=== PATIENT | male | born 1950 | race Caucasian/White ===

== ENCOUNTER 2021-12-08 13:49 | Emergency (ER) | payer MEDICARE, SELFPAY ==
--- NOTE | ~2021-12-08 | CT_ITS ---
EXAMINATION: CT HEAD WITHOUT CONTRAST CLINICAL INFORMATION: Fall and hit head and patellofemoral through the wall COMPARISON: None TECHNIQUE: Contiguous axial imaging was performed from the skull base to vertex without intravenous administration of contrast. This CT examination was performed using dose optimization techniques as appropriate, variously including the following: *Automated exposure control *Adjustment of mA and/or kV according to patient size (this includes techniques or standardized protocols for targeted exams where dose is matched to indication/reason for exam; i.e. extremities or head) *Use of iterative reconstruction technique DLP: 822 mGy-cm FINDINGS: There is no acute intra-axial, extra-axial bleed, masses or midline shift. There is hypodensity in left posterior parietal lobe suggestive of old infarct. There is no acute infarct in evolution. There is no edema. The lateral ventricles are moderately enlarged and symmetrical. The right basal ganglia lacunar infarct. There is diffuse periventricular hypodensity suggestive chronic small vessel ischemic changes. 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 Bone windows reveal no calvarial abnormality except for 2 left-sided frontal and parietal will holes. No scalp abnormality seen either. There is small polyp or retention cyst left maxillary sinus. CT/CT head/brain wo con IMPRESSION: No acute intracranial process seen. Old left parietal lobe infarct. No acute infarct. Moderate cerebral volume loss with chronic small vessel ischemic changes. Small lacunar infarct right basal ganglia.
--- NOTE | 2021-12-08 13:54 | ED.FALL ---
HPI - Fall General Chief Complaint: Fall Stated Complaint: FALL NO COMPLAINTS FROM PT PER EMS Time Seen by Provider: 12/08/21 13:54 Source: EMS Mode of arrival: EMS Limitations: other (dementia) History of Present Illness HPI Narrative: Patient is in a dementia unit states he tripped over his shoes and can not get back up. senior care states now that he put a hole in the wall with his head. According to the staff his legs are chronically red. complaint: fall Onset (ago): minute(s) Fall from: standing Fall witnessed: no Place fall occurred: [facility] Loss of consciousness: none Prolonged down time: no Symptoms prior to fall: none Context: tripped/slipped Related Data Allergies Allergy/AdvReac Type Severity Reaction Status Date / Time No Known Allergies Allergy Verified 12/08/21 14:14 Review of Systems Review of Systems: Yes Unobtainable due to mental status Neurologic: Denies Sensory deficit (Neuro) [facility] Social History Social History Patient Tobacco Use Status: Never used Tobacco Use of substances other than those prescribed or required for medical reasons: No Advance Directives: No Advance Directives Information Provided: No Physical Exam Vital Signs: Vital Signs: Last Vital Signs Temp 97.6 F 12/08/21 14:14 Pulse 64 12/08/21 14:14 Resp 18 12/08/21 14:14 BP 111/57 L 12/08/21 14:14 Pulse Ox 97 12/08/21 14:14 BMI result Body Mass Index 33.2 Const: Other: Male looking older than stated age Nutritional Appearance: average body habitus Orientation/consciousness: oriented to person Limitations: other limitations (dementia) HENMT: Head: Yes normal to inspection Ears: external ears normal General nose exam: Normal external nose present Mouth: Normal oral and palatal mucosa present and oropharynx normal Throat: Yes posterior oropharynx normal Eyes: General: appearance normal, both eyes and all related structures Neck: Other: supple Neck: Yes normal visual inspection Chest: Chest palpation & inspection: normal inspection of the chest Resp: Auscultation: clear to auscultation bilaterally Cardio: Jugular venous distension: no JVD Rate: regular rate Rhythm: regular rhythm Heart sounds: S1 normal heart sound present and S2 normal heart sound present GI: Inspection: Yes normal to inspection Palpation (GI): Soft to palpation, nontender and No hepatosplenomegaly present Auscultation: normal bowel sounds : General: Yes no CVA tenderness Back/Spine/Pelvis: Back: no CVA tenderness Skin: General skin exam: no rashes or lesions noted Neuro: General: oriented to person Cranial nerves: Yes CN's II-XII intact bilaterally Motor exam (neuro): 5/5 motor strength present throughout Sensory Exam: No Sensory deficit (Neuro) Extrem: Other: bilateral lower extremity 3+ edema with chronic erythema according to report from [facility] Psych: Other: unkept, agitated at times Course Reevaluation(s) Reevaluation #1: no evidence of intracranial injury or other injuries from fall will dc Time: 16:29 MDM - Fall Imaging Data CT scan - head: Radiologist's impression: FINDINGS: There is no acute intra-axial, extra-axial bleed, masses or midline shift.? There is hypodensity in left posterior parietal lobe suggestive of old infarct. There is no acute infarct in evolution. There is no edema. The lateral ventricles are moderately enlarged and symmetrical. The right basal ganglia lacunar infarct. There is diffuse periventricular hypodensity suggestive chronic small vessel ischemic changes. 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 Bone windows reveal no calvarial abnormality except for 2 left-sided frontal and parietal will holes. No scalp abnormality seen either. There is small polyp or retention cyst left maxillary sinus. CT/CT head/brain wo con IMPRESSION: No acute intracranial process seen. ? Old left parietal lobe infarct. No acute infarct. ? Moderate cerebral volume loss with chronic small vessel ischemic changes. ? Small lacunar infarct right basal ganglia. Discharge Plan Discharge Clinical Impression: Blunt head trauma Patient Disposition: Home, Self-Care Instructions: Head Injury (ED) Referrals: Arturo Mcgee MD [Primary Care Provider] - 1 week
[2021-12-08 14:14] VITALS: BP 111/57; PULSE 64; RESP 18; TEMP 36.4; O2SAT 97; BMI 33.2
--- NOTE | 2021-12-08 17:25 | PC.NURSE ---
Spoke with Andressa from [facility] about pt return and negative CT
[2021-12-08 18:48] VITALS: BP 143/78; PULSE 64; RESP 16; O2SAT 100
[2021-12-08 19:58] VITALS: BP 146/86; PULSE 67; RESP 16; O2SAT 97
== END 2021-12-08 20:19 | disposition home or self-care (01) ==
PROVIDERS: Emergency Provider Emergency Medicine; PCP Family Medicine
DX: S09.90XA Unspecified injury of head, initial encounter (principal); W01.198A Fall on same level from slipping, tripping and stumbling with subsequent striking against other object, initial encounter; F03.90 Unspecified dementia, unspecified severity, without behavioral disturbance, psychotic disturbance, mood disturbance, and anxiety; R60.0 Localized edema; Y93.89 Activity, other specified; Y92.129 Unspecified place in nursing home as the place of occurrence of the external cause; Y99.9 Unspecified external cause status
CPT/HCPCS: 70450; 99284

== ENCOUNTER 2022-02-26 12:06 | Emergency (ER) | payer MEDICARE, SELFPAY ==
--- NOTE | ~2022-02-26 | CT_ITS ---
CT HEAD WITHOUT IV CONTRAST CT CERVICAL SPINE WITHOUT IV CONTRAST INDICATION: Fall. COMPARISON: None available. TECHNIQUE: Multidetector CT acquisitions of the head and cervical spine were obtained without IV contrast. Multiplanar reformats were acquired and utilized for image interpretation. This CT examination was performed using dose optimization techniques as appropriate, variously including the following: *Automated exposure control *Adjustment of mA and/or kV according to patient size (this includes techniques or standardized protocols for targeted exams where dose is matched to indication/reason for exam; i.e. extremities or head) *Use of iterative reconstruction technique FINDINGS: HEAD: Artifact from embolization coil material and a stent associated with the intracranial left internal carotid artery. Chronic ischemic changes within the left greater the right cerebral hemisphere again noted. Atherosclerotic calcification throughout the intracranial arterial vasculature. There is global cerebral volume loss. There is no intracranial hemorrhage, hydrocephalus, extra-axial surface collection, midline shift, or other herniation pattern. Mora to white matter differentiation is diffusely maintained without evidence of an evolved acute territorial infarct. The basilar cisterns are preserved. Left occipital scalp lipoma partially imaged. CERVICAL SPINE: Multilevel cervical spondylosis. Straightening the cervical lordosis. No acute fractures and no acute subluxations. 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 Multinodular thyroid gland including a dominant calcified 1.8 cm left thyroid lobe nodule that can be further assessed with ultrasound. CT/CT cervical spine wo con IMPRESSION: - No acute intracranial findings. Chronic postoperative changes and chronic ischemic changes as discussed above. - No acute osseous findings within the cervical spine. - Multinodular thyroid gland including a dominant calcified 1.8 cm left thyroid lobe nodule that can be further assessed with ultrasound.
--- NOTE | ~2022-02-26 | US_ITS ---
EXAMINATION: US VENOUS ULTRASOUND WITH DOPPLER LOWER EXTREMITY, RIGHT CLINICAL INFORMATION: Warm, hot calf. COMPARISON: None TECHNIQUE: Ultrasound of the deep veins is performed from the hip to the calf with compression sonography and color and pulse Doppler assessment. Spectral analysis with color-flow imaging is performed. FINDINGS: There is normal venous compression and respiratory variation and augmented flow. The visualized common femoral vein, superficial femoral vein, profunda femoral vein, popliteal vein, and the trifurcation region shows no evidence of deep venous thrombosis. No right popliteal cyst. Moderate right calf subcutaneous edema. No focal fluid collection. If the patient's symptoms persist, followup ultrasound in 5 days 7 days might be of value to exclude proximal propagation from a non-visualized calf vein. US/US venous duplex LE RT IMPRESSION: 1. No DVT demonstrated in the right lower extremity. 2. Moderate right calf subcutaneous edema.
[2022-02-26 12:30] VITALS: BP 109/57; BP 110/70; PULSE 62; PULSE 72; RESP 16; TEMP 36.9; O2SAT 96; BMI 32.7
--- NOTE | 2022-02-26 12:35 | ED.GENADULT ---
HPI - General Adult General Chief complaint: Fall <CATHRYN Siddiqui Last Filed: 02/26/22 18:02> Stated complaint: fall <CATHRYN Siddiqui Last Filed: 02/26/22 18:02> Time Seen by Provider: 02/26/22 12:34 <CATHRYN Siddiqui Last Filed: 02/26/22 18:02> Source: patient <CATHRYN Siddiqui Last Filed: 02/26/22 18:02> Mode of arrival: ambulatory <CATHRYN Siddiqui Last Filed: 02/26/22 18:02> Limitations: no limitations <CATHRYN Siddiqui Last Filed: 02/26/22 18:02> History of Present Illness HPI narrative: 71-year-old male presents from his senior living for fall. Patient lives at [facility]. Staff there say he fell in the living room, did not strike his head, did not lose consciousness. Patient is not endorsing any pain, he is not on blood thinners. Patient's past medical history of dementia, hypertension, hyperlipidemia, diabetes, venous stasis, anxiety, depression, obstructive sleep apnea. He has a MOLST, and is DNR DNI <CATHRYN Siddiqui Last Filed: 02/26/22 18:02> Related Data Home medications: Previous Rx's Medication Instructions Recorded cephalexin 500 mg capsule 500 mg PO QID 10 Days #40 cap 02/26/22 <CATHRYN Siddiqui Last Filed: 02/26/22 18:02> Allergies/adverse reactions: Allergies Allergy/AdvReac Type Severity Reaction Status Date / Time No Known Allergies Allergy Verified 12/08/21 14:14 <CATHRYN Siddiqui Last Filed: 02/26/22 18:02> Review of Systems Review of Systems: Patient does give me a review of systems, however he has a history of dementia, unclear the accuracy of this review of systems <CATHRYN Siddiqui Last Filed: 02/26/22 18:02> Constitutional: Constitutional: Denies chills, Denies fatigue, Denies fever(s) and Denies headache(s) <CATHRYN Siddiqui Last Filed: 02/26/22 18:02> Eyes: Eyes: Denies blurry vision <CATHRYN Siddiqui - Last Filed: 02/26/22 18:02> ENT: Denies dental pain, Denies facial pain, Denies headache(s), Denies mouth pain and Denies neck pain <Cari Toure CO - Last Filed: 02/26/22 18:02> Cardiovascular: Cardiovascular: Denies chest pain, Denies syncope and Denies lightheadedness <Cari Toure CO - Last Filed: 02/26/22 18:02> Respiratory: Respiratory: Denies chest congestion, Denies cough and Denies wheezing <Cari Toure CO - Last Filed: 02/26/22 18:02> Gastrointestinal: Gastrointestinal: Denies abdominal pain, Denies diarrhea and Denies vomiting <CATHRYN Siddiqui - Last Filed: 02/26/22 18:02> Genitourinary: Genitourinary: Reports no additional male genitourinary complaints <CATHRYN Siddiqui - Last Filed: 02/26/22 18:02> Musculoskeletal: Musculoskeletal: Denies back pain, Denies neck pain, Denies numbness and Denies tingling <Cari Toure CO - Last Filed: 02/26/22 18:02> Integumentary/Breasts: Skin/Breast: Denies skin pain <CATHRYN Siddiqui - Last Filed: 02/26/22 18:02> Neurologic: Reports confusion, Denies syncope, Denies headache(s), Denies numbness and Denies tingling <CATHRYN Siddiqui - Last Filed: 02/26/22 18:02> Psychiatric: Psychiatric: Reports confusion <Cari Toure CO - Last Filed: 02/26/22 18:02> Endocrine: Endocrine: Denies fatigue <Cari Toure CO - Last Filed: 02/26/22 18:02> Allergic/Immunologic: Allergic/Immunologic: Denies wheezing <CATHRYN Siddiqui - Last Filed: 02/26/22 18:02> [facility] Past Medical History [facility] Narrative: Dementia, hypertension, hyperlipidemia, diabetes, venous stasis, obstructive sleep apnea, anxiety, depression <CATHRYN Siddiqui - Last Filed: 02/26/22 18:02> Social History Social History: Social History Alcohol intake: unknown Patient Tobacco Use Status: Never used Tobacco Use of substances other than those prescribed or required for medical reasons: Unknown Advance Directives: Yes Advance Directives Information Provided: Yes Advance Directives on File: No <CATHRYN Siddiqui Last Filed: 02/26/22 18:02> Physical Exam ED Vital Signs: Vital Signs - 24 hr 02/26/22 12:30 02/26/22 16:20 02/26/22 17:12 Temperature 98.5 F 98.1 F Pulse Rate 62 63 63 Respiratory Rate 16 17 20 Blood Pressure 109/57 L 130/71 Pulse Oximetry 96 96 BMI result Body Mass Index 32.7 <CATHRYN Siddiqui Last Filed: 02/26/22 18:02> Vital Signs - 24 hr 02/26/22 12:30 02/26/22 16:20 02/26/22 17:12 Temperature 98.5 F 98.1 F Pulse Rate 62 63 63 Respiratory Rate 16 17 20 Blood Pressure 109/57 L 130/71 Pulse Oximetry 96 96 BMI result Body Mass Index 32.7 <CATHRYN Blank - Last Filed: 02/26/22 18:49> Const General: cooperative, no acute distress, alert, awake and confusion <CATHRYN Siddiqui Last Filed: 02/26/22 18:02> Nutritional Appearance: well nourished <CATHRYN Siddiqui - Last Filed: 02/26/22 18:02> Orientation/consciousness: oriented to person, oriented to place, No oriented to time and confusion <CATHRYN Siddiqui Last Filed: 02/26/22 18:02> HENMT Head: Yes normal to inspection, Yes normocephalic and Yes atraumatic <CATHRYN Siddiqui - Last Filed: 02/26/22 18:02> Ears: hearing grossly normal bilaterally, external ears normal, TM's normal bilaterally and EAC's normal <CATHRYN Siddiqui Last Filed: 02/26/22 18:02> General nose exam: Normal external nose present <CATHRYN Siddiqui Last Filed: 02/26/22 18:02> Face and sinus: Yes normal facial exam and Yes sinuses nontender <Cari Toure [facility] Last Filed: 02/26/22 18:02> Mouth: Normal oral and palatal mucosa present <Cari Toure [facility] Last Filed: 02/26/22 18:02> Teeth and gingiva: dentition normal <Cari Toure [facility] Last Filed: 02/26/22 18:02> Throat: Yes posterior oropharynx normal <Cari Toure [facility] Last Filed: 02/26/22 18:02> Eyes Conjunctivae: conjunctivae normal <Cari Toure [facility] Last Filed: 02/26/22 18:02> Pupils: Equal, round and reactive pupils present <Cari Toure [facility] Last Filed: 02/26/22 18:02> EOM: EOMs intact bilaterally <Cari Toure [facility] Last Filed: 02/26/22 18:02> Neck Other: Patient in C-collar <Cari Toure [facility] Last Filed: 02/26/22 18:02> Neck: Yes supple <Cari Toure [facility] Last Filed: 02/26/22 18:02> Chest Chest palpation & inspection: normal inspection of the chest <Cari Toure [facility] Last Filed: 02/26/22 18:02> Resp Effort & Inspection: normal respiratory effort and able to speak in complete sentences <Cari Toure [facility] Last Filed: 02/26/22 18:02> Auscultation: clear to auscultation bilaterally, no crackles, no rales, no rhonchi and no wheezes <Cari Toure [facility] Last Filed: 02/26/22 18:02> Cardio Rate: regular rate <Cari Toure [facility] Last Filed: 02/26/22 18:02> Rhythm: regular rhythm <Cari Toure [facility] Last Filed: 02/26/22 18:02> Heart sounds: S1 normal heart sound present and S2 normal heart sound present <Cari Toure [facility] Last Filed: 02/26/22 18:02> GI Inspection: Yes normal to inspection <Cari Toure [facility] Last Filed: 02/26/22 18:02> Palpation (GI): Soft to palpation, nontender, no guarding and not rigid <CATHRYN Siddiqui Last Filed: 02/26/22 18:02> Percussion: Yes normal to percussion <CATHRYN Siddiqui Last Filed: 02/26/22 18:02> Auscultation: normal bowel sounds <CATHRYN Siddiqui Last Filed: 02/26/22 18:02> Skin Other: Warm, red, peeling skin right lower extremity Red rash below pannus in inguinal crease right side worse than left <CATHRYN Siddiqui Last Filed: 02/26/22 18:02> Neuro General: oriented to person, oriented to place, No oriented to time, tone normal, moves all extremities and confusion <CATHRYN Siddiqui Last Filed: 02/26/22 18:02> Cranial nerves: Yes Equal, round and reactive pupils present <CATHRYN Siddiqui Last Filed: 02/26/22 18:02> Extrem Right lower extremity: normal capillary refill, edema Details: non-pitting and 2+, lower leg Details: erythema, tenderness, localized swelling and warmth and foot Details: normal capillary refill; No no cyanosis <CATHRYN Siddiqui Last Filed: 02/26/22 18:02> Psych Appearance: grossly normal <CATHRYN Siddiqui Last Filed: 02/26/22 18:02> Affect: normal affect <CATHRYN Siddiqui Last Filed: 02/26/22 18:02> Attitude: cooperative <CATHRYN Siddiqui Last Filed: 02/26/22 18:02> Thought process: Normal thought process present <CATHRYN Siddiqui Last Filed: 02/26/22 18:02> Course Course Course Narrative: 71-year-old male with past medical history of dementia, venous stasis, diabetes, who presents from a senior living for a fall in their living room. Patient gives a negative review of systems, however patient has dementia, unclear how accurate this information is. On exam, patient has a benign neurological exam, he is afebrile, blood pressure 109/57. Patient is alert to person and place, not to time. States he fell in the shower, senior living says he fell in the living room Patient has a right, warm, swollen, tender calf. It is will get EKG, troponin, urine, labs, CT head and cervical spine, ultrasound right lower extremity Patient denies any pain, although he is bothered by his C-collar <CATHRYN Siddiqui - Last Filed: 02/26/22 18:02> Reevaluation(s) Reevaluation #1: Patient is refusing blood work, and took off his C-collar Patient is refusing EKG, refusing ultrasound Called Eusebia Lowery, the contact in patient's chart, left a voicemail message Our payroll secretary called the senior living left a voicemail message I spoke with patient again, discussed that the longer he refuses care, the longer will take to get him back home. Patient finally agreed Patient given 10 mg Zyprexa <CATHRYN Siddiqui Last Filed: 02/26/22 18:02> Reevaluation #2: CT/CT cervical spine wo con IMPRESSION: - No acute intracranial findings. Chronic postoperative changes and chronic ischemic changes as discussed above. - No acute osseous findings within the cervical spine. - Multinodular thyroid gland including a dominant calcified 1.8 cm left thyroid lobe nodule that can be further assessed with ultrasound. Spoke to Eusebia Lowery patient's guardian, who states patient has a negative attitude about everything at baseline. States that patient fell a few months ago, and had to stay in the emergency room for a day or 2, and the patient did like that. She also states that the patient is scared of needles. Spoke to Sarika, who called back, told me Eusebia who is his guardian is also his cousin in healthcare proxy. Stated that patient is resistant to all care, resistant to showering, resistant to tooth brushing, even hard to change amount of a white brief. Patient is in a dementia unit in assisted living, he wants to get his own apartment but is incapable of doing so. February 05 patient was on a 10 day course that he completed for cellulitis of his right lower extremity. Sarika states that the cellulitis is no worse but not a lot better <CATHRYN Siddiqui Last Filed: 02/26/22 18:02> Reevaluation #3: Labs are remarkable for an H&H of 9.6 and 29.9, platelets 124, creatinine 1.78, BUN 42, patient is hyperkalemic at 6.1. Will repeat BNP, concern for potassium hemolyzing EKG is nonischemic, troponin 6.3 Awaiting urine, ultrasound <CATHRYN Siddiqui - Last Filed: 02/26/22 18:02> Additional Reevaluation(s): US/US venous duplex LE RT IMPRESSION: 1. No DVT demonstrated in the right lower extremity. 2. Moderate right calf subcutaneous edema. Will treat hyperkalemia with albuterol and kayexalate, and repeat BMP afterwards Urine has +1 leukocyte esterase. Patient also has a cellulitis that needs antibiotics. Cephalexin will treat both. I did order to the pharmacy. Signed pt out to Paz Mccall PA-C If pt's potassium is trending down, pt can most likely be discharged bck to [facility] <CATHRYN Siddiqui - Last Filed: 02/26/22 18:02> US/US venous duplex LE RT IMPRESSION: 1. No DVT demonstrated in the right lower extremity. 2. Moderate right calf subcutaneous edema. Will treat hyperkalemia with albuterol and kayexalate, and repeat BMP afterwards Urine has +1 leukocyte esterase. Patient also has a cellulitis that needs antibiotics. Cephalexin will treat both. I did order to the pharmacy. Signed pt out to Paz Mccall PA-C If pt's potassium is trending down, pt can most likely be discharged back to assisted living 1849: Patient's potassium has come down. Patient to be discharged back to his living facility. <CATHRYN Blank - Last Filed: 02/26/22 18:49> Medical Decision Making Lab Data Result diagrams: : 02/26/22 14:57 02/26/22 18:12 <CATHRYN Siddiqui Last Filed: 02/26/22 18:02> Labs: Lab Results 02/26/22 02/26/22 02/26/22 Range/Units 14:57 14:57 14:57 WBC 7.7 (4.8-10.8) X10*3/uL RBC 2.99 L (4.60-5.80) X10*6/uL Hgb 9.6 L (14.0-18.0) g/dl Hct 29.9 L (42.0-52.0) % MCV 100.0 H (80.0-98.0) fL MCH 32.1 (27.0-33.0) pg MCHC 32.1 (31.0-36.0) g/dl RDW 12.5 (11.0-16.0) % Plt Count 124 L (160-400) X10*3/uL MPV 11.5 (9.4-12.4) fL Immature Gran % (Auto) 0.3 (0.0-0.4) % Neut % (Auto) 78.6 H (45-73) % Lymph % (Auto) 10.5 L (20-40) % [place] % (Auto) 8.4 (2-11) % Eos % (Auto) 1.8 (0-4) % Baso % (Auto) 0.4 (0-2) % Lymph # (Auto) 0.8 L (1.2-4.9) X10*3/uL [place] # (Auto) 0.7 (0.1-1.2) X10*3/uL Eos # (Auto) 0.1 (0.0-0.4) X10*3/uL Baso # (Auto) 0.0 (0.0-0.2) X10*3/uL Abs Immat Gran (auto) 0.02 (0.00-0.03) X10*3/uL Absolute Neuts (auto) 6.1 (2.0-8.3) x10*3/uL Absolute Nucleated RBC 0.000 (0.0-0.012) X10*3/uL Nucleated RBC % (auto) 0.0 (0.0-0.2) /100WBC Sodium 137 (135-145) mmol/L Potassium 6.1 H* (3.3-5.1) mmol/L Chloride 113 H (96-108) mmol/L Carbon Dioxide 20 L (22-29) mmol/L Anion Gap 10 L (12-20) BUN 42 H (9-16) mg/dL Creatinine 1.78 H (0.5-1.4) mg/dL Estim Creat Clear Calc 41.8 Estimated GFR 38 Random Glucose 96 (60-115) mg/dL Calcium 8.9 (8.4-10.2) mg/dL Total Bilirubin 0.7 (0.0-1.0) mg/dL AST 14 (5-37) U/L ALT 15 (0-40) U/L Alkaline Phosphatase 80 (39-117) U/L Troponin I High Sens 6.3 (<3.5-35.0) ng/L Total Protein 6.1 L (6.5-8.0) g/dL Albumin 3.7 (3.5-5.0) g/dL Urine Color Urine Appearance Urine pH (5.0-8.0) Ur Specific Hawkins (1.005-1.025) Urine Protein (NEG-TRACE) MG/DL Urine Glucose (UA) (NEG) MG/DL Urine Ketones (NEG) MG/DL Urine Blood (NEG) Urine Nitrite (NEG) Ur Leukocyte Esterase (NEG) Urine RBC (0) /HPF Urine WBC (0-4) /HPF Ur Squamous Epith Cells /LPF Urine Bacteria /LPF COVID-19 (KHADRA) (Negative) COVID-19 Clin Com 02/26/22 02/26/22 02/26/22 Range/Units 15:53 16:36 18:12 WBC (4.8-10.8) X10*3/uL RBC (4.60-5.80) X10*6/uL Hgb (14.0-18.0) g/dl Hct (42.0-52.0) % MCV (80.0-98.0) fL MCH (27.0-33.0) pg MCHC (31.0-36.0) g/dl RDW (11.0-16.0) % Plt Count (160-400) X10*3/uL MPV (9.4-12.4) fL Immature Gran % (Auto) (0.0-0.4) % Neut % (Auto) (45-73) % Lymph % (Auto) (20-40) % [place] % (Auto) (2-11) % Eos % (Auto) (0-4) % Baso % (Auto) (0-2) % Lymph # (Auto) (1.2-4.9) X10*3/uL [place] # (Auto) (0.1-1.2) X10*3/uL Eos # (Auto) (0.0-0.4) X10*3/uL Baso # (Auto) (0.0-0.2) X10*3/uL Abs Immat Gran (auto) (0.00-0.03) X10*3/uL Absolute Neuts (auto) (2.0-8.3) x10*3/uL Absolute Nucleated RBC (0.0-0.012) X10*3/uL Nucleated RBC % (auto) (0.0-0.2) /100WBC Sodium 140 (135-145) mmol/L Potassium 4.9 (3.3-5.1) mmol/L Chloride 113 H (96-108) mmol/L Carbon Dioxide 19 L (22-29) mmol/L Anion Gap 13 (12-20) BUN 38 H (9-16) mg/dL Creatinine 1.67 H (0.5-1.4) mg/dL Estim Creat Clear Calc 44.6 Estimated GFR 41 Random Glucose 134 H D (60-115) mg/dL Calcium 9.1 (8.4-10.2) mg/dL Total Bilirubin (0.0-1.0) mg/dL AST (5-37) U/L ALT (0-40) U/L Alkaline Phosphatase (39-117) U/L Troponin I High Sens (<3.5-35.0) ng/L Total Protein (6.5-8.0) g/dL Albumin (3.5-5.0) g/dL Urine Color YELLOW Urine Appearance CLEAR Urine pH 5.5 (5.0-8.0) Ur Specific Hawkins 1.020 (1.005-1.025) Urine Protein NEG (NEG-TRACE) MG/DL Urine Glucose (UA) NEG (NEG) MG/DL Urine Ketones 5 (NEG) MG/DL Urine Blood NEG (NEG) Urine Nitrite NEG (NEG) Ur Leukocyte Esterase 1+ H (NEG) Urine RBC 0 (0) /HPF Urine WBC 1-4 (0-4) /HPF Ur Squamous Epith Cells 1+ /LPF Urine Bacteria TRACE /LPF COVID-19 (KHADRA) Negative (Negative) COVID-19 Clin Com See Note <CATHRYN Siddiqui - Last Filed: 05/13/22 18:02> Lab Results 02/26/22 02/26/22 02/26/22 Range/Units 14:57 14:57 14:57 WBC 7.7 (4.8-10.8) X10*3/uL RBC 2.99 L (4.60-5.80) X10*6/uL Hgb 9.6 L (14.0-18.0) g/dl Hct 29.9 L (42.0-52.0) % MCV 100.0 H (80.0-98.0) fL MCH 32.1 (27.0-33.0) pg MCHC 32.1 (31.0-36.0) g/dl RDW 12.5 (11.0-16.0) % Plt Count 124 L (160-400) X10*3/uL MPV 11.5 (9.4-12.4) fL Immature Gran % (Auto) 0.3 (0.0-0.4) % Neut % (Auto) 78.6 H (45-73) % Lymph % (Auto) 10.5 L (20-40) % [place] % (Auto) 8.4 (2-11) % Eos % (Auto) 1.8 (0-4) % Baso % (Auto) 0.4 (0-2) % Lymph # (Auto) 0.8 L (1.2-4.9) X10*3/uL [place] # (Auto) 0.7 (0.1-1.2) X10*3/uL Eos # (Auto) 0.1 (0.0-0.4) X10*3/uL Baso # (Auto) 0.0 (0.0-0.2) X10*3/uL Abs Immat Gran (auto) 0.02 (0.00-0.03) X10*3/uL Absolute Neuts (auto) 6.1 (2.0-8.3) x10*3/uL Absolute Nucleated RBC 0.000 (0.0-0.012) X10*3/uL Nucleated RBC % (auto) 0.0 (0.0-0.2) /100WBC Sodium 137 (135-145) mmol/L Potassium 6.1 H* (3.3-5.1) mmol/L Chloride 113 H (96-108) mmol/L Carbon Dioxide 20 L (22-29) mmol/L Anion Gap 10 L (12-20) BUN 42 H (9-16) mg/dL Creatinine 1.78 H (0.5-1.4) mg/dL Estim Creat Clear Calc 41.8 Estimated GFR 38 Random Glucose 96 (60-115) mg/dL Calcium 8.9 (8.4-10.2) mg/dL Total Bilirubin 0.7 (0.0-1.0) mg/dL AST 14 (5-37) U/L ALT 15 (0-40) U/L Alkaline Phosphatase 80 (39-117) U/L Troponin I High Sens 6.3 (<3.5-35.0) ng/L Total Protein 6.1 L (6.5-8.0) g/dL Albumin 3.7 (3.5-5.0) g/dL Urine Color Urine Appearance Urine pH (5.0-8.0) Ur Specific Hawkins (1.005-1.025) Urine Protein (NEG-TRACE) MG/DL Urine Glucose (UA) (NEG) MG/DL Urine Ketones (NEG) MG/DL Urine Blood (NEG) Urine Nitrite (NEG) Ur Leukocyte Esterase (NEG) Urine RBC (0) /HPF Urine WBC (0-4) /HPF Ur Squamous Epith Cells /LPF Urine Bacteria /LPF COVID-19 (KHADRA) (Negative) COVID-19 Clin Com 02/26/22 02/26/22 02/26/22 Range/Units 15:53 16:36 18:12 WBC (4.8-10.8) X10*3/uL RBC (4.60-5.80) X10*6/uL Hgb (14.0-18.0) g/dl Hct (42.0-52.0) % MCV (80.0-98.0) fL MCH (27.0-33.0) pg MCHC (31.0-36.0) g/dl RDW (11.0-16.0) % Plt Count (160-400) X10*3/uL MPV (9.4-12.4) fL Immature Gran % (Auto) (0.0-0.4) % Neut % (Auto) (45-73) % Lymph % (Auto) (20-40) % [place] % (Auto) (2-11) % Eos % (Auto) (0-4) % Baso % (Auto) (0-2) % Lymph # (Auto) (1.2-4.9) X10*3/uL [place] # (Auto) (0.1-1.2) X10*3/uL Eos # (Auto) (0.0-0.4) X10*3/uL Baso # (Auto) (0.0-0.2) X10*3/uL Abs Immat Gran (auto) (0.00-0.03) X10*3/uL Absolute Neuts (auto) (2.0-8.3) x10*3/uL Absolute Nucleated RBC (0.0-0.012) X10*3/uL Nucleated RBC % (auto) (0.0-0.2) /100WBC Sodium 140 (135-145) mmol/L Potassium 4.9 (3.3-5.1) mmol/L Chloride 113 H (96-108) mmol/L Carbon Dioxide 19 L (22-29) mmol/L Anion Gap 13 (12-20) BUN 38 H (9-16) mg/dL Creatinine 1.67 H (0.5-1.4) mg/dL Estim Creat Clear Calc 44.6 Estimated GFR 41 Random Glucose 134 H D (60-115) mg/dL Calcium 9.1 (8.4-10.2) mg/dL Total Bilirubin (0.0-1.0) mg/dL AST (5-37) U/L ALT (0-40) U/L Alkaline Phosphatase (39-117) U/L Troponin I High Sens (<3.5-35.0) ng/L Total Protein (6.5-8.0) g/dL Albumin (3.5-5.0) g/dL Urine Color YELLOW Urine Appearance CLEAR Urine pH 5.5 (5.0-8.0) Ur Specific Hawkins 1.020 (1.005-1.025) Urine Protein NEG (NEG-TRACE) MG/DL Urine Glucose (UA) NEG (NEG) MG/DL Urine Ketones 5 (NEG) MG/DL Urine Blood NEG (NEG) Urine Nitrite NEG (NEG) Ur Leukocyte Esterase 1+ H (NEG) Urine RBC 0 (0) /HPF Urine WBC 1-4 (0-4) /HPF Ur Squamous Epith Cells 1+ /LPF Urine Bacteria TRACE /LPF COVID-19 (KHADRA) Negative (Negative) COVID-19 Clin Com See Note <CATHRYN Blank Last Filed: 02/26/22 18:49> ECG Data Interpretation: Sinus at a rate of 63, VT interval 198, QRS 86, QTC 401, left axis, no ST depression or elevation, nonspecific T-wave abnormalities <CATHRYN Siddiqui Last Filed: 02/26/22 18:02> Discharge Plan Discharge Clinical Impression: Cellulitis, Acute hyperkalemia, Emilia infection of genital region, Acute UTI <CATHRYN Siddiqui Last Filed: 02/26/22 18:02> Patient Disposition: Home, Self-Care <CATHRYN Siddiqui Last Filed: 02/26/22 18:02> Instructions: Urinary Tract Infection in Men (ED), Cellulitis (ED), Hyperkalemia (ED) <CATHRYN Siddiqui Last Filed: 02/26/22 18:02> Additional Instructions: You have cellulitis and a UTI, Keflex will treat both of these, take every 6 hours for the next 10 days. You had an elevated potassium level today, please follow-up with the primary care provider We did give you Zyprexa today, this may be a useful addition to your daily medications, please discuss with your primary care provider Please return to emergency room for any new or concerning symptoms <CATHRYN Siddiqui Last Filed: 02/26/22 18:02> Prescriptions: New cephalexin 500 mg capsule 500 mg PO QID 10 Days Qty: 40 0RF <CATHRYN Siddiqui Last Filed: 02/26/22 18:02> Print Language: Tristanian <CATHRYN Siddiqui Last Filed: 02/26/22 18:02>
--- NOTE | 2022-02-26 13:03 | ECG_ITS ---
Test Reason : FALL Blood Pressure : / mmHG Vent. Rate : 063 BPM Atrial Rate : 063 BPM P-R Int : 198 ms QRS Dur : 086 ms QT Int : 392 ms P-R-T Axes : 053 015 079 degrees QTc Int : 401 ms Normal sinus rhythm Nonspecific T wave abnormality Abnormal ECG No previous ECGs available Referred By: Cari Toure Electronically Signed By:TEETEE SCOTT MD
--- NOTE | 2022-02-26 13:59 | PC.NURSE ---
PT CONTINUES TO REFUSE CARE AND DX TESTING
[2022-02-26] MEDS: OLANZapine 10 MG TABLET PO (14:07)
[2022-02-26 15:02] LABS: MANUAL DIFF FLAG NO
[2022-02-26 15:14] LABS: Basophils Percent Auto 0.4 % (0-2); Eosinophils Absolute Auto 0.1 X10*3/uL (0.0-0.4); Eosinophils Percent Auto 1.8 % (0-4); Hematocrit 29.9 % (42.0-52.0); Hemoglobin 9.6 g/dl (14.0-18.0); Imm Gran Abs Auto 0.02 X10*3/uL (0.00-0.03); Imm Gran Pct Auto 0.3 % (0.0-0.4); Lymphocytes Absolute Auto 0.8 X10*3/uL (1.2-4.9); Lymphocytes Percent Auto 10.5 % (20-40); Mean Corpuscular HGB Conc 32.1 g/dl (31.0-36.0); Mean Corpuscular Hemoglobin 32.1 pg (27.0-33.0); Mean Platelet Volume 11.5 fL (9.4-12.4); Monocytes Absolute Auto 0.7 X10*3/uL (0.1-1.2); Monocytes Percent Auto 8.4 % (2-11); Neutrophils Absolute Auto 6.1 x10*3/uL (2.0-8.3); Neutrophils Percent Auto 78.6 % (45-73); Platelet Count 124 X10*3/uL (160-400); Red Blood Count 2.99 X10*6/uL (4.60-5.80); Red Cell Distribution Width 12.5 % (11.0-16.0); White Blood Count 7.7 X10*3/uL (4.8-10.8)
[2022-02-26 15:26] LABS: Alanine Aminotransferase 15 U/L (0-40); Albumin Level 3.7 g/dL (3.5-5.0); Alkaline Phosphatase 80 U/L (39-117); Anion Gap 10 (12-20); Aspartate Amino Transferase 14 U/L (5-37); Bilirubin Total 0.7 mg/dL (0.0-1.0); Blood Urea Nitrogen 42 mg/dL (9-16); Calcium 8.9 mg/dL (8.4-10.2); Carbon Dioxide 20 mmol/L (22-29); Chloride 113 mmol/L (96-108); Creatinine Clr Calc Pharmacy 41.8; Estimated Glomerular Filt Rate 38; Glucose Random 96 mg/dL (60-115); Potassium 6.1 mmol/L (3.3-5.1); Sodium 137 mmol/L (135-145); Total Protein 6.1 g/dL (6.5-8.0)
[2022-02-26 15:39] LABS: Troponin-I High Sensitivity 6.3 ng/L (<3.5-35.0)
[2022-02-26 16:14] LABS: COVID-19 Test Negative (Negative); IDNOW Serial# 16C4AD1C
[2022-02-26 16:20] VITALS: BP 130/71; PULSE 63; RESP 17; TEMP 36.7; O2SAT 96
[2022-02-26 16:51] LABS: Appearance Urine CLEAR; Color Urine YELLOW; Glucose Urine UA NEG (NEG); Leukocyte Esterase Urine 1+ (NEG); Nitrite Urine NEG (NEG); PH 5.5 (5.0-8.0); UACC Culture Trigger YES; Urine Blood NEG (NEG); Urine Ketones 5 MG/DL (NEG); Urine Protein NEG (NEG-TRACE)
[2022-02-26 17:00] LABS: Bacteria Urine TRACE /LPF; RBC Urine 0 /HPF (0); Squamous Epithelial Cell Urine 1+ /LPF
[2022-02-26] MEDS: 0.9 % Sodium Chloride 1,000 ML 500 ML IV (17:07)
[2022-02-26] MEDS: Albuterol Sulfate (0.083%) 2.5 MG/3 ML VIAL.NEB 10 MG INHALE (17:11)
[2022-02-26 17:12] VITALS: PULSE 63; RESP 20; O2SAT 96
[2022-02-26] MEDS: Sodium Polystyrene Sulfon/Sorb 15 GM/60 ML ORAL.SUSP PO (17:14)
--- NOTE | 2022-02-26 17:52 | PC.NURSE ---
PT WAS UP TO GIVE URINE SPEC AT APPROX 1610. COBBLER MCKAY WERE AT THE BEDSIDE. PT ASKED THEM TO STEP OUT. THEY WERE AT THE CURTAIN WHEN THE PATIENT WENT DOWN ON HIS KNEES, HE WAS ASSISTED BACK TO BED AND REASSESSED BY THE PROVIDER. HE OFFERED NO PAIN COMPLAINTS FOLLOWING. HE HAS BEEN ALERT AND COOPERATIVE. TOOK PO KAYEXLATE AND UPDRAFT WITHOUT INCIDENT
[2022-02-26 18:37] LABS: Anion Gap 13 (12-20); Blood Urea Nitrogen 38 mg/dL (9-16); Calcium 9.1 mg/dL (8.4-10.2); Carbon Dioxide 19 mmol/L (22-29); Chloride 113 mmol/L (96-108); Creatinine Clr Calc Pharmacy 44.6; Estimated Glomerular Filt Rate 41; Glucose Random 134 mg/dL (60-115); Potassium 4.9 mmol/L (3.3-5.1); Sodium 140 mmol/L (135-145)
--- NOTE | 2022-02-26 20:19 | PC.NURSE ---
AMBULANCE BOOKED WITH [facility] @2009 ETA FOR [facility] [employer] [employer] [employer] IS @[id number] - [id number]
== END 2022-02-26 21:28 | disposition home or self-care (01) ==
PROVIDERS: Physician Assistant; Emergency Provider Internal Medicine
DX: N39.0 Urinary tract infection, site not specified (principal); E87.5 Hyperkalemia; B37.49 Other urogenital candidiasis; L03.115 Cellulitis of right lower limb; M79.89 Other specified soft tissue disorders; I10 Essential (primary) hypertension; E11.9 Type 2 diabetes mellitus without complications; F03.90 Unspecified dementia, unspecified severity, without behavioral disturbance, psychotic disturbance, mood disturbance, and anxiety; Z91.81 History of falling; Z66 Do not resuscitate; Z20.822 Contact with and (suspected) exposure to COVID-19
CPT/HCPCS: 36415; 70450; 72125; 80048; 80053; 81001; 84484; 85025; 87086; 87635; 93005; 93971; 94640; 94644; 96360; 99284

== ENCOUNTER 2022-06-27 10:49 | Inpatient (IN) | payer MEDICARE, SELFPAY ==
[2022-06-27] VITALS (10 sets, daily range): BP systolic 101–141; BP diastolic 55–72; PULSE 61–81; RESP 11–19; TEMP 36.6–37; O2SAT 95–98; BMI 15.0; BMI 32.7
--- NOTE | 2022-06-27 | ECG_ITS ---
Test Reason : HYPERKALEMIA Blood Pressure : / mmHG Vent. Rate : 069 BPM Atrial Rate : 069 BPM P-R Int : 218 ms QRS Dur : 088 ms QT Int : 378 ms P-R-T Axes : 055 011 080 degrees QTc Int : 405 ms Sinus rhythm with 1st degree A-V block Otherwise normal ECG When compared with ECG of 27-JUN-2022 11:42, No significant change was found Referred By: Reyna Lorenz Electronically Signed By:MILADY PETERS
--- NOTE | ~2022-06-27 | CT_ITS ---
EXAMINATION: CT HEAD WITHOUT CONTRAST CLINICAL INFORMATION: Weakness COMPARISON: 02/26/2022 TECHNIQUE: Contiguous axial imaging was performed from the skull base to vertex without intravenous administration of contrast. This CT examination was performed using dose optimization techniques as appropriate, variously including the following: *Automated exposure control *Adjustment of mA and/or kV according to patient size (this includes techniques or standardized protocols for targeted exams where dose is matched to indication/reason for exam; i.e. extremities or head) *Use of iterative reconstruction technique DLP: 809 mGy-cm FINDINGS: Areas of encephalomalacia left frontal and parietal lobes with secondary ex vacuo dilatation of the adjacent ventricular system similar. Moderate small vessel ischemic changes in the deep white matter. There is no acute superimposed process seen grossly. 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 Glasco hole changes on the left again noted. There is no acute hemorrhage. CT/CT head/brain wo IV con IMPRESSION: No acute intracranial abnormality.
--- NOTE | ~2022-06-27 | XR_ITS ---
EXAMINATION: XR CHEST CLINICAL INFORMATION: Weakness. COMPARISON: None TECHNIQUE: 2 views of the chest were obtained. FINDINGS: No significant abnormality is noted involving the heart, lungs, mediastinum, bony thorax or soft tissues. XR/XR chest 2V IMPRESSION: Unremarkable examination.
--- NOTE | ~2022-06-27 | CT_ITS ---
PROCEDURE: CT GUIDED BIOPSY, KIDNEY CLINICAL INFORMATION: Right renal mass. COMPARISON: 06/27/2022. TECHNIQUE: CT fluoroscopic guided right renal biopsy. This CT examination was performed using dose optimization techniques as appropriate, variously including the following: *Automated exposure control *Adjustment of mA and/or kV according to patient size (this includes techniques or standardized protocols for targeted exams where dose is matched to indication/reason for exam; i.e. extremities or head) *Use of iterative reconstruction technique A trained medical provider was monitoring the patient's vital signs under their supervision and the duration of the [id number] sedation time. SEDATION TIME: 22 minutes. DLP: 320 mGy-cm FINDINGS: Informed consent was obtained from the patient prior to the procedure. During this process, the procedure and potential alternatives were explained, along with the intended outcome and benefits. The risks of the procedure, as well as the risk of not doing the procedure, were discussed. The patient was given the opportunity to ask questions regarding the procedure and appeared competent to make medical decisions. A signed consent form which documents this discussion was placed in the medical record. With patient lying prone and using sterile technique and local anesthesia with patient under conscious sedation, a 17-gauge guiding needle was directed into the right renal mass. Five 18-gauge core biopsies were obtained. A Gelfoam pledget was instilled at the biopsy tract. Patient tolerated the procedure without difficulty. No significant hematoma was identified on postprocedure imaging. Preliminary cytologic result was of an adequate specimen. CT/CT biopsy renal RT IMPRESSION: Successful right renal mass biopsy.
--- NOTE | ~2022-06-27 | CT_ITS ---
EXAMINATION: CT ABDOMEN AND PELVIS WITHOUT CONTRAST CLINICAL INFORMATION: Kidney failure. Weakness. COMPARISON: None TECHNIQUE: Multidetector volumetric imaging was performed from the superior aspect of the liver through the pubic symphysis. Sagittal and coronal reformatted images were obtained on the technologist's workstation. This CT examination was performed using dose optimization techniques as appropriate, variously including the following: *Automated exposure control *Adjustment of mA and/or kV according to patient size (this includes techniques or standardized protocols for targeted exams where dose is matched to indication/reason for exam; i.e. extremities or head) *Use of iterative reconstruction technique DLP: 748 mGy-cm FINDINGS: LUNG BASES: The lung bases appear clear, with no evidence of inflammation or nodules. LIVER, GALLBLADDER, AND BILIARY TREE: The liver appears unremarkable in size, shape, and attenuation. No focal hepatic lesion or biliary ductal dilatation is appreciated. Suspect subcentimeter gallstones, equivocal. No evidence of gallbladder wall thickening or pericholecystic inflammatory change. PANCREAS: Unremarkable SPLEEN: Unremarkable ADRENAL GLANDS: Unremarkable KIDNEYS AND URETERS: 5.8 x 5.1 x 5.1 cm, solid, heterogeneous left upper pole renal mass. No evidence of renal vein invasion on this noncontrast study. 3.9 cm benign left upper pole renal cyst. Punctate, nonobstructing, bilateral renal collecting system stones versus vascular calcification. No evidence of hydronephrosis or hydroureter on either side. BLADDER: Unremarkable GASTROINTESTINAL TRACT: Unremarkable appearance of the stomach and small bowel. Colonic diverticulosis without evidence of diverticulitis. Normal-appearing distal ileum and vermiform appendix. ABDOMINAL WALL: Small left inguinal hernia containing only fat. LYMPH NODES: No evidence of adenopathy by size criteria. VASCULAR: Unremarkable PELVIC VISCERA: Unremarkable OSSEOUS STRUCTURES: Unremarkable CT/CT abdomen pelvis wo IV con IMPRESSION: 5.8 x 5.1 x 5.1 cm, solid, heterogeneous left upper pole renal mass, highly suspicious for renal cell carcinoma. Punctate, nonobstructing, bilateral renal collecting system stones versus vascular calcification. No evidence of hydronephrosis or hydroureter on either side.
--- NOTE | ~2022-06-27 | NM_ITS ---
EXAMINATION: NM KIDNEY IMAGING CLINICAL INFORMATION: Right renal cancer. A 5.8 cm solid renal mass right upper pole. COMPARISON: No previous radionuclide renal scan is available for comparison. The diagnostic CT scan of the abdomen and pelvis, dated 06/27/2022, is available for comparison. TECHNIQUE: Serial gamma scintillation camera images were obtained over the posterior trunk during the initial transit and subsequent distribution of a bolus intravenous injection of 10 mCi of Tc-99m DTPA. At 30 minutes later, 40 mg of Lasix was administered intravenously and an additional 25 minutes of images obtained. The study was terminated slightly earlier than the usual 30 minutes post Lasix administration because of the patient's urgency to void. FINDINGS: Initial rapid sequence images show moderately diminished perfusion to both kidneys but this appears bilaterally symmetrical. Subsequent sequential static images obtained up to 30 minutes show mildly diminished concentration to the kidneys bilaterally. There is a rounded photopenic focus medially in the upper pole of the right kidney that corresponds to the mass at this site visualized on the 06/27/2022 CT scan. Excretory function is visualized by 4 to 5 minutes post injection. At 30 minutes postinjection there is good visualization of activity in the urinary bladder, although the latter is not entirely included in the [id number]. There is no abnormal retention in either renal collecting system. Following Lasix administration, there is continued washout from both renal collecting systems and filling of the urinary bladder. At the end of the study terminated slightly early because of the patient's urgency to void, there is no significant retention of activity in either renal collecting system and the urinary bladder contains almost all of the excreted activity. Meaningful T-1/2 washout times following Lasix administration cannot be calculated because of the minimal retention of activity in the renal collecting systems at the time of Lasix administration. The relative function of the two kidneys based on the 2-3 minute images are: Left 50% and right 50%. NM/NM renal flow w pharm int IMPRESSION: LEFT KIDNEY: Moderately diminished perfusion and function. No hydronephrosis or outflow obstruction. RIGHT KIDNEY: Moderately diminished perfusion and function. The known right upper pole mass is visualized as a photopenic void throughout the study. There is no hydronephrosis or outflow obstruction.
--- NOTE | 2022-06-27 11:07 | ED_ITS ---
HPI - General Adult General Chief complaint: General Medical Stated complaint: INCR WEAK, WARM TO TOUCH FRO ASSIT DARINEL Time Seen by Provider: 06/27/22 11:07 Source: patient and EMS Mode of arrival: EMS Limitations: no limitations History of Present Illness HPI narrative: Patient is a 72 year old male presenting to the emergency department today with increased weakness. [facility] and the staff attempted to get him up today and he wasn't wanting to so they advised he come to the emergency department to be evaluated. Patient states that he has been living in the [facility] for a long time and only recently moved back to the area. Patient states the only family he has in the area is a cousin named Emerald but he does not remember her name. Patient states he believes she works here, in the [facility]. Patient denies any dizziness, lighthead edness, abdominal pain, nausea, vomiting, fever, chills, blurry vision, double vision, loss of vision, chest pain, difficulty breathing, shortness of breath, back pain, night sweats, pain with urination, increased urinary frequency, increased urinary urgency, blood in his urine or stool, syncope or a near syncopal episode, recent trauma or falls, bowel incontinence, bladder incontinence, bowel retention, bladder retention, or any other complaints at this time. Patient states that he feels safe where he is and he isn't sure why he is having trouble making himself get up. Severity: mild Relieving factors: none Exacerbating factors: none Associated symptoms: denies other symptoms Treatments prior to arrival: none Related Data Home Medications Medication Instructions Recorded Confirmed amiloride 5 mg tablet 1 tab PO BID 06/27/22 06/27/22 aspirin 81 mg tablet,delayed 81 mg PO DAILY 06/27/22 06/27/22 release atorvastatin 40 mg tablet 1 tab PO DAILY 06/27/22 06/27/22 divalproex 125 mg capsule,delayed 1 cap PO BID 06/27/22 06/27/22 release sprinkle lisinopril 20 mg tablet 1 tab PO DAILY 06/27/22 06/27/22 melatonin 3 mg tablet 8 mg PO BEDTIME PRN Insomnia 06/27/22 06/27/22 metoprolol tartrate 25 mg tablet 3 tab PO BID 06/27/22 06/27/22 mirtazapine 7.5 mg tablet 1 tab PO BEDTIME 06/27/22 06/27/22 multivitamin 1 tab PO DAILY 06/27/22 06/27/22 nifedipine 90 mg tablet,extended 1 tab PO DAILY 06/27/22 06/27/22 release 24 hr nystatin 100,000 unit/gram topical 1 appl topical BID 06/27/22 06/27/22 powder olanzapine 2.5 mg tablet 1 tab PO QPM 06/27/22 06/27/22 oxybutynin chloride 15 mg 1 tab PO DAILY 06/27/22 06/27/22 tablet,extended release 24 hr sertraline 50 mg tablet 1 tab PO DAILY 06/27/22 06/27/22 triamcinolone acetonide 0.1 % 1 appl topical BID 06/27/22 06/27/22 topical cream Allergies Allergy/AdvReac Type Severity Reaction Status Date / Time No Known Allergies Allergy Verified 12/08/21 14:14 Review of Systems Constitutional: Constitutional: Reports no additional constitutional complaints, Denies chills, Denies fever(s) and Denies night sweats Eyes: Eyes: Reports no additional eye complaints, Denies blurry vision, Denies change in vision, Denies diplopia, Denies eye discharge, Denies loss of vision and Denies eye pain ENT: Denies dizziness Cardiovascular: Cardiovascular: Reports no additional cardiovascular complaints, Denies chest pain, Denies lightheadedness, Denies Loss of Consciousness and Denies dyspnea Respiratory: Respiratory: Reports no additional respiratory complaints and Denies dyspnea Gastrointestinal: Gastrointestinal: Reports no additional gastrointestinal complaints, Denies abdominal pain, Denies melena, Denies hematochezia, Denies change in bowel habits and Denies change in stool character Genitourinary: Genitourinary: Reports no additional male genitourinary complai nts, Denies hematuria, Denies oliguria, Denies difficulty urinating, Denies dysuria, Denies urinary frequency, Denies urinary hesitancy, Denies urinary incontinence and Denies urinary urgency Musculoskeletal: Musculoskeletal: Reports no additional musculoskeletal complaints, Denies numbness and Denies tingling Neurologic: Denies dizziness, Denies loss of vision, Denies numbness and Denies tingling Psychiatric: Psychiatric: Reports no additional psychiatric complaints Endocrine: Endocrine: Reports no additional endocrine complaints Hematologic/Lymphatic: Hematologic/Lymphatic: Reports no additional hematologic/lymphatic complaints Allergic/Immunologic: Allergic/Immunologic: Reports no additional allergic/immunologic complaints FOR[facility]LY [facility] Past Medical History Attestation statement: The following information was validated with the patient. Source: old records reviewed Medical History (Updated 06/27/22 @ 16:01 by CATHRYN Blank) Anxiety Dementia Depression HLD (hyperlipidemia) HTN (hypertension) Left renal mass MELY (obstructive sleep apnea) Type 2 diabetes mellitus Venous stasis dermatitis of both lower extremities Family History Family History (Updated 06/27/22 @ 15:04 by CATHRYN Duke) Mother Dementia Stroke Social History Social History Alcohol intake: unknown Patient Tobacco Use Status: Never used Tobacco Advance Directives: No Advance Directives Information Provided: Yes Physical Exam ED Vital Signs: Vital Signs - 24 hr 06/27/22 10:56 06/27/22 12:01 06/27/22 13:19 Temperature 98 F 98.3 F Pulse Rate 66 67 67 Respiratory Rate 17 12 19 Blood Pressure 103/64 101/55 L 101/55 L Pulse Oximetry 97 97 97 Oxygen Delivery Method Room Air Room Air BMI result Body Mass Index 15.0 Const General: cooperative, no acute distress, alert and awake Nutritional Appearance: well nourished Orientation/consciousness: patient oriented x3 Limitations: no limitations HENMT Head: Yes normal to inspection and Yes atraumatic Ears: hearing grossly normal bilaterally and external ears normal General nose exam: Normal external nose present, no nasal discharge noted and no epistaxis Face and sinus: Yes normal facial exam, No abrasion and No laceration Mouth: Normal oral and palatal mucosa present, no drooling and no muffled voice Eyes Other: irritated right eye with crusts and excessive watering, consistent with conjunctivitis Pupils: Equal, round and reactive pupils present EOM: EOMs intact bilaterally Neck Neck: Yes normal visual inspection, Yes full ROM and Yes no lymphadenopathy Chest Chest palpation & inspection: normal inspection of the chest Resp Effort & Inspection: normal respiratory effort and able to speak in complete sentences Auscultation: clear to auscultation bilaterally Cardio Rate: regular rate Rhythm: regular rhythm GI Inspection: Yes normal to inspection Neuro General: patient oriented x3 and moves all extremities Cranial nerves: Yes Equal, round and reactive pupils present Cognition (Neuro): normal cognition Motor exam (neuro): 5/5 motor strength present throughout Sensory Exam: Normal double simultaneous stimulation for sensation Coordination: [id number] test normal Extrem General: Yes normal to inspection, Yes full ROM and Yes capillary refill normal Psych Appearance: grossly normal Mental Status: mental status grossly normal Affect: normal affect Attitude: cooperative Thought process: Normal thought process present Thought content: Normal thought content present Insight: Good insight present (Psych) Medical Decision Making MDM Narrative Medical decision making narrative: Patient is a 72 year old male presenting to the emergency department today with generalized weakness. Patient's physical exam was unremarkable. Patient's blood work showed an elevated potassium of 6.4, an elevated BUN of 63, and an elevated CR of 2.57. Patient's urine is pending at this time. Patient's EKG was unremarkable. Patient's chest x-ray showed no acute process. Patient's abdominal CT showed a renal mass, likely renal carcinoma. I explained my physical exam findings as well as all test results to the patient. I answered all questions asked by the patient. Patient received Insulin, D50, calcium gluconate, IV fluids, and keyexalate. I spoke to Reyna Lorenz, the PA, who agreed to admission of the patient. Patient verbalized agreement and understanding with this treatment plan and admission. Medical Records Medical records reviewed: Yes I reviewed the patient's medical records. Lab Data Lab results reviewed: Yes I reviewed the patient's lab results. Result diagrams: 06/27/22 11:24 06/27/22 11:24 Labs: Lab Results 06/27/22 06/27/22 06/27/22 Range/Units 11:24 11:24 11:24 WBC 8.5 (4.8-10.8) X10*3/uL RBC 3.03 L (4.60-5.80) X10*6/uL Hgb 9.6 L (14.0-18.0) g/dl Hct 29.7 L (42.0-52.0) % MCV 98.0 (80.0-98.0) fL MCH 31.7 (27.0-33.0) pg MCHC 32.3 (31.0-36.0) g/dl RDW 12.5 (11.0-16.0) % Plt Count 141 L (160-400) X10*3/uL MPV 11.1 (9.4-12.4) fL Immature Gran % (Auto) 0.4 (0.0-0.4) % Neut % (Auto) 83.6 H (45-73) % Lymph % (Auto) 7.9 L (20-40) % Douglas % (Auto) 6.2 (2-11) % Eos % (Auto) 1.4 (0-4) % Baso % (Auto) 0.5 (0-2) % Lymph # (Auto) 0.7 L (1.2-4.9) X10*3/uL Douglas # (Auto) 0.5 (0.1-1.2) X10*3/uL Eos # (Auto) 0.1 (0.0-0.4) X10*3/uL Baso # (Auto) 0.0 (0.0-0.2) X10*3/uL Abs Immat Gran (auto) 0.03 (0.00-0.03) X10*3/uL Absolute Neuts (auto) 7.1 (2.0-8.3) x10*3/uL Absolute Nucleated RBC 0.000 (0.0-0.012) X10*3/uL Nucleated RBC % (auto) 0.0 (0.0-0.2) /100WBC Sodium 138 (135-145) mmol/L Potassium 6.4 H* D (3.3-5.1) mmol/L Chloride 110 H (96-108) mmol/L Carbon Dioxide 19 L (22-29) mmol/L Anion Gap 15 (12-20) BUN 63 H D (9-16) mg/dL Creatinine 2.57 H (0.5-1.4) mg/dL Estim Creat Clear Calc 16.5 Estimated GFR 25 Random Glucose 159 H (60-115) mg/dL Lactic Acid 1.3 (0.5-2.0) mmol/L Calcium 8.8 (8.4-10.2) mg/dL Phosphorus 3.9 (2.7-4.5) mg/dL Magnesium 2.5 (1.6-2.6) mg/dL Total Bilirubin 0.4 (0.0-1.0) mg/dL AST 16 (5-37) U/L ALT 19 (0-40) U/L Alkaline Phosphatase 94 (39-117) U/L Total Creatine Kinase 53 (38-174) U/L Troponin I High Sens (<3.5-35.0) ng/L Total Protein 6.2 L (6.5-8.0) g/dL Albumin 3.8 (3.5-5.0) g/dL COVID-19 (KHADRA) (Negative) COVID-19 Clin Com 06/27/22 06/27/22 Range/Units 11:24 14:48 WBC (4.8-10.8) X10*3/uL RBC (4.60-5.80) X10*6/uL Hgb (14.0-18.0) g/dl Hct (42.0-52.0) % MCV (80.0-98.0) fL MCH (27.0-33.0) pg MCHC (31.0-36.0) g/dl RDW (11.0-16.0) % Plt Count (160-400) X10*3/uL MPV (9.4-12.4) fL Immature Gran % (Auto) (0.0-0.4) % Neut % (Auto) (45-73) % Lymph % (Auto) (20-40) % Douglas % (Auto) (2-11) % Eos % (Auto) (0-4) % Baso % (Auto) (0-2) % Lymph # (Auto) (1.2-4.9) X10*3/uL Douglas # (Auto) (0.1-1.2) X10*3/uL Eos # (Auto) (0.0-0.4) X10*3/uL Baso # (Auto) (0.0-0.2) X10*3/uL Abs Immat Gran (auto) (0.00-0.03) X10*3/uL Absolute Neuts (auto) (2.0-8.3) x10*3/uL Absolute Nucleated RBC (0.0-0.012) X10*3/uL Nucleated RBC % (auto) (0.0-0.2) /100WBC Sodium (135-145) mmol/L Potassium (3.3-5.1) mmol/L Chloride (96-108) mmol/L Carbon Dioxide (22-29) mmol/L Anion Gap (12-20) BUN (9-16) mg/dL Creatinine (0.5-1.4) mg/dL Estim Creat Clear Calc Estimated GFR Random Glucose (60-115) mg/dL Lactic Acid (0.5-2.0) mmol/L Calcium (8.4-10.2) mg/dL Phosphorus (2.7-4.5) mg/dL Magnesium (1.6-2.6) mg/dL Total Bilirubin (0.0-1.0) mg/dL AST (5-37) U/L ALT (0-40) U/L Alkaline Phosphatase (39-117) U/L Total Creatine Kinase (38-174) U/L Troponin I High Sens 6.0 (<3.5-35.0) ng/L Total Protein (6.5-8.0) g/dL Albumin (3.5-5.0) g/dL COVID-19 (KHADRA) Negative (Negative) COVID-19 Clin Com See Note Imaging Data Chest x-ray: Attestation: I personally reviewed and interpreted this imaging study as follows: My impression: No acute process. Radiologist's impression: EXAMINATION: XR CHEST CLINICAL INFORMATION: Weakness. COMPARISON: None TECHNIQUE: 2 views of the chest were obtained. FINDINGS: No significant abnormality is noted involving the heart, lungs, mediastinum, bony thorax or soft tissues. XR/XR chest 2V IMPRESSION: Unremarkable examination. Dictated By: Crow Zeng Signed By: Electronically signed by Crow?Karri 06/27/[address] scan - abdomen: Attestation: I personally reviewed and interpreted this imaging study as follows: My impression: Left kidney mass. Radiologist's impression: EXAMINATION: CT ABDOMEN AND PELVIS WITHOUT CONTRAST? CLINICAL INFORMATION: Kidney failure. Weakness.? COMPARISON: None? TECHNIQUE: Multidetector volumetric imaging was performed from the superior aspect of the liver through the pubic symphysis. Sagittal and coronal reformatted images were obtained on the technologist's workstation.? This CT examination was performed using dose optimization techniques as appropriate, variously including the following: *Automated exposure control *Adjustment of mA and/or kV according to patient size (this includes techniques or standardized protocols for targeted exams where dose is matched to indication/reason for exam; i.e. extremities or head) *Use of iterative reconstruction technique DLP: 748 mGy-cm FINDINGS: LUNG BASES: The lung bases appear clear, with no evidence of inflammation or nodules.? LIVER, GALLBLADDER, AND BILIARY TREE: The liver appears unremarkable in size, shape, and attenuation. No focal hepatic lesion or biliary ductal dilatation is appreciated. Suspect subcentimeter gallstones, equivocal. No evidence of gallbladder wall thickening or pericholecystic inflammatory change.? PANCREAS: Unremarkable? SPLEEN: Unremarkable? ADRENAL GLANDS: Unremarkable? KIDNEYS AND URETERS: 5.8 x 5.1 x 5.1 cm, solid, heterogeneous left upper pole renal mass. No evidence of renal vein invasion on this noncontrast study. 3.9 cm benign left upper pole renal cyst. Punctate, nonobstructing, bilateral renal collecting system stones versus vascular calcification. No evidence of hydronephrosis or hydroureter on either side. BLADDER: Unremarkable? GASTROINTESTINAL TRACT: Unremarkable appearance of the stomach and small bowel. Colonic diverticulosis without evidence of diverticulitis. Normal-appearing distal ileum and vermiform appendix.? ABDOMINAL WALL: Small left inguinal hernia containing only fat.? LYMPH NODES: No evidence of adenopathy by size criteria. VASCULAR: Unremarkable PELVIC VISCERA: Unremarkable OSSEOUS STRUCTURES: Unremarkable? CT/CT abdomen pelvis wo IV con IMPRESSION: ? 5.8 x 5.1 x 5.1 cm, solid, heterogeneous left upper pole renal mass, highly suspicious for renal cell carcinoma. ? Punctate, nonobstructing, bilateral renal collecting system stones versus vascular calcification. No evidence of hydronephrosis or hydroureter on either side. Dictated By: Crow Zeng Signed By: Electronically signed by Quan 06/27/22 3351 ECG Data Attestation: I personally reviewed and interpreted this ECG as follows: Prior ECG tracings: available for review Interpretation: Vent. Rate: 066 BPM ? ? Atrial Rate: 066 BPM P-R Int: 224 ms? QRS Dur: 088 ms QT Int: 394 ms ? ? ? P-R-T Axes: 043 007 082 degrees QTc Int: 413 ms ? Sinus rhythm with 1st degree A-V block Otherwise normal ECG When compared with ECG of 13-MAY-2022 15:33, No significant change was found DD/ 1142 Critical Care Time Critical Care Time Critical Care Time: Yes Total Critical Care Time: 30 Attestation: I spent 30 minutes of Critical Care Time with this patient. This does not include time spent on separately reported billable procedures. Discharge Plan Discharge Clinical Impression: Renal carcinoma Patient Disposition: Admitted As Inpatient Prescriptions: No Action atorvastatin 40 mg tablet 1 tab PO DAILY oxybutynin chloride 15 mg tablet extended release 24hr 1 tab PO DAILY lisinopril 20 mg tablet 1 tab PO DAILY olanzapine 2.5 mg tablet 1 tab PO QPM amiloride 5 mg tablet 1 tab PO BID nifedipine 90 mg tablet extended release 24hr 1 tab PO DAILY sertraline 50 mg tablet 1 tab PO DAILY divalproex 125 mg capsule, delayed rel sprinkle 1 cap PO BID metoprolol tartrate 25 mg tablet 3 tab PO BID mirtazapine 7.5 mg tablet 1 tab PO BEDTIME multivitamin [Multi-Daily] Tablet 1 tab PO DAILY melatonin 3 mg Tablet 8 mg PO BEDTIME PRN (Reason: Insomnia) aspirin 81 mg Tablet,Delayed Release (Dr/Ec) 81 mg PO DAILY triamcinolone acetonide 0.1 % Cream 1 appl TOPICAL BID Label Comments: LOWER LEGS nystatin 100,000 unit/gram Powder 1 appl TOPICAL BID
--- NOTE | 2022-06-27 11:07 | ECG_ITS ---
Test Reason : WEAKNESS Blood Pressure : / mmHG Vent. Rate : 066 BPM Atrial Rate : 066 BPM P-R Int : 224 ms QRS Dur : 088 ms QT Int : 394 ms P-R-T Axes : 043 007 082 degrees QTc Int : 413 ms Sinus rhythm with 1st degree A-V block Otherwise normal ECG When compared with ECG of 26-FEB-2022 15:33, RI interval has increased Referred By: Paz Mccall Electronically Signed By:MILADY PETESR
[2022-06-27 11:36] LABS: MANUAL DIFF FLAG NO
[2022-06-27 11:37] LABS: Basophils Percent Auto 0.5 % (0-2); Eosinophils Absolute Auto 0.1 X10*3/uL (0.0-0.4); Eosinophils Percent Auto 1.4 % (0-4); Hematocrit 29.7 % (42.0-52.0); Hemoglobin 9.6 g/dl (14.0-18.0); Imm Gran Abs Auto 0.03 X10*3/uL (0.00-0.03); Imm Gran Pct Auto 0.4 % (0.0-0.4); Lymphocytes Absolute Auto 0.7 X10*3/uL (1.2-4.9); Lymphocytes Percent Auto 7.9 % (20-40); Mean Corpuscular HGB Conc 32.3 g/dl (31.0-36.0); Mean Corpuscular Hemoglobin 31.7 pg (27.0-33.0); Mean Platelet Volume 11.1 fL (9.4-12.4); Monocytes Absolute Auto 0.5 X10*3/uL (0.1-1.2); Monocytes Percent Auto 6.2 % (2-11); Neutrophils Absolute Auto 7.1 x10*3/uL (2.0-8.3); Neutrophils Percent Auto 83.6 % (45-73); Platelet Count 141 X10*3/uL (160-400); Red Blood Count 3.03 X10*6/uL (4.60-5.80); Red Cell Distribution Width 12.5 % (11.0-16.0); White Blood Count 8.5 X10*3/uL (4.8-10.8)
[2022-06-27 11:48] LABS: Lactic Acid 1.3 mmol/L (0.5-2.0)
--- NOTE | 2022-06-27 12:26 | PC.NURSE ---
drinking juice, aware of need for u/a, skin wpd, alert, watching tv, nad
[2022-06-27 12:38] LABS: Alanine Aminotransferase 19 U/L (0-40); Albumin Level 3.8 g/dL (3.5-5.0); Alkaline Phosphatase 94 U/L (39-117); Anion Gap 15 (12-20); Aspartate Amino Transferase 16 U/L (5-37); Bilirubin Total 0.4 mg/dL (0.0-1.0); Blood Urea Nitrogen 63 mg/dL (9-16); Calcium 8.8 mg/dL (8.4-10.2); Carbon Dioxide 19 mmol/L (22-29); Chloride 110 mmol/L (96-108); Creatinine Clr Calc Pharmacy 16.5; Estimated Glomerular Filt Rate 25; Glucose Random 159 mg/dL (60-115); Magnesium 2.5 mg/dL (1.6-2.6); Potassium 6.4 mmol/L (3.3-5.1); Sodium 138 mmol/L (135-145); Total Protein 6.2 g/dL (6.5-8.0)
[2022-06-27] MEDS: Calcium Gluconate/NaCl,Iso-Osm 1 GM/50 ML PLAST..BAG IV (13:18)
[2022-06-27] MEDS: Sodium Polystyrene Sulfon/Sorb 15 GM/60 ML ORAL.SUSP 30 GM PO (13:18)
[2022-06-27] MEDS: 0.9 % Sodium Chloride 1,000 ML 999 ML IV (13:18)
--- NOTE | 2022-06-27 13:51 | PHA.MEDREC ---
Pharmacy Consult ? Medication Reconciliation Pharmacy has completed the medication reconciliation.
--- NOTE | 2022-06-27 14:39 | P.HPHOSP_ITS ---
History of Present Illness Date of Service: 06/27/22 Attending physician on admission: Dominic García Chief Complaint: SILVIA, hyperkalemia 72 year male with history of dementia, hypertension, hyperlipidemia, diabetes, venous stasis, anxiety, depression, obstructive sleep apnea not on cpap residing at the [facility] presented to the ED this morning via EMS after he was found to be unable to walk from bed to chair due to weakness. He states he has bilateral weakness in the LE but is able to ambulate with a walker at baseline but could not this morning. He has no other complaints. No recent falls or pain in the back or legs. Denies paresthesias. Ih the ED, found to have SILVIA with creat 2.57 and BUN 63 (baseline 1.67, BUN 38). K was 6.4. EKG without ST/T waves abnormality and was normal sinus rhythm with rate 66 and 1st degree AV block. CXR normal. CPK 53. Trop I 6.0. Abd/pelvis CT with new 5.8 x 5.1 x 5.1 cm solid, heterogenous left upper pole renal mass, highly suspicious for renal cell carcinoma. UA pending. Received 1L NS fluid bolus, 1g calcium gluconate, and 30g sodium polystyrene sulfonate. Review of Systems Review of Systems: General: +generalized weakness. No fevers, malaise, unintentional weight loss HEENT: no blurred vision, diplopia Cardiovascular: No chest pain, palpitations, or leg edema Respiratory: No shortness of breath, wheezing, cough GI: No abdominal pain, nausea, vomiting, diarrhea, constipation, melena, hematochezia : No dysuria, hematuria, increased urinary frequency MSK: No back or extremity pain Neuro: No headaches, paresthesias Skin: No rashes or lesions [facility] Medical History (Updated 06/28/22 @ 13:31 by Dominic García MD) Anxiety Dementia Depression HLD (hyperlipidemia) HTN (hypertension) Left renal mass MELY (obstructive sleep apnea) Type 2 diabetes mellitus Venous stasis dermatitis of both lower extremities Family History (Updated 06/27/22 @ 15:04 by CATHRYN Duke) Mother Dementia Stroke Social History Household Members: None Housing: Senior Living Do you presently have visiting nurse or other home services: No Alcohol intake: unknown Patient Tobacco Use Status: Never used Tobacco Use of substances other than those prescribed or required for medical reasons: No Currently Displaying Signs/Symptoms of Drug Intoxication Withdrawal: No Have you been hit, kicked, punched, or otherwise hurt by someone within the past year? If so, by whom?: No Do you feel safe in your current relationship?: Yes Is there a partner from a previous relationship who is making you feel unsafe now?: No Are you made to feel afraid or neglected: No Advance Directives: No Advance Directives Information Provided: Yes Do you have thoughts of harming others: None Do you have a plan to hurt others: No Plan Recently lost weight without trying: No Eating poorly because of decreased appetite: No Nutrition Risks: No Nutritional Risk Poor oral hygiene: No service: No Meds Allergies Allergy/AdvReac Type Severity Reaction Status Date / Time No Known Allergies Allergy Verified 12/08/21 14:14 Active Medications: Current Medications Acetaminophen (Acetaminophen Supp 650 Mg Supp.Rect) 650 mg NV Q6H PRN PRN Reason: Pain, Mild (Pain Scale 1-3) Heparin Sodium (Porcine) (Heparin Sodium,Porcine 5,000 Unit/Ml Vial) 5,000 unit SUBCUT Q12H JODY Sodium Chloride (Ns) 1,000 mls @ 100 mls/hr IVCONT .Q10H JODY Ondansetron HCl (Ondansetron Hcl 4 Mg/2 Ml Vial) 4 mg IVPUSH Q8H PRN PRN Reason: Nausea and Vomiting Pharmacy Consult (Consult Rx Perform Med Rec) 1 each MISCELLANE ONCE PRN PRN Reason: Consult order Sodium Chloride (0.9 % Sodium Chloride Flush 3 Ml Syringe) 3 ml IVFLUSH QSHIFT [facility] Home Medications Medication Instructions Recorded Confirmed Last Taken Type amiloride 5 mg tablet 1 tab PO BID 06/27/22 06/27/22 Unknown History aspirin 81 mg tablet,delayed 81 mg PO DAILY 06/27/22 06/27/22 Unknown History release atorvastatin 40 mg tablet 1 tab PO DAILY 06/27/22 06/27/22 Unknown History divalproex 125 mg capsule,delayed 1 cap PO BID 06/27/22 06/27/22 Unknown History release sprinkle lisinopril 20 mg tablet 1 tab PO DAILY 06/27/22 06/27/22 Unknown History melatonin 3 mg tablet 8 mg PO BEDTIME PRN Insomnia 06/27/22 06/27/22 Unknown History metoprolol tartrate 25 mg tablet 3 tab PO BID 06/27/22 06/27/22 Unknown History mirtazapine 7.5 mg tablet 1 tab PO BEDTIME 06/27/22 06/27/22 Unknown History multivitamin 1 tab PO DAILY 06/27/22 06/27/22 Unknown History nifedipine 90 mg tablet,extended 1 tab PO DAILY 06/27/22 06/27/22 Unknown History release 24 hr nystatin 100,000 unit/gram topical 1 appl topical BID 06/27/22 06/27/22 Unknown History powder olanzapine 2.5 mg tablet 1 tab PO QPM 06/27/22 06/27/22 Unknown History oxybutynin chloride 15 mg 1 tab PO DAILY 06/27/22 06/27/22 Unknown History tablet,extended release 24 hr sertraline 50 mg tablet 1 tab PO DAILY 06/27/22 06/27/22 Unknown History triamcinolone acetonide 0.1 % 1 appl topical BID 06/27/22 06/27/22 Unknown History topical cream Physical Exam Vital Signs and Narrative: Vital Signs: Last Vital Signs Temp 98.3 F 06/27/22 12:01 Pulse 67 06/27/22 13:19 Resp 19 06/27/22 13:19 BP 101/55 L 06/27/22 13:19 Pulse Ox 97 06/27/22 13:19 O2 Del Method 06/27/22 12:01 BMI result Body Mass Index 15.0 Constitutional - Awake and Alert, No apparent distress. Unkempt appearance Eyes - PERRLA, EOMI Cardiovascular - S1S2, RRR, 2+ pitting edema bilaterally Respiratory - Normal lung expansion, Normal respiratory effort, No respiratory distress, CTA bilaterally Gastrointestinal - NT / ND; +BS; No rebound or guarding Extremities - no calf tenderness bilaterally, hyperpigmented, thickened skin BLE R>L with 2+ pitting edema Skin - Warm/Dry Neurological - Alert & oriented x3, CN II-XII in tact. 5/5 strength BLE and BUE Psychological - Appropriate affect Results Labs CBC and Chem 7: 06/27/22 11:24 06/28/22 11:27 Labs: Laboratory Results - last 24 hr 06/27/22 06/27/22 06/27/22 11:24 11:24 11:24 MCV 98.0 MCH 31.7 MCHC 32.3 RDW 12.5 Plt Count 141 L MPV 11.1 Immature Gran % (Auto) 0.4 Neut % (Auto) 83.6 H Lymph % (Auto) 7.9 L Towner % (Auto) 6.2 Eos % (Auto) 1.4 Baso % (Auto) 0.5 Lymph # (Auto) 0.7 L Towner # (Auto) 0.5 Eos # (Auto) 0.1 Baso # (Auto) 0.0 Abs Immat Gran (auto) 0.03 Absolute Neuts (auto) 7.1 Absolute Nucleated RBC 0.000 Nucleated RBC % (auto) 0.0 Anion Gap 15 Estim Creat Clear Calc 16.5 Estimated GFR 25 Random Glucose 159 H Lactic Acid 1.3 Calcium 8.8 Magnesium 2.5 Total Bilirubin 0.4 AST 16 ALT 19 Alkaline Phosphatase 94 Total Creatine Kinase 53 Total Protein 6.2 L Albumin 3.8 Imaging Radiologist's Impressions: Impressions Chest X-Ray 06/27/22 11:20 IMPRESSION: Unremarkable examination. Abdomen/Pelvis CT 06/27/22 13:28 IMPRESSION: 5.8 x 5.1 x 5.1 cm, solid, heterogeneous left upper pole renal mass, highly suspicious for renal cell carcinoma. Punctate, nonobstructing, bilateral renal collecting system stones versus vascular calcification. No evidence of hydronephrosis or hydroureter on either side. Assessment and Plan (1) SILVIA (acute kidney injury): Status: Acute (2) Hyperkalemia: Status: Acute (3) Left renal mass: Status: Acute (4) Obesity: Status: Acute Plan 72 year male with history of dementia, hypertension, hyperlipidemia, diabetes, venous stasis, anxiety, depression, hx cerebral aneurysm, obstructive sleep apnea not on cpap residing at the [facility] admitted for generalized weakness associated with SILVIA and hyperkalemia and new left renal mass. 1-Hyperkalemia secondary to SILVIA -K 6.4 in ED. EKG without T waves abnormality. Received calcium gluconate and kaexalate in ED -Repeat BMP pending. -Admit to telemetry 2-SILVIA - possibly related to dehydration vs HTN meds -Received 1L NS bolus in ED -Continue gentle hydration with NS. Also given sodium bicarb, CO2 19 -Hold amiloride and lisinopril -Follow BMP closely -Nephrology consulted 3-Left renal mass- CT in ED: 5.8 x 5.1 x 5.1 cm, solid, heterogeneous left upper pole renal mass, highly suspicious for renal cell carcinoma.. -Nephrology consulted. Consider oncology consult 4-Generalized weakness likely secondary to electrolyte abnormality -Correct electrolyte abdnormality as above and continue gentle hydration -CK normal -No focal neuro deficits 5-Noninsulin dependent type 2 diabetes -POC glucose -Diabetic diet -Humalog SS 6-HTN- BP soft -Hold all BP meds for now -Hold lisinopril and amiloride d/t SILVIA and hyperkalemia 7-HLD -Continue statin 8-Venous stasis- stable -Pt chronic edema likely secondary to chronic venous disease, possibly CKD. BNP ordered as well 9-MELY -Not on cpap 10-hx cerebral aneursym per pt -Head CT ordered given worsening weakness to evaluate aneurysm DVT prophylaxis- Heparin DNR/DNI Pt requires inpt stay of at least 2 midnights due to SILVIA with hyperkalemia requiring IV hydration and ongoing cardiac monitoring and renal function/electrolyte levels as patient is at risk for cardiac arrhythmia. Quality Stroke Does the patient have a stroke diagnosis?: No VTE Prior VTE?: No VTE Risk Level:: Medical - moderate - high VTE Device Contraindication: Treatment Not Indicated VTE Drug Contraindication: Treatment Not Indicated
--- NOTE | 2022-06-27 15:13 | PM.EVENT ---
Event Note Date of Service: 06/27/22 Event Note: 72 y/o dementia, hypertension, hyperlipidemia, diabetes, venous stasis, anxiety, depression, obstructive sleep apnea, possible history of brain aneurysms : Patient is poor historian information was taken from patient's guardian as well as assisted living place. Patient was sent to the hospital because he was in a week when the staff in the assistin living went to see him this morning. As per instilling patient and walk only few steps at baseline but today he was very weak even with standing up. His p.o. intake is fair per the staff, he was found to have generalized weakness in comparison to yesterday. And that is why he was sent hospital. Patient was seen examined: Patient says that he was generally weak that is why he was sent. Currently feels little better, moving all extremities. Physical exam. Appearance: Alert.? Oriented X3.? not in distress.? Eyes: Pupils equal, round and reactive to light.? Sclera nonicteric.? ENT: Pharynx normal.? Moist mucous membranes. cvs: rrr, [id number] . res: clear to auscultation ,no rhonchii or wheezing abd: no rebound or guarding ,nt, bs present. ext pulses present , no cyanosis . neuro: axo3 , moves all ext lab, imaging EKG reviewed: Hemoglobin is 9.6, potassium 6.4, BUN 63 creatinine 2.57( bun/cr was 42/1.78 on 03/07) ekg nsr [address] abd: left renalmass,Punctate, nonobstructing, bilateral renal collecting system stones versus vascular calcification. Assessmentand plan coordinated in APCs note. 1. jailene vs ckd or jailene on ckd3: Hydration, gentle hydration, patient was given Kayexalate, Lokelma, insulin and dextrose,-monitor BMP. Nephrology evaluation 2. Generalized weak : Multifactorial ? Dehydration/lisinopril and amiloride.
[2022-06-27 15:23] LABS: Phosphorus 3.9 mg/dL (2.7-4.5)
[2022-06-27 15:26] LABS: COVID-19 Test Negative (Negative); IDNOW Serial# 16C4AD1C
[2022-06-27] MEDS: Heparin Sodium,Porcine 5,000 UNIT/ML VIAL 5000 UNIT SUBCUT (16:24)
[2022-06-27] MEDS: Insulin Lispro 100 UNIT/ML 3 ML VIAL SUBCUT ×2 (16:24→19:08)
[2022-06-27] MEDS: Dextrose 50 % 25 GM/50 ML SYRINGE IVPUSH ×2 (16:24→22:08)
[2022-06-27] MEDS: Sodium Zirconium Cyclosilicate 10 GM POWD.PACK PO (16:26)
[2022-06-27 16:36] LABS: B Type Natriuretic Peptide 47 pg/mL (<100)
[2022-06-27 16:45] LABS: Anion Gap 16 (12-20); Blood Urea Nitrogen 58 mg/dL (9-16); Calcium 8.9 mg/dL (8.4-10.2); Carbon Dioxide 20 mmol/L (22-29); Chloride 110 mmol/L (96-108); Creatinine Clr Calc Pharmacy 18.9; Estimated Glomerular Filt Rate 29; Glucose Random 107 mg/dL (60-115); Sodium 139 mmol/L (135-145)
[2022-06-27] MEDS: Albuterol Sulfate 7.5 MG, Albuterol Sulfate (0.083%) 2.5 MG 10 MG INHALE ×2 (17:30→23:31)
[2022-06-27 18:44] LABS: Glucose, Whole Blood 183 mg/dL (60-115)
[2022-06-27] MEDS: Sodium Bicarbonate 650 MG TABLET PO ×2 (19:08→21:12)
[2022-06-27 19:10] LABS: Anion Gap 16 (12-20); Blood Urea Nitrogen 56 mg/dL (9-16); Calcium 8.4 mg/dL (8.4-10.2); Carbon Dioxide 14 mmol/L (22-29); Chloride 114 mmol/L (96-108); Creatinine Clr Calc Pharmacy 20.5; Estimated Glomerular Filt Rate 32; Glucose Random 209 mg/dL (60-115); Potassium 6.3 mmol/L (3.3-5.1); Sodium 138 mmol/L (135-145)
[2022-06-27] MEDS: 0.9 % Sodium Chloride 1,000 ML 80 ML IVCONT (19:11)
--- NOTE | 2022-06-27 19:11 | PC.NURSE ---
Pt incontinent of stool. Entire bed change provided. OOB to bedside commode. Pt is refusing placement of jimenez catheter at this time.
[2022-06-27] MEDS: OLANZapine 2.5 MG TABLET PO (21:12)
[2022-06-27] MEDS: Divalproex Sodium Sprinkles 125 MG CAP.DR.SPR PO (21:12)
[2022-06-27] MEDS: Mirtazapine 7.5 MG TABLET PO (21:12)
[2022-06-27] MEDS: Sodium Zirconium Cyclosilicate 5 GM POWD.PACK PO (22:08)
[2022-06-27] MEDS: Insulin Regular, Human 100 UNIT/ML 3 ML VIAL IVPUSH (22:11)
[2022-06-28] VITALS (9 sets, daily range): BP systolic 104–146; BP diastolic 54–74; PULSE 66–104; RESP 17–20; TEMP 36.6–39.3; O2SAT 95–98
[2022-06-28 00:18] LABS: Anion Gap 17 (12-20); Blood Urea Nitrogen 51 mg/dL (9-16); Carbon Dioxide 21 mmol/L (22-29); Chloride 111 mmol/L (96-108); Creatinine Clr Calc Pharmacy 38.2; Estimated Glomerular Filt Rate 33; Glucose Random 127 mg/dL (60-115); Potassium 5.7 mmol/L (3.3-5.1); Sodium 143 mmol/L (135-145)
[2022-06-28] MEDS: Heparin Sodium,Porcine 5,000 UNIT/ML VIAL 5000 UNIT SUBCUT (04:10)
[2022-06-28] MEDS: 0.9 % Sodium Chloride Flush 3 ML SYRINGE IVFLUSH ×3 (04:11→18:53)
[2022-06-28 07:17] LABS: Anion Gap 18 (12-20); Blood Urea Nitrogen 50 mg/dL (9-16); Calcium 7.8 mg/dL (8.4-10.2); Carbon Dioxide 13 mmol/L (22-29); Chloride 114 mmol/L (96-108); Creatinine Clr Calc Pharmacy 41.1; Estimated Glomerular Filt Rate 36; Glucose Random 119 mg/dL (60-115); Sodium 138 mmol/L (135-145)
[2022-06-28 07:28] LABS: Potassium 6.5 mmol/L (3.3-5.1)
[2022-06-28 07:35] LABS: Lactic Acid 2.4 mmol/L (0.5-2.0)
[2022-06-28 07:58] LABS: Glucose, Whole Blood 109 mg/dL (60-115)
[2022-06-28] MEDS: Sodium Bicarbonate 650 MG TABLET PO ×2 (08:30→22:43)
[2022-06-28] MEDS: Divalproex Sodium Sprinkles 125 MG CAP.DR.SPR PO ×2 (08:30→22:44)
[2022-06-28] MEDS: Sertraline HCL 50 MG TABLET PO (08:30)
[2022-06-28] MEDS: Atorvastatin Calcium 40 MG TABLET PO (08:30)
[2022-06-28] MEDS: Insulin Lispro 100 UNIT/ML 3 ML VIAL SUBCUT (08:31)
[2022-06-28] MEDS: 0.9 % Sodium Chloride 1,000 ML 80 ML IVCONT ×2 (08:31→23:40)
[2022-06-28] MEDS: Dextrose 50 % 25 GM/50 ML SYRINGE IVPUSH (08:31)
[2022-06-28] MEDS: Albuterol Sulfate 2.5 MG, Albuterol Sulfate (0.083%) 2.5 MG 5 MG INHALE (09:04)
[2022-06-28 09:11] LABS: Reflex Lactate? Lactic Acid Added
--- NOTE | 2022-06-28 09:14 | MHC.CDI.CONC ---
CDI Concurrent Query Documentation Clarification: PHYSICIAN'S DOCUMENTATION REQUEST Date of Query: 06/28/22914 Patient Name: Carlos Tapia Admit Date: 06/27/22 Dear Doctor, A review of the medical record indicates additional documentation may be needed. Please review below and update the documentation accordingly. Clinical Indicators: Risk Factors/Clinical Indicators/Treatments PN: Dementia - poor historian, depression. Olanzapine, Sertraline, Mirtazapin - Home medications If possible, please further clarify type of Dementia and any associated manifestations: Disease Type: Vascular Dementia Alzheimer's Dementia Senile Dementia Other specific diagnosis to this diagnosis Unable to determine Associated Manifestations: Dementia without behavioral disturbance Dementia with behavioral disturbance No associated manifestations Other ? please specify Unable to determine Use of terms such as suspected, likely, concern for, or probable (associated with a specific diagnosis that is being evaluated, monitored, or treated as if it exists) are acceptable and can be coded in the inpatient setting, when documented at the time of discharge. Thank you, Marisol Pizano [facility], CDIS Extension: [phone] Please use your independent medical judgment in providing your response. THIS QUERY IS PART OF THE PERMANENT MEDICAL RECORD Provider Response: Other Other Diagnosis: dementia -unable to determine
[2022-06-28 09:56] LABS: ~Lactic Acid-LAB USE ONLY 1.9 mmol/L (0.5-2.0)
[2022-06-28] MEDS: Sodium Zirconium Cyclosilicate 10 GM POWD.PACK PO (10:00)
--- NOTE | 2022-06-28 10:09 | MHC.CM.PN ---
pt from [facility] assisted living dementia unit called and spoke with pts guardian wilfred new [phone] who confirms plan of pt returning when dcd pt is covid vx x 4 dc plan return to [facility]/dementia unit
[2022-06-28] MEDS: Sodium Bicarbonate 8.4% 150 MEQ in Dextrose 5 % 850 ML 100 MEQ IV (11:34)
[2022-06-28 11:53] LABS: Anion Gap 13 (12-20); Blood Urea Nitrogen 49 mg/dL (9-16); Calcium 8.2 mg/dL (8.4-10.2); Carbon Dioxide 19 mmol/L (22-29); Chloride 114 mmol/L (96-108); Estimated Glomerular Filt Rate 35; Glucose Random 153 mg/dL (60-115); Potassium 5.1 mmol/L (3.3-5.1); Sodium 141 mmol/L (135-145)
[2022-06-28 12:01] LABS: Glucose, Whole Blood 129 mg/dL (60-115)
--- NOTE | 2022-06-28 12:23 | P.CDIC_ITS ---
CDI Concurrent Query Documentation Clarification: PHYSICIAN'S DOCUMENTATION REQUEST Date of Query: 06/28/22 1223 Patient Name: Carlos Tapia Admit Date: 06/27/22 Dear Doctor, A review of the medical record indicates additional documentation may be needed. Please review below and update the documentation accordingly. Risk Factors/Clinical Indicators/Treatments Nursing notes 06/27 - Height and Weight - BMI 32.7 Class I Obesity. Nutrtion - On Therapeutic diet. If possible, please provide an associated diagnosis related to the abnormal BMI, such as: For a BMI >= 30: * Overweight * Obesity * Due to excess calories * Drug induced * Due to other cause Or: * BMI is not significant * Other (please specify) * Unable to determine Use of terms such as suspected, likely, concern for, or probable (associated with a specific diagnosis that is being evaluated, monitored, or treated as if it exists) are acceptable and can be coded in the inpatient setting, when documented at the time of discharge. Thank you, Marisol Pizano [facility], CDIS Extension: [phone] Please use your independent medical judgment in providing your response. THIS QUERY IS PART OF THE PERMANENT MEDICAL RECORD Provider Response: Other Other Diagnosis: obesity
--- NOTE | 2022-06-28 13:53 | HO.PM.IMPN ---
Subjective Subjective Date of Service: 06/28/22 Interval History: silvia , hyperkalemia Review of Systems Patient still feels generalized weak, denies any chest pain or shortness of breath or abdominal pain or fever chills or cough or phlegm. Physical Exam Vital Signs: Vital Signs: Last Vital Signs Temp 98.2 F 06/28/22 11:57 Pulse 68 06/28/22 11:57 Resp 18 06/28/22 11:57 BP 122/58 L 06/28/22 11:57 Pulse Ox 98 06/28/22 11:57 O2 Del Method 06/28/22 11:57 BMI result Body Mass Index 32.7 Appearance: Alert.? Oriented X3.? not in distress.? Eyes: Pupils equal, round and reactive to light.? Sclera nonicteric.? ENT: Pharynx normal.? Moist mucous membranes. cvs: rrr, [id number] . res: clear to auscultation ,no rhonchii or wheezing abd: no rebound or guarding ,nt, bs present. ext pulses present , no cyanosis . neuro: axo3 , moves all ext Objective Data Active Medications Acetaminophen (Acetaminophen 325 Mg Tablet) 650 mg PO Q6H PRN PRN Reason: Pain, Mild (Pain Scale 1-3) Atorvastatin Calcium (Atorvastatin Calcium 40 Mg Tablet) 40 mg PO DAILY [facility] Last Admin: 06/28/22 08:30 Dose: 40 mg Documented By: SHARI Dextrose (Dextrose 50 % 25 Gm/50 Ml Syringe) 25 gm IVPUSH Q15M PRN; Protocol PRN Reason: per Hypoglycemia Standing Ord. Divalproex Sodium (Divalproex Sodium Sprinkles 125 Mg ) 125 mg PO BID [facility] Last Admin: 06/28/22 08:30 Dose: 125 mg Documented By: SHARI Glucose (Glucose Gel 15 Gm Gel..Gram.) 15 gm PO Q15M PRN; Protocol PRN Reason: per Hypoglycemia Standing Ord. Heparin Sodium (Porcine) (Heparin Sodium,Porcine 5,000 Unit/Ml Vial) 5,000 unit SUBCUT Q12H [facility] Last Admin: 06/28/22 04:10 Dose: 5,000 unit Documented By: HONG Sodium Chloride (Ns) 1,000 mls @ 80 mls/hr IVCONT .[id number] [facility] Last Admin: 06/28/22 08:31 Dose: 80 mls/hr Documented By: SHARI Sodium Bicarbonate 150 meq/ (Dextrose) 1,000 mls @ 100 mls/hr IV .Q10H [facility] Last Admin: 06/28/22 11:34 Dose: 100 mls/hr Documented By: SHARI Insulin Human Lispro (Insulin Lispro 100 Unit/Ml 3 Ml Vial) 0 unit SUBCUT QIDACHS [facility]; Protocol Last Admin: 06/28/22 12:08 Dose: Not Given Documented By: SHARI Non-Admin Reason: No Insulin Coverage Comments: poc-129 Melatonin (Melatonin 3 Mg Tablet) 9 mg PO BEDTIME PRN PRN Reason: Insomnia Mirtazapine (Mirtazapine 7.5 Mg Tablet) 7.5 mg PO BEDTIME [facility] Last Admin: 06/27/22 21:12 Dose: 7.5 mg Documented By: PATTIE Olanzapine (Olanzapine 2.5 Mg Tablet) 2.5 mg PO BEDTIME [facility] Last Admin: 06/27/22 21:12 Dose: 2.5 mg Documented By: PATTIE Ondansetron HCl (Ondansetron Hcl 4 Mg/2 Ml Vial) 4 mg IVPUSH Q8H PRN PRN Reason: Nausea and Vomiting Pharmacy Consult (Consult Rx Perform Med Rec) 1 each MISCELLANE ONCE PRN PRN Reason: Consult order Sertraline HCl (Sertraline Hcl 50 Mg Tablet) 50 mg PO DAILY [facility] Last Admin: 06/28/22 08:30 Dose: 50 mg Documented By: SHARI Sodium Bicarbonate (Sodium Bicarbonate 650 Mg Tablet) 650 mg PO BID [facility] Last Admin: 06/28/22 08:30 Dose: 650 mg Documented By: SHARI Sodium Chloride (0.9 % Sodium Chloride Flush 3 Ml Syringe) 3 ml IVFLUSH QSHIFT [facility] Last Admin: 06/28/22 08:31 Dose: 3 ml Documented By: SHARI Labs CBC & Chem 7: 06/27/22 11:24 06/28/22 11:27 Labs: Laboratory Results - last 24 hr 06/27/22 06/27/22 06/27/22 11:24 14:48 16:07 Anion Gap Estim Creat Clear Calc Estimated GFR POC Glucose Random Glucose Lactic Acid Lactic Acid F/U @ 2Hr Calcium Phosphorus 3.9 B-Natriuretic Peptide 47 COVID-19 ([facility]RA) Negative COVID-19 [employer] See Note 06/27/22 06/27/22 06/27/22 16:07 18:39 18:42 Anion Gap 16 16 Estim Creat Clear Calc 18.9 20.5 Estimated GFR 29 32 POC Glucose 183 H Random Glucose 107 209 H D Lactic Acid Lactic Acid F/U @ 2Hr Calcium 8.9 8.4 Phosphorus B-Natriuretic Peptide COVID-19 ([facility]) COVID-19 [employer] 06/27/22 06/28/22 06/28/22 23:26 06:17 07:06 Anion Gap 17 18 Estim Creat Clear Calc 38.2 41.1 Estimated GFR 33 36 POC Glucose Random Glucose 127 H D 119 H Lactic Acid 2.4 H* Lactic Acid F/U @ 2Hr Calcium 9.0 D 7.8 L D Phosphorus B-Natriuretic Peptide COVID-19 ([facility]) COVID-19 [facility] 06/28/22 06/28/22 06/28/22 07:54 09:31 11:27 Anion Gap 13 Estim Creat Clear Calc 40.0 Estimated GFR 35 POC Glucose 109 Random Glucose 153 H Lactic Acid Lactic Acid F/U @ 2Hr 1.9 Calcium 8.2 L Phosphorus B-Natriuretic Peptide COVID-19 ([facility]) COVID-19 [employer] 06/28/22 11:56 Anion Gap Estim Creat Clear Calc Estimated GFR POC Glucose 129 H Random Glucose Lactic Acid Lactic Acid F/U @ 2Hr Calcium Phosphorus B-Natriuretic Peptide COVID-19 ([facility]) COVID-19 [facility] Microbiology Microbiology Results: Microbiology 06/27/22 11:24 Blood Culture - Preliminary Blood - Venous No growth after 24 hours. Assessment and Plan (1) Obesity: Status: Acute (2) Dementia: Status: Acute (3) Hyperkalemia: Status: Acute (4) SILVIA (acute kidney injury): Status: Acute (5) Left renal mass: Status: Acute Plan 72 year male with history of dementia, hypertension, hyperlipidemia, diabetes, venous stasis, anxiety, depression, hx cerebral aneurysm, obstructive sleep apnea not on cpap residing at the [facility] admitted for generalized weakness associated with SILVIA and hyperkalemia and new left renal mass. 1-Hyperkalemia secondary to SILVIA reccurrent hyperkalemia given Lokelma, albuterol, insulin and dextrose Repeat BMP, in addition nephrology added bicarb drip. -Admit to telemetry 2-SILVIA - possibly related to dehydration vs HTN meds withNAGMA improving -Hold amiloride and lisinopril -Follow BMP closely -Nephrology consulted-Added bicarb drip. 3-Left renal mass- CT in ED:?5.8 x 5.1 x 5.1 cm, solid, heterogeneous left upper pole renal mass, highly suspicious for renal cell carcinoma.. ?-Nephrology consulted. Consider oncology consult 4-Generalized weakness likely secondary to electrolyte abnormality -Correct electrolyte abdnormality as above and continue gentle hydration -CK normal -No focal neuro deficits ct head neg Pt eval 5-Noninsulin dependent type 2 diabetes -POC glucose -Diabetic diet -Humalog SS 6-HTN- BP soft -Hold all BP meds for now -Hold lisinopril and amiloride d/t SILVIA and hyperkalemia 7-HLD -Continue statin 8-Venous stasis- stable -Pt chronic edema likely secondary to chronic venous disease, possibly CKD. BNP ordered as well 9-MELY -Not on cpap 10-hx cerebral aneursym per pt -Head CT -no acute finding 11. Obesity: Encouraged to lose weight, cut down calories. 12. Dementia(as per patient as well as his guardians report):-unable to determine etiology Supportive care. DVT prophylaxis- Heparin Inpatient need: Persistent hyperkalemia requiring IV bicarb drip,silvia need hydrationiv, renal mass -pending workup/urology eval Quality Stroke Does the patient have a stroke diagnosis?: No VTE Prior VTE?: No VTE Risk Level:: Medical - moderate - high VTE Device Contraindication: Treatment Not Indicated VTE Drug Contraindication: Treatment Not Indicated
--- NOTE | 2022-06-28 15:08 | PHA.PROG ---
Admission Date/Time: June 27, 2022 14:29 Indication: Weight in k.6 kg Adjusted body weight in Kg: [place] body weight in Kg: Obesity Dosing Indication % IBW: obese model Serum Creatinine - Last 168 Hours 06/27/22 06/27/22 06/27/22 11:24 16:07 18:42 Creatinine 2.57 H 2.24 H 2.06 H 06/27/22 06/28/22 06/28/22 23:26 06:17 11:27 Creatinine 1.98 H 1.84 H 1.89 H Estimated CrCl and GFR - Last 168 Hours 06/27/22 06/27/22 06/27/22 11:24 16:07 18:42 Estim Creat Clear Calc 16.5 18.9 20.5 Estimated GFR 25 29 32 06/27/22 06/28/22 06/28/22 23:26 06:17 11:27 Estim Creat Clear Calc 38.2 41.1 40.0 Estimated GFR 33 36 35 Vancomycin Loading Dose: 2000mg X 1 Current Vancomycin Dosing Regimen: 750mg Q24H Vancomycin Monitoring using AUC goal of 400 - 600 range with trough as surrogate marker: 469 mg/L Date and Time for next Vancomycin Level to be drawn: 07/01/22 @ 1400 Pharmacist Comments on Vancomycin Plan: Will continue to monitor renal function Vancomycin dosing will take advantage of [employer] as a clinical decision support tool that uses Bayesian modeling to calculate individual patient's pharmacokinetic parameters and forecast the patient's drug concentration time course with the target goal AUC 24 range of 400 - 600 mg/L/hr.
[2022-06-28 16:06] LABS: Glucose, Whole Blood 141 mg/dL (60-115)
--- NOTE | 2022-06-28 18:58 | PC.NURSE ---
Patient's peripheral IV line infiltrated. Attempted x2 to place peripheral access without success. Construction Driller Sara Marsh RN. asked to attempt IV at 1700, stating she would attempt. Has not come to attempt. MD Ricky. aware at this time and I asked if any ED dr. could attempt ultrasound guided peripheral access, he suggested Dr. Tejada. Paged Dr. Tejada if would be willing to attempt, he read message and did not respond. Construction Driller Sara again paged for support and if she could reach out to the attendings in the ED, to which she responded, There's a 5 hr wait in the ED. Unlikely . She again stated she would attempt to gain IV access. At this time, patient does not have any peripheral access, vancomycin and NS IV fluids are late. MD Ricky. aware.
--- NOTE | 2022-06-28 19:27 | PM.EVENT ---
Event Note Date of Service: 06/28/22 Event Note: bacteremia: Patient's blood culture growing GPC. Final results pending Patient has poor IV access-RN /nursing lock maintenance supervisor trying to get IV get a line Will empirically cover the patient with p.o. doxycycline for now Vitals currently stable
--- NOTE | 2022-06-28 19:30 | PC.NURSE ---
Labor Relations Director Sara Marsh RN attempted peripheral access at this time and unsuccessful. MD La Nena aware at this time.
--- NOTE | 2022-06-28 19:58 | PC.NURSE ---
Patient refuses any other peripheral access to be obtained at this time. Education provided about status of health and need for IV antibiotics, patient still declines further access to be obtained. Report given to oncoming RN assuming care; aware of the situation. Gas And Oil Checker RN and MD La Nena aware at this time.
[2022-06-28 20:06] LABS: Glucose, Whole Blood 115 mg/dL (60-115)
[2022-06-28] MEDS: vancomycin HCL 1,000 MG in 0.9 % Sodium Chloride 250 ML 270 MG IV (22:42)
[2022-06-28] MEDS: OLANZapine 2.5 MG TABLET PO (22:44)
[2022-06-28] MEDS: Mirtazapine 7.5 MG TABLET PO (22:44)
[2022-06-29] VITALS (7 sets, daily range): BP systolic 112–178; BP diastolic 55–92; PULSE 68–82; RESP 18–20; TEMP 36.4–37.6; O2SAT 95–98
--- NOTE | 2022-06-29 09:36 | CONS_ITS ---
DATE OF SERVICE: 06/28/2022 REASON FOR CONSULTATION: I was asked to see the patient to assist in evaluation and management of patient's acute kidney injury as reflected by creatinine, which was 1.7 back in February 2022, now on admission was 2.57 along with hyperkalemia with a potassium of 7 yesterday, now down to 5.1 today at noon time. This was after getting treatment for his hyperkalemia with standard medication cocktail regimen. He is also noted to have a non-anion gap metabolic acidosis with bicarb of 14. The patient is a poor historian. Information was obtained from electronic medical record. HISTORY OF PRESENT ILLNESS: In summary, he is a 72-year-old gentleman with a history of dementia, hypertension, hyperlipidemia, diabetes, venous stasis disease, anxiety, depression, obstructive sleep apnea, and a question of chronic kidney disease unclear what his baseline creatinine is, who is a resident at the [facility] when he was noted to have some generalized weakness at the rehab facility. He was sent over to the hospital and noted to have marked metabolic abnormalities. He also had a CAT scan of his abdomen and pelvis without contrast, which showed a left upper pole renal mass, very suspicious for renal cell cancer. Presently, he is fairly comfortable and has no particular complaints. PAST MEDICAL HISTORY: As outlined above. MEDICATIONS: His medications on admission interestingly include amiloride 5 mg twice a day, aspirin, Lipitor, Depakote, lisinopril 20 once a day. Metoprolol, nifedipine, oxybutynin, and Zoloft. ALLERGIES: HE HAS NO KNOWN DRUG ALLERGIES. REVIEW OF SYSTEMS: Unobtainable. FAMILY HISTORY: There is mention made of dementia and stroke in the family. His current medications are noted in the MAR. As mentioned, he got medical cocktail for hyperkalemia as well as amiloride and lisinopril were placed on hold. PHYSICAL EXAMINATION: VITAL SIGNS: Blood pressure 130/60 with a heart rate in the 70s. He did have blood pressures as low as 100 systolic. HEAD: Atraumatic and normocephalic. NECK: Supple. Mucous membranes are moist. LUNGS: Breath sounds bilaterally diminished at the bases. CARDIAC: Regular rate and rhythm without rub. ABDOMEN: Soft. EXTREMITIES: Shows no edema. LABORATORY DATA: Showed creatinine as high as 2.57 on admission yesterday at noon time. Potassium was as high as 7.0. Most recent labs from 11:30 a.m. today, sodium 141, potassium 5.1, chloride 114, bicarb 19, BUN 49, creatinine 1.89, and calcium 8.2. Hemoglobin 9.6, hematocrit 29.7, white blood cell count 8.5, and platelet count 141. Actually, no urine is done as of this time. He had a CAT scan as mentioned without IV contrast, which showed question of a left upper pole solid heterogeneous mass suspicious for renal cell CA with no evidence of invasion of the renal vein, but again this was without contrast. IMPRESSION: ACUTE KIDNEY INJURY ON QUESTION OF CHRONIC KIDNEY DISEASE IN A PATIENT PRESENTS WITH DEHYDRATION AND HYPERKALEMIA AND A NEWLY DISCOVERED LEFT RENAL MASS. 1. Acute kidney injury. This is most consistent with renal hypoperfusion from dehydration. He is maintained on amiloride and lisinopril. The former can cause dehydration. The latter can cause decreased ability to autoregulate the renal vasculature in the setting of dehydration and so the 2 combined are likely the culprit for the acute kidney injury on top of the dehydration. The good news is that his renal function seems to be improving off these medications and with IV hydration. Other possibilities seem less likely, but we will obtain a urinalysis and spot urine studies. 2. Severe hyperkalemia. He has responded to medical therapy. We started IV sodium bicarb drip to increase potassium transpatellar removal. This is helping along with the other medications. Need to watch for rebound hyperkalemia. 3. Left renal mass. This needs further evaluation. We will review with Radiology about whether to proceed with MRI renal mass protocol versus an ultrasound. He may be a candidate for ablation as opposed to resection given his age and comorbidities. 4. Non-anion gap depressed serum bicarb. This is better with the sodium bicarb replacement. 5. Question of chronic kidney disease. His baseline creatinine may be 1.7. SUGGESTIONS: At this time include continue to track his potassium and renal function. We will look to switch him from IV sodium bicarb back to normal saline. Follow urine output. Get Urology consult to help assess best next steps for evaluating the left upper kidney mass. Avoid nephrotoxins. He is probably not a good candidate to be on both amiloride and lisinopril together. Will reassess as blood pressure gets better by reintroducing blood pressure medications. We will follow the patient with the team. MD OLVIN Grady/LAILA / [phone]
[2022-06-29] MEDS: Sodium Bicarbonate 650 MG TABLET PO ×2 (10:15→22:01)
[2022-06-29] MEDS: Divalproex Sodium Sprinkles 125 MG CAP.DR.SPR PO ×2 (10:15→22:01)
[2022-06-29] MEDS: Sertraline HCL 50 MG TABLET PO (10:16)
[2022-06-29] MEDS: Atorvastatin Calcium 40 MG TABLET PO (10:16)
--- NOTE | 2022-06-29 12:20 | P.PNIM_ITS ---
Subjective Subjective Date of Service: 06/29/22 Interval History: F/u silvia on ckd, hyperkalemia interval history: last K was normal, pt refusing blood sugar check Review of Systems no sob no chest pain Physical Exam Vital Signs: Vital Signs: Last Vital Signs Temp 97.7 F 06/29/22 11:15 Pulse 70 06/29/22 11:15 Resp 20 06/29/22 11:15 BP 161/73 H 06/29/22 11:15 Pulse Ox 98 06/29/22 11:15 O2 Del Method 06/29/22 11:15 BMI result Body Mass Index 32.7 Const: Other: General: AO X 3, no acute distress Resp: CTA bilateral CVS: S1,S2,RRR GI: +BS, NT, no distention Skin: No rash Neuro: motor grossly intact Psych: appropriate affect Objective Data Active Medications Acetaminophen (Acetaminophen 325 Mg Tablet) 650 mg PO Q6H PRN PRN Reason: Pain, Mild (Pain Scale 1-3) Atorvastatin Calcium (Atorvastatin Calcium 40 Mg Tablet) 40 mg PO DAILY [facility] Last Admin: 06/29/22 10:16 Dose: 40 mg Documented By: GERARDO Dextrose (Dextrose 50 % 25 Gm/50 Ml Syringe) 25 gm IVPUSH Q15M PRN; Protocol PRN Reason: per Hypoglycemia Standing Ord. Divalproex Sodium (Divalproex Sodium Sprinkles 125 Mg ) 125 mg PO BID [facility] Last Admin: 06/29/22 10:15 Dose: 125 mg Documented By: EGRARDO Doxycycline Hyclate (Doxycycline Hyclate 100 Mg Tablet) 100 mg PO Q12H [facility] Last Admin: 06/29/22 10:15 Dose: 100 mg Documented By: GERARDO Glucose (Glucose Gel 15 Gm Gel..Gram.) 15 gm PO Q15M PRN; Protocol PRN Reason: per Hypoglycemia Standing Ord. Heparin Sodium (Porcine) (Heparin Sodium,Porcine 5,000 Unit/Ml Vial) 5,000 unit SUBCUT Q12H [facility] Last Admin: 06/29/22 05:21 Dose: Not Given Documented By: EVELYN Non-Admin Reason: Patient Refused Sodium Chloride (Ns) 1,000 mls @ 80 mls/hr IVCONT .[id number] [facility] Last Admin: 06/29/22 05:21 Dose: Not Given Documented By: EVELYN Non-Admin Reason: IV Running Insulin Human Lispro (Insulin Lispro 100 Unit/Ml 3 Ml Vial) 0 unit SUBCUT [facility]; Protocol Last Admin: 06/29/22 11:32 Dose: Not Given Documented By: GERARDO Non-Admin Reason: Patient refused POC check MD notified Melatonin (Melatonin 3 Mg Tablet) 9 mg PO BEDTIME PRN PRN Reason: Insomnia Mirtazapine (Mirtazapine 7.5 Mg Tablet) 7.5 mg PO BEDTIME [facility] Last Admin: 06/28/22 22:44 Dose: 7.5 mg Documented By: EVELYN Olanzapine (Olanzapine 2.5 Mg Tablet) 2.5 mg PO BEDTIME [facility] Last Admin: 06/28/22 22:44 Dose: 2.5 mg Documented By: EVELYN Ondansetron HCl (Ondansetron Hcl 4 Mg/2 Ml Vial) 4 mg IVPUSH Q8H PRN PRN Reason: Nausea and Vomiting Pharmacy Consult (Consult Rx Perform Med Rec) 1 each MISCELLANE ONCE PRN PRN Reason: Consult order Sertraline HCl (Sertraline Hcl 50 Mg Tablet) 50 mg PO DAILY [facility] Last Admin: 06/29/22 10:16 Dose: 50 mg Documented By: GERARDO Sodium Bicarbonate (Sodium Bicarbonate 650 Mg Tablet) 650 mg PO BID [facility] Last Admin: 06/29/22 10:15 Dose: 650 mg Documented By: GERARDO Sodium Chloride (0.9 % Sodium Chloride Flush 3 Ml Syringe) 3 ml IVFLUSH QSHIFT [facility] Last Admin: 06/29/22 10:12 Dose: Not Given Documented By: GERARDO Non-Admin Reason: IV Running Labs CBC & Chem 7: 06/27/22 11:24 06/28/22 11:27 Labs: Laboratory Results - last 24 hr 06/28/22 06/28/22 15:48 19:58 POC Glucose 141 H 115 Microbiology Microbiology Results: Microbiology 06/28/22 07:07 Blood Culture - Preliminary Blood - Venous No growth after 24 hours. 06/28/22 07:06 Blood Culture - Preliminary Blood - Venous No growth after 24 hours. 06/27/22 16:07 Blood Culture - Final Blood - Venous Coag negative Staphylococcus 06/27/22 11:24 Blood Culture - Preliminary Blood - Venous No growth after 24 hours. Assessment and Plan (1) Obesity: Status: Acute (2) Dementia: Status: Acute (3) Hyperkalemia: Status: Acute (4) SILVIA (acute kidney injury): Status: Acute (5) Left renal mass: Status: Acute Plan 72 year male with history of dementia, hypertension, hyperlipidemia, diabetes, venous stasis, anxiety, depression, hx cerebral aneurysm, obstructive sleep apnea not on cpap residing at the [facility] admitted for generalized weakness associated with SILVIA and hyperkalemia and new left renal mass. 1-Hyperkalemia d/t CKD, SILVIA..treated with Lokelma, albuterol and insulin and bicab.. last k was within normal. repeat labs today. Nephrology following 2-SILVIA on CKD 4, Cr has improved. recheck lab today 3-Left renal mass- CT in ED:?5.8 x 5.1 x 5.1 cm, solid, heterogeneous left upper pole renal mass, highly suspicious for renal cell carcinoma.. ?-Nephrology consulted. Consider oncology consult 4-Generalized weakness likely secondary to electrolyte abnormality -Correct electrolyte abdnormality as above and continue gentle hydration -CK normal -No focal neuro deficits ct head neg Pt eval 5-Noninsulin dependent type 2 diabetes -POC glucose -Diabetic diet -Humalog SS 6-HTN- BP soft -Hold all BP meds for now -Hold lisinopril and amiloride d/t SILVIA and hyperkalemia 7-HLD -Continue statin 8-Venous stasis- stable -Pt chronic edema likely secondary to chronic venous disease, possibly CKD. BNP ordered as well 9-MELY -Not on cpap 10-hx cerebral aneursym per pt -Head CT -no acute finding 11. Obesity: Encouraged to lose weight, cut down calories. 12. Dementia(as per patient as well as his guardians report):-unable to determine etiology Supportive care. DVT prophylaxis- Heparin Inpatient need: Persistent hyperkalemia requiring IV bicarb drip,silvia need hydrationiv, renal mass -pending workup/urology eval Quality Stroke Does the patient have a stroke diagnosis?: No VTE Prior VTE?: No VTE Risk Level:: Medical - moderate - high VTE Device Contraindication: Treatment Not Indicated VTE Drug Contraindication: Treatment Not Indicated
--- NOTE | 2022-06-29 12:24 | PM.UROCN ---
History of Present Illness Consult details Consult date: 06/29/22 Narrative: Consulting complaint - right renal cancer 72-year-old male. Admission hospital from assisted living for confusion weakness Baseline diagnoses of dementia, diabetes, renal insufficiency CDK 3 CT imaging performed 6 cm mass posterior right upper pole renal extending towards renal hilum Not good candidate for definitive expertive therapy Recommend Lasix renogram to to find function Would benefit from assessment from Oncology regarding use of oral therapies such as Sutent in an attempt to spare renal function maximally Given other comorbidities life expectancy would be approximately 5 years Review of Systems Constitutional: Constitutional: Reports as per HPI and Reports no additional constitutional complaints Cardiovascular: Cardiovascular: Reports as per HPI and Reports no additional cardiovascular complaints Respiratory: Respiratory: Reports as per HPI and Reports no additional respiratory complaints Gastrointestinal: Gastrointestinal: Reports as per HPI and Reports no additional gastrointestinal complaints Genitourinary: Genitourinary: Reports as per HPI Musculoskeletal: Musculoskeletal: Reports no additional musculoskeletal complaints and Reports as per HPI Neurologic: Reports system reviewed and no additional complaints, except as documented and Reports as per HPI PMFSH Past Medical History Medical History (Updated 06/29/22 @ 14:29 by Ivory Shaikh MD) Anxiety Bacteremia Dementia Depression HLD (hyperlipidemia) HTN (hypertension) Left renal mass MELY (obstructive sleep apnea) Type 2 diabetes mellitus Venous stasis dermatitis of both lower extremities Family History Family History Mother Dementia Stroke Social History Social History Household Members: None Housing: Snf Do you presently have visiting nurse or other home services: No Alcohol intake: unknown Patient Tobacco Use Status: Never used Tobacco Use of substances other than those prescribed or required for medical reasons: No Currently Displaying Signs/Symptoms of Drug Intoxication Withdrawal: No Have you been hit, kicked, punched, or otherwise hurt by someone within the past year? If so, by whom?: No Do you feel safe in your current relationship?: Yes Is there a partner from a previous relationship who is making you feel unsafe now?: No Are you made to feel afraid or neglected: No Advance Directives: No Advance Directives Information Provided: Yes Do you have thoughts of harming others: None Do you have a plan to hurt others: No Plan Recently lost weight without trying: No Eating poorly because of decreased appetite: No Nutrition Risks: No Nutritional Risk Poor oral hygiene: No service: No Meds Allergies Allergy/AdvReac Type Severity Reaction Status Date / Time No Known Allergies Allergy Verified 12/08/21 14:14 Active Medications: Current Medications Acetaminophen (Acetaminophen 325 Mg Tablet) 650 mg PO Q6H PRN PRN Reason: Pain, Mild (Pain Scale 1-3) Atorvastatin Calcium (Atorvastatin Calcium 40 Mg Tablet) 40 mg PO DAILY [facility] Last Admin: 06/29/22 10:16 Dose: 40 mg Dextrose (Dextrose 50 % 25 Gm/50 Ml Syringe) 25 gm IVPUSH Q15M PRN; Protocol PRN Reason: per Hypoglycemia Standing Ord. Divalproex Sodium (Divalproex Sodium Sprinkles 125 Mg ) 125 mg PO BID [facility] Last Admin: 06/29/22 10:15 Dose: 125 mg Doxycycline Hyclate (Doxycycline Hyclate 100 Mg Tablet) 100 mg PO Q12H [facility] Last Admin: 06/29/22 10:15 Dose: 100 mg Glucose (Glucose Gel 15 Gm Gel..Gram.) 15 gm PO Q15M PRN; Protocol PRN Reason: per Hypoglycemia Standing Ord. Heparin Sodium (Porcine) (Heparin Sodium,Porcine 5,000 Unit/Ml Vial) 5,000 unit SUBCUT Q12H [facility] Last Admin: 06/29/22 05:21 Dose: Not Given Sodium Chloride (Ns) 1,000 mls @ 80 mls/hr IVCONT .[id number] [facility] Last Admin: 06/29/22 05:21 Dose: Not Given Insulin Human Lispro (Insulin Lispro 100 Unit/Ml 3 Ml Vial) 0 unit SUBCUT QIDACHS [facility]; Protocol Last Admin: 06/29/22 11:32 Dose: Not Given Melatonin (Melatonin 3 Mg Tablet) 9 mg PO BEDTIME PRN PRN Reason: Insomnia Mirtazapine (Mirtazapine 7.5 Mg Tablet) 7.5 mg PO BEDTIME [facility] Last Admin: 06/28/22 22:44 Dose: 7.5 mg Olanzapine (Olanzapine 2.5 Mg Tablet) 2.5 mg PO BEDTIME [facility] Last Admin: 06/28/22 22:44 Dose: 2.5 mg Ondansetron HCl (Ondansetron Hcl 4 Mg/2 Ml Vial) 4 mg IVPUSH Q8H PRN PRN Reason: Nausea and Vomiting Pharmacy Consult (Consult Rx Perform Med Rec) 1 each MISCELLANE ONCE PRN PRN Reason: Consult order Sertraline HCl (Sertraline Hcl 50 Mg Tablet) 50 mg PO DAILY [facility] Last Admin: 06/29/22 10:16 Dose: 50 mg Sodium Bicarbonate (Sodium Bicarbonate 650 Mg Tablet) 650 mg PO BID [facility] Last Admin: 06/29/22 10:15 Dose: 650 mg Sodium Chloride (0.9 % Sodium Chloride Flush 3 Ml Syringe) 3 ml IVFLUSH QSHIFT [facility] Last Admin: 06/29/22 10:12 Dose: Not Given Home Medications Medication Instructions Recorded Confirmed Last Taken Type amiloride 5 mg tablet 1 tab PO BID 06/27/22 06/27/22 Unknown History aspirin 81 mg tablet,delayed 81 mg PO DAILY 06/27/22 06/27/22 Unknown History release atorvastatin 40 mg tablet 1 tab PO DAILY 06/27/22 06/27/22 Unknown History divalproex 125 mg capsule,delayed 1 cap PO BID 06/27/22 06/27/22 Unknown History release sprinkle lisinopril 20 mg tablet 1 tab PO DAILY 06/27/22 06/27/22 Unknown History melatonin 3 mg tablet 8 mg PO BEDTIME PRN Insomnia 06/27/22 06/27/22 Unknown History metoprolol tartrate 25 mg tablet 3 tab PO BID 06/27/22 06/27/22 Unknown History mirtazapine 7.5 mg tablet 1 tab PO BEDTIME 06/27/22 06/27/22 Unknown History multivitamin 1 tab PO DAILY 06/27/22 06/27/22 Unknown History nifedipine 90 mg tablet,extended 1 tab PO DAILY 06/27/22 06/27/22 Unknown History release 24 hr nystatin 100,000 unit/gram topical 1 appl topical BID 06/27/22 06/27/22 Unknown History powder olanzapine 2.5 mg tablet 1 tab PO QPM 06/27/22 06/27/22 Unknown History oxybutynin chloride 15 mg 1 tab PO DAILY 06/27/22 06/27/22 Unknown History tablet,extended release 24 hr sertraline 50 mg tablet 1 tab PO DAILY 06/27/22 06/27/22 Unknown History triamcinolone acetonide 0.1 % 1 appl topical BID 06/27/22 06/27/22 Unknown History topical cream Physical Exam Vital Signs: Vital Signs: Last Vital Signs Temp 97.7 F 06/29/22 11:15 Pulse 70 06/29/22 11:15 Resp 20 06/29/22 11:15 BP 161/73 H 06/29/22 11:15 Pulse Ox 98 06/29/22 11:15 O2 Del Method 06/29/22 11:15 BMI result Body Mass Index 32.7 Const: General: cooperative, healthy appearing, comfortable and no acute distress Orientation/consciousness: patient oriented x3 HEENT: Face and sinus: Yes normal facial exam Mouth: moist mucous membranes Neck: Neck: Yes normal visual inspection, Yes full ROM and Yes trachea midline Chest: Chest palpation & inspection: normal inspection of the chest Resp: Effort & Inspection: normal respiratory effort, able to speak in complete sentences and no respiratory distress GI: Inspection: Yes normal to inspection Back/Spine/Pelvis: Cervical Spine: normal cervical lordosis Thoracic/Lumbar Spine: thoracic and lumbar spine normal to inspection Skin: General skin exam: no rashes or lesions noted Neuro: General: patient oriented x3, tone normal and moves all extremities Extrem: General: Yes normal to inspection and Yes capillary refill normal Results Labs Result diagrams: 06/27/22 11:24 06/30/22 08:58 Labs: Abnormal lab results 06/28/22 Range/Units 15:48 POC Glucose 141 H (60-115) mg/dL All other labs normal. Assessment and Plan (1) Renal carcinoma: Status: Acute Plan Right renal upper pole carcinoma Plan biopsy Lasix renogram to confirm split function Procedures Date of Service Date of Service: 06/29/22
[2022-06-29] MEDS: 0.9 % Sodium Chloride 1,000 ML 80 ML IVCONT (12:31)
--- NOTE | 2022-06-29 13:08 | P.CNHO_ITS ---
Subjective - Subjective Chief complaint: Consult for: Renal cell carcinoma Patient: new to practice Consult date: 06/29/22 Requesting Physician: Isac. Primary Care Provider: Unknown Physician Medical Summary: DIAGNOSIS; Renal tumor. HPI - Consult Narrative Reason for consult: Consult for: Renal tumor. Narrative: Carlos Tapia is a pleasant 72 year old gentleman, residing at the [facility] presented to the ED on 06/27, via EMS after he was found to be unable to walk from bed to chair due to weakness. He noted bilateral weakness in the LE but was able to ambulate with a walker at baseline but could not this morning. He had no other complaints. No recent falls or pain in the back or legs. Denies paresthesias. In the ED, found to have SILVIA with creat 2.57 and BUN 63 (baseline 1.67, BUN 38). K was 6.4. EKG without ST/T waves abnormality and was normal sinus rhythm with rate 66 and 1st degree AV block. CXR normal. CPK 53. Trop I 6.0. Abd/pelvis CT 5.8 x 5.1 x 5.1 cm, solid, heterogeneous left upper pole renal mass, highly suspicious for renal cell carcinoma. Punctate, nonobstructing, bilateral renal collecting system stones versus vascular calcification. No evidence of hydronephrosis or hydroureter on either side. with new 5.8 x 5.1 x 5.1 cm solid, heterogenous left upper pole renal mass, highly suspicious for renal cell carcinoma. UA pending. In ED: Received 1L NS fluid bolus, 1g calcium gluconate, and 30g sodium polystyrene sulfonate. Review of Systems Review of Systems: General: +generalized weakness. No fevers, malaise, unintentional weight loss HEENT: no blurred vision, diplopia Cardiovascular: No chest pain, palpitations, or leg edema Respiratory: No shortness of breath, wheezing, cough GI: No abdominal pain, nausea, vomiting, diarrhea, constipation, melena, hematochezia : No dysuria, hematuria, increased urinary frequency MSK: No back or extremity pain Neuro: No headaches, paresthesias Skin: No rashes or lesions PMFSH Medical History; Dementia, hypertension, hyperlipidemia, diabetes, venous stasis, anxiety, depression, Obstructive sleep apnea not on cpap Anxiety Dementia Depression HLD (hyperlipidemia) HTN (hypertension) Left renal mass MELY (obstructive sleep apnea) Type 2 diabetes mellitus Venous stasis dermatitis of both lower extremities Family History: Mother Dementia Stroke Social History: Household Members: None Housing: Senior Living Do you presently have visiting nurse or other home services: No Alcohol intake: unknown Patient Tobacco Use Status: Never used Tobacco Use of substances other than those prescribed or required for medical reasons: No Review of Systems - Constitutional Reports system reviewed and no additional complaints, except as documented, Reports anorexia, Reports daytime sleepiness, Reports lack of energy, Reports weakness, Reports weight loss - Eyes Reports system reviewed and no additional complaints, except as documented, Denies blurry vision - ENT Reports system reviewed and no additional complaints, except as documented - Cardiovascular Reports system reviewed and no additional complaints, except as documented, Denies chest pain at rest - Respiratory Reports no additional respiratory complaints, Denies change in phlegm color, Denies chest congestion - Gastrointestinal Reports system reviewed and no additional complaints, except as documented, Reports abdominal pain, Denies vomiting, Denies vomiting blood - Genitourinary Genitourinary: Reports no additional male genitourinary complaints, Denies blood in urine - Musculoskeletal Reports system reviewed and no additional complaints, except as documented, Reports back pain - Integumentary/Breasts Skin/Breast: Reports no additional skin complaints - Neurologic Reports system reviewed and no additional complaints, except as documented, Denies loss of vision, Denies numbness, Denies tingling - Psychiatric Reports system reviewed and no additional complaints, except as documented, Denies anxiety - Endocrine Reports no additional endocrine complaints, Denies excessive sweating - Hematologic/Lymphatic Reports system reviewed and no additional complaints, except as documented, Denies easy bleeding - Allergic/Immunologic Reports system reviewed and no additional complaints, except as documented, Denies GI upset with certain foods Oncology Screenings - ECOG Performance Status ECOG Performance Status: 1 [facility] Medical History: Medical History (Last Updated 06/29/22 @ 14:29 by Ivory Shaikh MD) Anxiety Bacteremia Dementia Depression HLD (hyperlipidemia) HTN (hypertension) Left renal mass MELY (obstructive sleep apnea) Type 2 diabetes mellitus Venous stasis dermatitis of both lower extremities Functional capacity: uses cane/walker Patient : No Family History: Family History (Last Reviewed 06/29/22 @ 14:28 by Ivory Shaikh MD) Mother Dementia Stroke Social History: Social History (Last Reviewed 06/29/22 @ 14:28 by Ivory Shaikh MD) Living Situation History: Household Members: None Housing: Senior Living Do you presently have visiting nurse or other home services: No Alcohol History Details: 1. How often do you have a drink containing alcohol?: a. Never AUDIT-C Alcohol total score: 0 Currently Displaying Signs/Symptoms of Alcohol Withdrawal: No Tobacco History: Patient Tobacco Use Status: Never used Tobacco Substance Use History: Use of substances other than those prescribed or required for medical reasons : No Currently Displaying Signs/Symptoms of Drug Intoxication Withdrawal: No Domestic Abuse History: Have you been hit, kicked, punched, or otherwise hurt by someone within the past year? If so, by whom?: No Do you feel safe in your current relationship?: Yes Is there a partner from a previous relationship who is making you feel unsafe now?: No Are you made to feel afraid or neglected: No Advance Directives: Advance Directives: No Advance Directives Information Provided: Yes Homicidal Assessment: Do you have thoughts of harming others: None Do you have a plan to hurt others: No Plan Nutrition Assessment: Recently lost weight without trying: No Eating poorly because of decreased appetite: No Nutrition Risks: No Nutritional Risk Patient : No Poor oral hygiene: No Occupation Assessmet: service: No Home Medications and Allergies Current Medications: Current Medications Acetaminophen (Acetaminophen 325 Mg Tablet) 650 mg PO Q6H PRN PRN Reason: Pain, Mild (Pain Scale 1-3) Atorvastatin Calcium (Atorvastatin Calcium 40 Mg Tablet) 40 mg PO DAILY [facility] Last Admin: 06/29/22 10:16 Dose: 40 mg Dextrose (Dextrose 50 % 25 Gm/50 Ml Syringe) 25 gm IVPUSH Q15M PRN; Protocol PRN Reason: per Hypoglycemia Standing Ord. Divalproex Sodium (Divalproex Sodium Sprinkles 125 Mg ) 125 mg PO BID [facility] Last Admin: 06/29/22 10:15 Dose: 125 mg Doxycycline Hyclate (Doxycycline Hyclate 100 Mg Tablet) 100 mg PO Q12H [facility] Last Admin: 06/29/22 10:15 Dose: 100 mg Glucose (Glucose Gel 15 Gm Gel..Gram.) 15 gm PO Q15M PRN; Protocol PRN Reason: per Hypoglycemia Standing Ord. Heparin Sodium (Porcine) (Heparin Sodium,Porcine 5,000 Unit/Ml Vial) 5,000 unit SUBCUT Q12H [facility] Last Admin: 06/29/22 05:21 Dose: Not Given Sodium Chloride (Ns) 1,000 mls @ 80 mls/hr IVCONT .[id number] [facility] Last Admin: 06/29/22 12:31 Dose: 80 mls/hr Insulin Human Lispro (Insulin Lispro 100 Unit/Ml 3 Ml Vial) 0 unit SUBCUT QIDACHS [facility]; Protocol Last Admin: 06/29/22 11:32 Dose: Not Given Melatonin (Melatonin 3 Mg Tablet) 9 mg PO BEDTIME PRN PRN Reason: Insomnia Mirtazapine (Mirtazapine 7.5 Mg Tablet) 7.5 mg PO BEDTIME [facility] Last Admin: 06/28/22 22:44 Dose: 7.5 mg Olanzapine (Olanzapine 2.5 Mg Tablet) 2.5 mg PO BEDTIME [facility] Last Admin: 06/28/22 22:44 Dose: 2.5 mg Ondansetron HCl (Ondansetron Hcl 4 Mg/2 Ml Vial) 4 mg IVPUSH Q8H PRN PRN Reason: Nausea and Vomiting Pharmacy Consult (Consult Rx Perform Med Rec) 1 each MISCELLANE ONCE PRN PRN Reason: Consult order Sertraline HCl (Sertraline Hcl 50 Mg Tablet) 50 mg PO DAILY [facility] Last Admin: 06/29/22 10:16 Dose: 50 mg Sodium Bicarbonate (Sodium Bicarbonate 650 Mg Tablet) 650 mg PO BID [facility] Last Admin: 06/29/22 10:15 Dose: 650 mg Sodium Chloride (0.9 % Sodium Chloride Flush 3 Ml Syringe) 3 ml IVFLUSH QSHIFT [facility] Last Admin: 06/29/22 10:12 Dose: Not Given Home Medications Medication Instructions Recorded Confirmed Type amiloride 5 mg tablet 1 tab PO BID 06/27/22 06/27/22 History aspirin 81 mg tablet,delayed 81 mg PO DAILY 06/27/22 06/27/22 History release atorvastatin 40 mg tablet 1 tab PO DAILY 06/27/22 06/27/22 History divalproex 125 mg capsule,delayed 1 cap PO BID 06/27/22 06/27/22 History release sprinkle lisinopril 20 mg tablet 1 tab PO DAILY 06/27/22 06/27/22 History melatonin 3 mg tablet 8 mg PO BEDTIME PRN Insomnia 06/27/22 06/27/22 History metoprolol tartrate 25 mg tablet 3 tab PO BID 06/27/22 06/27/22 History mirtazapine 7.5 mg tablet 1 tab PO BEDTIME 06/27/22 06/27/22 History multivitamin 1 tab PO DAILY 06/27/22 06/27/22 History nifedipine 90 mg tablet,extended 1 tab PO DAILY 06/27/22 06/27/22 History release 24 hr nystatin 100,000 unit/gram topical 1 appl topical BID 06/27/22 06/27/22 History powder olanzapine 2.5 mg tablet 1 tab PO QPM 06/27/22 06/27/22 History oxybutynin chloride 15 mg 1 tab PO DAILY 06/27/22 06/27/22 History tablet,extended release 24 hr sertraline 50 mg tablet 1 tab PO DAILY 06/27/22 06/27/22 History triamcinolone acetonide 0.1 % 1 appl topical BID 06/27/22 06/27/22 History topical cream Allergies Allergy/AdvReac Type Severity Reaction Status Date / Time No Known Allergies Allergy Verified 12/08/21 14:14 Physical Exam Vital signs: Vital Signs Temp 97.7 F 06/29/22 11:15 Pulse 70 06/29/22 11:15 Resp 20 06/29/22 11:15 BP 161/73 H 06/29/22 11:15 Pulse Ox 98 06/29/22 11:15 O2 Del Method 06/29/22 11:15 Intake & Output 06/28/22 06/29/22 06/29/22 18:59 06:59 18:59 Intake Total 1873.333 / 3143.333 1270 / 3143.333 1000 / 1000 Output Total 800 / 800 Balance 1873.333 / 2343.333 470 / 2343.333 1000 / 1000 Urine Output (Average ml/kg/hr) 0.66 0.66 Intake: Intake, Oral Amount 480 / 480 Intake, IV Amount 1393.333 / 2663.333 1270 / 2663.333 1000 / 1000 Sodium Bicarbonate 8.4% 150 meq 393.333 / 393.333 In Dextrose 5 % 850 ml @ 100 mls/hr IV .Q10H [facility] Rx#: [id number] vancomycin HCL 1,000 mg In 0.9 270 / 270 % Sodium Chloride 250 ml @ 270 mls/hr IV ONCE ONE Rx#: [id number] 0.9 % Sodium Chloride 1,000 ml 1000 / 2000 1000 / 2000 1000 / 1000 @ 80 mls/hr IVCONT .[id number] [facility] Rx#:[id number] Output: Output, Urine Amount 800 / 800 Other: Breakfast % Eaten 100% Lunch % Eaten 25% Number of Incontinent Voids 2 1 Urine Color Yellow Yellow Last Bowel Movement 06/27/22 06/29/22 Weight 100.6 kg - Constitutional Present: mild distress - Routine HEENT Exam Head: Present: normal inspection ENT: Present: mucous membranes moist - Routine Neck Exam Present: supple - Routine Respiratory Exam Present: CTAB - Routine Cardiovascular Exam Cardiovascular: Present: RRR, S1, S2 - Routine Abdominal Exam Present: soft, nontender - Routine Extremities Exam Present: nontender - Routine Skin Exam Present: intact, normal turgor - Routine Neurological Exam Present: alert - Detailed Neurological Exam: Coma Scale Eye Opening: Spontaneous (4) Verbal Response: Oriented (5) Motor Response: Obeys commands (6) Kelsey Coma Scale Total: 15 Hem/Onc Consult Result - Labs CBC & Chem 7: 06/27/22 11:24 07/09/22 15:24 Assessment and Plan Patient Active problem list reviewed?: Yes (1) Renal carcinoma Status: Acute Assessment and plan: 72-year-old unfortunate gentleman with history of dementia. Presented with generalized weakness. CT of the head from 06/27 revealed: Areas of encephalomalacia left frontal and parietal lobes with secondary ex vacuo dilatation of the adjacent ventricular system similar. Moderate small vessel ischemic changes in the deep white matter. There is no acute superimposed process seen grossly. 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 Vicki hole changes on the left again noted. There is no acute hemorrhage. IMPRESSION: No acute intracranial abnormality. Abd/pelvis CT from 06/27: 5.8 x 5.1 x 5.1 cm, solid, heterogeneous left upper pole renal mass, highly suspicious for renal cell carcinoma. Punctate, nonobstructing, bilateral renal collecting system stones versus vascular calcification. No evidence of hydronephrosis or hydroureter on either side. Patient has been seen by Urology. They have ruled out surgical option, in view of his comorbidities. Other options include: 1. Ablation therapy. 2. A targeted agent. Sunitinib, a TKI, VEGF inhibitor, in the first-line setting has shown a high response rate, improved quality of life and prolonged progression-free survival and overall survival. Recommended starting dose is 50 mg taken once daily for 4 weeks followed by 2 weeks off. Other choices include: Pazopanib and Carbozantinib. Mtor inhibitors, Temsirolimus is reserved for second-line setting. PLAN: I have forwarded his records to Dr. Carpio at [facility]. He has reviewed the images, and his opinion is that he would be a candidate for embolization and ablation. He will be seen for a consult as an out patient. I will discuss it further with his family. Thank you for the consult, Will follow along with you, Cc: - Time Spent With Patient Time Spent with Patient (in minutes): 30
--- NOTE | 2022-06-29 14:21 | W.PM.IDCN ---
History of Present Illness Data of Consult Service Date: 06/29/22 Requesting physician: Dominic García Primary Care Provider: Unknown Physician HPI Reason for consult: bacteremia,possible cellulitis He presents to hospital with weakness from facility. He also complains that he has left leg redness. He has no fever or chills. He has blood culture coagulase negative staph Review of Systems Review of Systems: Yes all other systems are reviewed and are negative PMFSH Past Medical History Medical History (Updated 06/29/22 @ 14:29 by Ivory Shaikh MD) Anxiety Bacteremia Dementia Depression HLD (hyperlipidemia) HTN (hypertension) Left renal mass MELY (obstructive sleep apnea) Type 2 diabetes mellitus Venous stasis dermatitis of both lower extremities Functional capacity: uses cane/walker Family History Family History Mother Dementia Stroke Social History Social History Household Members: None Housing: Residential Do you presently have visiting nurse or other home services: No Alcohol intake: unknown Patient Tobacco Use Status: Never used Tobacco Use of substances other than those prescribed or required for medical reasons: No Currently Displaying Signs/Symptoms of Drug Intoxication Withdrawal: No Have you been hit, kicked, punched, or otherwise hurt by someone within the past year? If so, by whom?: No Do you feel safe in your current relationship?: Yes Is there a partner from a previous relationship who is making you feel unsafe now?: No Are you made to feel afraid or neglected: No Advance Directives: No Advance Directives Information Provided: Yes Do you have thoughts of harming others: None Do you have a plan to hurt others: No Plan Recently lost weight without trying: No Eating poorly because of decreased appetite: No Nutrition Risks: No Nutritional Risk Poor oral hygiene: No service: No Meds Allergies Allergy/AdvReac Type Severity Reaction Status Date / Time No Known Allergies Allergy Verified 12/08/21 14:14 Active Medications: Current Medications Acetaminophen (Acetaminophen 325 Mg Tablet) 650 mg PO Q6H PRN PRN Reason: Pain, Mild (Pain Scale 1-3) Atorvastatin Calcium (Atorvastatin Calcium 40 Mg Tablet) 40 mg PO DAILY [facility] Last Admin: 06/29/22 10:16 Dose: 40 mg Dextrose (Dextrose 50 % 25 Gm/50 Ml Syringe) 25 gm IVPUSH Q15M PRN; Protocol PRN Reason: per Hypoglycemia Standing Ord. Divalproex Sodium (Divalproex Sodium Sprinkacacia 125 Mg ) 125 mg PO BID [facility] Last Admin: 06/29/22 10:15 Dose: 125 mg Doxycycline Hyclate (Doxycycline Hyclate 100 Mg Tablet) 100 mg PO Q12H [facility] Last Admin: 06/29/22 10:15 Dose: 100 mg Glucose (Glucose Gel 15 Gm Gel..Gram.) 15 gm PO Q15M PRN; Protocol PRN Reason: per Hypoglycemia Standing Ord. Heparin Sodium (Porcine) (Heparin Sodium,Porcine 5,000 Unit/Ml Vial) 5,000 unit SUBCUT Q12H [facility] Last Admin: 06/29/22 05:21 Dose: Not Given Sodium Chloride (Ns) 1,000 mls @ 80 mls/hr IVCONT .[id number] [facility] Last Admin: 06/29/22 12:31 Dose: 80 mls/hr Insulin Human Lispro (Insulin Lispro 100 Unit/Ml 3 Ml Vial) 0 unit SUBCUT QIDACHS [facility]; Protocol Last Admin: 06/29/22 11:32 Dose: Not Given Melatonin (Melatonin 3 Mg Tablet) 9 mg PO BEDTIME PRN PRN Reason: Insomnia Mirtazapine (Mirtazapine 7.5 Mg Tablet) 7.5 mg PO BEDTIME [facility] Last Admin: 06/28/22 22:44 Dose: 7.5 mg Olanzapine (Olanzapine 2.5 Mg Tablet) 2.5 mg PO BEDTIME [facility] Last Admin: 06/28/22 22:44 Dose: 2.5 mg Ondansetron HCl (Ondansetron Hcl 4 Mg/2 Ml Vial) 4 mg IVPUSH Q8H PRN PRN Reason: Nausea and Vomiting Pharmacy Consult (Consult Rx Perform Med Rec) 1 each MISCELLANE ONCE PRN PRN Reason: Consult order Sertraline HCl (Sertraline Hcl 50 Mg Tablet) 50 mg PO DAILY [facility] Last Admin: 06/29/22 10:16 Dose: 50 mg Sodium Bicarbonate (Sodium Bicarbonate 650 Mg Tablet) 650 mg PO BID [facility] Last Admin: 06/29/22 10:15 Dose: 650 mg Sodium Chloride (0.9 % Sodium Chloride Flush 3 Ml Syringe) 3 ml IVFLUSH QSHIFT [facility] Last Admin: 06/29/22 10:12 Dose: Not Given Home Medications Medication Instructions Recorded Confirmed Last Taken Type amiloride 5 mg tablet 1 tab PO BID 06/27/22 06/27/22 Unknown History aspirin 81 mg tablet,delayed 81 mg PO DAILY 06/27/22 06/27/22 Unknown History release atorvastatin 40 mg tablet 1 tab PO DAILY 06/27/22 06/27/22 Unknown History divalproex 125 mg capsule,delayed 1 cap PO BID 06/27/22 06/27/22 Unknown History release sprinkle lisinopril 20 mg tablet 1 tab PO DAILY 06/27/22 06/27/22 Unknown History melatonin 3 mg tablet 8 mg PO BEDTIME PRN Insomnia 06/27/22 06/27/22 Unknown History metoprolol tartrate 25 mg tablet 3 tab PO BID 06/27/22 06/27/22 Unknown History mirtazapine 7.5 mg tablet 1 tab PO BEDTIME 06/27/22 06/27/22 Unknown History multivitamin 1 tab PO DAILY 06/27/22 06/27/22 Unknown History nifedipine 90 mg tablet,extended 1 tab PO DAILY 06/27/22 06/27/22 Unknown History release 24 hr nystatin 100,000 unit/gram topical 1 appl topical BID 06/27/22 06/27/22 Unknown History powder olanzapine 2.5 mg tablet 1 tab PO QPM 06/27/22 06/27/22 Unknown History oxybutynin chloride 15 mg 1 tab PO DAILY 06/27/22 06/27/22 Unknown History tablet,extended release 24 hr sertraline 50 mg tablet 1 tab PO DAILY 06/27/22 06/27/22 Unknown History triamcinolone acetonide 0.1 % 1 appl topical BID 06/27/22 06/27/22 Unknown History topical cream Physical Exam Vital Signs: Vital Signs: Last Vital Signs Temp 97.7 F 06/29/22 11:15 Pulse 70 06/29/22 11:15 Resp 20 06/29/22 11:15 BP 161/73 H 06/29/22 11:15 Pulse Ox 98 06/29/22 11:15 O2 Del Method 06/29/22 11:15 BMI result Body Mass Index 32.7 Const: General: cooperative HEENT: Head: Yes normal to inspection Face and sinus: Yes normal facial exam Mouth: Normal oral and palatal mucosa present Teeth and gingiva: dentition normal Eyes: General: appearance normal, both eyes and all related structures Pupils: Equal, round and reactive pupils present Resp: Effort & Inspection: normal respiratory effort Cardio: Rate: regular rate Rhythm: regular rhythm GI: Palpation (GI): Soft to palpation and nontender : General: Yes no CVA tenderness Back/Spine/Pelvis: Back: no CVA tenderness Skin: General skin exam: no rashes or lesions noted Neuro: General: moves all extremities Cranial nerves: Yes Equal, round and reactive pupils present Extrem: General: Yes normal to inspection Psych: Appearance: grossly normal Results Labs CBC & Chem 7: 06/27/22 11:24 06/28/22 11:27 Microbiology Microbiology Results: Microbiology 06/27/22 11:24 Blood - Venous Blood Culture - Preliminary No growth after 48 hours. 06/28/22 07:07 Blood - Venous Blood Culture - Preliminary No growth after 24 hours. 06/28/22 07:06 Blood - Venous Blood Culture - Preliminary No growth after 24 hours. 06/27/22 16:07 Blood - Venous Blood Culture - Final Coag negative Staphylococcus Assessment and Plan (1) Bacteremia: Status: Acute Coagulase negative staph in blood This is contaminant NKDA Plan No further antibiotics at this time as there is no evidence of cellulitis or other infection. Bacteremia is contaminant.
--- NOTE | 2022-06-29 16:49 | P.PNNP_ITS ---
Subjective Subjective Date of Service: 06/29/22 Interval history: Seen and examiend, events noted Physical Exam Vital Signs: Vital Signs: Last Vital Signs Temp 99.6 F 06/29/22 15:58 Pulse 70 06/29/22 15:58 Resp 20 06/29/22 15:58 BP 169/92 H 06/29/22 15:58 Pulse Ox 98 06/29/22 15:58 O2 Del Method 06/29/22 15:58 BMI result Body Mass Index 32.7 Const: Other: General: AO X 3, no acute distress Resp: CTA bilateral CVS: S1,S2,RRR GI: +BS, NT, no distention Skin: No rash Neuro: motor grossly intact Psych: appropriate affect General: cooperative, healthy appearing, comfortable, no acute distress, alert and awake Nutritional Appearance: well nourished Orientation/consciousness: patient oriented x3 Limitations: no limitations HEENT: Head: Yes normal to inspection and Yes atraumatic Ears: hearing godwin ssly normal bilaterally and external ears normal General nose exam: Normal external nose present, no nasal discharge noted and no epistaxis Face and sinus: Yes normal facial exam, No abrasion and No laceration Mouth: Normal oral and palatal mucosa present, moist mucous membranes, no drooling and no muffled voice Teeth and gingiva: dentition normal Eyes: Other: irritated right eye with crusts and excessive watering, consistent with conjunctivitis General: appearance normal, both eyes and all related structures Pupils: Equal, round and reactive pupils present EOM: EOMs intact bilaterally Neck: Neck: Yes normal visual inspection, Yes full ROM, Yes no lymphadenopathy and Yes trachea midline Chest: Chest palpation & inspection: normal inspection of the chest Resp: Effort & Inspection: normal respiratory effort, able to speak in complete sentences and no respiratory distress Auscultation: clear to auscultation bilaterally Cardio: Rate: regular rate Rhythm: regular rhythm GI: Inspection: Yes normal to inspection Palpation (GI): Soft to palpation and nontender : General: Yes no CVA tenderness Back/Spine/Pelvis: Back: no CVA tenderness Cervical Spine: normal cervical lordosis Thoracic/Lumbar Spine: thoracic and lumbar spine normal to inspection Skin: General skin exam: no rashes or lesions noted Neuro: General: patient oriented x3, tone normal and moves all extremities Cranial nerves: Yes Equal, round and reactive pupils present Cognition (Neuro): normal cognition Motor exam (neuro): 5/5 motor strength present thr oughout Sensory Exam: Normal double simultaneous stimulation for sensation Coordination: [id number] test normal Extrem: General: Yes normal to inspection, Yes full ROM and Yes capillary re fill normal Psych: Appearance: grossly normal Mental Status: mental status grossly normal Affect: normal affect Attitude: cooperative Thought process: Normal thought process present Thought content: Normal thought content present Insight: Good insight present (Psych) Objective Data Labs CBC & Chem 7: 06/27/22 11:24 06/28/22 11:27 Labs: Laboratory Results - last 24 hr 06/28/22 19:58 POC Glucose 115 Microbiology Microbiology Results: Microbiology 06/27/22 11:24 Blood - Venous Blood Culture - Preliminary No growth after 48 hours. 06/28/22 07:07 Blood - Venous Blood Culture - Preliminary No growth after 24 hours. 06/28/22 07:06 Blood - Venous Blood Culture - Preliminary No growth after 24 hours. 06/27/22 16:07 Blood - Venous Blood Culture - Final Coag negative Staphylococcus Procedures Date of Service Date of Service: 06/29/22 Assessment & Plan Assessment and plan (1) Bacteremia: Status: Acute Plan 1. AARON resolving with IVF 2. CKD 3 3. HyperK: reoslved 4. NAGAM: improved 5. L renal mass REC: d/c IV NaHCO3; avoid Ntoxin; urol to eval--most likely needs MRI renal mass protocol and then potentially ablation Time Spent With Patient Time: Total time spent is greater than 50% in coordination of care (as documented) at patient's floor/unit and/or counseling patient: Progress Note: Quality Stroke Does the patient have a stroke diagnosis?: No
[2022-06-29] MEDS: Heparin Sodium,Porcine 5,000 UNIT/ML VIAL 5000 UNIT SUBCUT (17:02)
[2022-06-29] MEDS: 0.9 % Sodium Chloride Flush 3 ML SYRINGE IVFLUSH ×2 (17:03→22:04)
--- NOTE | 2022-06-29 18:07 | PC.NURSE ---
Resident refused POCs, states I am tired of poking my fingers MD aware.Patient did take all PO medications.
[2022-06-29] MEDS: OLANZapine 2.5 MG TABLET PO (22:01)
[2022-06-29] MEDS: Mirtazapine 7.5 MG TABLET PO (22:01)
[2022-06-30 03:54] VITALS: PULSE 66; RESP 20; TEMP 37; O2SAT 98
[2022-06-30] MEDS: Divalproex Sodium Sprinkles 125 MG CAP.DR.SPR PO ×2 (08:36→22:05)
[2022-06-30] MEDS: Sodium Bicarbonate 650 MG TABLET PO ×2 (08:36→22:05)
[2022-06-30] MEDS: 0.9 % Sodium Chloride Flush 3 ML SYRINGE IVFLUSH ×3 (08:36→22:05)
[2022-06-30] MEDS: Sertraline HCL 50 MG TABLET PO (08:37)
[2022-06-30] MEDS: Atorvastatin Calcium 40 MG TABLET PO (08:37)
--- NOTE | 2022-06-30 08:55 | P.CDIC_ITS ---
CDI Concurrent Query Documentation Clarification: PHYSICIAN'S DOCUMENTATION REQUEST Date of Query: 06/30/22 0855 Patient Name: Carlos Tapia Admit Date: 06/27/22 Dear Doctor, A review of the medical record indicates additional documentation may be needed. Please review below and update the documentation accordingly. Clinical Indicators: Clarity of medical documentation within the medical record: Risk Factors/Clinical Indicators/Treatments Nephrology progress note 06/29 - CKD 3 Progress note 06/29 - CKD 4 Urology note 06/29 - CKD 3 Based on the above, could you clarify in the Progress Notes the appropriate diagnosis, if significant, that supports the above abnormalities and additional evaluation, monitoring, and/or treatment rendered: * Chronic kidney disease Stage 3 * Chronic kidney disease Stage 4 * Other (please specify) * Unable to determine Use of terms such as suspected, likely, concern for, or probable (associated with a specific diagnosis that is being evaluated, monitored, or treated as if it exists) are acceptable and can be coded in the inpatient setting, when documented at the time of discharge. Thank you, Marisol Pizano [facility], CDIS Extension: [phone] Please use your independent medical judgment in providing your response. THIS QUERY IS PART OF THE PERMANENT MEDICAL RECORD Provider Response: CKD Stage 3 Other Diagnosis: c
[2022-06-30 09:47] LABS: Anion Gap 13 (12-20); Carbon Dioxide 21 mmol/L (22-29); Chloride 113 mmol/L (96-108); Estimated Glomerular Filt Rate > 60; Potassium 4.6 mmol/L (3.3-5.1); Sodium 142 mmol/L (135-145)
--- NOTE | 2022-06-30 11:28 | HO.PM.IMPN ---
Subjective Subjective Date of Service: 06/30/22 Interval History: F/u silvia on ckd, hyperkalemia interval history: K and Cr within normla Review of Systems no sob no chest pain Physical Exam Vital Signs: Vital Signs: Last Vital Signs Temp 98.6 F 06/30/22 03:54 Pulse 66 06/30/22 03:54 Resp 20 06/30/22 03:54 BP 178/85 H 06/29/22 23:52 Pulse Ox 98 06/30/22 03:54 O2 Del Method 06/30/22 03:54 BMI result Body Mass Index 32.7 Const: Other: General: AO X 3, no acute distress Resp: CTA bilateral CVS: S1,S2,RRR GI: +BS, NT, no distention Skin: No rash Neuro: motor grossly intact Psych: appropriate affect Objective Data Active Medications Acetaminophen (Acetaminophen 325 Mg Tablet) 650 mg PO Q6H PRN PRN Reason: Pain, Mild (Pain Scale 1-3) Atorvastatin Calcium (Atorvastatin Calcium 40 Mg Tablet) 40 mg PO DAILY [facility] Last Admin: 06/30/22 08:37 Dose: 40 mg Documented By: LARA Dextrose (Dextrose 50 % 25 Gm/50 Ml Syringe) 25 gm IVPUSH Q15M PRN; Protocol PRN Reason: per Hypoglycemia Standing Ord. Divalproex Sodium (Divalproex Sodium Sprinkles 125 Mg ) 125 mg PO BID [facility] Last Admin: 06/30/22 08:36 Dose: 125 mg Documented By: LARA Doxycycline Hyclate (Doxycycline Hyclate 100 Mg Tablet) 100 mg PO Q12H [facility] Last Admin: 06/30/22 08:37 Dose: 100 mg Documented By: LARA Glucose (Glucose Gel 15 Gm Gel..Gram.) 15 gm PO Q15M PRN; Protocol PRN Reason: per Hypoglycemia Standing Ord. Heparin Sodium (Porcine) (Heparin Sodium,Porcine 5,000 Unit/Ml Vial) 5,000 unit SUBCUT Q12H [facility] Last Admin: 06/30/22 05:37 Dose: Not Given Documented By: EVELYN Non-Admin Reason: Patient Refused Insulin Human Lispro (Insulin Lispro 100 Unit/Ml 3 Ml Vial) 0 unit SUBCUT QIDACHS [facility]; Protocol Last Admin: 06/30/22 07:39 Dose: Not Given Documented By: LARA Non-Admin Reason: Patient Refused Melatonin (Melatonin 3 Mg Tablet) 9 mg PO BEDTIME PRN PRN Reason: Insomnia Mirtazapine (Mirtazapine 7.5 Mg Tablet) 7.5 mg PO BEDTIME [facility] Last Admin: 06/29/22 22:01 Dose: 7.5 mg Documented By: EVELYN Olanzapine (Olanzapine 2.5 Mg Tablet) 2.5 mg PO BEDTIME [facility] Last Admin: 06/29/22 22:01 Dose: 2.5 mg Documented By: EVELYN Ondansetron HCl (Ondansetron Hcl 4 Mg/2 Ml Vial) 4 mg IVPUSH Q8H PRN PRN Reason: Nausea and Vomiting Pharmacy Consult (Consult Rx Perform Med Rec) 1 each MISCELLANE ONCE PRN PRN Reason: Consult order Sertraline HCl (Sertraline Hcl 50 Mg Tablet) 50 mg PO DAILY [facility] Last Admin: 06/30/22 08:37 Dose: 50 mg Documented By: LARA Sodium Bicarbonate (Sodium Bicarbonate 650 Mg Tablet) 650 mg PO BID [facility] Last Admin: 06/30/22 08:36 Dose: 650 mg Documented By: LARA Sodium Chloride (0.9 % Sodium Chloride Flush 3 Ml Syringe) 3 ml IVFLUSH QSHIFT [facility] Last Admin: 06/30/22 08:36 Dose: 3 ml Documented By: LARA Labs CBC & Chem 7: 06/27/22 11:24 06/30/22 08:58 Labs: Laboratory Results - last 24 hr 06/30/22 08:58 Anion Gap 13 Estim Creat Clear Calc 67.0 Estimated GFR > 60 Microbiology Microbiology Results: Microbiology 06/28/22 07:07 Blood Culture - Preliminary Blood - Venous No growth after 48 hours. 06/28/22 07:06 Blood Culture - Preliminary Blood - Venous No growth after 48 hours. 06/27/22 11:24 Blood Culture - Preliminary Blood - Venous No growth after 48 hours. 06/27/22 16:07 Blood Culture - Final Blood - Venous Coag negative Staphylococcus Assessment and Plan (1) Renal carcinoma: Status: Acute (2) Obesity: Status: Acute Plan 72 year male with history of dementia, hypertension, hyperlipidemia, diabetes, venous stasis, anxiety, depression, hx cerebral aneurysm, obstructive sleep apnea not on cpap residing at the [facility] admitted for generalized weakness associated with SILVIA and hyperkalemia and new left renal mass. 1-Hyperkalemia d/t CKD, SILVIA..treated with Lokelma, albuterol and insulin and bicab.. last k was within normal. repeat labs today. Nephrology following 2-SILVIA on CKD 4, Cr has improved. recheck lab today 3-Left renal mass- CT in ED:?5.8 x 5.1 x 5.1 cm, solid, heterogeneous left upper pole renal mass, highly suspicious for renal cell carcinoma.. ?-Uro recommends no intervention, oncology is recommending chemo 4-Generalized weakness likely secondary to electrolyte abnormality -Correct electrolyte abdnormality as above and continue gentle hydration -CK normal -No focal neuro deficits ct head neg Pt eval 5-Noninsulin dependent type 2 diabetes -POC glucose -Diabetic diet -Humalog SS 6-HTN- BP soft -Hold all BP meds for now -Hold lisinopril and amiloride d/t SILVIA and hyperkalemia 7-HLD -Continue statin 8-Venous stasis- stable -Pt chronic edema likely secondary to chronic venous disease, possibly CKD. BNP ordered as well 9-MELY -Not on cpap 10-hx cerebral aneursym per pt -Head CT -no acute finding 11. Obesity: Encouraged to lose weight, cut down calories. 12. Dementia(as per patient as well as his guardians report):-unable to determine etiology Supportive care. PT is recommending STR, he's agreable DVT prophylaxis- Heparin Inpatient need: Persistent hyperkalemia requiring IV bicarb drip,silvia need hydrationiv, renal mass, need rehab Quality Stroke Does the patient have a stroke diagnosis?: No VTE Prior VTE?: No VTE Risk Level:: Medical - moderate - high VTE Device Contraindication: Treatment Not Indicated VTE Drug Contraindication: Treatment Not Indicated
[2022-06-30 11:43] VITALS: PULSE 66; O2SAT 98
--- NOTE | 2022-06-30 15:07 | MHC.CM.PN ---
spoke with pts bam hardin re str and bed search [facility] going for out of network auth awaitng their response
--- NOTE | 2022-06-30 16:16 | P.PNNP_ITS ---
Subjective Subjective Date of Service: 06/30/22 Interval history: Seen and examiend, events noted Physical Exam Vital Signs: Vital Signs: Last Vital Signs Temp 98.6 F 06/30/22 03:54 Pulse 66 06/30/22 11:43 Resp 20 06/30/22 03:54 BP 178/85 H 06/29/22 23:52 Pulse Ox 98 06/30/22 11:43 O2 Del Method 06/30/22 03:54 BMI result Body Mass Index 32.7 Const: Other: General: AO X 3, no acute distress Resp: CTA bilateral CVS: S1,S2,RRR GI: +BS, NT, no distention Skin: No rash Neuro: motor grossly intact Psych: appropriate affect General: cooperative, healthy appearing, comfortable, no acute distress, alert and awake Nutritional Appearance: well nourished Orientation/consciousness: patient oriented x3 Limitations: no limitations HEENT: Head: Yes normal to inspection and Yes atraumatic Ears: hearing g rossly normal bilaterally and external ears normal General nose exam: Normal external nose present, no nasal discharge noted and no epistaxis Face and sinus: Yes normal facial exam, No abrasion and No laceration Mouth: Normal oral and palatal mucosa present, moist mucous membranes, no drooling and no muffled voice Teeth and gingiva: dentition normal Eyes: Other: irritated right eye with crusts and excessive watering, consistent with conjunctivitis General: appearance normal, both eyes and all related structures Pupils: Equal, round and reactive pupils present EOM: EOMs intact bilaterally Neck: Neck: Yes normal visual inspection, Yes full ROM, Yes no lymphadenopathy and Yes trachea midline Chest: Chest palpation & inspection: normal inspection of the chest Resp: Effort & Inspection: normal respiratory effort, able to speak in complete sentences and no respiratory distress Auscultation: clear to auscultation bilaterally Cardio: Rate: regular rate Rhythm: regular rhythm GI: Inspection: Yes normal to inspection Palpation (GI): Soft to palpation and nontender : General: Yes no CVA tenderness Back/Spine/Pelvis: Back: no CVA tenderness Cervical Spine: normal cervical lordosis Thoracic/Lumbar Spine: thoracic and lumbar spine normal to inspection Skin: General skin exam: no rashes or lesions noted Neuro: General: patient oriented x3, tone normal and moves all extremities Cranial nerves: Yes Equal, round and reactive pupils present Cognition (Neuro): normal cognition Motor exam (neuro): 5/5 motor strength present t hroughout Sensory Exam: Normal double simultaneous stimulation for sensation Coordination: [id number] test normal Extrem: General: Yes normal to inspection, Yes full ROM and Yes capillary refill normal Psych: Appearance: grossly normal Mental Status: mental status grossly normal Affect: normal affect Attitude: cooperative Thought process: Normal thought process present Thought content: Normal thought content present Insight: Good insight present (Psych) Objective Data Labs CBC & Chem 7: 06/27/22 11:24 06/30/22 08:58 Labs: Laboratory Results - last 24 hr 06/30/22 08:58 Sodium 142 Potassium 4.6 Chloride 113 H Carbon Dioxide 21 L Anion Gap 13 Creatinine 1.13 Estim Creat Clear Calc 67.0 Estimated GFR > 60 Microbiology Microbiology Results: Microbiology 06/28/22 07:07 Blood - Venous Blood Culture - Preliminary No growth after 48 hours. 06/28/22 07:06 Blood - Venous Blood Culture - Preliminary No growth after 48 hours. 06/27/22 11:24 Blood - Venous Blood Culture - Preliminary No growth after 48 hours. 06/27/22 16:07 Blood - Venous Blood Culture - Final Coag negative Staphylococcus Procedures Date of Service Date of Service: 06/30/22 Assessment & Plan Assessment and plan (1) Bacteremia: Status: Acute Plan 1. AARON resolving with IVF 2. CKD 3 3. HyperK: reoslved 4. NAGAM: improved 5. L renal mass REC: avoid Ntoxin; urol to eval--most likely needs MRI renal mass protocol and then potentially ablation vs Bx vs other Time Spent With Patient Time: Total time spent is greater than 50% in coordination of care (as documented) at patient's floor/unit and/or counseling patient: Progress Note: Quality Stroke Does the patient have a stroke diagnosis?: No
[2022-06-30] MEDS: Heparin Sodium,Porcine 5,000 UNIT/ML VIAL 5000 UNIT SUBCUT (16:55)
[2022-06-30] MEDS: Furosemide 40 MG/4 ML VIAL IVPUSH (16:56)
[2022-06-30 19:20] VITALS: BP 178/89; PULSE 73; RESP 16; TEMP 36.6; O2SAT 97
[2022-06-30 19:40] LABS: Glucose, Whole Blood 136 mg/dL (60-115)
[2022-06-30] MEDS: Mirtazapine 7.5 MG TABLET PO (22:05)
[2022-06-30] MEDS: OLANZapine 2.5 MG TABLET PO (22:05)
[2022-06-30 23:06] VITALS: BP 167/68; PULSE 68; RESP 18; TEMP 36.8; O2SAT 98
[2022-07-01] VITALS (10 sets, daily range): BP systolic 158–186; BP diastolic 78–93; PULSE 63–84; RESP 16–20; TEMP 36.4–37.2; O2SAT 94–98
[2022-07-01 07:40] LABS: Glucose, Whole Blood 88 mg/dL (60-115)
[2022-07-01] MEDS: 0.9 % Sodium Chloride Flush 3 ML SYRINGE IVFLUSH (09:09)
[2022-07-01] MEDS: Sodium Bicarbonate 650 MG TABLET PO ×2 (09:10→20:08)
[2022-07-01] MEDS: Sertraline HCL 50 MG TABLET PO (09:10)
[2022-07-01] MEDS: Divalproex Sodium Sprinkles 125 MG CAP.DR.SPR PO ×2 (09:10→20:08)
[2022-07-01] MEDS: Atorvastatin Calcium 40 MG TABLET PO (09:10)
[2022-07-01 11:44] LABS: Glucose, Whole Blood 82 mg/dL (60-115)
--- NOTE | 2022-07-01 12:29 | P.PNIM_ITS ---
Subjective Subjective Date of Service: 07/01/22 Interval History: F/u silvia on ckd, hyperkalemia interval history: K and Cr within normal, for pema Bx today, no new issues Review of Systems no sob no chest pain Physical Exam Vital Signs: Vital Signs: Last Vital Signs Temp 98.3 F 07/01/22 11:26 Pulse 75 07/01/22 11:26 Resp 20 07/01/22 11:26 BP 180/88 H 07/01/22 11:26 Pulse Ox 98 07/01/22 11:26 O2 Del Method 07/01/22 11:26 BMI result Body Mass Index 32.7 Const: Other: General: AO X 3, no acute distress Resp: CTA bilateral CVS: S1,S2,RRR GI: +BS, NT, no distention Skin: No rash Neuro: motor grossly intact Psych: appropriate affect Objective Data Active Medications Acetaminophen (Acetaminophen 325 Mg Tablet) 650 mg PO Q6H PRN PRN Reason: Pain, Mild (Pain Scale 1-3) Atorvastatin Calcium (Atorvastatin Calcium 40 Mg Tablet) 40 mg PO DAILY [facility] Last Admin: 07/01/22 09:10 Dose: 40 mg Documented By: TRU Dextrose (Dextrose 50 % 25 Gm/50 Ml Syringe) 25 gm IVPUSH Q15M PRN; Protocol PRN Reason: per Hypoglycemia Standing Ord. Divalproex Sodium (Divalproex Sodium Sprinkles 125 Mg ) 125 mg PO BID [facility] Last Admin: 07/01/22 09:10 Dose: 125 mg Documented By: TRU Doxycycline Hyclate (Doxycycline Hyclate 100 Mg Tablet) 100 mg PO Q12H [facility] Last Admin: 07/01/22 09:10 Dose: 100 mg Documented By: TRU Glucose (Glucose Gel 15 Gm Gel..Gram.) 15 gm PO Q15M PRN; Protocol PRN Reason: per Hypoglycemia Standing Ord. Insulin Human Lispro (Insulin Lispro 100 Unit/Ml 3 Ml Vial) 0 unit SUBCUT QIDACHS [facility]; Protocol Last Admin: 07/01/22 11:44 Dose: Not Given Documented By: TRU Non-Admin Reason: No Insulin Coverage Melatonin (Melatonin 3 Mg Tablet) 9 mg PO BEDTIME PRN PRN Reason: Insomnia Mirtazapine (Mirtazapine 7.5 Mg Tablet) 7.5 mg PO BEDTIME [facility] Last Admin: 06/30/22 22:05 Dose: 7.5 mg Documented By: JOSE Olanzapine (Olanzapine 2.5 Mg Tablet) 2.5 mg PO BEDTIME [facility] Last Admin: 06/30/22 22:05 Dose: 2.5 mg Documented By: JOSE Ondansetron HCl (Ondansetron Hcl 4 Mg/2 Ml Vial) 4 mg IVPUSH Q8H PRN PRN Reason: Nausea and Vomiting Pharmacy Consult (Consult Rx Perform Med Rec) 1 each MISCELLANE ONCE PRN PRN Reason: Consult order Sertraline HCl (Sertraline Hcl 50 Mg Tablet) 50 mg PO DAILY [facility] Last Admin: 07/01/22 09:10 Dose: 50 mg Documented By: TRU Sodium Bicarbonate (Sodium Bicarbonate 650 Mg Tablet) 650 mg PO BID [facility] Last Admin: 07/01/22 09:10 Dose: 650 mg Documented By: TRU Sodium Chloride (0.9 % Sodium Chloride Flush 3 Ml Syringe) 3 ml IVFLUSH QSHIFT [facility] Last Admin: 07/01/22 09:09 Dose: 3 ml Documented By: TRU Labs CBC & Chem 7: 06/27/22 11:24 06/30/22 08:58 Labs: Laboratory Results - last 24 hr 06/30/22 07/01/22 07/01/22 19:14 07:36 11:29 POC Glucose 136 H 88 82 Microbiology Microbiology Results: Microbiology 06/28/22 07:07 Blood Culture - Preliminary Blood - Venous No growth after 48 hours. 06/28/22 07:06 Blood Culture - Preliminary Blood - Venous No growth after 48 hours. Assessment and Plan (1) Renal carcinoma: Status: Acute (2) Obesity: Status: Acute Plan 72 year male with history of dementia, hypertension, hyperlipidemia, diabetes, venous stasis, anxiety, depression, hx cerebral aneurysm, obstructive sleep apnea not on cpap residing at the [facility] admitted for generalized weakness associated with SILVIA and hyperkalemia and new left renal mass. 1-Hyperkalemia d/t CKD, SILVIA..treated with Lokelma, albuterol and insulin and bicab.. last k was within normal. repeat labs today. Nephrology following 2-SILVIA on CKD 4, Cr has improved. recheck lab today 3-Left renal mass- CT in ED:?5.8 x 5.1 x 5.1 cm, solid, heterogeneous left upper pole renal mass, highly suspicious for renal cell carcinoma.. ?-Uro recommends no surgery but renal bx, oncology is recommending chemo 4-Generalized weakness likely secondary to electrolyte abnormality -Correct electrolyte abdnormality as above and continue gentle hydration -CK normal -No focal neuro deficits ct head neg Pt eval 5-Noninsulin dependent type 2 diabetes -POC glucose -Diabetic diet -Humalog SS 6-HTN- BP on higher side r - restart Metoprolol 75 bid, Procardia 90 and hold Lisinopril 20 -Hold lisinopril and amiloride d/t SILVIA and hyperkalemia 7-HLD -Continue statin 8-Venous stasis- stable -Pt chronic edema likely secondary to chronic venous disease, possibly CKD. BNP ordered as well 9-MELY -Not on cpap 10-hx cerebral aneursym per pt -Head CT -no acute finding 11. Obesity: Encouraged to lose weight, cut down calories. 12. Dementia(as per patient as well as his guardians report):-unable to determine etiology Supportive care. PT is recommending STR, he's agreable DVT prophylaxis- Heparin Inpatient need: Persistent hyperkalemia requiring IV bicarb drip,silvia need hydrationiv, renal mass to have bx done as not reliable to be done on outpatient basis, need rehab Quality Stroke Does the patient have a stroke diagnosis?: No VTE Prior VTE?: No VTE Risk Level:: Medical - moderate - high VTE Device Contraindication: Treatment Not Indicated VTE Drug Contraindication: Treatment Not Indicated
[2022-07-01 14:04] LABS: Glucose, Whole Blood 84 mg/dL (60-115)
[2022-07-01 14:48] LABS: Prothrombin Time 11.5 SEC (10.0-13.1)
[2022-07-01 14:57] LABS: Creatinine Clr Calc Pharmacy 60.6; Estimated Glomerular Filt Rate 56
[2022-07-01 15:04] LABS: Vancomycin Trough < 3.0 mcg/mL (10.0-20.0)
[2022-07-01] MEDS: NIFEdipine ER 90 MG TAB.ER.24 PO (19:24)
[2022-07-01] MEDS: Metoprolol Tartrate 25 MG TABLET 75 MG PO (19:28)
[2022-07-01 19:49] LABS: Glucose, Whole Blood 134 mg/dL (60-115)
[2022-07-01] MEDS: Mirtazapine 7.5 MG TABLET PO (20:08)
[2022-07-01] MEDS: OLANZapine 2.5 MG TABLET PO (20:08)
[2022-07-02] VITALS (7 sets, daily range): BP systolic 120–152; BP diastolic 63–86; PULSE 64–76; RESP 17–20; TEMP 36.8–37.2; O2SAT 94–98
[2022-07-02 07:29] LABS: Glucose, Whole Blood 121 mg/dL (60-115)
[2022-07-02 07:29] LABS: Creatinine Clr Calc Pharmacy 64.2; Estimated Glomerular Filt Rate > 60
[2022-07-02] MEDS: Metoprolol Tartrate 25 MG TABLET 75 MG PO ×2 (08:51→19:55)
[2022-07-02] MEDS: 0.9 % Sodium Chloride Flush 3 ML SYRINGE IVFLUSH ×2 (08:51→17:00)
[2022-07-02] MEDS: Sertraline HCL 50 MG TABLET PO (08:52)
[2022-07-02] MEDS: Divalproex Sodium Sprinkles 125 MG CAP.DR.SPR PO ×2 (08:52→19:55)
[2022-07-02] MEDS: Atorvastatin Calcium 40 MG TABLET PO (08:52)
[2022-07-02] MEDS: Sodium Bicarbonate 650 MG TABLET PO ×2 (08:52→19:55)
[2022-07-02] MEDS: NIFEdipine ER 90 MG TAB.ER.24 PO (08:52)
[2022-07-02 11:23] LABS: Glucose, Whole Blood 221 mg/dL (60-115)
--- NOTE | 2022-07-02 11:45 | PC.NURSE ---
Pt refused insulin at 11:40a despite of education given regarding the medication and the disease process.
--- NOTE | 2022-07-02 12:18 | HO.PM.IMPN ---
Subjective Subjective Date of Service: 07/02/22 Interval History: F/u silvia on ckd, hyperkalemia interval history: K and Cr within normal, kidne Bx yest, no new issues, awaiting rehab Review of Systems no sob no chest pain Physical Exam Vital Signs: Vital Signs: Last Vital Signs Temp 98.2 F 07/02/22 11:40 Pulse 68 07/02/22 11:40 Resp 18 07/02/22 11:40 BP 129/67 07/02/22 11:40 Pulse Ox 97 07/02/22 11:40 O2 Del Method 07/02/22 11:40 BMI result Body Mass Index 32.7 Const: Other: General: AO X 3, no acute distress Resp: CTA bilateral CVS: S1,S2,RRR GI: +BS, NT, no distention Skin: No rash Neuro: motor grossly intact Psych: appropriate affect Objective Data Active Medications Acetaminophen (Acetaminophen 325 Mg Tablet) 650 mg PO Q6H PRN PRN Reason: Pain, Mild (Pain Scale 1-3) Atorvastatin Calcium (Atorvastatin Calcium 40 Mg Tablet) 40 mg PO DAILY [facility] Last Admin: 07/02/22 08:52 Dose: 40 mg Documented By: TRU Dextrose (Dextrose 50 % 25 Gm/50 Ml Syringe) 25 gm IVPUSH Q15M PRN; Protocol PRN Reason: per Hypoglycemia Standing Ord. Divalproex Sodium (Divalproex Sodium Sprinkles 125 Mg ) 125 mg PO BID [facility] Last Admin: 07/02/22 08:52 Dose: 125 mg Documented By: TRU Doxycycline Hyclate (Doxycycline Hyclate 100 Mg Tablet) 100 mg PO Q12H [facility] Last Admin: 07/02/22 08:52 Dose: 100 mg Documented By: TRU Glucose (Glucose Gel 15 Gm Gel..Gram.) 15 gm PO Q15M PRN; Protocol PRN Reason: per Hypoglycemia Standing Ord. Insulin Human Lispro (Insulin Lispro 100 Unit/Ml 3 Ml Vial) 0 unit SUBCUT QIDACHS [facility]; Protocol Last Admin: 07/02/22 11:42 Dose: Not Given Documented By: TRU Non-Admin Reason: Patient Refused Melatonin (Melatonin 3 Mg Tablet) 9 mg PO BEDTIME PRN PRN Reason: Insomnia Metoprolol Tartrate (Metoprolol Tartrate 25 Mg Tablet) 75 mg PO BID [facility]; Protocol Last Admin: 07/02/22 08:51 Dose: 75 mg Documented By: TRU Mirtazapine (Mirtazapine 7.5 Mg Tablet) 7.5 mg PO BEDTIME [facility] Last Admin: 07/01/22 20:08 Dose: 7.5 mg Documented By: JAYCOB Nifedipine (Nifedipine Er 90 Mg Tab.Er.24) 90 mg PO DAILY [facility]; Protocol Last Admin: 07/02/22 08:52 Dose: 90 mg Documented By: TRU Olanzapine (Olanzapine 2.5 Mg Tablet) 2.5 mg PO BEDTIME [facility] Last Admin: 07/01/22 20:08 Dose: 2.5 mg Documented By: JAYCOB Ondansetron HCl (Ondansetron Hcl 4 Mg/2 Ml Vial) 4 mg IVPUSH Q8H PRN PRN Reason: Nausea and Vomiting Pharmacy Consult (Consult Rx Perform Med Rec) 1 each MISCELLANE ONCE PRN PRN Reason: Consult order Sertraline HCl (Sertraline Hcl 50 Mg Tablet) 50 mg PO DAILY [facility] Last Admin: 07/02/22 08:52 Dose: 50 mg Documented By: TRU Sodium Bicarbonate (Sodium Bicarbonate 650 Mg Tablet) 650 mg PO BID [facility] Last Admin: 07/02/22 08:52 Dose: 650 mg Documented By: TRU Sodium Chloride (0.9 % Sodium Chloride Flush 3 Ml Syringe) 3 ml IVFLUSH QSHIFT [facility] Last Admin: 07/02/22 08:51 Dose: 3 ml Documented By: TRU Labs CBC & Chem 7: 06/27/22 11:24 07/02/22 06:32 Labs: Laboratory Results - last 24 hr 07/01/22 07/01/22 07/01/22 13:59 14:18 14:18 PT INR Estim Creat Clear Calc 60.6 Estimated GFR 56 POC Glucose 84 Vancomycin Trough < 3.0 L 07/01/22 07/01/22 07/02/22 14:18 19:44 06:32 PT 11.5 INR 1.0 Estim Creat Clear Calc 64.2 Estimated GFR > 60 POC Glucose 134 H Vancomycin Trough 07/02/22 07/02/22 07:25 11:17 PT INR Estim Creat Clear Calc Estimated GFR POC Glucose 121 H 221 H Vancomycin Trough Assessment and Plan (1) Renal carcinoma: Status: Acute (2) Obesity: Status: Acute Plan 72 year male with history of dementia, hypertension, hyperlipidemia, diabetes, venous stasis, anxiety, depression, hx cerebral aneurysm, obstructive sleep apnea not on cpap residing at the [facility] admitted for generalized weakness associated with SILVIA and hyperkalemia and new left renal mass. 1-Hyperkalemia d/t CKD, SILVIA..treated with Lokelma, albuterol and insulin and bicab.. last k was within normal. repeat labs today. Nephrology following 2-SILVIA on CKD 4, Cr has improved. recheck lab today 3-Left renal mass- CT in ED:?5.8 x 5.1 x 5.1 cm, solid, heterogeneous left upper pole renal mass, highly suspicious for renal cell carcinoma.. ?-Uro recommends no surgery but renal bx done 07/01, oncology is recommending chemo will be outpatient basis 4-Generalized weakness likely secondary to electrolyte abnormality -Correct electrolyte abdnormality as above and continue gentle hydration -CK normal -No focal neuro deficits ct head neg Pt eval 5-Noninsulin dependent type 2 diabetes -POC glucose -Diabetic diet -Humalog SS 6-HTN- BP on higher side r - restart Metoprolol 75 bid, Procardia 90 and hold Lisinopril 20 -Hold lisinopril and amiloride d/t SILVIA and hyperkalemia 7-HLD -Continue statin 8-Venous stasis- stable -Pt chronic edema likely secondary to chronic venous disease, possibly CKD. BNP ordered as well 9-MELY -Not on cpap 10-hx cerebral aneursym per pt -Head CT -no acute finding 11. Obesity: Encouraged to lose weight, cut down calories. 12. Dementia(as per patient as well as his guardians report):-unable to determine etiology Supportive care. PT is recommending STR, he's agreable DVT prophylaxis- Heparin Inpatient need: Deconditioned and awaiting STR bed Quality Stroke Does the patient have a stroke diagnosis?: No VTE Prior VTE?: No VTE Risk Level:: Medical - moderate - high VTE Device Contraindication: Treatment Not Indicated VTE Drug Contraindication: Treatment Not Indicated
--- NOTE | 2022-07-02 13:50 | MHC.CM.PN ---
pt dc ready bed search continues waiting for oon approval from ins at [facility]
[2022-07-02 16:03] LABS: Glucose, Whole Blood 153 mg/dL (60-115)
[2022-07-02] MEDS: Insulin Lispro 100 UNIT/ML 3 ML VIAL SUBCUT (17:00)
[2022-07-02] MEDS: Mirtazapine 7.5 MG TABLET PO (19:55)
[2022-07-02] MEDS: OLANZapine 2.5 MG TABLET PO (19:55)
[2022-07-02 20:24] LABS: Glucose, Whole Blood 155 mg/dL (60-115)
[2022-07-03] MEDS: 0.9 % Sodium Chloride Flush 3 ML SYRINGE IVFLUSH ×4 (00:50→20:28)
[2022-07-03 03:59] VITALS: RESP 19
[2022-07-03 07:16] VITALS: BP 159/79; PULSE 71; RESP 20; TEMP 36.8; O2SAT 96
[2022-07-03 07:21] LABS: Creatinine Clr Calc Pharmacy 53.7; Estimated Glomerular Filt Rate 49
[2022-07-03 07:45] LABS: Glucose, Whole Blood 97 mg/dL (60-115)
[2022-07-03] MEDS: Atorvastatin Calcium 40 MG TABLET PO (09:01)
[2022-07-03] MEDS: Metoprolol Tartrate 25 MG TABLET 75 MG PO ×2 (09:01→20:28)
[2022-07-03] MEDS: Sertraline HCL 50 MG TABLET PO (09:01)
[2022-07-03] MEDS: Sodium Bicarbonate 650 MG TABLET PO ×2 (09:02→20:28)
[2022-07-03] MEDS: NIFEdipine ER 90 MG TAB.ER.24 PO (09:02)
[2022-07-03] MEDS: Divalproex Sodium Sprinkles 125 MG CAP.DR.SPR PO ×2 (09:02→20:28)
--- NOTE | 2022-07-03 09:16 | HO.PM.IMPN ---
Subjective Subjective Date of Service: 07/03/22 Interval History: F/u silvia on ckd, hyperkalemia interval history: Cr up slightly, generally weak, no other complaint Review of Systems no sob no chest pain Physical Exam Vital Signs: Vital Signs: Last Vital Signs Temp 98.2 F 07/03/22 07:16 Pulse 71 07/03/22 07:16 Resp 20 07/03/22 07:16 BP 159/79 H 07/03/22 07:16 Pulse Ox 96 07/03/22 07:16 O2 Del Method 07/03/22 07:16 BMI result Body Mass Index 32.7 Const: Other: General: AO X 3, no acute distress Resp: CTA bilateral CVS: S1,S2,RRR GI: +BS, NT, no distention Skin: No rash Neuro: motor grossly intact Psych: appropriate affect Objective Data Active Medications Acetaminophen (Acetaminophen 325 Mg Tablet) 650 mg PO Q6H PRN PRN Reason: Pain, Mild (Pain Scale 1-3) Atorvastatin Calcium (Atorvastatin Calcium 40 Mg Tablet) 40 mg PO DAILY [facility] Last Admin: 07/03/22 09:01 Dose: 40 mg Documented By: STEFFEN Dextrose (Dextrose 50 % 25 Gm/50 Ml Syringe) 25 gm IVPUSH Q15M PRN; Protocol PRN Reason: per Hypoglycemia Standing Ord. Divalproex Sodium (Divalproex Sodium Sprinkles 125 Mg ) 125 mg PO BID [facility] Last Admin: 07/03/22 09:02 Dose: 125 mg Documented By: STEFFEN Doxycycline Hyclate (Doxycycline Hyclate 100 Mg Tablet) 100 mg PO Q12H [facility] Last Admin: 07/03/22 09:01 Dose: 100 mg Documented By: STEFFEN Glucose (Glucose Gel 15 Gm Gel..Gram.) 15 gm PO Q15M PRN; Protocol PRN Reason: per Hypoglycemia Standing Ord. Insulin Human Lispro (Insulin Lispro 100 Unit/Ml 3 Ml Vial) 0 unit SUBCUT QIDACHS [facility]; Protocol Last Admin: 07/03/22 09:02 Dose: Not Given Documented By: STEFFEN Non-Admin Reason: No Insulin Coverage Melatonin (Melatonin 3 Mg Tablet) 9 mg PO BEDTIME PRN PRN Reason: Insomnia Metoprolol Tartrate (Metoprolol Tartrate 25 Mg Tablet) 75 mg PO BID [facility]; Protocol Last Admin: 07/03/22 09:01 Dose: 75 mg Documented By: STEFFEN Mirtazapine (Mirtazapine 7.5 Mg Tablet) 7.5 mg PO BEDTIME [facility] Last Admin: 07/02/22 19:55 Dose: 7.5 mg Documented By: JAYCOB Nifedipine (Nifedipine Er 90 Mg Tab.Er.24) 90 mg PO DAILY [facility]; Protocol Last Admin: 07/03/22 09:02 Dose: 90 mg Documented By: STEFFEN Olanzapine (Olanzapine 2.5 Mg Tablet) 2.5 mg PO BEDTIME [facility] Last Admin: 07/02/22 19:55 Dose: 2.5 mg Documented By: JAYCOB Ondansetron HCl (Ondansetron Hcl 4 Mg/2 Ml Vial) 4 mg IVPUSH Q8H PRN PRN Reason: Nausea and Vomiting Pharmacy Consult (Consult Rx Perform Med Rec) 1 each MISCELLANE ONCE PRN PRN Reason: Consult order Sertraline HCl (Sertraline Hcl 50 Mg Tablet) 50 mg PO DAILY [facility] Last Admin: 07/03/22 09:01 Dose: 50 mg Documented By: STEFFEN Sodium Bicarbonate (Sodium Bicarbonate 650 Mg Tablet) 650 mg PO BID [facility] Last Admin: 07/03/22 09:02 Dose: 650 mg Documented By: STEFFEN Sodium Chloride (0.9 % Sodium Chloride Flush 3 Ml Syringe) 3 ml IVFLUSH QSHIFT [facility] Last Admin: 07/03/22 09:02 Dose: 3 ml Documented By: STEFFEN Labs CBC & Chem 7: 06/27/22 11:24 07/03/22 06:47 Labs: Laboratory Results - last 24 hr 07/02/22 07/02/22 07/02/22 11:17 15:57 20:20 Estim Creat Clear Calc Estimated GFR POC Glucose 221 H 153 H 155 H 07/03/22 07/03/22 06:47 07:21 Estim Creat Clear Calc 53.7 Estimated GFR 49 POC Glucose 97 Microbiology Microbiology Results: Microbiology 06/28/22 07:07 Blood Culture - Final Blood - Venous No growth after 5 days. 06/28/22 07:06 Blood Culture - Final Blood - Venous No growth after 5 days. 06/27/22 11:24 Blood Culture - Final Blood - Venous No growth after 5 days. Assessment and Plan (1) Renal carcinoma: Status: Acute (2) Obesity: Status: Acute Plan 72 year male with history of dementia, hypertension, hyperlipidemia, diabetes, venous stasis, anxiety, depression, hx cerebral aneurysm, obstructive sleep apnea not on cpap residing at the [facility] admitted for generalized weakness associated with SILVIA and hyperkalemia and new left renal mass. 1-Hyperkalemia d/t CKD 2, SILVIA..treated with Lokelma, albuterol and insulin and bicab.. last k was within normal. repeat labs today. Nephrology following 2-SILVIA on CKD 4, Cr has improved. recheck lab today 3-Left renal mass- CT in ED:?5.8 x 5.1 x 5.1 cm, solid, heterogeneous left upper pole renal mass, highly suspicious for renal cell carcinoma.. ?-Uro recommends no surgery but renal bx done 07/01, oncology is recommending chemo will be outpatient basis. Bx result pending 4-Generalized weakness likely secondary to electrolyte abnormality -Correct electrolyte abdnormality as above and continue gentle hydration -CK normal -No focal neuro deficits ct head neg Pt eval 5-Noninsulin dependent type 2 diabetes -POC glucose -Diabetic diet -Humalog SS 6-HTN- BP on higher side r - restart Metoprolol 75 bid, Procardia 90 and hold Lisinopril 20 -Hold lisinopril and amiloride d/t SILVIA and hyperkalemia 7-HLD -Continue statin 8-Venous stasis- stable -Pt chronic edema likely secondary to chronic venous disease, possibly CKD. BNP ordered as well 9-MELY -Not on cpap 10-hx cerebral aneursym per pt -Head CT -no acute finding 11. Obesity: Encouraged to lose weight, cut down calories. 12. Dementia(as per patient as well as his guardians report):-unable to determine etiology Supportive care. PT is recommending STR, he's agreable DVT prophylaxis- Heparin Inpatient need: Deconditioned and awaiting STR bed Quality Stroke Does the patient have a stroke diagnosis?: No VTE Prior VTE?: No VTE Risk Level:: Medical - moderate - high VTE Device Contraindication: Treatment Not Indicated VTE Drug Contraindication: Treatment Not Indicated
[2022-07-03 11:19] VITALS: BP 160/69; PULSE 68; RESP 18; TEMP 36.7; O2SAT 98
[2022-07-03 11:42] LABS: Glucose, Whole Blood 172 mg/dL (60-115)
[2022-07-03] MEDS: Insulin Lispro 100 UNIT/ML 3 ML VIAL SUBCUT ×2 (11:47→21:23)
--- NOTE | 2022-07-03 14:56 | PM.PNNEP ---
Subjective Subjective Date of Service: 07/03/22 Interval history: F/u jailene on ckd, hyperkalemia interval history: Cr up slightly, generally weak, no other complaint Physical Exam Vital Signs: Vital Signs: Last Vital Signs Temp 98.0 F 07/03/22 11:19 Pulse 68 07/03/22 11:19 Resp 18 07/03/22 11:19 BP 160/69 H 07/03/22 11:19 Pulse Ox 98 07/03/22 11:19 O2 Del Method 07/03/22 11:19 BMI result Body Mass Index 32.7 Const: Other: General: AO X 3, no acute distress Resp: CTA bilateral CVS: S1,S2,RRR GI: +BS, NT, no distention Skin: No rash Neuro: motor grossly intact Psych: appropriate affect Objective Data Labs CBC & Chem 7: 06/27/22 11:24 07/03/22 06:47 Labs: Laboratory Results - last 24 hr 07/02/22 07/02/22 07/03/22 15:57 20:20 06:47 Creatinine 1.41 H Estim Creat Clear Calc 53.7 Estimated GFR 49 POC Glucose 153 H 155 H 07/03/22 07/03/22 07:21 11:22 Creatinine Estim Creat Clear Calc Estimated GFR POC Glucose 97 172 H Microbiology Microbiology Results: Microbiology 06/28/22 07:07 Blood - Venous Blood Culture - Final No growth after 5 days. 06/28/22 07:06 Blood - Venous Blood Culture - Final No growth after 5 days. 06/27/22 11:24 Blood - Venous Blood Culture - Final No growth after 5 days. 06/27/22 16:07 Blood - Venous Blood Culture - Final Coag negative Staphylococcus Procedures Date of Service Date of Service: 07/03/22 Assessment & Plan Assessment and plan (1) Bacteremia: Status: Acute Plan 1. AARON resolving with IVF 2. CKD 3 3. HyperK: reoslved 4. NAGAM: improved 5. L renal mass REC: Agree with IVF F/u renal func in [place] Avoid Nephrotoxins Time Spent With Patient Time: Total time spent is greater than 50% in coordination of care (as documented) at patient's floor/unit and/or counseling patient: Progress Note: Quality Stroke Does the patient have a stroke diagnosis?: No
[2022-07-03 15:10] VITALS: BP 118/63; PULSE 62; RESP 18; TEMP 36.7; O2SAT 98
[2022-07-03 16:13] LABS: Glucose, Whole Blood 102 mg/dL (60-115)
[2022-07-03 18:29] VITALS: BP 150/81; PULSE 67; RESP 20; TEMP 36.8; O2SAT 98
[2022-07-03] MEDS: Mirtazapine 7.5 MG TABLET PO (20:28)
[2022-07-03] MEDS: OLANZapine 2.5 MG TABLET PO (20:28)
[2022-07-03 21:16] LABS: Glucose, Whole Blood 182 mg/dL (60-115)
[2022-07-04] VITALS: BP 127/65; PULSE 61; RESP 18; TEMP 36.2; O2SAT 97
[2022-07-04 04:00] VITALS: BP 154/75; PULSE 64; RESP 18; TEMP 36.2; O2SAT 96
[2022-07-04 06:25] LABS: Creatinine Clr Calc Pharmacy 62.1; Estimated Glomerular Filt Rate 58
[2022-07-04 07:19] VITALS: BP 158/79; PULSE 60; RESP 18; TEMP 36.1; O2SAT 97
[2022-07-04 08:00] LABS: Glucose, Whole Blood 89 mg/dL (60-115)
[2022-07-04] MEDS: Metoprolol Tartrate 25 MG TABLET 75 MG PO ×2 (08:04→19:52)
[2022-07-04] MEDS: Divalproex Sodium Sprinkles 125 MG CAP.DR.SPR PO ×2 (08:04→19:51)
[2022-07-04] MEDS: Sodium Bicarbonate 650 MG TABLET PO ×2 (08:04→19:51)
[2022-07-04] MEDS: Atorvastatin Calcium 40 MG TABLET PO (08:04)
[2022-07-04] MEDS: NIFEdipine ER 90 MG TAB.ER.24 PO (08:04)
[2022-07-04] MEDS: 0.9 % Sodium Chloride Flush 3 ML SYRINGE IVFLUSH ×2 (08:05→19:52)
[2022-07-04] MEDS: Sertraline HCL 50 MG TABLET PO (08:05)
--- NOTE | 2022-07-04 08:58 | MHC.CM.PN ---
[facility] updated with clinicals in the event [facility] needs additional information. Case management awaiting notification of authorization to admit to facility
--- NOTE | 2022-07-04 09:57 | P.PNIM_ITS ---
Subjective Subjective Date of Service: 07/04/22 Physical Exam Vital Signs: Vital Signs: Last Vital Signs Temp 97.0 F 07/04/22 07:19 Pulse 60 07/04/22 07:19 Resp 18 07/04/22 07:19 BP 158/79 H 07/04/22 07:19 Pulse Ox 97 07/04/22 07:19 O2 Del Method 07/04/22 07:19 BMI result Body Mass Index 32.7 Objective Data Active Medications Acetaminophen (Acetaminophen 325 Mg Tablet) 650 mg PO Q6H PRN PRN Reason: Pain, Mild (Pain Scale 1-3) Atorvastatin Calcium (Atorvastatin Calcium 40 Mg Tablet) 40 mg PO DAILY [facility] Last Admin: 07/04/22 08:04 Dose: 40 mg Documented By: ROXANA Dextrose (Dextrose 50 % 25 Gm/50 Ml Syringe) 25 gm IVPUSH Q15M PRN; Protocol PRN Reason: per Hypoglycemia Standing Ord. Divalproex Sodium (Divalproex Sodium Sprinkles 125 Mg ) 125 mg PO BID [facility] Last Admin: 07/04/22 08:04 Dose: 125 mg Documented By: ROXANA Doxycycline Hyclate (Doxycycline Hyclate 100 Mg Tablet) 100 mg PO Q12H [facility] Last Admin: 07/04/22 08:05 Dose: 100 mg Documented By: ROXANA Glucose (Glucose Gel 15 Gm Gel..Gram.) 15 gm PO Q15M PRN; Protocol PRN Reason: per Hypoglycemia Standing Ord. Insulin Human Lispro (Insulin Lispro 100 Unit/Ml 3 Ml Vial) 0 unit SUBCUT QIDACHS [facility]; Protocol Last Admin: 07/04/22 07:54 Dose: Not Given Documented By: ROXANA Non-Admin Reason: No Insulin Coverage Melatonin (Melatonin 3 Mg Tablet) 9 mg PO BEDTIME PRN PRN Reason: Insomnia Metoprolol Tartrate (Metoprolol Tartrate 25 Mg Tablet) 75 mg PO BID [facility]; Protocol Last Admin: 07/04/22 08:04 Dose: 75 mg Documented By: ROXANA Mirtazapine (Mirtazapine 7.5 Mg Tablet) 7.5 mg PO BEDTIME [facility] Last Admin: 07/03/22 20:28 Dose: 7.5 mg Documented By: VICTORIA Nifedipine (Nifedipine Er 90 Mg Tab.Er.24) 90 mg PO DAILY [facility]; Protocol Last Admin: 07/04/22 08:04 Dose: 90 mg Documented By: ROXANA Olanzapine (Olanzapine 2.5 Mg Tablet) 2.5 mg PO BEDTIME [facility] Last Admin: 07/03/22 20:28 Dose: 2.5 mg Documented By: VICTORIA Ondansetron HCl (Ondansetron Hcl 4 Mg/2 Ml Vial) 4 mg IVPUSH Q8H PRN PRN Reason: Nausea and Vomiting Pharmacy Consult (Consult Rx Perform Med Rec) 1 each MISCELLANE ONCE PRN PRN Reason: Consult order Sertraline HCl (Sertraline Hcl 50 Mg Tablet) 50 mg PO DAILY [facility] Last Admin: 07/04/22 08:05 Dose: 50 mg Documented By: ROXANA Sodium Bicarbonate (Sodium Bicarbonate 650 Mg Tablet) 650 mg PO BID [facility] Last Admin: 07/04/22 08:04 Dose: 650 mg Documented By: ROXANA Sodium Chloride (0.9 % Sodium Chloride Flush 3 Ml Syringe) 3 ml IVFLUSH QSHIFT [facility] Last Admin: 07/04/22 08:05 Dose: 3 ml Documented By: ROXANA Labs CBC & Chem 7: 06/27/22 11:24 07/04/22 05:56 Labs: Laboratory Results - last 24 hr 07/03/22 07/03/22 07/03/22 11:22 16:07 20:36 Estim Creat Clear Calc Estimated GFR POC Glucose 172 H 102 182 H 07/04/22 07/04/22 05:56 07:18 Estim Creat Clear Calc 62.1 Estimated GFR 58 POC Glucose 89 Microbiology Microbiology Results: Microbiology 06/28/22 07:07 Blood Culture - Final Blood - Venous No growth after 5 days. 06/28/22 07:06 Blood Culture - Final Blood - Venous No growth after 5 days. Assessment and Plan (1) Renal carcinoma: Status: Acute (2) Obesity: Status: Acute Plan 72 year male with history of dementia, hypertension, hyperlipidemia, diabetes, v enous stasis, anxiety, depression, hx cerebral aneurysm, obstructive sleep apnea not on cpap residing at the [facility] admitted for generalized weakness associated with SILVIA and hyperkalemia and new left renal mass. 1-Hyperkalemia d/t CKD 2, SILVIA..treated with Lokelma, albuterol and insulin and bicab.. last k was within normal. repeat labs today. Nephrology following 2-SILVIA on CKD 4, Cr has improved. Cr is within nomral 1.22 3-Left renal mass- CT in ED:?5.8 x 5.1 x 5.1 cm, solid, heterogeneous left upper pole renal mass, highly suspicious for renal cell carcinoma.. ?-Uro recommends no surgery but renal bx done 07/01, oncology is recommending chemo will be outpatient basis. Bx result pending 4-Generalized weakness likely secondary to electrolyte abnormality -Correct electrolyte abdnormality as above and continue gentle hydration -CK normal -No focal neuro deficits ct head neg Pt eval 5-Noninsulin dependent type 2 diabetes -POC glucose -Diabetic diet -Humalog SS 6-HTN- BP on higher side r - restart Metoprolol 75 bid, Procardia 90 and hold Lisinopril 20 -Hold lisinopril and amiloride d/t SILVIA and hyperkalemia 7-HLD -Continue statin 8-Venous stasis- stable -Pt chronic edema likely secondary to chronic venous disease, possibly CKD. BNP ordered as well 9-MELY -Not on cpap 10-hx cerebral aneursym per pt -Head CT -no acute finding 11. Obesity: Encouraged to lose weight, cut down calories. 12. Dementia(as per patient as well as his guardians report):-unable to determine etiology Supportive care. PT is recommending STR, he's agreable DVT prophylaxis- Heparin Inpatient need: Deconditioned and awaiting STR bed Quality Stroke Does the patient have a stroke diagnosis?: No VTE Prior VTE?: No VTE Risk Level:: Medical - moderate - high VTE Device Contraindication: Treatment Not Indicated VTE Drug Contraindication: Treatment Not Indicated
[2022-07-04 10:20] LABS: Anion Gap 15 (12-20); Carbon Dioxide 24 mmol/L (22-29); Chloride 110 mmol/L (96-108); Potassium 4.6 mmol/L (3.3-5.1); Sodium 144 mmol/L (135-145)
[2022-07-04 11:28] VITALS: BP 138/70; PULSE 60; RESP 18; TEMP 36.4; O2SAT 97
[2022-07-04 11:47] LABS: Glucose, Whole Blood 110 mg/dL (60-115)
[2022-07-04 16:00] VITALS: BP 140/69; PULSE 60; RESP 15; TEMP 36.4; O2SAT 97
[2022-07-04] MEDS: OLANZapine 2.5 MG TABLET PO (19:51)
[2022-07-04] MEDS: Mirtazapine 7.5 MG TABLET PO (19:51)
[2022-07-04] MEDS: Melatonin 3 MG TABLET 9 MG PO (19:51)
[2022-07-04] MEDS: Acetaminophen 325 MG TABLET 650 MG PO (19:56)
[2022-07-04 20:00] VITALS: BP 142/68; PULSE 65; RESP 16; TEMP 37.2; O2SAT 98
[2022-07-04 20:13] LABS: Glucose, Whole Blood 96 mg/dL (60-115)
[2022-07-05] VITALS (7 sets, daily range): BP systolic 126–159; BP diastolic 60–90; PULSE 57–62; RESP 18–20; TEMP 36.4–37.2; O2SAT 95–98
[2022-07-05 07:13] LABS: Glucose, Whole Blood 86 mg/dL (60-115)
--- NOTE | 2022-07-05 08:26 | HO.PM.IMPN ---
Subjective Subjective Date of Service: 07/05/22 Interval History: F/u silvia on ckd, hyperkalemia interval history: no new issues, Cr is better. Review of Systems no sob no chest pain Physical Exam Vital Signs: Vital Signs: Last Vital Signs Temp 97.5 F 07/05/22 06:55 Pulse 62 07/05/22 06:55 Resp 20 07/05/22 06:55 BP 152/90 H 07/05/22 06:55 Pulse Ox 98 07/05/22 06:55 O2 Del Method 07/05/22 06:55 BMI result Body Mass Index 32.7 Const: Other: General: AO X 3, no acute distress Resp: CTA bilateral CVS: S1,S2,RRR GI: +BS, NT, no distention Skin: No rash Neuro: motor grossly intact Psych: appropriate affect Objective Data Active Medications Acetaminophen (Acetaminophen 325 Mg Tablet) 650 mg PO Q6H PRN PRN Reason: Pain, Mild (Pain Scale 1-3) Last Admin: 07/04/22 19:56 Dose: 650 mg Documented By: HARI Atorvastatin Calcium (Atorvastatin Calcium 40 Mg Tablet) 40 mg PO DAILY [facility] Last Admin: 07/04/22 08:04 Dose: 40 mg Documented By: ROXANA Dextrose (Dextrose 50 % 25 Gm/50 Ml Syringe) 25 gm IVPUSH Q15M PRN; Protocol PRN Reason: per Hypoglycemia Standing Ord. Divalproex Sodium (Divalproex Sodium Sprinkles 125 Mg ) 125 mg PO BID [facility] Last Admin: 07/04/22 19:51 Dose: 125 mg Documented By: HARI Doxycycline Hyclate (Doxycycline Hyclate 100 Mg Tablet) 100 mg PO Q12H [facility] Last Admin: 07/04/22 19:51 Dose: 100 mg Documented By: HARI Glucose (Glucose Gel 15 Gm Gel..Gram.) 15 gm PO Q15M PRN; Protocol PRN Reason: per Hypoglycemia Standing Ord. Insulin Human Lispro (Insulin Lispro 100 Unit/Ml 3 Ml Vial) 0 unit SUBCUT QIDACHS [facility]; Protocol Last Admin: 07/04/22 20:36 Dose: Not Given Documented By: HARI Non-Admin Reason: No Insulin Coverage Melatonin (Melatonin 3 Mg Tablet) 9 mg PO BEDTIME PRN PRN Reason: Insomnia Last Admin: 07/04/22 19:51 Dose: 9 mg Documented By: HARI Metoprolol Tartrate (Metoprolol Tartrate 25 Mg Tablet) 75 mg PO BID [facility]; Protocol Last Admin: 07/04/22 19:52 Dose: 75 mg Documented By: HARI Comments: 142/68 H=65 Mirtazapine (Mirtazapine 7.5 Mg Tablet) 7.5 mg PO BEDTIME [facility] Last Admin: 07/04/22 19:51 Dose: 7.5 mg Documented By: HARI Nifedipine (Nifedipine Er 90 Mg Tab.Er.24) 90 mg PO DAILY [facility]; Protocol Last Admin: 07/04/22 08:04 Dose: 90 mg Documented By: ROXANA Olanzapine (Olanzapine 2.5 Mg Tablet) 2.5 mg PO BEDTIME [facility] Last Admin: 07/04/22 19:51 Dose: 2.5 mg Documented By: HARI Ondansetron HCl (Ondansetron Hcl 4 Mg/2 Ml Vial) 4 mg IVPUSH Q8H PRN PRN Reason: Nausea and Vomiting Pharmacy Consult (Consult Rx Perform Med Rec) 1 each MISCELLANE ONCE PRN PRN Reason: Consult order Sertraline HCl (Sertraline Hcl 50 Mg Tablet) 50 mg PO DAILY [facility] Last Admin: 07/04/22 08:05 Dose: 50 mg Documented By: ROXANA Sodium Bicarbonate (Sodium Bicarbonate 650 Mg Tablet) 650 mg PO BID [facility] Last Admin: 07/04/22 19:51 Dose: 650 mg Documented By: HARI Sodium Chloride (0.9 % Sodium Chloride Flush 3 Ml Syringe) 3 ml IVFLUSH QSHIFT [facility] Last Admin: 07/04/22 19:52 Dose: 3 ml Documented By: HARI Labs CBC & Chem 7: 06/27/22 11:24 07/04/22 05:56 Labs: Laboratory Results - last 24 hr 07/04/22 07/04/22 07/04/22 05:56 11:28 20:08 Anion Gap 15 POC Glucose 110 96 07/05/22 06:58 Anion Gap POC Glucose 86 Assessment and Plan (1) Hyperkalemia: Status: Acute (2) SILVIA (acute kidney injury): Status: Acute Plan 72 year male with history of dementia, hypertension, hyperlipidemia, diabetes, venous stasis, anxiety, depression, hx cerebral aneurysm, obstructive sleep apnea not on cpap residing at the [facility] admitted for generalized weakness associated with SILVIA and hyperkalemia and new left renal mass. 1-Hyperkalemia d/t CKD 2, SILVIA..treated with Lokelma, albuterol and insulin and bicab.. last k was within normal. repeat labs today. Nephrology following 2-SILVIA on CKD 3 (per nephrology) on top of SILVIA which has resolved 3-Left renal mass- CT in ED:?5.8 x 5.1 x 5.1 cm, solid, heterogeneous left upper pole renal mass, highly suspicious for renal cell carcinoma.. ?-Uro recommends no surgery but renal bx done 07/01, oncology is recommending chemo will be outpatient basis. Bx result pending 4-Generalized weakness likely secondary to electrolyte abnormality -Correct electrolyte abdnormality as above and continue gentle hydration -CK normal -No focal neuro deficits ct head neg Pt recommends STR 5-Noninsulin dependent type 2 diabetes -POC glucose -Diabetic diet -Humalog SS 6-HTN- BP ok - restart Metoprolol 75 bid (100 bid at home) , Procardia 90 -Hold lisinopril and amiloride d/t SILVIA and hyperkalemia 7-HLD -Continue statin 8-Venous stasis- stable -Pt chronic edema likely secondary to chronic venous disease, possibly CKD. BNP ordered as well 9-MELY -Not on cpap 10-hx cerebral aneursym per pt -Head CT -no acute finding 11. Obesity: Encouraged to lose weight, cut down calories. 12. Dementia(as per patient as well as his guardians report):-unable to determine etiology Supportive care. PT is recommending STR, he's agreable DVT prophylaxis- karley Inpatient need: Deconditioned and awaiting STR bed plan was discussed with patient's conservator Quality Stroke Does the patient have a stroke diagnosis?: No VTE Prior VTE?: No VTE Risk Level:: Medical - moderate - high VTE Device Contraindication: Treatment Not Indicated VTE Drug Contraindication: Treatment Not Indicated
[2022-07-05] MEDS: Acetaminophen 325 MG TABLET 650 MG PO ×2 (09:29→18:21)
[2022-07-05] MEDS: Atorvastatin Calcium 40 MG TABLET PO (09:29)
[2022-07-05] MEDS: Sertraline HCL 50 MG TABLET PO (09:29)
[2022-07-05] MEDS: Sodium Bicarbonate 650 MG TABLET PO ×2 (09:29→21:03)
[2022-07-05] MEDS: Metoprolol Tartrate 25 MG TABLET 75 MG PO ×2 (09:29→21:02)
[2022-07-05] MEDS: Divalproex Sodium Sprinkles 125 MG CAP.DR.SPR PO ×2 (09:29→21:03)
[2022-07-05] MEDS: NIFEdipine ER 90 MG TAB.ER.24 PO (09:29)
[2022-07-05] MEDS: Enoxaparin Sodium 40 MG/0.4 ML SYRINGE SUBCUT (09:30)
[2022-07-05] MEDS: 0.9 % Sodium Chloride Flush 3 ML SYRINGE IVFLUSH (09:30)
[2022-07-05 11:23] LABS: Glucose, Whole Blood 154 mg/dL (60-115)
--- NOTE | 2022-07-05 15:09 | MHC.CM.PN ---
PT HAS BEEN WAITING THROUGH THE WEEKEND FOR OON INSURANCE AUTH FOR STR AT [facility] THEY HAVE RESPONDED AND REPORT THE COPAY WILL BE $225 PER DAY BROAD REFERRAL [facility] OFFERING A BED PENDING REVIEW OF [facility]WEST PT EVAL AND INSURANCE AUTH
[2022-07-05 15:58] LABS: Glucose, Whole Blood 111 mg/dL (60-115)
[2022-07-05 19:42] LABS: Glucose, Whole Blood 122 mg/dL (60-115)
[2022-07-05] MEDS: OLANZapine 2.5 MG TABLET PO (21:02)
[2022-07-05] MEDS: Mirtazapine 7.5 MG TABLET PO (21:02)
[2022-07-06] VITALS (7 sets, daily range): BP systolic 109–160; BP diastolic 58–76; PULSE 54–84; RESP 16–19; TEMP 36–36.8; O2SAT 95–99
[2022-07-06 07:30] LABS: Glucose, Whole Blood 89 mg/dL (60-115)
[2022-07-06] MEDS: Acetaminophen 325 MG TABLET 650 MG PO (08:03)
[2022-07-06] MEDS: Metoprolol Tartrate 25 MG TABLET 75 MG PO ×2 (08:04→23:10)
[2022-07-06] MEDS: Sertraline HCL 50 MG TABLET PO (08:04)
[2022-07-06] MEDS: NIFEdipine ER 90 MG TAB.ER.24 PO (08:04)
[2022-07-06] MEDS: Atorvastatin Calcium 40 MG TABLET PO (08:05)
[2022-07-06] MEDS: Sodium Bicarbonate 650 MG TABLET PO ×2 (08:05→23:10)
[2022-07-06] MEDS: Enoxaparin Sodium 40 MG/0.4 ML SYRINGE SUBCUT (08:05)
[2022-07-06] MEDS: Divalproex Sodium Sprinkles 125 MG CAP.DR.SPR PO ×2 (08:05→23:11)
--- NOTE | 2022-07-06 09:45 | HO.PM.IMPN ---
Subjective Subjective Date of Service: 07/06/22 Interval History: F/u silvia on ckd, hyperkalemia interval history: no new issues, Cr is better., has some pain at biopsy site, no bleedin or swelling there Review of Systems no sob no chest pain Physical Exam Vital Signs: Vital Signs: Last Vital Signs Temp 97.9 F 07/06/22 07:23 Pulse 62 07/06/22 09:06 Resp 18 07/06/22 07:23 BP 160/76 H 07/06/22 09:06 Pulse Ox 97 07/06/22 09:06 O2 Del Method 07/06/22 07:23 BMI result Body Mass Index 32.7 Const: Other: General: AO X 3, no acute distress Resp: CTA bilateral CVS: S1,S2,RRR GI: +BS, NT, no distention Skin: No rash Neuro: motor grossly intact Psych: appropriate affect Objective Data Active Medications Acetaminophen (Acetaminophen 325 Mg Tablet) 650 mg PO Q6H PRN PRN Reason: Pain, Mild (Pain Scale 1-3) Last Admin: 07/06/22 08:03 Dose: 650 mg Documented By: CHRIS Atorvastatin Calcium (Atorvastatin Calcium 40 Mg Tablet) 40 mg PO DAILY [facility] Last Admin: 07/06/22 08:05 Dose: 40 mg Documented By: CHRIS Dextrose (Dextrose 50 % 25 Gm/50 Ml Syringe) 25 gm IVPUSH Q15M PRN; Protocol PRN Reason: per Hypoglycemia Standing Ord. Divalproex Sodium (Divalproex Sodium Sprinkles 125 Mg ) 125 mg PO BID [facility] Last Admin: 07/06/22 08:05 Dose: 125 mg Documented By: CHRIS Doxycycline Hyclate (Doxycycline Hyclate 100 Mg Tablet) 100 mg PO Q12H [facility] Last Admin: 07/06/22 08:04 Dose: 100 mg Documented By: CHRIS Enoxaparin Sodium (Enoxaparin Sodium 40 Mg/0.4 Ml Syringe) 40 mg SUBCUT Q24H [facility] Last Admin: 07/06/22 08:05 Dose: 40 mg Documented By: CHRIS Glucose (Glucose Gel 15 Gm Gel..Gram.) 15 gm PO Q15M PRN; Protocol PRN Reason: per Hypoglycemia Standing Ord. Insulin Human Lispro (Insulin Lispro 100 Unit/Ml 3 Ml Vial) 0 unit SUBCUT QIDACHS [facility]; Protocol Last Admin: 07/06/22 07:58 Dose: Not Given Documented By: CHRIS Non-Admin Reason: No Insulin Coverage Melatonin (Melatonin 3 Mg Tablet) 9 mg PO BEDTIME PRN PRN Reason: Insomnia Last Admin: 07/04/22 19:51 Dose: 9 mg Documented By: CASTILM Metoprolol Tartrate (Metoprolol Tartrate 25 Mg Tablet) 75 mg PO BID [facility]; Protocol Last Admin: 07/06/22 08:04 Dose: 75 mg Documented By: CHRIS Mirtazapine (Mirtazapine 7.5 Mg Tablet) 7.5 mg PO BEDTIME [facility] Last Admin: 07/05/22 21:02 Dose: 7.5 mg Documented By: CHASTITY Nifedipine (Nifedipine Er 90 Mg Tab.Er.24) 90 mg PO DAILY [facility]; Protocol Last Admin: 07/06/22 08:04 Dose: 90 mg Documented By: CHRIS Olanzapine (Olanzapine 2.5 Mg Tablet) 2.5 mg PO BEDTIME [facility] Last Admin: 07/05/22 21:02 Dose: 2.5 mg Documented By: CHASTITY Ondansetron HCl (Ondansetron Hcl 4 Mg/2 Ml Vial) 4 mg IVPUSH Q8H PRN PRN Reason: Nausea and Vomiting Pharmacy Consult (Consult Rx Perform Med Rec) 1 each MISCELLANE ONCE PRN PRN Reason: Consult order Sertraline HCl (Sertraline Hcl 50 Mg Tablet) 50 mg PO DAILY [facility] Last Admin: 07/06/22 08:04 Dose: 50 mg Documented By: CHRIS Sodium Bicarbonate (Sodium Bicarbonate 650 Mg Tablet) 650 mg PO BID [facility] Last Admin: 07/06/22 08:05 Dose: 650 mg Documented By: CHRIS Sodium Chloride (0.9 % Sodium Chloride Flush 3 Ml Syringe) 3 ml IVFLUSH QSHIFT [facility] Last Admin: 07/06/22 07:58 Dose: Not Given Documented By: CHRIS Non-Admin Reason: No Access Labs CBC & Chem 7: 06/27/22 11:24 07/04/22 05:56 Labs: Laboratory Results - last 24 hr 07/05/22 07/05/22 07/05/22 11:17 15:12 19:38 POC Glucose 154 H 111 122 H 07/06/22 07:23 POC Glucose 89 Assessment and Plan (1) Hyperkalemia: Status: Acute (2) SILVIA (acute kidney injury): Status: Acute Plan 72 year male with history of dementia, hypertension, hyperlipidemia, diabetes, venous stasis, anxiety, depression, hx cerebral aneurysm, obstructive sleep apnea not on cpap residing at the [facility] admitted for generalized weakness associated with SILVIA and hyperkalemia and new left renal mass. 1-Hyperkalemia d/t CKD 2, SILVIA..treated with Lokelma, albuterol and insulin and bicab.. last k was within normal. repeat labs today. Nephrology following 2-SILVIA on CKD 3 (per nephrology) on top of SILVIA which has resolved 3-Left renal mass- CT in ED:?5.8 x 5.1 x 5.1 cm, solid, heterogeneous left upper pole renal mass, highly suspicious for renal cell carcinoma.. ?-Uro recommends no surgery but renal bx done 07/01, oncology is recommending chemo will be outpatient basis. Bx result pending 4-Generalized weakness likely secondary to electrolyte abnormality -Correct electrolyte abdnormality as above and continue gentle hydration -CK normal -No focal neuro deficits ct head neg Pt recommends STR 5-Noninsulin dependent type 2 diabetes -POC glucose -Diabetic diet -Humalog SS 6-HTN- BP ok - restart Metoprolol 75 bid (100 bid at home) , Procardia 90 -Hold lisinopril and amiloride d/t SILVIA and hyperkalemia -If BP consistently high then hydralazine 7-HLD -Continue statin 8-Venous stasis- stable -Pt chronic edema likely secondary to chronic venous disease, possibly CKD. BNP ordered as well 9-MELY -Not on cpap 10-hx cerebral aneursym per pt -Head CT -no acute finding 11. Obesity: Encouraged to lose weight, cut down calories. 12. Dementia(as per patient as well as his guardians report):-unable to determine etiology Supportive care. PT is recommending STR, he's agreable DVT prophylaxis- loveno Inpatient need: Deconditioned and awaiting STR bed plan was discussed with patient's conservator Quality Stroke Does the patient have a stroke diagnosis?: No VTE Prior VTE?: No VTE Risk Level:: Medical - moderate - high VTE Device Contraindication: Treatment Not Indicated VTE Drug Contraindication: Treatment Not Indicated
[2022-07-06 11:27] LABS: Glucose, Whole Blood 91 mg/dL (60-115)
--- NOTE | 2022-07-06 14:35 | MHC.CM.PN ---
Addendum entered by Ginna Hernandez RN 07/07/22 15:55: NO SALAZAR EVER COMPLETED. PATIENT UNABLE TO DC TO SNF WITHOUT THIS, HE IS ON ZYPREXA PATIENT NOT ABLE TO RETURN TO HALF-WAY AT THIS TIME, HE IS HIGH FALL RISK CASE MANAGEMENT CONTINUING TO FOLLOW FOR A PLAN. Original Note: NO SALAZAR' ORDER IN PLACE. SNF WILL NEED THIS IN ORDER TO ADMINISTER HIS ZYPREXA. CALL TO [facility] [phone] WHO IS UNABLE TO RECALL IF THERE IS SUCH A TREATMENT ORDER. SHE DOES REPORT THAT [facility] WAS STARTED WHILE PATIENT WAS AT [facility]. CALL TO KAMILA AND NO TREATMENT ORDER WAS COMPLETED
[2022-07-06 17:22] LABS: Glucose, Whole Blood 103 mg/dL (60-115)
[2022-07-06] MEDS: Mirtazapine 7.5 MG TABLET PO (23:10)
[2022-07-06] MEDS: OLANZapine 2.5 MG TABLET PO (23:10)
[2022-07-07 07:33] VITALS: BP 157/73; PULSE 60; RESP 20; TEMP 36.8; O2SAT 96
[2022-07-07 07:50] LABS: Glucose, Whole Blood 83 mg/dL (60-115)
--- NOTE | 2022-07-07 09:16 | MHC.CLN ---
NUTRITION CONSULT FOR SKIN INTEGRITY. REDNESS TO BUTTOCKS AND VENOUS STASIS TO BILATERAL LEGS. APPEARS TO BE EATING WELL. DIET=REGULAR. NO ADDITIONAL NUTRITION INTERVENTIONS AT THIS TIME.
--- NOTE | 2022-07-07 09:27 | HO.PM.IMPN ---
Subjective Subjective Date of Service: 07/07/22 Interval History: F/u silvia on ckd, hyperkalemia interval history: no new issues, awaiting placment Review of Systems no sob no chest pain Physical Exam Vital Signs: Vital Signs: Last Vital Signs Temp 98.3 F 07/07/22 07:33 Pulse 60 07/07/22 07:33 Resp 20 07/07/22 07:33 BP 157/73 H 07/07/22 07:33 Pulse Ox 96 07/07/22 07:33 O2 Del Method 07/07/22 07:33 BMI result Body Mass Index 32.7 Const: Other: General: AO X 3, no acute distress Resp: CTA bilateral CVS: S1,S2,RRR GI: +BS, NT, no distention Skin: No rash Neuro: motor grossly intact Psych: appropriate affect Objective Data Active Medications Acetaminophen (Acetaminophen 325 Mg Tablet) 650 mg PO Q6H PRN PRN Reason: Pain, Mild (Pain Scale 1-3) Last Admin: 07/06/22 08:03 Dose: 650 mg Documented By: CHRIS Atorvastatin Calcium (Atorvastatin Calcium 40 Mg Tablet) 40 mg PO DAILY [facility] Last Admin: 07/06/22 08:05 Dose: 40 mg Documented By: CHRIS Dextrose (Dextrose 50 % 25 Gm/50 Ml Syringe) 25 gm IVPUSH Q15M PRN; Protocol PRN Reason: per Hypoglycemia Standing Ord. Divalproex Sodium (Divalproex Sodium Sprinkles 125 Mg ) 125 mg PO BID [facility] Last Admin: 07/06/22 23:11 Dose: 125 mg Documented By: SUNI Doxycycline Hyclate (Doxycycline Hyclate 100 Mg Tablet) 100 mg PO Q12H [facility] Last Admin: 07/06/22 23:10 Dose: 100 mg Documented By: SUNI Enoxaparin Sodium (Enoxaparin Sodium 40 Mg/0.4 Ml Syringe) 40 mg SUBCUT Q24H [facility] Last Admin: 07/06/22 08:05 Dose: 40 mg Documented By: CHRIS Glucose (Glucose Gel 15 Gm Gel..Gram.) 15 gm PO Q15M PRN; Protocol PRN Reason: per Hypoglycemia Standing Ord. Insulin Human Lispro (Insulin Lispro 100 Unit/Ml 3 Ml Vial) 0 unit SUBCUT QIDACHS [facility]; Protocol Last Admin: 07/07/22 09:11 Dose: Not Given Documented By: JULES Non-Admin Reason: No Insulin Coverage Melatonin (Melatonin 3 Mg Tablet) 9 mg PO BEDTIME PRN PRN Reason: Insomnia Last Admin: 07/04/22 19:51 Dose: 9 mg Documented By: HARI Metoprolol Tartrate (Metoprolol Tartrate 25 Mg Tablet) 75 mg PO BID [facility]; Protocol Last Admin: 07/06/22 23:10 Dose: 75 mg Documented By: SUNI Mirtazapine (Mirtazapine 7.5 Mg Tablet) 7.5 mg PO BEDTIME [facility] Last Admin: 07/06/22 23:10 Dose: 7.5 mg Documented By: SUNI Nifedipine (Nifedipine Er 90 Mg Tab.Er.24) 90 mg PO DAILY [facility]; Protocol Last Admin: 07/06/22 08:04 Dose: 90 mg Documented By: CHRIS Olanzapine (Olanzapine 2.5 Mg Tablet) 2.5 mg PO BEDTIME [facility] Last Admin: 07/06/22 23:10 Dose: 2.5 mg Documented By: SUNI Ondansetron HCl (Ondansetron Hcl 4 Mg/2 Ml Vial) 4 mg IVPUSH Q8H PRN PRN Reason: Nausea and Vomiting Pharmacy Consult (Consult Rx Perform Med Rec) 1 each MISCELLANE ONCE PRN PRN Reason: Consult order Sertraline HCl (Sertraline Hcl 50 Mg Tablet) 50 mg PO DAILY [facility] Last Admin: 07/06/22 08:04 Dose: 50 mg Documented By: CHRIS Sodium Bicarbonate (Sodium Bicarbonate 650 Mg Tablet) 650 mg PO BID [facility] Last Admin: 07/06/22 23:10 Dose: 650 mg Documented By: SUNI Sodium Chloride (0.9 % Sodium Chloride Flush 3 Ml Syringe) 3 ml IVFLUSH QSHIFT [facility] Last Admin: 07/06/22 23:11 Dose: Not Given Documented By: SUNI Non-Admin Reason: No Access Labs CBC & Chem 7: 06/27/22 11:24 07/04/22 05:56 Labs: Laboratory Results - last 24 hr 07/06/22 07/06/22 07/07/22 11:19 17:16 07:36 POC Glucose 91 103 83 Assessment and Plan (1) Hyperkalemia: Status: Acute (2) SILVIA (acute kidney injury): Status: Acute Plan 72 year male with history of dementia, hypertension, hyperlipidemia, diabetes, venous stasis, anxiety, depression, hx cerebral aneurysm, obstructive sleep apnea not on cpap residing at the [facility] admitted for generalized weakness associated with SILVIA and hyperkalemia and new left renal mass. 1-Hyperkalemia d/t CKD 2, SILVIA..treated with Lokelma, albuterol and insulin and bicab.. last k was within normal. repeat labs today. Nephrology following 2-SILVIA on CKD 3 (per nephrology) on top of SILVIA which has resolved 3-Left renal mass- CT in ED:?5.8 x 5.1 x 5.1 cm, solid, heterogeneous left upper pole renal mass, highly suspicious for renal cell carcinoma.. ?-Uro recommends no surgery but renal bx done 07/01, oncology is recommending chemo will be outpatient basis. Bx result pending 4-Generalized weakness likely secondary to electrolyte abnormality -Correct electrolyte abdnormality as above and continue gentle hydration -CK normal -No focal neuro deficits ct head neg Pt recommends STR 5-Noninsulin dependent type 2 diabetes -POC glucose -Diabetic diet -Humalog SS 6-HTN- BP ok - restart Metoprolol 75 bid (100 bid at home) , Procardia 90 -Hold lisinopril and amiloride d/t SILVIA and hyperkalemia -If BP consistently high then hydralazine 7-HLD -Continue statin 8-Venous stasis- stable -Pt chronic edema likely secondary to chronic venous disease, possibly CKD. BNP ordered as well 9-MELY -Not on cpap 10-hx cerebral aneursym per pt -Head CT -no acute finding 11. Obesity: Encouraged to lose weight, cut down calories. 12. Dementia(as per patient as well as his guardians report):-unable to determine etiology Supportive care. PT is recommending STR, he's agreable DVT prophylaxis- nicoleno Inpatient need: Deconditioned and awaiting STR bed check bmp routinely today to make sure K and Cr ok plan was discussed with patient's conservator Quality Stroke Does the patient have a stroke diagnosis?: No VTE Prior VTE?: No VTE Risk Level:: Medical - moderate - high VTE Device Contraindication: Treatment Not Indicated VTE Drug Contraindication: Treatment Not Indicated
[2022-07-07] MEDS: Enoxaparin Sodium 40 MG/0.4 ML SYRINGE SUBCUT (10:12)
[2022-07-07] MEDS: Sertraline HCL 50 MG TABLET PO (10:12)
[2022-07-07] MEDS: Divalproex Sodium Sprinkles 125 MG CAP.DR.SPR PO ×2 (10:12→20:36)
[2022-07-07] MEDS: Metoprolol Tartrate 25 MG TABLET 75 MG PO ×2 (10:12→20:36)
[2022-07-07] MEDS: Sodium Bicarbonate 650 MG TABLET PO ×2 (10:13→20:36)
[2022-07-07] MEDS: Atorvastatin Calcium 40 MG TABLET PO (10:13)
[2022-07-07] MEDS: NIFEdipine ER 90 MG TAB.ER.24 PO (10:13)
[2022-07-07 11:02] VITALS: BP 139/73; PULSE 62; RESP 20; TEMP 36.9; O2SAT 96
[2022-07-07 11:53] LABS: Glucose, Whole Blood 78 mg/dL (60-115)
[2022-07-07 15:05] VITALS: BP 138/58; PULSE 71; RESP 19; TEMP 36.6; O2SAT 95
[2022-07-07 15:21] LABS: Glucose, Whole Blood 119 mg/dL (60-115)
[2022-07-07 19:45] VITALS: BP 141/71; PULSE 69; RESP 15; TEMP 36.6; O2SAT 97
[2022-07-07] MEDS: OLANZapine 2.5 MG TABLET PO (20:36)
[2022-07-07] MEDS: Mirtazapine 7.5 MG TABLET PO (20:36)
[2022-07-08] VITALS: BP 162/79; PULSE 56; RESP 16; TEMP 36.6; O2SAT 95
[2022-07-08 03:52] VITALS: BP 157/77; PULSE 57; RESP 16; TEMP 36.8; O2SAT 96
[2022-07-08 07:32] LABS: Glucose, Whole Blood 85 mg/dL (60-115)
[2022-07-08 08:17] VITALS: BP 140/67; PULSE 53; RESP 16; TEMP 36.3; O2SAT 98
[2022-07-08] MEDS: NIFEdipine ER 90 MG TAB.ER.24 PO (09:19)
[2022-07-08] MEDS: Divalproex Sodium Sprinkles 125 MG CAP.DR.SPR PO (09:19)
[2022-07-08] MEDS: Sertraline HCL 50 MG TABLET PO (09:20)
[2022-07-08] MEDS: Metoprolol Tartrate 25 MG TABLET 75 MG PO ×2 (09:20→22:17)
[2022-07-08] MEDS: Sodium Bicarbonate 650 MG TABLET PO (09:20)
[2022-07-08] MEDS: Atorvastatin Calcium 40 MG TABLET PO (09:20)
[2022-07-08] MEDS: Enoxaparin Sodium 40 MG/0.4 ML SYRINGE SUBCUT (09:21)
[2022-07-08 11:33] LABS: Glucose, Whole Blood 89 mg/dL (60-115)
--- NOTE | 2022-07-08 11:36 | MHC.CM.PN ---
CALL FROM GUARDIAN/COUSIN CORRIE [phone] CORRIE STATES THAT PATIENT WAS NOT ON ZYPREXA AT TIME OF GUARDIANSHIP GEARING. SHE STATES THAT ZYPREXA WAS STARTED HERE AT [facility] AND CONTINUED BY DR BRAND (PCP) BECAUSE IT WORKED SO WELL SHE STATES THAT THE MEDICATION WAS STARTED IN OUR E.D. IN FEBRUARY 2022. CORRIE IS HOPING TO GET PATIENT TO NEXT LEVEL OF CARE HE IS ANXIOUS TO LEAVE. SHE IS AWARE THAT THIS INFORMATION WILL BE PASSED ON TO [facility] PSYCHIATRIC TEAM CASE MANAGEMENT FOLLOWING FOR DC PLANS. HOSPITALIST MADE AWARE
--- NOTE | 2022-07-08 14:29 | P.PNIM_ITS ---
Subjective Subjective Date of Service: 07/08/22 Interval History: Seen and examined this morning Follow-up for SILVIA, hyperkalemia No overnight events No specific complaints this morning. Review of Systems Review of Systems: Yes all other systems are reviewed and are negative Constitutional Constitutional: Denies chills and Denies fever(s) Cardiovascular Cardiovascular: Denies chest pain Gastrointestinal Gastrointestinal: Denies abdominal pain Physical Exam Vital Signs: Vital Signs: Last Vital Signs Temp 97.4 F 07/08/22 08:17 Pulse 53 07/08/22 08:17 Resp 16 07/08/22 08:17 BP 140/67 H 07/08/22 08:17 Pulse Ox 98 07/08/22 08:17 O2 Del Method 07/08/22 08:17 BMI result Body Mass Index 32.7 Const: General: comfortable, no acute distress, alert and awake Nutritional Appearance: average body habitus Resp: Effort & Inspection: normal respiratory effort and able to speak in complete sentences Cardio: Rate: regular rate Heart sounds: S1 normal heart sound present and S2 normal heart sound present GI: Inspection: No distended Palpation (GI): Soft to palpation Skin: Other: b/l lower legs with chronic skin changes Extrem: Other: moving all 4 extremities General: Yes no pedal edema Objective Data Active Medications Acetaminophen (Acetaminophen 325 Mg Tablet) 650 mg PO Q6H PRN PRN Reason: Pain, Mild (Pain Scale 1-3) Last Admin: 07/06/22 08:03 Dose: 650 mg Documented By: CHRIS Atorvastatin Calcium (Atorvastatin Calcium 40 Mg Tablet) 40 mg PO DAILY [facility] Last Admin: 07/08/22 09:20 Dose: 40 mg Documented By: JULES Dextrose (Dextrose 50 % 25 Gm/50 Ml Syringe) 25 gm IVPUSH Q15M PRN; Protocol PRN Reason: per Hypoglycemia Standing Ord. Divalproex Sodium (Divalproex Sodium Sprinkles 125 Mg ) 125 mg PO BID [facility] Last Admin: 07/08/22 09:19 Dose: 125 mg Documented By: JULES Doxycycline Hyclate (Doxycycline Hyclate 100 Mg Tablet) 100 mg PO Q12H [facility] Last Admin: 07/08/22 09:20 Dose: 100 mg Documented By: JULES Enoxaparin Sodium (Enoxaparin Sodium 40 Mg/0.4 Ml Syringe) 40 mg SUBCUT Q24H [facility] Last Admin: 07/08/22 09:21 Dose: 40 mg Documented By: JULES Glucose (Glucose Gel 15 Gm Gel..Gram.) 15 gm PO Q15M PRN; Protocol PRN Reason: per Hypoglycemia Standing Ord. Insulin Human Lispro (Insulin Lispro 100 Unit/Ml 3 Ml Vial) 0 unit SUBCUT QIDACHS [facility]; Protocol Last Admin: 07/08/22 11:38 Dose: Not Given Documented By: BREN Non-Admin Reason: No Insulin Coverage Melatonin (Melatonin 3 Mg Tablet) 9 mg PO BEDTIME PRN PRN Reason: Insomnia Last Admin: 07/04/22 19:51 Dose: 9 mg Documented By: HARI Metoprolol Tartrate (Metoprolol Tartrate 25 Mg Tablet) 75 mg PO BID [facility]; Protocol Last Admin: 07/08/22 09:20 Dose: 75 mg Documented By: JULES Mirtazapine (Mirtazapine 7.5 Mg Tablet) 7.5 mg PO BEDTIME [facility] Last Admin: 07/07/22 20:36 Dose: 7.5 mg Documented By: SUNI Nifedipine (Nifedipine Er 90 Mg Tab.Er.24) 90 mg PO DAILY [facility]; Protocol Last Admin: 07/08/22 09:19 Dose: 90 mg Documented By: JULES Olanzapine (Olanzapine 2.5 Mg Tablet) 2.5 mg PO BEDTIME [facility] Last Admin: 07/07/22 20:36 Dose: 2.5 mg Documented By: SUNI Ondansetron HCl (Ondansetron Hcl 4 Mg/2 Ml Vial) 4 mg IVPUSH Q8H PRN PRN Reason: Nausea and Vomiting Pharmacy Consult (Consult Rx Perform Med Rec) 1 each MISCELLANE ONCE PRN PRN Reason: Consult order Sertraline HCl (Sertraline Hcl 50 Mg Tablet) 50 mg PO DAILY [facility] Last Admin: 07/08/22 09:20 Dose: 50 mg Documented By: JULES Sodium Bicarbonate (Sodium Bicarbonate 650 Mg Tablet) 650 mg PO BID [facility] Last Admin: 07/08/22 09:20 Dose: 650 mg Documented By: JULES Sodium Chloride (0.9 % Sodium Chloride Flush 3 Ml Syringe) 3 ml IVFLUSH QSHIFT [facility] Last Admin: 07/08/22 09:21 Dose: Not Given Documented By: JULES Non-Admin Reason: No Access Labs CBC & Chem 7: 06/27/22 11:24 07/04/22 05:56 Labs: Laboratory Results - last 24 hr 07/07/22 07/08/22 07/08/22 15:08 07:27 11:26 POC Glucose 119 H 85 89 Assessment and Plan (1) Left renal mass: Status: Acute (2) SILVIA (acute kidney injury): Status: Acute (3) Hyperkalemia: Status: Acute Plan 72 year male with history of dementia, hypertension, hyperlipidemia, diabetes, venous stasis, anxiety, depression, hx cerebral aneurysm, obstructive sleep apnea not on cpap residing at the [facility] admitted for generalized weakness associated with SILVIA and hyperkalemia and new left renal mass. Hyperkalemia d/t SILVIA s/p treatment with Lokelma, albuterol and insulin and bicab.. last k was wnl SILVIA on CKD 3 (per nephrology) Resolved Left renal mass- CT in ED:?5.8 x 5.1 x 5.1 cm, solid, heterogeneous left upper pole renal mass, highly suspicious for renal cell carcinoma.. ?-Uro recommends no surgery but renal bx done 07/01, oncology is recommending chemo will be outpatient basis. Bx result pending Generalized weakness likely secondary to electrolyte abnormality CK normal, No focal neuro deficits, ct head neg -Pt recommends STR Noninsulin dependent type 2 diabetes Continue SSI, POCs HTN- Adequately controlled restarted on Metoprolol 75 bid (100 bid at home) , Procardia 90 -Hold lisinopril and amiloride d/t SILVIA and hyperkalemia -If BP consistently high then hydralazine HLD -Continue statin MELY -Not on cpap hx cerebral aneursym per pt -Head CT -no acute finding Mood continue zoloft started on zyprexa in February, can not continue unless has cam order ?need to wean vs petition for Cam -psych eval Dementia(as per patient as well as his guardians report):-unable to determine etiology Supportive care. PT is recommending STR, he's agreeable DVT prophylaxis- lovenox attending - dr. jean Inpatient need: Deconditioned and awaiting STR bed plan was discussed with patient's conservator Quality Stroke Does the patient have a stroke diagnosis?: No VTE Prior VTE?: No VTE Risk Level:: Medical - moderate - high VTE Device Contraindication: Treatment Not Indicated VTE Drug Contraindication: Treatment Not Indicated
[2022-07-08 15:43] VITALS: BP 120/65; PULSE 63; RESP 18; TEMP 36.7; O2SAT 96
[2022-07-08 15:51] LABS: Glucose, Whole Blood 169 mg/dL (60-115)
--- NOTE | 2022-07-08 16:58 | P.CNPS_ITS ---
History of Present Illness Date of Service: 07/08/22 Chief Complaint: hyperkalemia, SILVIA, SANA MASS RIGHT Reason for Consult: medication Requesting physician: Prisca De La Rosa Discussed with referring provider: Yes Sources of Information: patient interviewed, chart reviewed and crisis/core team assessment reviewed HPI Narrative: Carlos is a 72 y.o. Male who carries a dx of dementia, anxiety, and depression with comorbid past medical history of hypertension, hyperlipidemia, noninsulin dependent diabetes, hx cerebral aneurysm, venous stasis, and obstructive sleep apnea not on cpap. He is residing at the [facility] and presented to [facility] on 06/27/2022 due to being unable to walk from his bed to his chair due to bilateral LE weakness. In the ED, pt was found to have SILVIA with creat 2.57 and BUN 63 (baseline 1.67, BUN 38), hyperkalemia, and new left renal mass. He was admitted to telemetry, nephrology consulted. He had a renal biopsy done 07/01, oncology is recommending chemo on an outpatient basis.? Psych consult placed, as pt was given a one time dose of zyprexa 10 mg while at [facility] in 02/2022, he was then continued on zyprexa 2.5 mg QHS by his OP PCP for presumed agitation in context of dementia. However, pt would need a Brett?s Order to continue on this in STR. Pt is on remeron 7.5 mg, sertraline 50 mg, and divalproex sodium 125 mg BID. I spoke with pt?s provider, he has been ornery at times but no behavioral concerns, redirectable for the most part. I spoke with the pt. He says ?I have no clue? when asked about his medications. Says his sleep is ?not well,? attributes this to pain in his back from where they did the biopsy and pain in his foot, ?I cant get comfortable no matter what I do.? Declines adjustment with hypnotics, already on remeron 7.5 mg HS. When asked about his mood, pt says ?my mood is im tired of answering questions,? says people have been ?poking at me for the whole day? and ?I just want to be left alone.? Past Psychiatric History: -Denies Medical Evaluation Reviewed: Yes PMFSH Medical History (Updated 06/29/22 @ 14:29 by Ivory Shaikh MD) Anxiety Bacteremia Dementia Depression HLD (hyperlipidemia) HTN (hypertension) Left renal mass MELY (obstructive sleep apnea) Type 2 diabetes mellitus Venous stasis dermatitis of both lower extremities Diagnostics Vital Signs (24Hr): Vital Signs - 24 hr 07/07/22 19:45 07/08/22 00:00 07/08/22 03:52 Temperature 97.9 F 97.8 F 98.2 F Pulse Rate 69 56 57 Respiratory Rate 15 16 16 Blood Pressure 141/71 H 162/79 H 157/77 H Pulse Oximetry 97 95 96 Oxygen Delivery Method Room Air Room Air Room Air 07/08/22 08:17 07/08/22 15:43 Temperature 97.4 F 98.1 F Pulse Rate 53 63 Respiratory Rate 16 18 Blood Pressure 140/67 H 120/65 Pulse Oximetry 98 96 Oxygen Delivery Method Room Air Room Air BMI result Body Mass Index 32.7 Labs Results: 06/27/22 11:24 07/09/22 15:24 Labs: Laboratory Results - last 48 hr 07/06/22 07/07/22 07/07/22 17:16 07:36 11:06 POC Glucose 103 83 78 07/07/22 07/08/22 07/08/22 15:08 07:27 11:26 POC Glucose 119 H 85 89 07/08/22 15:46 POC Glucose 169 H Imaging Radiology Impressions: ITS Impressions Chest X-Ray 06/27/22 11:20 IMPRESSION: Unremarkable examination. Abdomen/Pelvis CT 06/27/22 13:28 IMPRESSION: 5.8 x 5.1 x 5.1 cm, solid, heterogeneous left upper pole renal mass, highly suspicious for renal cell carcinoma. Punctate, nonobstructing, bilateral renal collecting system stones versus vascular calcification. No evidence of hydronephrosis or hydroureter on either side. Head CT 06/27/22 15:59 IMPRESSION: No acute intracranial abnormality. Renal Biopsy CT 07/01/22 17:01 IMPRESSION: Successful right renal mass biopsy. Mental Status Exam Mental Status Exam Narrative: Alert but not oriented to situation. In hospital attire, unkempt but adequate hygiene. Poor eye contact, inattentive. No Tics or Tremors. No abnormal involuntary movements. Agitated, guarded. Non-pressured speech, spontaneous with regular rate and rhythm, normal volume and prosody. No prolonged speech latency or dysarthria. Mood is [did not state] affect is irritable. Denies SI/SIB/HI upon inquiry. Denies A/VH or delusional thought content. Thoughts are dis tracted. Insight/ Judgment limited. Medications Medications Current Medications Acetaminophen (Acetaminophen 325 Mg Tablet) 650 mg PO Q6H PRN PRN Reason: Pain, Mild (Pain Scale 1-3) Last Admin: 07/06/22 08:03 Dose: 650 mg Atorvastatin Calcium (Atorvastatin Calcium 40 Mg Tablet) 40 mg PO DAILY [facility] Last Admin: 07/08/22 09:20 Dose: 40 mg Dextrose (Dextrose 50 % 25 Gm/50 Ml Syringe) 25 gm IVPUSH Q15M PRN; Protocol PRN Reason: per Hypoglycemia Standing Ord. Divalproex Sodium (Divalproex Sodium Sprinkles 125 Mg ) 125 mg PO BID [facility] Last Admin: 07/08/22 09:19 Dose: 125 mg Enoxaparin Sodium (Enoxaparin Sodium 40 Mg/0.4 Ml Syringe) 40 mg SUBCUT Q24H [facility] Last Admin: 07/08/22 09:21 Dose: 40 mg Glucose (Glucose Gel 15 Gm Gel..Gram.) 15 gm PO Q15M PRN; Protocol PRN Reason: per Hypoglycemia Standing Ord. Insulin Human Lispro (Insulin Lispro 100 Unit/Ml 3 Ml Vial) 0 unit SUBCUT QIDACHS [facility]; Protocol Last Admin: 07/08/22 16:17 Dose: Not Given Melatonin (Melatonin 3 Mg Tablet) 9 mg PO BEDTIME PRN PRN Reason: Insomnia Last Admin: 07/04/22 19:51 Dose: 9 mg Metoprolol Tartrate (Metoprolol Tartrate 25 Mg Tablet) 75 mg PO BID [facility]; Protocol Last Admin: 07/08/22 09:20 Dose: 75 mg Mirtazapine (Mirtazapine 7.5 Mg Tablet) 7.5 mg PO BEDTIME [facility] Last Admin: 07/07/22 20:36 Dose: 7.5 mg Nifedipine (Nifedipine Er 90 Mg Tab.Er.24) 90 mg PO DAILY [facility]; Protocol Last Admin: 07/08/22 09:19 Dose: 90 mg Olanzapine (Olanzapine 2.5 Mg Tablet) 2.5 mg PO BEDTIME [facility] Last Admin: 07/07/22 20:36 Dose: 2.5 mg Ondansetron HCl (Ondansetron Hcl 4 Mg/2 Ml Vial) 4 mg IVPUSH Q8H PRN PRN Reason: Nausea and Vomiting Pharmacy Consult (Consult Rx Perform Med Rec) 1 each MISCELLANE ONCE PRN PRN Reason: Consult order Sertraline HCl (Sertraline Hcl 50 Mg Tablet) 50 mg PO DAILY [facility] Last Admin: 07/08/22 09:20 Dose: 50 mg Sodium Chloride (0.9 % Sodium Chloride Flush 3 Ml Syringe) 3 ml IVFLUSH QSHIFT [facility] Last Admin: 07/08/22 15:13 Dose: Not Given Allergies Allergies Allergy/AdvReac Type Severity Reaction Status Date / Time No Known Allergies Allergy Verified 12/08/21 14:14 Assessment & Plan Assessment & Plan (1) Depression: Status: Acute Code(s): F32.A - Depression, unspecified (2) Dementia: Status: Acute Code(s): F03.90 - Unspecified dementia without behavioral disturbance Plan Plan: Increased divalproex sodium to 250 mg BID for agitation, mood lability. Discontinue zyprexa 2.5 mg HS, as it has unclear benefit and to reduce poly pharm. Will monitor for behavioral disturbance off zyprexa. I have shared this with Prisca De La Rosa Thank you for this consultation. If you have any questions or concerns, please do not hesitate to contact psychiatry service. I spent minutes with the patient and/or on the patient floor today, greater than?50% of which was spent counseling/coordinating care. Patient educated on: diagnosis, medication risk/benefits and therapeutic strategies
[2022-07-08 20:00] VITALS: BP 136/72; PULSE 69; RESP 20; TEMP 36.6; O2SAT 96
--- NOTE | 2022-07-08 22:11 | PC.NURSE ---
patient refused BS check,refuses insulin,
[2022-07-08] MEDS: Mirtazapine 7.5 MG TABLET PO (22:16)
[2022-07-08] MEDS: Divalproex Sodium Sprinkles 125 MG CAP.DR.SPR 250 MG PO (22:17)
[2022-07-09] MEDS: 0.9 % Sodium Chloride Flush 3 ML SYRINGE IVFLUSH (00:36)
[2022-07-09 04:00] VITALS: BP 180/91; PULSE 59; RESP 17; TEMP 36.4; O2SAT 97
[2022-07-09 07:23] LABS: Glucose, Whole Blood 97 mg/dL (60-115)
[2022-07-09 07:58] VITALS: BP 148/78; PULSE 56; RESP 20; TEMP 35.8; O2SAT 100
[2022-07-09] MEDS: Metoprolol Tartrate 25 MG TABLET 75 MG PO ×2 (10:09→21:49)
[2022-07-09] MEDS: NIFEdipine ER 90 MG TAB.ER.24 PO (10:10)
[2022-07-09] MEDS: Divalproex Sodium Sprinkles 125 MG CAP.DR.SPR 250 MG PO ×2 (10:10→21:49)
[2022-07-09] MEDS: Atorvastatin Calcium 40 MG TABLET PO (10:10)
[2022-07-09] MEDS: Sertraline HCL 50 MG TABLET PO (10:17)
[2022-07-09 10:35] VITALS: BP 148/78; PULSE 56; O2SAT 100
--- NOTE | 2022-07-09 10:39 | HO.PM.IMPN ---
Subjective Subjective Date of Service: 07/09/22 Interval History: seen and examined this morning follow up for SILVIA, hyperkalemia meds adjusted by psych yesterday no complaints today, no chest pain, abdominal pain tolerating a diet Review of Systems Review of Systems: Yes all other systems are reviewed and are negative Constitutional Constitutional: Denies chills and Denies fever(s) Cardiovascular Cardiovascular: Denies chest pain, Denies palpitations and Denies dyspnea Respiratory Respiratory: Denies cough and Denies dyspnea Gastrointestinal Gastrointestinal: Denies abdominal pain, Denies nausea and Denies vomiting Endocrine Endocrine: Denies palpitations Physical Exam Vital Signs: Vital Signs: Last Vital Signs Temp 96.4 F L 07/09/22 07:58 Pulse 56 07/09/22 10:35 Resp 20 07/09/22 07:58 BP 148/78 H 07/09/22 10:35 Pulse Ox 100 07/09/22 10:35 O2 Del Method 07/09/22 07:58 BMI result Body Mass Index 32.7 Const: Other: sleepy General: cooperative and comfortable Nutritional Appearance: average body habitus Resp: Effort & Inspection: normal respiratory effort and able to speak in complete sentences Cardio: Rate: regular rate Heart sounds: S1 normal heart sound present and S2 normal heart sound present GI: Inspection: No distended Palpation (GI): Soft to palpation and nontender Skin: Other: b/l lower legs with chronic skin changes Neuro: General: CN's II-XI intact bilaterally Extrem: Other: moving all 4 extremities General: Yes no pedal edema Objective Data Active Medications Acetaminophen (Acetaminophen 325 Mg Tablet) 650 mg PO Q6H PRN PRN Reason: Pain, Mild (Pain Scale 1-3) Last Admin: 07/06/22 08:03 Dose: 650 mg Documented By: CHRIS Atorvastatin Calcium (Atorvastatin Calcium 40 Mg Tablet) 40 mg PO DAILY [facility] Last Admin: 07/09/22 10:10 Dose: 40 mg Documented By: AZIZA Dextrose (Dextrose 50 % 25 Gm/50 Ml Syringe) 25 gm IVPUSH Q15M PRN; Protocol PRN Reason: per Hypoglycemia Standing Ord. Divalproex Sodium (Divalproex Sodium Sprinkles 125 Mg ) 250 mg PO BID [facility] Last Admin: 07/09/22 10:10 Dose: 250 mg Documented By: AZIZA Enoxaparin Sodium (Enoxaparin Sodium 40 Mg/0.4 Ml Syringe) 40 mg SUBCUT Q24H [facility] Last Admin: 07/09/22 10:12 Dose: Not Given Documented By: AZIZA Non-Admin Reason: Patient Refused Glucose (Glucose Gel 15 Gm Gel..Gram.) 15 gm PO Q15M PRN; Protocol PRN Reason: per Hypoglycemia Standing Ord. Insulin Human Lispro (Insulin Lispro 100 Unit/Ml 3 Ml Vial) 0 unit SUBCUT QIDACHS [facility]; Protocol Last Admin: 07/09/22 09:16 Dose: Not Given Documented By: AZIZA Non-Admin Reason: No Insulin Coverage Melatonin (Melatonin 3 Mg Tablet) 9 mg PO BEDTIME PRN PRN Reason: Insomnia Last Admin: 07/04/22 19:51 Dose: 9 mg Documented By: TOMIILJenn Metoprolol Tartrate (Metoprolol Tartrate 25 Mg Tablet) 75 mg PO BID [facility]; Protocol Last Admin: 07/09/22 10:09 Dose: 75 mg Documented By: AZIZA Mirtazapine (Mirtazapine 7.5 Mg Tablet) 7.5 mg PO BEDTIME [facility] Last Admin: 07/08/22 22:16 Dose: 7.5 mg Documented By: KRUNAL Nifedipine (Nifedipine Er 90 Mg Tab.Er.24) 90 mg PO DAILY [facility]; Protocol Last Admin: 07/09/22 10:10 Dose: 90 mg Documented By: AZIZA Ondansetron HCl (Ondansetron Hcl 4 Mg/2 Ml Vial) 4 mg IVPUSH Q8H PRN PRN Reason: Nausea and Vomiting Pharmacy Consult (Consult Rx Perform Med Rec) 1 each MISCELLANE ONCE PRN PRN Reason: Consult order Sertraline HCl (Sertraline Hcl 50 Mg Tablet) 50 mg PO DAILY [facility] Last Admin: 07/09/22 10:17 Dose: 50 mg Documented By: AZIZA Sodium Chloride (0.9 % Sodium Chloride Flush 3 Ml Syringe) 3 ml IVFLUSH QSHIFT [facility] Last Admin: 07/09/22 10:11 Dose: 3 ml Documented By: AZIZA Labs CBC & Chem 7: 06/27/22 11:24 07/04/22 05:56 Labs: Laboratory Results - last 24 hr 07/08/22 07/08/22 07/09/22 11:26 15:46 07:10 POC Glucose 89 169 H 97 Assessment and Plan (1) Left renal mass: Status: Acute Plan 72 year male with history of dementia, hypertension, hyperlipidemia, diabetes, venous stasis, anxiety, depression, hx cerebral aneurysm, obstructive sleep apnea not on cpap residing at the [facility] admitted for generalized weakness associated with SILVIA and hyperkalemia and new left renal mass. Hyperkalemia d/t SILVIA s/p treatment with Lokelma, albuterol and insulin and bicab.. last k was wnl SILVIA on CKD3 Resolved Left renal mass- CT in ED:?5.8 x 5.1 x 5.1 cm, solid, heterogeneous left upper pole renal mass, highly suspicious for renal cell carcinoma.. ?-Uro recommends no surgery but renal bx done 07/01, oncology is recommending chemo will be outpatient basis. Bx result pending Generalized weakness likely secondary to electrolyte abnormality CK normal, No focal neuro deficits, ct head neg -Pt recommends STR Noninsulin dependent type 2 diabetes Continue SSI, POCs HTN- Adequately controlled restarted on Metoprolol 75 bid (100 bid at home) , Procardia 90 -Hold lisinopril and amiloride d/t SILVIA and hyperkalemia -If BP consistently high then hydralazine HLD -Continue statin MELY -Not on cpap hx cerebral aneursym per pt -Head CT -no acute finding Mood continue zoloft seen by psych, zypreza stopped, dose of depakote increased Dementia(as per patient as well as his guardians report):-unable to determine etiology Supportive care. PT is recommending STR, he's agreeable DVT prophylaxis- lovenox attending - dr. jean Inpatient need: Deconditioned and awaiting STR bed plan was discussed with patient's conservator Quality Stroke Does the patient have a stroke diagnosis?: No VTE Prior VTE?: No VTE Risk Level:: Medical - moderate - high VTE Device Contraindication: Treatment Not Indicated VTE Drug Contraindication: Treatment Not Indicated
[2022-07-09 11:12] VITALS: BP 135/73; PULSE 59; RESP 16; TEMP 36.3; O2SAT 98
--- NOTE | 2022-07-09 13:56 | MHC.CM.PN ---
CALL FROM GUARDIAN UPDATED DC PLAN DISCUSSED.
[2022-07-09 15:53] LABS: Anion Gap 16 (12-20); Blood Urea Nitrogen 42 mg/dL (9-16); Calcium 8.4 mg/dL (8.4-10.2); Carbon Dioxide 20 mmol/L (22-29); Chloride 111 mmol/L (96-108); Creatinine Clr Calc Pharmacy 64.2; Estimated Glomerular Filt Rate > 60; Glucose Random 120 mg/dL (60-115); Potassium 4.1 mmol/L (3.3-5.1); Sodium 143 mmol/L (135-145)
[2022-07-09 15:54] VITALS: BP 168/77; PULSE 59; RESP 18; TEMP 37.1; O2SAT 98
[2022-07-09 20:09] VITALS: BP 145/66; PULSE 64; RESP 18; TEMP 36.5; O2SAT 98
[2022-07-09] MEDS: Mirtazapine 7.5 MG TABLET PO (21:49)
--- NOTE | 2022-07-09 21:51 | PC.NURSE ---
On 07/09/22 Patient refused PM POC glucose. Patient stated he did not want anyone to check his sugar or be given insulin,
[2022-07-10] VITALS (8 sets, daily range): BP systolic 127–148; BP diastolic 61–79; PULSE 53–88; RESP 16–20; TEMP 36–37; O2SAT 96–99
[2022-07-10 07:30] LABS: Glucose, Whole Blood 90 mg/dL (60-115)
[2022-07-10] MEDS: Metoprolol Tartrate 25 MG TABLET 75 MG PO ×2 (10:06→19:49)
[2022-07-10] MEDS: NIFEdipine ER 90 MG TAB.ER.24 PO (10:06)
[2022-07-10] MEDS: Divalproex Sodium Sprinkles 125 MG CAP.DR.SPR 250 MG PO ×2 (10:07→19:49)
[2022-07-10] MEDS: Sertraline HCL 50 MG TABLET PO (10:07)
[2022-07-10] MEDS: Atorvastatin Calcium 40 MG TABLET PO (10:07)
--- NOTE | 2022-07-10 10:42 | HO.PM.IMPN ---
Subjective Subjective Date of Service: 07/10/22 Interval History: Seen and examined this morning Follow-up for SILVIA, renal mass No overnight events. No specific complaints this morning. Observed sitting up in chair, eating breakfast. Not interested in conversing this morning, but denies chest pain, abdominal pain, difficulty breathing. Review of Systems Review of Systems: Yes all other systems are reviewed and are negative Constitutional Constitutional: Denies chills and Denies fever(s) ENT Ears, Nose, Mouth, and Throat: Denies dizziness Cardiovascular Cardiovascular: Denies chest pain and Denies dyspnea Respiratory Respiratory: Denies cough and Denies dyspnea Gastrointestinal Gastrointestinal: Denies abdominal pain Neurologic Neurologic: Denies dizziness Physical Exam Vital Signs: Vital Signs: Last Vital Signs Temp 97.7 F 07/10/22 07:45 Pulse 60 07/10/22 10:12 Resp 16 07/10/22 07:45 BP 145/75 H 07/10/22 10:12 Pulse Ox 98 07/10/22 07:45 O2 Del Method 07/10/22 07:45 BMI result Body Mass Index 32.7 Const: Other: sleepy General: cooperative, comfortable, no acute distress, alert and awake Nutritional Appearance: average body habitus Resp: Effort & Inspection: normal respiratory effort and able to speak in complete sentences Cardio: Rate: regular rate Heart sounds: S1 normal heart sound present and S2 normal heart sound present GI: Inspection: No distended Palpation (GI): Soft to palpation and nontender Skin: Other: b/l lower legs with chronic skin changes Neuro: General: CN's II-XI intact bilaterally Extrem: Other: moving all 4 extremities General: Yes no pedal edema Objective Data Active Medications Acetaminophen (Acetaminophen 325 Mg Tablet) 650 mg PO Q6H PRN PRN Reason: Pain, Mild (Pain Scale 1-3) Last Admin: 07/06/22 08:03 Dose: 650 mg Documented By: CHRIS Atorvastatin Calcium (Atorvastatin Calcium 40 Mg Tablet) 40 mg PO DAILY [facility] Last Admin: 07/10/22 10:07 Dose: 40 mg Documented By: SHANE Dextrose (Dextrose 50 % 25 Gm/50 Ml Syringe) 25 gm IVPUSH Q15M PRN; Protocol PRN Reason: per Hypoglycemia Standing Ord. Divalproex Sodium (Divalproex Sodium Sprinkles 125 Mg ) 250 mg PO BID [facility] Last Admin: 07/10/22 10:07 Dose: 250 mg Documented By: SHANE Enoxaparin Sodium (Enoxaparin Sodium 40 Mg/0.4 Ml Syringe) 40 mg SUBCUT Q24H [facility] Last Admin: 07/10/22 10:08 Dose: Not Given Documented By: SHANE Non-Admin Reason: Patient Refused Glucose (Glucose Gel 15 Gm Gel..Gram.) 15 gm PO Q15M PRN; Protocol PRN Reason: per Hypoglycemia Standing Ord. Insulin Human Lispro (Insulin Lispro 100 Unit/Ml 3 Ml Vial) 0 unit SUBCUT QIDACHS [facility]; Protocol Last Admin: 07/10/22 08:04 Dose: Not Given Documented By: SHANE Non-Admin Reason: No Insulin Coverage Melatonin (Melatonin 3 Mg Tablet) 9 mg PO BEDTIME PRN PRN Reason: Insomnia Last Admin: 07/04/22 19:51 Dose: 9 mg Documented By: TOMIILJenn Metoprolol Tartrate (Metoprolol Tartrate 25 Mg Tablet) 75 mg PO BID [facility]; Protocol Last Admin: 07/10/22 10:06 Dose: 75 mg Documented By: SHANE Mirtazapine (Mirtazapine 7.5 Mg Tablet) 7.5 mg PO BEDTIME [facility] Last Admin: 07/09/22 21:49 Dose: 7.5 mg Documented By: MARK Nifedipine (Nifedipine Er 90 Mg Tab.Er.24) 90 mg PO DAILY [facility]; Protocol Last Admin: 07/10/22 10:06 Dose: 90 mg Documented By: SHANE Ondansetron HCl (Ondansetron Hcl 4 Mg/2 Ml Vial) 4 mg IVPUSH Q8H PRN PRN Reason: Nausea and Vomiting Pharmacy Consult (Consult Rx Perform Med Rec) 1 each MISCELLANE ONCE PRN PRN Reason: Consult order Sertraline HCl (Sertraline Hcl 50 Mg Tablet) 50 mg PO DAILY [facility] Last Admin: 07/10/22 10:07 Dose: 50 mg Documented By: SHANE Sodium Chloride (0.9 % Sodium Chloride Flush 3 Ml Syringe) 3 ml IVFLUSH QSHIFT [facility] Last Admin: 07/10/22 10:11 Dose: Not Given Documented By: SHANE Non-Admin Reason: No Access Labs CBC & Chem 7: 06/27/22 11:24 07/09/22 15:24 Labs: Laboratory Results - last 24 hr 07/09/22 07/10/22 15:24 07:27 Anion Gap 16 Estim Creat Clear Calc 64.2 Estimated GFR > 60 POC Glucose 90 Random Glucose 120 H Calcium 8.4 Assessment and Plan (1) Left renal mass: Status: Acute (2) Hyperkalemia: Status: Acute (3) SILVIA (acute kidney injury): Status: Acute Plan 72 year male with history of dementia, hypertension, hyperlipidemia, diabetes, venous stasis, anxiety, depression, hx cerebral aneurysm, obstructive sleep apnea not on cpap residing at the [facility] admitted for generalized weakness associated with SILVIA and hyperkalemia and new left renal mass. Hyperkalemia d/t SILVIA s/p treatment with Lokelma, albuterol and insulin and bicab.. last k was wnl SILVIA on CKD3 Resolved Metabolic acidosis r/t SILVIA continue sodium bicarb Left renal mass- CT in ED:?5.8 x 5.1 x 5.1 cm, solid, heterogeneous left upper pole renal mass, highly suspicious for renal cell carcinoma.. ?-Uro recommends no surgery but renal bx done 07/01, oncology is recommending chemo will be outpatient basis. Bx result pending Generalized weakness likely secondary to electrolyte abnormality CK normal, No focal neuro deficits, ct head neg -Pt recommends STR Noninsulin dependent type 2 diabetes Continue SSI, POCs HTN- Adequately controlled restarted on Metoprolol 75 bid (100 bid at home) , Procardia 90 -Hold lisinopril and amiloride d/t SILVIA and hyperkalemia -If BP consistently high then hydralazine HLD -Continue statin MELY -Not on cpap hx cerebral aneursym per pt -Head CT -no acute finding Mood continue zoloft seen by psych, zypreza stopped, dose of depakote increased Dementia(as per patient as well as his guardians report):-unable to determine etiology Supportive care. PT is recommending STR, he's agreeable DVT prophylaxis- lovenox attending - dr. worthy Inpatient need: Deconditioned and awaiting STR bed- awaiting insurance authorization plan was discussed with patient's conservator Quality Stroke Does the patient have a stroke diagnosis?: No VTE Prior VTE?: No VTE Risk Level:: Medical - moderate - high VTE Device Contraindication: Treatment Not Indicated VTE Drug Contraindication: Treatment Not Indicated
[2022-07-10 11:16] LABS: Glucose, Whole Blood 138 mg/dL (60-115)
--- NOTE | 2022-07-10 14:25 | MHC.CM.PN ---
PER [facility] THEY ARE STILL WORKING ON AUTH FOR PT, CM WILL CONT TO FOLLOW.
[2022-07-10] MEDS: Sodium Bicarbonate 650 MG TABLET PO (19:49)
[2022-07-10] MEDS: Mirtazapine 7.5 MG TABLET PO (19:49)
[2022-07-11] VITALS (7 sets, daily range): BP systolic 121–154; BP diastolic 60–76; PULSE 55–68; RESP 16–20; TEMP 35.9–37.1; O2SAT 95–99
[2022-07-11 07:29] LABS: Glucose, Whole Blood 80 mg/dL (60-115)
[2022-07-11] MEDS: NIFEdipine ER 90 MG TAB.ER.24 PO (08:09)
[2022-07-11] MEDS: Sertraline HCL 50 MG TABLET PO (08:09)
[2022-07-11] MEDS: Metoprolol Tartrate 25 MG TABLET 75 MG PO ×2 (08:10→22:10)
[2022-07-11] MEDS: Atorvastatin Calcium 40 MG TABLET PO (08:10)
[2022-07-11] MEDS: Sodium Bicarbonate 650 MG TABLET PO ×2 (08:10→22:10)
[2022-07-11] MEDS: Divalproex Sodium Sprinkles 125 MG CAP.DR.SPR 250 MG PO ×2 (08:10→22:09)
--- NOTE | 2022-07-11 09:50 | P.PNIM_ITS ---
Subjective Subjective Date of Service: 07/11/22 Interval History: Seen and examined this morning Follow-up for SILVIA, renal mass No specific complaints this morning, Review of Systems no fever or chills no pain Physical Exam Vital Signs: Vital Signs: Last Vital Signs Temp 96.7 F L 07/11/22 06:58 Pulse 62 07/11/22 06:58 Resp 20 07/11/22 06:58 BP 154/74 H 07/11/22 06:58 Pulse Ox 97 07/11/22 06:58 O2 Del Method 07/11/22 06:58 BMI result Body Mass Index 32.7 Const: Other: sleepy General: cooperative, comfortable, no acute distress, alert and awake Nutritional Appearance: average body habitus Resp: Effort & Inspection: normal respiratory effort and able to speak in complete sentences Cardio: Rate: regular rate Heart sounds: S1 normal heart sound present and S2 normal heart sound present GI: Inspection: No distended Palpation (GI): Soft to palpation and nontender Skin: Other: b/l lower legs with chronic skin changes Neuro: General: CN's II-XI intact bilaterally Extrem: Other: moving all 4 extremities General: Yes no pedal edema Objective Data Active Medications Acetaminophen (Acetaminophen 325 Mg Tablet) 650 mg PO Q6H PRN PRN Reason: Pain, Mild (Pain Scale 1-3) Last Admin: 07/06/22 08:03 Dose: 650 mg Documented By: CHRIS Atorvastatin Calcium (Atorvastatin Calcium 40 Mg Tablet) 40 mg PO DAILY [facility] Last Admin: 07/11/22 08:10 Dose: 40 mg Documented By: AZIZA Dextrose (Dextrose 50 % 25 Gm/50 Ml Syringe) 25 gm IVPUSH Q15M PRN; Protocol PRN Reason: per Hypoglycemia Standing Ord. Divalproex Sodium (Divalproex Sodium Sprinkles 125 Mg ) 250 mg PO BID [facility] Last Admin: 07/11/22 08:10 Dose: 250 mg Documented By: AZIZA Enoxaparin Sodium (Enoxaparin Sodium 40 Mg/0.4 Ml Syringe) 40 mg SUBCUT Q24H [facility] Last Admin: 07/11/22 08:12 Dose: Not Given Documented By: AZIZA Non-Admin Reason: Patient Refused Glucose (Glucose Gel 15 Gm Gel..Gram.) 15 gm PO Q15M PRN; Protocol PRN Reason: per Hypoglycemia Standing Ord. Insulin Human Lispro (Insulin Lispro 100 Unit/Ml 3 Ml Vial) 0 unit SUBCUT QIDACHS [facility]; Protocol Last Admin: 07/11/22 08:05 Dose: Not Given Documented By: AZIZA Non-Admin Reason: No Insulin Coverage Melatonin (Melatonin 3 Mg Tablet) 9 mg PO BEDTIME PRN PRN Reason: Insomnia Last Admin: 07/04/22 19:51 Dose: 9 mg Documented By: CASTILM Metoprolol Tartrate (Metoprolol Tartrate 25 Mg Tablet) 75 mg PO BID [facility]; Protocol Last Admin: 07/11/22 08:10 Dose: 75 mg Documented By: AZIZA Mirtazapine (Mirtazapine 7.5 Mg Tablet) 7.5 mg PO BEDTIME [facility] Last Admin: 07/10/22 19:49 Dose: 7.5 mg Documented By: SANLILIANA Nifedipine (Nifedipine Er 90 Mg Tab.Er.24) 90 mg PO DAILY [facility]; Protocol Last Admin: 07/11/22 08:09 Dose: 90 mg Documented By: AZIZA Ondansetron HCl (Ondansetron Hcl 4 Mg/2 Ml Vial) 4 mg IVPUSH Q8H PRN PRN Reason: Nausea and Vomiting Pharmacy Consult (Consult Rx Perform Med Rec) 1 each MISCELLANE ONCE PRN PRN Reason: Consult order Sertraline HCl (Sertraline Hcl 50 Mg Tablet) 50 mg PO DAILY [facility] Last Admin: 07/11/22 08:09 Dose: 50 mg Documented By: AZIZA Sodium Bicarbonate (Sodium Bicarbonate 650 Mg Tablet) 650 mg PO BID [facility] Last Admin: 07/11/22 08:10 Dose: 650 mg Documented By: AZIZA Sodium Chloride (0.9 % Sodium Chloride Flush 3 Ml Syringe) 3 ml IVFLUSH QSHIFT [facility] Last Admin: 07/11/22 08:11 Dose: Not Given Documented By: AZIZA Non-Admin Reason: No Access Labs CBC & Chem 7: 06/27/22 11:24 07/09/22 15:24 Labs: Laboratory Results - last 24 hr 07/10/22 07/11/22 11:12 07:26 POC Glucose 138 H 80 Assessment and Plan (1) Left renal mass: Status: Acute (2) Hyperkalemia: Status: Acute (3) SILVIA (acute kidney injury): Status: Acute Plan 72 year male with history of dementia, hypertension, hyperlipidemia, diabetes, venous stasis, anxiety, depression, hx cerebral aneurysm, obstructive sleep apne a not on cpap residing at the [facility] admitted for generalized weakness associated with SILVIA and hyperkalemia and new left renal mass. Hyperkalemia d/t SILVIA s/p treatment with Lokelma, albuterol and insulin and bicab.. last k was wnl SILVIA on CKD3 Resolved Metabolic acidosis r/t SILVIA and CKD continue sodium bicarb Left renal mass- CT in ED:?5.8 x 5.1 x 5.1 cm, solid, heterogeneous left upper pole renal mass, highly suspicious for renal cell carcinoma.. ?-Uro recommends no surgery but renal bx done 07/01, oncology is recommending chemo will be outpatient basis. Bx result pending Generalized weakness likely secondary to electrolyte abnormality CK normal, No focal neuro deficits, ct head neg -Pt recommends STR Noninsulin dependent type 2 diabetes Continue SSI, POCs HTN- Adequately controlled restarted on Metoprolol 75 bid (100 bid at home) , Procardia 90 -Hold lisinopril and amiloride d/t SILVIA and hyperkalemia -If BP consistently high then hydralazine HLD -Continue statin MELY -Not on cpap hx cerebral aneursym per pt -Head CT -no acute finding Mood continue zoloft seen by psych, zypreza stopped, dose of depakote increased Dementia(as per patient as well as his guardians report):-unable to determine etiology Supportive care. PT is recommending STR, he's agreeable DVT prophylaxis- karleyx attending - dr. worthy Inpatient need: Deconditioned and awaiting STR bed- awaiting insurance authorization plan was discussed with patient's conservator Quality Stroke Does the patient have a stroke diagnosis?: No VTE Prior VTE?: No VTE Risk Level:: Medical - moderate - high VTE Device Contraindication: Treatment Not Indicated VTE Drug Contraindication: Treatment Not Indicated
[2022-07-11 11:40] LABS: Glucose, Whole Blood 98 mg/dL (60-115)
[2022-07-11] MEDS: Mirtazapine 7.5 MG TABLET PO (22:09)
[2022-07-12 04:00] VITALS: BP 136/59; PULSE 53; RESP 18; TEMP 36.6; O2SAT 96
[2022-07-12 07:13] LABS: Glucose, Whole Blood 82 mg/dL (60-115)
[2022-07-12 07:46] VITALS: BP 143/76; PULSE 59; RESP 18; TEMP 36.9; O2SAT 97
[2022-07-12] MEDS: Sodium Bicarbonate 650 MG TABLET PO ×2 (08:00→20:39)
[2022-07-12] MEDS: Divalproex Sodium Sprinkles 125 MG CAP.DR.SPR 250 MG PO ×2 (08:00→20:39)
[2022-07-12] MEDS: NIFEdipine ER 90 MG TAB.ER.24 PO (08:00)
[2022-07-12] MEDS: Sertraline HCL 50 MG TABLET PO (08:00)
[2022-07-12] MEDS: Atorvastatin Calcium 40 MG TABLET PO (08:00)
[2022-07-12] MEDS: Metoprolol Tartrate 25 MG TABLET 75 MG PO ×2 (08:01→20:39)
--- NOTE | 2022-07-12 10:28 | P.PNIM_ITS ---
Subjective Subjective Date of Service: 07/12/22 Interval History: Seen and examined this morning Follow-up for SILVIA, renal mass No specific complaints this morning, want to be in chair Review of Systems no fever or chills no pain Physical Exam Vital Signs: Vital Signs: Last Vital Signs Temp 98.5 F 07/12/22 07:46 Pulse 59 07/12/22 07:46 Resp 18 07/12/22 07:46 BP 143/76 H 07/12/22 07:46 Pulse Ox 97 07/12/22 07:46 O2 Del Method 07/12/22 07:46 BMI result Body Mass Index 32.7 Const: Other: sleepy General: cooperative, comfortable, no acute distress, alert and awake Nutritional Appearance: average body habitus Resp: Effort & Inspection: normal respiratory effort and able to speak in complete sentences Cardio: Rate: regular rate Heart sounds: S1 normal heart sound present and S2 normal heart sound present GI: Inspection: No distended Palpation (GI): Soft to palpation and nontende r Skin: Other: b/l lower legs with chronic skin changes Neuro: General: CN's II-XI intact bilaterally Extrem: Other: moving all 4 extremities General: Yes no pedal edema Objective Data Active Medications Acetaminophen (Acetaminophen 325 Mg Tablet) 650 mg PO Q6H PRN PRN Reason: Pain, Mild (Pain Scale 1-3) Last Admin: 07/06/22 08:03 Dose: 650 mg Documented By: CHRIS Atorvastatin Calcium (Atorvastatin Calcium 40 Mg Tablet) 40 mg PO DAILY [facility] Last Admin: 07/12/22 08:00 Dose: 40 mg Documented By: KAN Dextrose (Dextrose 50 % 25 Gm/50 Ml Syringe) 25 gm IVPUSH Q15M PRN; Protocol PRN Reason: per Hypoglycemia Standing Ord. Divalproex Sodium (Divalproex Sodium Sprinkles 125 Mg ) 250 mg PO BID [facility] Last Admin: 07/12/22 08:00 Dose: 250 mg Documented By: KAN Enoxaparin Sodium (Enoxaparin Sodium 40 Mg/0.4 Ml Syringe) 40 mg SUBCUT Q24H [facility] Last Admin: 07/12/22 08:00 Dose: Not Given Documented By: KAN Non-Admin Reason: Patient Refused Glucose (Glucose Gel 15 Gm Gel..Gram.) 15 gm PO Q15M PRN; Protocol PRN Reason: per Hypoglycemia Standing Ord. Insulin Human Lispro (Insulin Lispro 100 Unit/Ml 3 Ml Vial) 0 unit SUBCUT QIDACHS [facility]; Protocol Last Admin: 07/12/22 07:21 Dose: Not Given Documented By: KAN Non-Admin Reason: No Insulin Coverage Melatonin (Melatonin 3 Mg Tablet) 9 mg PO BEDTIME PRN PRN Reason: Insomnia Last Admin: 07/04/22 19:51 Dose: 9 mg Documented By: CASTILJenn Metoprolol Tartrate (Metoprolol Tartrate 25 Mg Tablet) 75 mg PO BID [facility]; Protocol Last Admin: 07/12/22 08:01 Dose: 75 mg Documented By: KAN Mirtazapine (Mirtazapine 7.5 Mg Tablet) 7.5 mg PO BEDTIME [facility] Last Admin: 07/11/22 22:09 Dose: 7.5 mg Documented By: ARCELIA Nifedipine (Nifedipine Er 90 Mg Tab.Er.24) 90 mg PO DAILY [facility]; Protocol Last Admin: 07/12/22 08:00 Dose: 90 mg Documented By: KAN Ondansetron HCl (Ondansetron Hcl 4 Mg/2 Ml Vial) 4 mg IVPUSH Q8H PRN PRN Reason: Nausea and Vomiting Pharmacy Consult (Consult Rx Perform Med Rec) 1 each MISCELLANE ONCE PRN PRN Reason: Consult order Sertraline HCl (Sertraline Hcl 50 Mg Tablet) 50 mg PO DAILY [facility] Last Admin: 07/12/22 08:00 Dose: 50 mg Documented By: KAN Sodium Bicarbonate (Sodium Bicarbonate 650 Mg Tablet) 650 mg PO BID [facility] Last Admin: 07/12/22 08:00 Dose: 650 mg Documented By: KAN Sodium Chloride (0.9 % Sodium Chloride Flush 3 Ml Syringe) 3 ml IVFLUSH QSHIFT [facility] Last Admin: 07/12/22 08:03 Dose: Not Given Documented By: KAN Non-Admin Reason: No Access Labs CBC & Chem 7: 06/27/22 11:24 07/09/22 15:24 Labs: Laboratory Results - last 24 hr 07/11/22 07/12/22 11:13 07:02 POC Glucose 98 82 Assessment and Plan (1) Left renal mass: Status: Acute (2) Hyperkalemia: Status: Acute (3) SILVIA (acute kidney injury): Status: Acute Plan 72 year male with history of dementia, hypertension, hyperlipidemia, diabetes, venous stasis, anxiety, depression, hx cerebral aneurysm, obstructive sleep apnea not on cpap residing at the [facility] admitted for generalized weakness associated with SILVIA and hyperkalemia and new left renal mass. Hyperkalemia d/t SILVIA s/p treatment with Lokelma, albuterol and insulin and bicab.. last k was wnl check labs SILVIA on CKD3 Resolved Metabolic acidosis r/t SILVIA and CKD continue sodium bicarb Left renal mass- CT in ED:?5.8 x 5.1 x 5.1 cm, solid, heterogeneous left upper pole renal mass, highly suspicious for renal cell carcinoma.. ?-Uro recommends no surgery but renal bx done 07/01, oncology is recommending chemo will be outpatient basis. Bx result pending Generalized weakness likely secondary to electrolyte abnormality CK normal, No focal neuro deficits, ct head neg -Pt recommends STR Noninsulin dependent type 2 diabetes Continue SSI, POCs HTN- Adequately controlled restarted on Metoprolol 75 bid (100 bid at home) , Procardia 90 -Hold lisinopril and amiloride d/t SILVIA and hyperkalemia -If BP consistently high then hydralazine HLD -Continue statin MELY -Not on cpap hx cerebral aneursym per pt -Head CT -no acute finding Mood continue zoloft seen by psych, zypreza stopped, dose of depakote increased Dementia(as per patient as well as his guardians report):-unable to determine etiology Supportive care. PT is recommending STR, he's agreeable DVT prophylaxis- karleyx attending - dr. worthy Inpatient need: Deconditioned and awaiting STR bed- awaiting insurance authorization plan was discussed with patient's conservator Quality Stroke Does the patient have a stroke diagnosis?: No VTE Prior VTE?: No VTE Risk Level:: Medical - moderate - high VTE Device Contraindication: Treatment Not Indicated VTE Drug Contraindication: Treatment Not Indicated
[2022-07-12 11:33] LABS: Glucose, Whole Blood 73 mg/dL (60-115)
[2022-07-12 12:00] VITALS: BP 135/68; PULSE 57; RESP 18; TEMP 36.1; O2SAT 97
[2022-07-12 15:48] LABS: Glucose, Whole Blood 115 mg/dL (60-115)
[2022-07-12 16:00] VITALS: BP 129/68; PULSE 59; RESP 19; TEMP 36.4; O2SAT 100
[2022-07-12 20:00] VITALS: BP 157/75; PULSE 69; RESP 18; TEMP 36.4; O2SAT 98
[2022-07-12] MEDS: Mirtazapine 7.5 MG TABLET PO (20:39)
[2022-07-12] MEDS: Acetaminophen 325 MG TABLET 650 MG PO (20:41)
[2022-07-13] VITALS (7 sets, daily range): BP systolic 115–161; BP diastolic 57–83; PULSE 53–68; RESP 15–19; TEMP 36.1–36.7; O2SAT 95–99
[2022-07-13 07:34] LABS: Glucose, Whole Blood 82 mg/dL (60-115)
[2022-07-13] MEDS: Atorvastatin Calcium 40 MG TABLET PO (10:40)
[2022-07-13] MEDS: Divalproex Sodium Sprinkles 125 MG CAP.DR.SPR 250 MG PO ×2 (10:40→21:39)
[2022-07-13] MEDS: NIFEdipine ER 90 MG TAB.ER.24 PO (10:40)
[2022-07-13] MEDS: Sertraline HCL 50 MG TABLET PO (10:41)
[2022-07-13] MEDS: Metoprolol Tartrate 25 MG TABLET 75 MG PO ×2 (10:41→21:39)
[2022-07-13] MEDS: Sodium Bicarbonate 650 MG TABLET PO ×2 (10:41→21:39)
[2022-07-13 11:28] LABS: Glucose, Whole Blood 90 mg/dL (60-115)
--- NOTE | 2022-07-13 12:22 | HO.PM.IMPN ---
Subjective Subjective Date of Service: 07/13/22 Interval History: Seen and examined this morning Follow-up for SILVIA, renal mass No specific complaints this morning, Review of Systems no fever or chills no pain Physical Exam Vital Signs: Vital Signs: Last Vital Signs Temp 98.1 F 07/13/22 11:22 Pulse 60 07/13/22 11:22 Resp 18 07/13/22 11:22 BP 161/83 H 07/13/22 11:22 Pulse Ox 98 07/13/22 11:22 O2 Del Method 07/13/22 11:22 BMI result Body Mass Index 32.7 Objective Data Active Medications Acetaminophen (Acetaminophen 325 Mg Tablet) 650 mg PO Q6H PRN PRN Reason: Pain, Mild (Pain Scale 1-3) Last Admin: 07/12/22 20:41 Dose: 650 mg Documented By: VICTORIA Atorvastatin Calcium (Atorvastatin Calcium 40 Mg Tablet) 40 mg PO DAILY [facility] Last Admin: 07/13/22 10:40 Dose: 40 mg Documented By: STEFFEN Dextrose (Dextrose 50 % 25 Gm/50 Ml Syringe) 25 gm IVPUSH Q15M PRN; Protocol PRN Reason: per Hypoglycemia Standing Ord. Divalproex Sodium (Divalproex Sodium Sprinkles 125 Mg ) 250 mg PO BID [facility] Last Admin: 07/13/22 10:40 Dose: 250 mg Documented By: STEFFEN Enoxaparin Sodium (Enoxaparin Sodium 40 Mg/0.4 Ml Syringe) 40 mg SUBCUT Q24H [facility] Last Admin: 07/13/22 10:46 Dose: Not Given Documented By: STEFFEN Non-Admin Reason: Patient Refused Glucose (Glucose Gel 15 Gm Gel..Gram.) 15 gm PO Q15M PRN; Protocol PRN Reason: per Hypoglycemia Standing Ord. Insulin Human Lispro (Insulin Lispro 100 Unit/Ml 3 Ml Vial) 0 unit SUBCUT QIDACHS [facility]; Protocol Last Admin: 07/13/22 07:47 Dose: Not Given Documented By: STEFFEN Non-Admin Reason: No Insulin Coverage Melatonin (Melatonin 3 Mg Tablet) 9 mg PO BEDTIME PRN PRN Reason: Insomnia Last Admin: 07/04/22 19:51 Dose: 9 mg Documented By: HARI Metoprolol Tartrate (Metoprolol Tartrate 25 Mg Tablet) 75 mg PO BID [facility]; Protocol Last Admin: 07/13/22 10:41 Dose: 75 mg Documented By: STEFFEN Mirtazapine (Mirtazapine 7.5 Mg Tablet) 7.5 mg PO BEDTIME [facility] Last Admin: 07/12/22 20:39 Dose: 7.5 mg Documented By: VICTORIA Nifedipine (Nifedipine Er 90 Mg Tab.Er.24) 90 mg PO DAILY [facility]; Protocol Last Admin: 07/13/22 10:40 Dose: 90 mg Documented By: STEFFEN Ondansetron HCl (Ondansetron Hcl 4 Mg/2 Ml Vial) 4 mg IVPUSH Q8H PRN PRN Reason: Nausea and Vomiting Pharmacy Consult (Consult Rx Perform Med Rec) 1 each MISCELLANE ONCE PRN PRN Reason: Consult order Sertraline HCl (Sertraline Hcl 50 Mg Tablet) 50 mg PO DAILY [facility] Last Admin: 07/13/22 10:41 Dose: 50 mg Documented By: STEFFEN Sodium Bicarbonate (Sodium Bicarbonate 650 Mg Tablet) 650 mg PO BID [facility] Last Admin: 07/13/22 10:41 Dose: 650 mg Documented By: STEFFEN Sodium Chloride (0.9 % Sodium Chloride Flush 3 Ml Syringe) 3 ml IVFLUSH QSHIFT [facility] Last Admin: 07/13/22 10:42 Dose: Not Given Documented By: STEFFEN Non-Admin Reason: No Insulin Coverage Labs CBC & Chem 7: 06/27/22 11:24 07/09/22 15:24 Labs: Laboratory Results - last 24 hr 07/12/22 07/13/22 07/13/22 15:22 07:25 11:22 POC Glucose 115 82 90 Assessment and Plan (1) Left renal mass: Status: Acute (2) Hyperkalemia: Status: Acute (3) SILVIA (acute kidney injury): Status: Acute Plan 72 year male with history of dementia, hypertension, hyperlipidemia, diabetes, venous stasis, anxiety, depression, hx cerebral aneurysm, obstructive sleep apnea not on cpap residing at the [facility] admitted for generalized weakness associated with SILVIA and hyperkalemia and new left renal mass. Hyperkalemia d/t SILVIA s/p treatment with Lokelma, albuterol and insulin and bicab.. last k was wnl check labs intermittently SILVIA on CKD3 Resolved Metabolic acidosis r/t SILVIA and CKD continue sodium bicarb Left renal mass- CT in ED:?5.8 x 5.1 x 5.1 cm, solid, heterogeneous left upper pole renal mass, highly suspicious for renal cell carcinoma.. ?-Uro recommends no surgery but renal bx done 07/01, oncology is recommending chemo will be outpatient basis. Bx confirmed renal cell carcinoma Generalized weakness likely secondary to electrolyte abnormality CK normal, No focal neuro deficits, ct head neg -Pt recommends STR Noninsulin dependent type 2 diabetes Continue SSI, POCs HTN- Adequately controlled restarted on Metoprolol 75 bid (100 bid at home) , Procardia 90 -Hold lisinopril and amiloride d/t SILVIA and hyperkalemia -If BP consistently high then hydralazine HLD -Continue statin MELY -Not on cpap hx cerebral aneursym per pt -Head CT -no acute finding Mood continue zoloft seen by psych, zypreza stopped, dose of depakote increased Dementia(as per patient as well as his guardians report):-unable to determine etiology Supportive care. PT is recommending STR, he's agreeable DVT prophylaxis- lovenox attending - dr. worthy Inpatient need: Deconditioned and awaiting STR bed- awaiting insurance authorization plan was discussed with patient's conservator 07/13 Quality Stroke Does the patient have a stroke diagnosis?: No VTE Prior VTE?: No VTE Risk Level:: Medical - moderate - high VTE Device Contraindication: Treatment Not Indicated VTE Drug Contraindication: Treatment Not Indicated
--- NOTE | 2022-07-13 15:13 | MHC.CM.PN ---
NO BED OFFER OF THIS NOTE. NATHALIE AT [facility] REVIEWING AND EXPECTED TO LET T/W KNOW THE ANSWER
[2022-07-13] MEDS: polyethylene glycoL 3350 17 GM POWD.PACK PO (17:11)
[2022-07-13 19:13] LABS: Glucose, Whole Blood 118 mg/dL (60-115)
[2022-07-13] MEDS: Mirtazapine 7.5 MG TABLET PO (21:39)
[2022-07-14] VITALS: BP 147/73; PULSE 61; RESP 18; TEMP 36.1; O2SAT 96
[2022-07-14 06:51] VITALS: BP 160/79; PULSE 56; RESP 18; TEMP 36.6; O2SAT 98
[2022-07-14 07:11] LABS: Glucose, Whole Blood 89 mg/dL (60-115)
[2022-07-14] MEDS: Divalproex Sodium Sprinkles 125 MG CAP.DR.SPR 250 MG PO ×2 (08:49→20:36)
[2022-07-14] MEDS: NIFEdipine ER 90 MG TAB.ER.24 PO (08:49)
[2022-07-14] MEDS: Atorvastatin Calcium 40 MG TABLET PO (08:49)
[2022-07-14] MEDS: Metoprolol Tartrate 25 MG TABLET 75 MG PO ×2 (08:49→20:35)
[2022-07-14] MEDS: Sertraline HCL 50 MG TABLET PO (08:49)
[2022-07-14] MEDS: Sodium Bicarbonate 650 MG TABLET PO ×2 (08:49→20:36)
[2022-07-14 08:57] VITALS: PULSE 63
[2022-07-14 10:28] VITALS: BMI 32.7
[2022-07-14 11:10] VITALS: BP 152/76; PULSE 63; RESP 19; TEMP 36.6; O2SAT 96
[2022-07-14 11:15] LABS: Glucose, Whole Blood 72 mg/dL (60-115)
--- NOTE | 2022-07-14 12:27 | P.PNIM_ITS ---
Subjective Subjective Date of Service: 07/14/22 Interval History: Seen and examined this morning Follow-up for SILVIA, renal mass No specific complaints this morning, Review of Systems no fever or chills no pain Physical Exam Vital Signs: Vital Signs: Last Vital Signs Temp 98 F 07/14/22 11:10 Pulse 63 07/14/22 11:10 Resp 19 07/14/22 11:10 BP 152/76 H 07/14/22 11:10 Pulse Ox 96 07/14/22 11:10 O2 Del Method 07/14/22 11:10 BMI result Body Mass Index 32.7 Objective Data Active Medications Acetaminophen (Acetaminophen 325 Mg Tablet) 650 mg PO Q6H PRN PRN Reason: Pain, Mild (Pain Scale 1-3) Last Admin: 07/12/22 20:41 Dose: 650 mg Documented By: VICTORIA Atorvastatin Calcium (Atorvastatin Calcium 40 Mg Tablet) 40 mg PO DAILY [facility] Last Admin: 07/14/22 08:49 Dose: 40 mg Documented By: BREN Dextrose (Dextrose 50 % 25 Gm/50 Ml Syringe) 25 gm IVPUSH Q15M PRN; Protocol PRN Reason: per Hypoglycemia Standing Ord. Divalproex Sodium (Divalproex Sodium Sprinkles 125 Mg ) 250 mg PO BID [facility] Last Admin: 07/14/22 08:49 Dose: 250 mg Documented By: BREN Enoxaparin Sodium (Enoxaparin Sodium 40 Mg/0.4 Ml Syringe) 40 mg SUBCUT Q24H [facility] Last Admin: 07/14/22 08:54 Dose: Not Given Documented By: BREN Non-Admin Reason: Patient Refused Glucose (Glucose Gel 15 Gm Gel..Gram.) 15 gm PO Q15M PRN; Protocol PRN Reason: per Hypoglycemia Standing Ord. Insulin Human Lispro (Insulin Lispro 100 Unit/Ml 3 Ml Vial) 0 unit SUBCUT QIDACHS [facility]; Protocol Last Admin: 07/14/22 11:34 Dose: Not Given Documented By: BREN Non-Admin Reason: No Insulin Coverage Magnesium Hydroxide (Milk Of Magnesia 30 Ml Oral.Susp) 30 ml PO DAILY PRN PRN Reason: Constipation Melatonin (Melatonin 3 Mg Tablet) 9 mg PO BEDTIME PRN PRN Reason: Insomnia Last Admin: 07/04/22 19:51 Dose: 9 mg Documented By: HARI Metoprolol Tartrate (Metoprolol Tartrate 25 Mg Tablet) 75 mg PO BID [facility]; Protocol Last Admin: 07/14/22 08:49 Dose: 75 mg Documented By: BREN Mirtazapine (Mirtazapine 7.5 Mg Tablet) 7.5 mg PO BEDTIME [facility] Last Admin: 07/13/22 21:39 Dose: 7.5 mg Documented By: ROBBIN Nifedipine (Nifedipine Er 90 Mg Tab.Er.24) 90 mg PO DAILY [facility]; Protocol Last Admin: 07/14/22 08:49 Dose: 90 mg Documented By: BREN Ondansetron HCl (Ondansetron Hcl 4 Mg/2 Ml Vial) 4 mg IVPUSH Q8H PRN PRN Reason: Nausea and Vomiting Pharmacy Consult (Consult Rx Perform Med Rec) 1 each MISCELLANE ONCE PRN PRN Reason: Consult order Polyethylene Glycol (Polyethylene Glycol 3350 17 Gm Powd.Pack) 17 gm PO DAILY PRN PRN Reason: Constipation Last Admin: 07/13/22 17:11 Dose: 17 gm Documented By: STEFFEN Sertraline HCl (Sertraline Hcl 50 Mg Tablet) 50 mg PO DAILY [facility] Last Admin: 07/14/22 08:49 Dose: 50 mg Documented By: BREN Sodium Bicarbonate (Sodium Bicarbonate 650 Mg Tablet) 650 mg PO BID [facility] Last Admin: 07/14/22 08:49 Dose: 650 mg Documented By: BREN Sodium Chloride (0.9 % Sodium Chloride Flush 3 Ml Syringe) [address] [facility] Last Admin: 07/14/22 08:54 Dose: Not Given Documented By: BREN Non-Admin Reason: No Access Labs CBC & Chem 7: 06/27/22 11:24 07/09/22 15:24 Labs: Laboratory Results - last 24 hr 07/13/22 07/14/22 07/14/22 18:56 06:50 11:10 POC Glucose 118 H 89 72 Assessment and Plan (1) Left renal mass: Status: Acute (2) Hyperkalemia: Status: Acute (3) SILVIA (acute kidney injury): Status: Acute Plan 72 year male with history of dementia, hypertension, hyperlipidemia, diabetes, venous stasis, anxiety, depression, hx cerebral aneurysm, obstructive sleep apnea not on cpap residing at the [facility] admitted for generalized weakness associated with SILVIA and hyperkalemia and new left renal mass. Hyperkalemia d/t SILVIA s/p treatment with Lokelma, albuterol and insulin and bicab.. last k was wnl check labs intermittently SILVIA on CKD3 Resolved--routine lab today Metabolic acidosis r/t SILVIA and CKD continue sodium bicarb Left renal mass- CT in ED:?5.8 x 5.1 x 5.1 cm, solid, heterogeneous left upper pole renal mass, highly suspicious for renal cell carcinoma.. ?-Uro recommends no surgery but renal bx done 07/01, oncology is recommending chemo will be outpatient basis. Bx confirmed renal cell carcinoma Generalized weakness likely secondary to electrolyte abnormality CK normal, No focal neuro deficits, ct head neg -Pt recommends STR Noninsulin dependent type 2 diabetes Continue SSI, POCs HTN- Adequately controlled restarted on Metoprolol 75 bid (100 bid at home) , Procardia 90 -Hold lisinopril and amiloride d/t SILVIA and hyperkalemia -If BP consistently high then hydralazine HLD -Continue statin MELY -Not on cpap hx cerebral aneursym per pt -Head CT -no acute finding Mood continue zoloft seen by psych, zypreza stopped, dose of depakote increased Dementia(as per patient as well as his guardians report):-unable to determine etiology Supportive care. PT is recommending STR, he's agreeable DVT prophylaxis- lovenox attending - dr. worthy Inpatient need: Deconditioned and awaiting STR bed- awaiting insurance authorization plan was discussed with patient's conservator 07/13 Quality Stroke Does the patient have a stroke diagnosis?: No VTE Prior VTE?: No VTE Risk Level:: Medical - moderate - high VTE Device Contraindication: Treatment Not Indicated VTE Drug Contraindication: Treatment Not Indicated
[2022-07-14 13:04] LABS: COVID-19 Test Negative (Negative); IDNOW Serial# 16C4AD1C
[2022-07-14 15:26] VITALS: BP 124/66; PULSE 64; RESP 18; TEMP 37.1; O2SAT 97
[2022-07-14 15:36] LABS: Glucose, Whole Blood 85 mg/dL (60-115)
[2022-07-14 19:37] VITALS: BP 143/69; PULSE 62; RESP 19; TEMP 36.7; O2SAT 97
[2022-07-14] MEDS: Mirtazapine 7.5 MG TABLET PO (20:36)
[2022-07-14] MEDS: Acetaminophen 325 MG TABLET 650 MG PO (20:36)
[2022-07-15 07:24] VITALS: BP 162/81; PULSE 60; RESP 16; TEMP 36.3; O2SAT 97
[2022-07-15 08:00] LABS: Glucose, Whole Blood 76 mg/dL (60-115)
[2022-07-15] MEDS: Divalproex Sodium Sprinkles 125 MG CAP.DR.SPR 250 MG PO (08:20)
[2022-07-15] MEDS: Atorvastatin Calcium 40 MG TABLET PO (08:21)
[2022-07-15] MEDS: Sodium Bicarbonate 650 MG TABLET PO (08:21)
[2022-07-15] MEDS: NIFEdipine ER 90 MG TAB.ER.24 PO (08:21)
[2022-07-15] MEDS: Sertraline HCL 50 MG TABLET PO (08:21)
[2022-07-15] MEDS: Metoprolol Tartrate 25 MG TABLET 75 MG PO (08:21)
--- NOTE | 2022-07-15 08:50 | P.PNIM_ITS ---
Subjective Subjective Date of Service: 07/15/22 Interval History: Seen and examined this morning Follow-up for SILVIA, renal mass No specific complaints this morning, Review of Systems no fever or chills no pain Physical Exam Vital Signs: Vital Signs: Last Vital Signs Temp 97.4 F 07/15/22 07:24 Pulse 60 07/15/22 07:24 Resp 16 07/15/22 07:24 BP 162/81 H 07/15/22 07:24 Pulse Ox 97 07/15/22 07:24 O2 Del Method 07/15/22 07:24 BMI result Body Mass Index 32.7 Const: Other: General: AO X 2, no acute distress Resp: CTA bilateral CVS: S1,S2,RRR GI: +BS, NT, no distention Skin: No rash Neuro: motor grossly intact Psych: appropriate affect Objective Data Active Medications Acetaminophen (Acetaminophen 325 Mg Tablet) 650 mg PO Q6H PRN PRN Reason: Pain, Mild (Pain Scale 1-3) Last Admin: 07/14/22 20:36 Dose: 650 mg Documented By: HARI Atorvastatin Calcium (Atorvastatin Calcium 40 Mg Tablet) 40 mg PO DAILY [facility] Last Admin: 07/15/22 08:21 Dose: 40 mg Documented By: BREN Dextrose (Dextrose 50 % 25 Gm/50 Ml Syringe) 25 gm IVPUSH Q15M PRN; Protocol PRN Reason: per Hypoglycemia Standing Ord. Divalproex Sodium (Divalproex Sodium Sprinkles 125 Mg ) 250 mg PO BID [facility] Last Admin: 07/15/22 08:20 Dose: 250 mg Documented By: BREN Enoxaparin Sodium (Enoxaparin Sodium 40 Mg/0.4 Ml Syringe) 40 mg SUBCUT Q24H [facility] Last Admin: 07/15/22 08:24 Dose: Not Given Documented By: BREN Non-Admin Reason: Patient Refused Glucose (Glucose Gel 15 Gm Gel..Gram.) 15 gm PO Q15M PRN; Protocol PRN Reason: per Hypoglycemia Standing Ord. Insulin Human Lispro (Insulin Lispro 100 Unit/Ml 3 Ml Vial) 0 unit SUBCUT QIDACHS [facility]; Protocol Last Admin: 07/15/22 07:58 Dose: Not Given Documented By: BREN Non-Admin Reason: No Insulin Coverage Magnesium Hydroxide (Milk Of Magnesia 30 Ml Oral.Susp) 30 ml PO DAILY PRN PRN Reason: Constipation Melatonin (Melatonin 3 Mg Tablet) 9 mg PO BEDTIME PRN PRN Reason: Insomnia Last Admin: 07/04/22 19:51 Dose: 9 mg Documented By: HARI Metoprolol Tartrate (Metoprolol Tartrate 25 Mg Tablet) 75 mg PO BID [facility]; Protocol Last Admin: 07/15/22 08:21 Dose: 75 mg Documented By: BREN Mirtazapine (Mirtazapine 7.5 Mg Tablet) 7.5 mg PO BEDTIME [facility] Last Admin: 07/14/22 20:36 Dose: 7.5 mg Documented By: HARI Nifedipine (Nifedipine Er 90 Mg Tab.Er.24) 90 mg PO DAILY [facility]; Protocol Last Admin: 07/15/22 08:21 Dose: 90 mg Documented By: BREN Ondansetron HCl (Ondansetron Hcl 4 Mg/2 Ml Vial) 4 mg IVPUSH Q8H PRN PRN Reason: Nausea and Vomiting Pharmacy Consult (Consult Rx Perform Med Rec) 1 each MISCELLANE ONCE PRN PRN Reason: Consult order Polyethylene Glycol (Polyethylene Glycol 3350 17 Gm Powd.Pack) 17 gm PO DAILY PRN PRN Reason: Constipation Last Admin: 07/13/22 17:11 Dose: 17 gm Documented By: STEFFEN Sertraline HCl (Sertraline Hcl 50 Mg Tablet) 50 mg PO DAILY [facility] Last Admin: 07/15/22 08:21 Dose: 50 mg Documented By: BREN Sodium Bicarbonate (Sodium Bicarbonate 650 Mg Tablet) 650 mg PO BID [facility] Last Admin: 07/15/22 08:21 Dose: 650 mg Documented By: BREN Sodium Chloride (0.9 % Sodium Chloride Flush 3 Ml Syringe) 3 ml IVFLUSH QSHIFT [facility] Last Admin: 07/15/22 08:23 Dose: Not Given Documented By: BREN Non-Admin Reason: No Access Labs CBC & Chem 7: 06/27/22 11:24 07/09/22 15:24 Labs: Laboratory Results - last 24 hr 07/14/22 07/14/22 07/14/22 11:10 12:40 15:30 POC Glucose 72 85 COVID-19 ([facility]) Negative COVID-19 Clin Com See Note 07/15/22 07:54 POC Glucose 76 COVID-19 ([facility]) COVID-19 Clin Com Assessment and Plan (1) Left renal mass: Status: Acute (2) Hyperkalemia: Status: Acute (3) SILVIA (acute kidney injury): Status: Acute Plan 72 year male with history of dementia, hypertension, hyperlipidemia, diabetes, venous stasis, anxiety, depression, hx cerebral aneurysm, obstructive sleep apnea not on cpap residing at the [facility] admitted for generalized weakness associated with SILVIA and hyperkalemia and new left renal mass. Hyperkalemia d/t SILVIA s/p treatment with Lokelma, albuterol and insulin and bicab.. last k was wnl check labs intermittently SILVIA on CKD3 Resolved--routine lab today Metabolic acidosis r/t SILVIA and CKD continue sodium bicarb Left renal mass- CT in ED:?5.8 x 5.1 x 5.1 cm, solid, heterogeneous left upper pole renal mass, highly suspicious for renal cell carcinoma.. ?-Uro recommends no surgery but renal bx done 07/01, oncology is recommending chemo will be outpatient basis. Bx confirmed renal cell carcinoma Generalized weakness likely secondary to electrolyte abnormality CK normal, No focal neuro deficits, ct head neg -Pt recommends STR Noninsulin dependent type 2 diabetes Continue SSI, POCs HTN- Adequately controlled restarted on Metoprolol 75 bid (100 bid at home) , Procardia 90 -Hold lisinopril and amiloride d/t SILVIA and hyperkalemia -If BP consistently high then hydralazine HLD -Continue statin MELY -Not on cpap hx cerebral aneursym per pt -Head CT -no acute finding Mood continue zoloft seen by psych, zypreza stopped, dose of depakote increased Dementia(as per patient as well as his guardians report):-unable to determine etiology Supportive care. PT is recommending STR, he's agreeable DVT prophylaxis- estrella attending - dr. worthy Inpatient need: Deconditioned and awaiting STR bed- awaiting insurance authorization plan was discussed with patient's conservator 07/13 Quality Stroke Does the patient have a stroke diagnosis?: No VTE Prior VTE?: No VTE Risk Level:: Medical - moderate - high VTE Device Contraindication: Treatment Not Indicated VTE Drug Contraindication: Treatment Not Indicated
[2022-07-15 09:59] VITALS: BP 162/81; PULSE 60; O2SAT 97
[2022-07-15 11:05] VITALS: BP 151/78; PULSE 56; RESP 18; TEMP 36.1; O2SAT 96
[2022-07-15 11:48] LABS: Glucose, Whole Blood 109 mg/dL (60-115)
--- NOTE | 2022-07-15 12:03 | MHC.CM.PN ---
PATIENT IS ACCEPTED AT [facility] TO ARRIVE FOR 1530. TRANSPORT FORM AND FACESHEET ON CHART RN AND UNIT TO BE MADE AWARE. GUARDIAN CORRIE [phone] ALSO AWARE AND IN AGREEMENT. IMM 07/14 IN CHART
--- NOTE | 2022-07-15 12:05 | P.DS_ITS ---
DS: Providers Provider Date of Service: 07/15/22 Date of admission: 06/27/22 14:29 Primary care physician: Neelima Jimenez MD Consults: 06/27/22 14:34 Consult to Nephrology Routine Consulting Provider: Dori Bush Reason for consultation: SILVIA, hyperkalemia Has provider been notified: No 06/27/22 15:10 Consult to Urology Routine Consulting Provider: Mason Leyva Reason for consultation: left renal mass Has provider been notified: No 06/28/22 14:38 Consult to Infectious Diseases Routine Consulting Provider: Ivory Shaikh Reason for consultation: gram positive bacteremia Has provider been notified: No 06/29/22 12:31 Consult to Hematology / Oncology Routine Consulting Provider: Judy Mike Reason for consultation: renal cell carcinoma 07/08/22 11:20 Consult to Psychiatry Routine Consulting Provider: Psych Covering Reason for consultation: On zyprexa; issue with dispo;[id number] for details or tiger Has provider been notified: No DS: Diagnosis Discharge Diagnosis (1) Left renal mass: Status: Acute (2) Hyperkalemia: Status: Acute (3) SILVIA (acute kidney injury): Status: Acute DS: Summary Hospital Course Hospital Course: Chief Complaint: SILVIA, hyperkalemia 72 year male with history of dementia, hypertension, hyperlipidemia, diabetes, venous stasis, anxiety, depression, obstructive sleep apnea not on cpap residing at the [facility] presented to the ED this morning via EMS after he was found to be unable to walk from bed to chair due to weakness. He states he has bilateral weakness in the LE but is able to ambulate with a walker at baseline but could not this morning. He has no other complaints. No recent falls or pain in the back or legs. Denies paresthesias. Ih the ED, found to have SILVIA with creat 2.57 and BUN 63 (baseline 1.67, BUN 38). K was 6.4. EKG without ST/T waves abnormality and was normal sinus rhythm with rate 66 and 1st degree AV block. CXR normal. CPK 53. Trop I 6.0. Abd/pelvis CT with new 5.8 x 5.1 x 5.1 cm solid, heterogenous left upper pole renal mass, highly suspicious for renal cell carcinoma. UA pending. Received 1L NS fluid bolus, 1g calcium gluconate, and 30g sodium polystyrene sulfonate. Hospital course: Patient presented with generalized weakness and was found to have SILVIA, hyperkalemia and a renal mass. He tool Lisinopril and amiloride. Hyperkalemia likely related to renal failure in conjunction Lisinopril and amoliride use. The high potassium was treated with albuterol, insulin bicab and Lokelma with resolution. His last potassium on 07/09 was 4.1 and no hyperkalemia since 06/28. Admission potassium was upt to 7 SILVIA on CKD3--His Creatinine was 2.57 on presentation, prior to that in February 2022 his Creatine was 1.67 and thus it was believed that he has underlying CKD 3. SILVIA was treated with IVF, holding diuretics and Lisinopril. Last creatinine on 07/09 was 1.18, he has been refusing lab work Metabolic acidosis--he is been given bicab replacement Left renal mass- CT in ED showed a ?5.8 x 5.1 x 5.1 cm, solid, heterogeneous left upper pole renal mass, highly suspicious for renal cell carcinoma.. ?-Uro recommends no surgery but renal biopsy done on 07/01 confirmed renal cell carcinoma. Oncology is recommending chemo will be outpatient basis. Generalized weakness likely secondary to electrolyte abnormality, renal failure and underlying malingnancy. PT recommend STR rehab. He is agreable and will go for less than 30 days Noninsulin dependent type 2 diabetes--diet controlled, AM glucose 76, doesn't need meds HTN- Adequately controlled on Metoprolol 75 mg twice daily and Procardia 90 mg daily. Amiloride and lisinopril discontinued due to implication in hyperkalemia. HLD--continue Lipitor MELY -Not on cpap hx cerebral aneursym per pt -Head CT -no acute finding Mood continue zoloft seen by psych, zypreza stopped, dose of depakote increased Dementia(as per patient as well as his guardians report):-unable to determine etiology Supportive care. Inpatient need:? Deconditioned and awaiting STR bed- awaiting insurance authorization plan was discussed with patient's conservator 07/13 Time Spent with Patient Time attestation: Total time spent providing and/or coordinating discharge services: Discharge coordination time: Greater than 30 minutes Quality: Safe Use of Opioids Does Pt have an Active Cancer Diagnosis on the Problem List?: Yes Opioid Measure Date for [facility] Report: 06/15/22 Opioid Measure Time for [facility] Report: 13:08 Quality: Stroke Does the patient have a stroke diagnosis?: No Physical Exam Vital Signs: Vital Signs: Last Vital Signs Temp 96.9 F 07/15/22 11:05 Pulse 56 07/15/22 11:05 Resp 18 07/15/22 11:05 BP 151/78 H 07/15/22 11:05 Pulse Ox 96 07/15/22 11:05 O2 Del Method 07/15/22 11:05 BMI result Body Mass Index 32.7 DS: Data Data Completed and Pending Completed studies during hospitalization [Text1]: Pending at discharge 07/01/22 16:32 Surgical Path [Surgical] [PTH] Routine Labs on day of discharge: Laboratory Results - last 24 hr 07/14/22 07/14/22 07/15/22 12:40 15:30 07:54 POC Glucose 85 76 COVID-19 ([facility]) Negative COVID-19 Clin Com See Note 07/15/22 11:44 POC Glucose 109 COVID-19 ([facility]) COVID-19 Clin Com Discharge Plan Discharge Anticipated Discharge Date/Time: 07/15/22 12:06 Patient Disposition: Xfer SNF Discharge Diagnosis: SILVIA, Hyperkalemia, renal cell carcinoma Referrals: [facility] [Outside] - 1 Week ([facility] Neelima Jimenez MD [Primary Care Provider] - 1 Week Discharge Medications: New divalproex 125 mg Capsule, Delayed Rel Sprinkle 250 mg PO BID Qty: 60 0RF sodium bicarbonate 650 mg Tablet 650 mg PO BID Qty: 60 0RF Continued atorvastatin 40 mg tablet 1 tab PO DAILY oxybutynin chloride 15 mg tablet extended release 24hr 1 tab PO DAILY nifedipine 90 mg tablet extended release 24hr 1 tab PO DAILY sertraline 50 mg tablet 1 tab PO DAILY metoprolol tartrate 25 mg tablet 3 tab PO BID mirtazapine 7.5 mg tablet 1 tab PO BEDTIME multivitamin [Multi-Daily] Tablet 1 tab PO DAILY melatonin 3 mg Tablet 8 mg PO BEDTIME PRN (Reason: Insomnia) aspirin 81 mg Tablet,Delayed Release (Dr/Ec) 81 mg PO DAILY nystatin 100,000 unit/gram Powder 1 appl TOPICAL BID Discontinued lisinopril 20 mg tablet 1 tab PO DAILY olanzapine 2.5 mg tablet 1 tab PO QPM amiloride 5 mg tablet 1 tab PO BID divalproex 125 mg capsule, delayed rel sprinkle 1 cap PO BID triamcinolone acetonide 0.1 % Cream 1 appl TOPICAL BID Label Comments: LOWER LEGS Discharge Orders: Discharge Order (Routine); Ordered 07/15/22 Ordered By: Andre Chau Diet: Advance to usual diet Activity on Discharge: As tolerated Stand Alone Forms: Patient Portal Discharge page Care Plan Goals: Full recovery and treatment for renal cell cancer Health Concerns: renal cell cancer Plan of Treatment: To short term rehab for less than 30 days To Follow up with Dr. Carpio at [facility] for target therapy... Assessment: See YOLANDA olvera
--- NOTE | 2022-07-20 06:02 | MHC.CDI.RETR ---
Retrospective Query PHYSICIAN'S DOCUMENTATION REQUEST Date of Query: 07/20/22 06 Patient Name: Carlos Tapia Admit Date: 06/27/22 Dear Doctor, A review of the medical record indicates additional documentation may be needed. Please review below and update the documentation accordingly. Clarity and consistency of documentation within the medical record: Risk Factors/Clinical Indicators/Treatments Procedure note 07/01 - Successful right renal mass biopsy. Oncology note: heterogenous left renal mass. Progress notes 06/30 - left renal mass. Discharge summary - left renal mass. Based on the above, could you clarify in the Progress Notes the appropriate diagnosis, if significant, that supports the above abnormalities and additional evaluation, monitoring, and/or treatment rendered: Right renal mass Left renal mass Other (please specify) Unable to determine Use of terms such as suspected, likely, concern for, or probable (associated with a specific diagnosis that is being evaluated, monitored, or treated as if it exists) are acceptable and can be coded in the inpatient setting, when documented at the time of discharge. Thank you, Marisol Pizano [facility], CD[facility] Extension: [phone] Please use your independent medical judgment in providing your response. THIS QUERY IS PART OF THE PERMANENT MEDICAL RECORD
== END 2022-07-15 16:00 | disposition skilled nursing facility (03) | DRG 687 ==
LOC: HO.ED 16:44 → HO.EDOVER 17:54 → HO.IMC 21:24 → HO.S3 07-03 17:08
PROVIDERS: Internal Medicine; Internal Medicine Nephrology; Physician Assistant Medical; Radiology Diagnostic Radiology; Admitting Provider Physician Assistant; Emergency Provider Emergency Medicine; PCP Internal Medicine; Visit Provider Internal Medicine
PROC: 0TB03ZX Excision of Right Kidney, Percutaneous Approach, Diagnostic (ICD-10-PCS; principal; 2022-07-01 14:30)
DX: C64.1 Malignant neoplasm of right kidney, except renal pelvis (principal); E87.2 Acidosis; N17.9 Acute kidney failure, unspecified; F03.90 Unspecified dementia, unspecified severity, without behavioral disturbance, psychotic disturbance, mood disturbance, and anxiety; G47.33 Obstructive sleep apnea (adult) (pediatric); Z66 Do not resuscitate; E11.22 Type 2 diabetes mellitus with diabetic chronic kidney disease; E87.5 Hyperkalemia; E78.5 Hyperlipidemia, unspecified; E86.0 Dehydration; E66.9 Obesity, unspecified; I12.9 Hypertensive chronic kidney disease with stage 1 through stage 4 chronic kidney disease, or unspecified chronic kidney disease; N18.30 Chronic kidney disease, stage 3 unspecified; Z68.32 Body mass index [BMI] 32.0-32.9, adult; F41.9 Anxiety disorder, unspecified; F32.A Depression, unspecified; I87.8 Other specified disorders of veins; Z20.822 Contact with and (suspected) exposure to COVID-19; Z79.82 Long term (current) use of aspirin; Z79.899 Other long term (current) drug therapy
CPT/HCPCS: 36415; 50200; 70450; 71046; 74176; 77012; 78708; 80048; 80051; 80053; 80202; 82550; 82565; 82947; 83605; 83735; 83880; 84100; 84484; 85025; 85610; 87040; 87147; 87205; 87635; 88305; 88313; 88333; 88341; 88342; 93005; 94640; 96361; 96374; 96375; 97110; 97116; 97161; 97166; 97530; 97535; 99152; 99285; A9539; C1758; J0610; J1650; J1940; J3370

== ENCOUNTER → 2022-08-12 14:40 | Outpatient (BNV) | payer MEDICARE, SELFPAY | PROVIDERS: Visit Provider Internal Medicine Medical Oncology | DX: C64.1 Malignant neoplasm of right kidney, except renal pelvis (principal) | CPT/HCPCS: 99204; 99213; 99214 ==

== ENCOUNTER 2023-01-07 00:37 | Emergency (ER) | payer MEDICARE, SELFPAY ==
--- NOTE | ~2023-01-07 | CT_ITS ---
EXAMINATION: NONCONTRAST HEAD CT NONCONTRAST CERVICAL SPINE CT INDICATION INFORMATION: Trauma COMPARISON: 06/27/2022 TECHNIQUE: Separate noncontrast CT examinations of the head and cervical spine were performed. Coronal and sagittal images were created for each examination at the technologist workstation. This CT examination was performed using dose optimization techniques as appropriate, variously including the following: *Automated exposure control *Adjustment of mA and/or kV according to patient size (this includes techniques or standardized protocols for targeted exams where dose is matched to indication/reason for exam; i.e. extremities or head) *Use of iterative reconstruction technique DLP: 1679 mGy-cm FINDINGS: Head: Left internal carotid coiling and stent. There is no evidence of acute intracranial hemorrhage or territorial infarction. No abnormal mass effect or midline shift is seen. Mora to white matter differentiation is well preserved. No extra-axial fluid collections are identified. No hydrocephalus. Proportional prominence of the ventricles and sulcal spaces is consistent with moderate volume loss. Patchy periventricular and deep white matter hypoattenuation is consistent with moderate small vessel ischemic changes. Chronic left parietal infarct. No acute osseous or soft tissue abnormality. Left parietal will holes. The mastoid air cells and visualized portions of the paranasal sinuses are well aerated. Cervical spine: There is anatomic alignment of the vertebral bodies and posterior elements. The atlantoaxial and atlantooccipital articulations are intact. Vertebral body heights and intervertebral disc spaces are maintained. Mild facet arthropathy. No evidence of acute fracture. No prevertebral soft tissue swelling. Visualized portions of the lung apices are unremarkable. Calcification in the left thyroid lobe. CT/CT cervical spine wo IV con IMPRESSION: 1. No acute intracranial finding. Chronic volume loss with small vessel ischemic change. 2. No acute fracture or malalignment of the cervical spine.
--- NOTE | ~2023-01-07 | US_ITS ---
EXAMINATION: US VENOUS ULTRASOUND WITH DOPPLER LOWER EXTREMITY, BILATERAL CLINICAL INFORMATION: Lower extremity pain and swelling. COMPARISON: None available. TECHNIQUE: Ultrasound of the deep veins is performed from the hip to the calf with compression sonography and color and pulse Doppler assessment. Spectral analysis with color-flow imaging is performed. FINDINGS: RIGHT: There is normal venous compression and respiratory variation and augmented flow. The visualized common femoral vein, superficial femoral vein, profunda femoral vein, popliteal vein, and the trifurcation region shows no evidence of deep venous thrombosis. No right popliteal cyst. Moderate subcutaneous edema in the right calf. LEFT: There is normal venous compression and respiratory variation and augmented flow. The visualized common femoral vein, superficial femoral vein, profunda femoral vein, popliteal vein, and the trifurcation region shows no evidence of deep venous thrombosis. No left popliteal cyst. Moderate subcutaneous edema in the left calf. US/US venous duplex LE BI IMPRESSION: 1. No evidence for deep venous thrombosis in the visualized veins of the bilateral lower extremities. 2. Moderate subcutaneous edema in the calves bilaterally.
--- NOTE | 2023-01-07 00:50 | ECG_ITS ---
Test Reason : FALL Blood Pressure : / mmHG Vent. Rate : 071 BPM Atrial Rate : 071 BPM P-R Int : 190 ms QRS Dur : 090 ms QT Int : 402 ms P-R-T Axes : 056 019 067 degrees QTc Int : 436 ms Normal sinus rhythm Normal ECG When compared with ECG of 27-JUN-2022 17:13, No significant change was found Referred By: Generic ED Physician Electronically Signed By:TEETEE SCOTT MD
[2023-01-07 00:51] VITALS: BP 148/90; BP 156/70; PULSE 69; PULSE 78; RESP 14; TEMP 37.4; O2SAT 96; O2SAT 97; BMI 29.5
--- NOTE | 2023-01-07 01:07 | ED_ITS ---
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 MELY hyperlipidemia hypertension type 2 diabetes lives [place] [facility] walk[place] comes here as had a mechanical fall prior to arrival patient says he just lost balance no significant head injury or back injury denies any complaints patient does have a chronic with venous stasis in b ilateral lower extremity redness and pain which is is going on for years been tested for DVT which was negative in the past Related Data Home Medications Medication Instructions Recorded Confirmed aspirin 81 mg tablet,delayed 81 mg PO DAILY 06/27/22 12/13/22 release atorvastatin 40 mg tablet 1 tab PO DAILY 06/27/22 12/13/22 melatonin 3 mg tablet 8 mg PO BEDTIME PRN Insomnia 06/27/22 12/13/22 metoprolol tartrate 25 mg tablet 3 tab PO BID 06/27/22 12/13/22 mirtazapine 7.5 mg tablet 1 tab PO BEDTIME 06/27/22 12/13/22 multivitamin 1 tab PO DAILY 06/27/22 12/13/22 nifedipine 90 mg tablet,extended 1 tab PO DAILY 06/27/22 12/13/22 release 24 hr nystatin 100,000 unit/gram topical 1 appl topical BID 06/27/22 12/13/22 powder oxybutynin chloride 15 mg 1 tab PO DAILY 06/27/22 12/13/22 tablet,extended release 24 hr sertraline 50 mg tablet 1 tab PO DAILY 06/27/22 12/13/22 acetaminophen 325 mg tablet 325 mg PO QID PRN Pain 08/12/22 12/13/22 amiloride 5 mg tablet 1 tab PO DAILY 08/12/22 12/13/22 bisacodyl 10 mg rectal suppository 10 mg [place] DAILY PRN Constipation 08/12/22 12/13/22 cholecalciferol (vitamin D3) 25 1 tab PO QAM 08/12/22 12/13/22 mcg (1,000 unit) tablet lisinopril 20 mg tablet 1 tab PO DAILY 08/12/22 12/13/22 magnesium hydroxide 400 mg/5 mL 400 mg PO DAILY PRN Pain 08/12/22 12/13/22 oral suspension (Milk of Magnesia) melatonin 5 mg tablet 1 tab PO BEDTIME 08/12/22 12/13/22 olanzapine 2.5 mg tablet 1 tab PO BEDTIME 08/12/22 12/13/22 Previous Rx's Medication Instructions Recorded divalproex 125 mg capsule,delayed 250 mg PO BID #60 caps 07/15/22 release sprinkle cephalexin 500 mg capsule 500 mg PO QID 10 days #40 caps 01/07/23 doxycycline hyclate 100 mg tablet 100 mg PO BID #20 tabs 01/07/23 Allergies Allergy/AdvReac Type Severity Reaction Status Date / Time No Known Allergies Allergy Verified 11/05/22 14:59 Review of Systems Review of Systems: Yes all other systems are reviewed and are negative [facility] Past Medical History Medical History Anxiety Brain aneurysm Dementia Depression HLD (hyperlipidemia) HTN (hypertension) Left renal mass Obesity MELY (obstructive sleep apnea) Type 2 diabetes mellitus Venous stasis dermatitis of both lower extremities Family History Family History Mother Dementia Stroke Breast cancer Social History Social History Household Members: None Housing: Assisted Living Facility Are you a primary senior care provider to a significant other at home: No Do you presently have visiting nurse or other home services: No Alcohol intake: unknown Patient Tobacco Use Status: Never used Tobacco Advance Directives: No Advance Directives Information Provided: No service: No Current occupational status: retired Physical Exam Vital Signs: Vital Signs: Last Vital Signs Temp 98.7 F 01/07/23 06:10 Pulse 85 01/07/23 06:10 Resp 16 01/07/23 06:10 BP 130/66 01/07/23 06:10 Pulse Ox 99 01/07/23 06:10 O2 Del Method Room Air 01/07/23 06:10 BMI result Body Mass Index 29.5 Appearance: Alert. Oriented X3. No acute distress. Eyes: PERRLA, No Nystagmus ENT: Pharynx normal. Oral Mucosa moist Neck: Normal inspection. Neck supple. No midline tenderness CVS: Normal heart rate and rhythm. Pulses normal. Respiratory: No respiratory distress. Equal air entry bilateral, no wheezing/rales/rhonchi Abdomen: Soft and nontender. Bowel sounds are present, no mass palpable, no CVA tenderness Skin: Skin warm and dry. Normal skin color. Normal skin turgor. Extremities: 3+ chronic lower extremity edema with redness. Bilateral calf tenderness Neuro: Oriented X 3. No motor deficit. No sensory deficit.No cerebellar signs , cranial nerves II-XII intact Medications Administered Discontinued Medications Generic Name Dose Route Start Last Admin Trade Name Freq PRN Reason Stop Dose Admin Cephalexin HCl 500 mg 01/07/23 04:51 01/07/23 05:15 Cephalexin 500 Mg Capsule PO 01/07/23 04:52 500 mg ONCE ONE Administration Doxycycline Monohydrate 100 mg 01/07/23 04:51 01/07/23 05:15 Doxycycline Monohydrate 100 Mg Capsule PO 01/07/23 04:52 100 mg ONCE ONE Administration Medical Decision Making Medical Decision Making [facility] [place] Narrative: Patient with chronic venous stasis came from mechanical fall stable labs head CT C-spine negative has calf tenderness which is chronic but D-dimer slightly elevated patient has venous Doppler about 1 year ago will repeat venous Doppler to rule out DVT although patient has chronic calf tenderness. Meanwhile will start patient on doxycycline and Keflex for increased redness according to nursing staff Lab Data [facility] [place] Lab Attestation statement: I reviewed the patient's lab results. 01/07/23 01:41 01/07/23 01:41 Labs: Lab Results 01/07/23 01/07/23 01/07/23 Range/Units 01:41 01:41 01:41 WBC 9.5 (4.8-10.8) X10*3/uL RBC 3.34 L (4.60-5.80) X10*6/uL Hgb 10.2 L (14.0-18.0) g/dl Hct 31.4 L (42.0-52.0) % MCV 94.0 (80.0-98.0) fL MCH 30.5 (27.0-33.0) pg MCHC 32.5 (31.0-36.0) g/dl RDW 16.0 (11.0-16.0) % Plt Count 165 (160-400) X10*3/uL MPV 11.3 (9.4-12.4) fL Immature Gran % (Auto) 0.3 (0.0-0.4) % Neut % (Auto) 87.6 H (45-73) % Lymph % (Auto) 3.6 L (20-40) % Davis % (Auto) 6.4 (2-11) % Eos % (Auto) 1.8 (0-4) % Baso % (Auto) 0.3 (0-2) % Lymph # (Auto) 0.3 L (1.2-4.9) X10*3/uL Davis # (Auto) 0.6 (0.1-1.2) X10*3/uL Eos # (Auto) 0.2 (0.0-0.4) X10*3/uL Baso # (Auto) 0.0 (0.0-0.2) X10*3/uL Abs Immat Gran (auto) 0.03 (0.00-0.03) X10*3/uL Absolute Neuts (auto) 8.3 (2.0-8.3) x10*3/uL Absolute Nucleated RBC 0.000 (0.0-0.012) X10*3/uL Nucleated RBC % (auto) 0.0 (0.0-0.2) /100WBC D-Dimer High Sensitivty 640 NG/ML Sodium 143 (135-145) mmol/L Potassium 4.3 (3.3-5.1) mmol/L Chloride 106 (96-108) mmol/L Carbon Dioxide 26 (22-29) mmol/L Anion Gap 15 (12-20) BUN 26 H (9-16) mg/dL Creatinine 1.51 H (0.5-1.4) mg/dL Estim Creat Clear Calc 47.7 Estimated GFR 45 Random Glucose 145 H (60-115) mg/dL Calcium 8.1 L (8.4-10.2) mg/dL Total Bilirubin 0.6 (0.0-1.0) mg/dL AST 14 (5-37) U/L ALT 11 (0-40) U/L Alkaline Phosphatase 88 (39-117) U/L B-Natriuretic Peptide (<100) pg/mL Total Protein 5.4 L (6.5-8.0) g/dL Albumin 3.3 L (3.5-5.0) g/dL 01/07/23 Range/Units 01:41 WBC (4.8-10.8) X10*3/uL RBC (4.60-5.80) X10*6/uL Hgb (14.0-18.0) g/dl Hct (42.0-52.0) % MCV (80.0-98.0) fL MCH (27.0-33.0) pg MCHC (31.0-36.0) g/dl RDW (11.0-16.0) % Plt Count (160-400) X10*3/uL MPV (9.4-12.4) fL Immature Gran % (Auto) (0.0-0.4) % Neut % (Auto) (45-73) % Lymph % (Auto) (20-40) % Davis % (Auto) (2-11) % Eos % (Auto) (0-4) % Baso % (Auto) (0-2) % Lymph # (Auto) (1.2-4.9) X10*3/uL Davis # (Auto) (0.1-1.2) X10*3/uL Eos # (Auto) (0.0-0.4) X10*3/uL Baso # (Auto) (0.0-0.2) X10*3/uL Abs Immat Gran (auto) (0.00-0.03) X10*3/uL Absolute Neuts (auto) (2.0-8.3) x10*3/uL Absolute Nucleated RBC (0.0-0.012) X10*3/uL Nucleated RBC % (auto) (0.0-0.2) /100WBC D-Dimer High Sensitivty NG/ML Sodium (135-145) mmol/L Potassium (3.3-5.1) mmol/L Chloride (96-108) mmol/L Carbon Dioxide (22-29) mmol/L Anion Gap (12-20) BUN (9-16) mg/dL Creatinine (0.5-1.4) mg/dL Estim Creat Clear Calc Estimated GFR Random Glucose (60-115) mg/dL Calcium (8.4-10.2) mg/dL Total Bilirubin (0.0-1.0) mg/dL AST (5-37) U/L ALT (0-40) U/L Alkaline Phosphatase (39-117) U/L B-Natriuretic Peptide 98 (<100) pg/mL Total Protein (6.5-8.0) g/dL Albumin (3.5-5.0) g/dL Discharge Plan Discharge Clinical Impression: Venous stasis dermatitis of both lower extremities, Cellulitis, Fall Patient Disposition: Still a Patient Instructions: Cellulitis (ED), Fall Prevention for Older Adults (ED), Venous Insufficiency (DC) Additional Instructions: Care and cautions as adv Take antibiotic as prescribed Follow-up with PCP Prescriptions: New cephalexin 500 mg capsule 500 mg PO QID 10 Days Qty: 40 0RF doxycycline hyclate 100 mg tablet 100 mg PO BID Qty: 20 0RF No Action atorvastatin 40 mg tablet 1 tab PO DAILY oxybutynin chloride 15 mg tablet extended release 24hr 1 tab PO DAILY nifedipine 90 mg tablet extended release 24hr 1 tab PO DAILY sertraline 50 mg tablet 1 tab PO DAILY metoprolol tartrate 25 mg tablet 3 tab PO BID mirtazapine 7.5 mg tablet 1 tab PO BEDTIME multivitamin Tablet 1 tab PO DAILY melatonin 3 mg Tablet 8 mg PO BEDTIME PRN (Reason: Insomnia) aspirin 81 mg Tablet,Delayed Release (Dr/Ec) 81 mg PO DAILY nystatin 100,000 unit/gram Powder 1 appl TOPICAL BID divalproex 125 mg Capsule, Delayed Rel Sprinkle 250 mg PO BID Qty: 60 0RF acetaminophen 325 mg Tablet 325 mg PO QID PRN (Reason: Pain) lisinopril 20 mg tablet 1 tab PO DAILY olanzapine 2.5 mg tablet 1 tab PO BEDTIME amiloride 5 mg tablet 1 tab PO DAILY magnesium hydroxide [Milk of Magnesia] 400 mg/5 mL Suspension 400 mg PO DAILY PRN (Reason: Pain) bisacodyl 10 mg Suppository 10 mg [place] DAILY PRN (Reason: Constipation) cholecalciferol (vitamin D3) 25 mcg (1,000 unit) tablet 1 tab PO QAM melatonin 5 mg tablet 1 tab PO BEDTIME
[2023-01-07 01:43] VITALS: BP 120/39; PULSE 77; RESP 18; TEMP 36.9; O2SAT 97
[2023-01-07 01:49] LABS: Basophils Percent Auto 0.3 % (0-2); Eosinophils Absolute Auto 0.2 X10*3/uL (0.0-0.4); Eosinophils Percent Auto 1.8 % (0-4); Hematocrit 31.4 % (42.0-52.0); Hemoglobin 10.2 g/dl (14.0-18.0); Imm Gran Abs Auto 0.03 X10*3/uL (0.00-0.03); Imm Gran Pct Auto 0.3 % (0.0-0.4); Lymphocytes Absolute Auto 0.3 X10*3/uL (1.2-4.9); Lymphocytes Percent Auto 3.6 % (20-40); MANUAL DIFF FLAG NO; Mean Corpuscular HGB Conc 32.5 g/dl (31.0-36.0); Mean Corpuscular Hemoglobin 30.5 pg (27.0-33.0); Mean Platelet Volume 11.3 fL (9.4-12.4); Monocytes Absolute Auto 0.6 X10*3/uL (0.1-1.2); Monocytes Percent Auto 6.4 % (2-11); Neutrophils Absolute Auto 8.3 x10*3/uL (2.0-8.3); Neutrophils Percent Auto 87.6 % (45-73); Platelet Count 165 X10*3/uL (160-400); Red Blood Count 3.34 X10*6/uL (4.60-5.80); White Blood Count 9.5 X10*3/uL (4.8-10.8)
[2023-01-07 01:56] LABS: D Dimer High Sensitivity 640 NG/ML
--- OUTSIDE RECORDS SUMMARY | 2023-01-07 02:03 | XMS_ITS | Continuity of Care Document ---
Author Name Unknown Organization [facility] ter Address [address] [place] [id number] Care Team Providers Care Copper Etcher Name Role Phone Darlene PICHARDO, February A Primary Care Physicia n Encounter [facility] Date(s): 09/30/22 - 10/07/[address] [id number]- Discharge Disposition: A-Transfer SNF Attending Physician: Lionel Boss MD Admitting Physician: Danis Dupree DO Referring Physician: Not on Staff, Referring MD Allergies, Adverse Reactions, Alerts No Known Allergies Immunizations Given and Recorded Vaccine Date Status Refusal Reason SARS-CoV-2 (COVID-19) mRNA BNT-162b2 vac 11/16/20 Recorded SARS-CoV-2 (COVID-19) mRNA BNT-162b2 vac 10/26/20 Recorded pneumococcal 23-valent vaccine 1 08/17/14 Given 1Admin Note: Knapp Medications aspirin 81 mg oral delayed release tablet 81 mg, 1, tablet, By Mouth, Daily, # 30 tablet, Refills 0, Maintenance, 10/01/22 11:07:00 EST, Partial fill upon patient request if the prescription is for a schedule II opioid drug. Start Date: 10/01/22 Status: Ordered atorvastatin 40 mg oral tablet 1 tablet = 40 mg, By Mouth, Daily, # 30 tablet, 0 Refills, Maintenance, 02/17/15 8:07:31, Tablet Start Date: 02/17/15 Status: Ordered bisacodyl 10 mg rectal suppository 1 supp = 10 mg, Rectally, Daily, 0 Refills, Maintenance, 04/09/21 10:08:00 EDT, Partial fill upon patient request if the prescription is for a schedule II opioid drug. Start Date: 04/09/21 Status: Ordered Calmoseptine Topically, 2 times a day, applied liberally around anal region, 0 Refills, Maintenance, 10/01/22 10:32:00 EST, Partial fill upon patient request if the prescription is for a schedule II opioid drug. Start Date: 10/01/22 Status: Ordered divalproex sodium 125 mg oral delayed release capsule 2 capsule = 250 mg, By Mouth, 2 times a day, 0 Refills, Maintenance, 07/22/22 10:38:00 EDT, Partialfill upon patient request if the prescription is for a schedule II opioid drug. Start Date: 07/22/22 Status: Ordered ferrous gluconate 324 mg oral tablet 1 tablet = 324 mg, By Mouth, Daily, # 100 tablet, 0 Refills, Maintenance, 10/01/22 11:08:00 EST, Tablet, Partial fill upon patient request if the prescription is for a schedule II opioid drug. Start Date: 10/01/22 Status: Ordered levothyroxine 25 mcg (0.025 mg) oral capsule 1 capsule = 25 mcg, By Mouth, Daily, # 30 capsule, 0 Refills, Maintenance, 10/01/22 11:25:00 EST, Capsule, Partial fill upon patient request if the prescription is for a schedule II opioid drug. Start Date: 10/01/22 Status: Ordered melatonin 3 mg oral tablet 1 tablet = 3 mg, By Mouth, Daily at bedtime, ttd=8 mg, # 30 tablet, 0 Refills, Maintenance, 10/01/22 10:30:00 EST, Partial fill upon patient request if the prescription is for a schedule II opioid drug. Start Date: 10/01/22 Status: Ordered melatonin 5 mg oral tablet 1 tablet = 5 mg, By Mouth, Daily at bedtime, PRN for insomnia, ttd=8 mg, # 60 tablet, 0 Refills, Maintenance, 10/01/22 10:30:00 EST, Tablet, Partial fill upon patient request if the prescription is for a schedule II opioid drug. Start Date: 10/01/22 Status: Ordered metoprolol 25 mg oral tablet 75 mg, Tablet, By Mouth, 10/07/22 9:00:00 EST Start Date: 10/07/22 Stop Date: 10/07/22 Status: Completed Metoprolol Tartrate = 75 mg, By Mouth, 2 times a day, 0 Refills, Maintenance, 03/18/15 16:09:45 EDT Start Date: 03/18/15 Status: Ordered Milk of Magnesia = 3,600 mg, By Mouth, Daily at bedtime, 0 Refills, Maintenance, 04/09/21 10:08:00 EDT, Partial fillupon patient request if the prescription is for a schedule II opioid drug. Start Date: 04/09/21 Status: Ordered mirtazapine 7.5 mg oral tablet 1 tablet = 7.5 mg, By Mouth, Daily at bedtime, 0 Refills, Maintenance, 07/22/22 10:38:00 EDT, Partial fill upon patient request if the prescription is for a schedule II opioid drug. Start Date: 07/22/22 Status: Ordered Multivitamin 1 tablet, By Mouth, Daily, 0 Refills, Maintenance, 10/01/22 10:27:00 EST, Partial fill upon patientrequest if the prescription is for a schedule II opioid drug. Start Date: 10/01/22 Status: Ordered NIFEdipine (Eqv-Procardia XL) 90 mg oral tablet, extended release 1 tablet = 90 mg, By Mouth, Daily, 0 Refills, Maintenance, 07/22/22 10:38:00 EDT, Partial fill uponpatient request if the prescription is for a schedule II opioid drug. Start Date: 07/22/22 Status: Ordered nystatin topical 704332 u/gm powder 1 application, Topically, 2 times a day, # 15 Gm, 0 Refills, Maintenance, 10/01/22 10:36:00 EST, Powder, Partial fill upon patient request if the prescription is for a schedule II opioid drug. Start Date: 10/01/22 Status: Ordered pantoprazole 40 mg oral delayed release tablet 1 tablet = 40 mg, By Mouth, Daily, # 30 tablet, 0 Refills, Maintenance, 10/01/22 11:08:00 EST, EC Tablet Start Date: 10/01/22 Status: Ordered Procardia XL 30 mg oral tablet, extended release 90 mg, ER Tablet, By Mouth, 10/07/22 9:00:00 EST Start Date: 10/07/22 Stop Date: 10/07/22 Status: Completed rivastigmine 1.5 mg oral capsule 1.5 mg, 1, capsule, By Mouth, 2 times a day, Refills 0, Maintenance, 10/01/22 11:06:00 EST, Partialfill upon patient request if the prescription is for a schedule II opioid drug. Start Date: 10/01/22 Status: Ordered sertraline 50 mg oral tablet 1 tablet = 50 mg, By Mouth, Daily, 0 Refills, Maintenance, 07/22/22 10:38:00 EDT, Partial fill uponpatient request if the prescription is for a schedule II opioid drug. Start Date: 07/22/22 Status: Ordered sodium bicarbonate 650 mg oral tablet 1 tablet = 650 mg, By Mouth, 2 times a day, 0 Refills, Maintenance, 10/01/22 11:25:00 EST, Partial fill upon patient request if the prescription is for a schedule II opioid drug. Start Date: 10/01/22 Status: Ordered Vitamin D3 1000 intl units oral tablet 1 tablet = 25 mcg, By Mouth, Daily, 0 Refills, Maintenance, 09/28/22 12:58:00 EST, Partial fill upon patient request if the prescription is for a schedule II opioid drug. Start Date: 09/28/22 Status: Ordered Problem List Condition Confirmation Course Effective Dates Status H ealth Status Informant OAB (overactive bladder) Confirmed Active Thrombotic CVA with secondary intracranial hemorrhage Confirmed 12/17/14 Active Ruptured aneurysm of intracranial artery - 2007 1 Confirmed Active Hyperlipidemia Confirmed Active Hypertension Confirmed Active Obese class I Confirmed Active Type 2 diabetes mellitus Confirmed Active 1With metal coiling and stenting Results Radiology Reports * Exam Date Time Procedure Performing Provider Status 10/02/22 8:05 PM US Retroperitoneum Comp Robin Louis; Auth (Verified) Notes: (US Retroperitoneum Comp) Reason For Exam: silvia;Other: RESULT: US Retroperitoneum Comp US Retroperitoneum Comp REASON: silvia; Clinical Question(s): Acute Renal Failure; renal failure r o obstruction. Status post cryoablation of a right renal mass 09/28/2022. COMPARISON: Correlation CT abdomen pelvis 09/30/2022. FINDINGS: Right kidney: 11.3 cm in length. No hydronephrosis. Normal parenchymal thickness and echotexture. No stones. 6.2 cm heterogeneous hyperechoic mass in the upper pole without significant vascularity. Left kidney: 11.5 cm in length. No hydronephrosis. Normal parenchymal thickness and echotexture. Nostones. No suspicious mass. Few simple cysts, largest measuring 3.6 cm in the upper pole. Urinary bladder: Nonvisualized. IMPRESSION: No evidence of renal obstruction. Right upper pole renal mass measuring 6.2 cm, not significantly changed in size. I have personally reviewed the images and I agree with this report. WSN: [id number] Ordering Physician: Godfrey Oliva Dictated By: Luis Hurt DO Dictated Date/Time: 10/02/22 8:33 pm Reviewed By: Stephan Christiansen MD Signed By: Stephan Christiansen MD Signed Date/Time: 10/02/22 8:38 pm Transcribed By: SHANI Transcribed Date/Time: 10/02/22 8:31 pm * Exam Date Time Procedure Performing Provider Status 09/30/22 9:[address] Abd/Pelvis W/ IV Contrast Only Yanely Aponte; Auth (Verified) Notes: (CT Abd/Pelvis W/ IV Contrast Only) Reason For Exam: s/p right renal cryoablation, abd pain, SILVIA;Other: RESULT: CT Abd/Pelvis W/ IV Contrast Only CT Abd/Pelvis W/ IV Contrast Only REASON: s p right renal cryoablation, abd pain, SILVIA; Clinical Question(s): renal hematoma or complication from recent cryoablation Hx of Present Illness: reports the doctor at [facility] thought I was short of breath. pt denies. Spo2 hypoxic in 80%s. On arrival pt showed no visible resp distress or hypoxia; TECHNIQUE: Spiral CT through the abdomen and pelvis with IV contrast formatted in 3 planes. 100 cc of Omnipaque 300 was administered intravenously. This study was performed without oral contrast. Weight-based protocol using automatic tube modulation was used to optimize exposure parameters. CTDIvol Body: 28.60 mGy, DLP Body: 1702 mGy*cm. COMPARISON: CT abdomen and pelvis 06/27/2022, images from CT-guided ablation 09/28/2022. FINDINGS: Records Management Manager View Findings, Lines and Tubes: None. Visualized Chest: Small right pleural effusion and adjacent atelectasis. Trace locules of pleural air in the anterior lung base. Patient with known apical pneumothorax on the right. Upper limit normal heart size. Diaphragm: Normal. Liver: Normal. Gallbladder: No CT evidence of gallbladder pathology. Bile ducts: No biliary ductal dilation. Spleen: Normal. Pancreas: Normal. Adrenal glands: Normal. Kidneys and ureters: Hypoenhancing right renal mass measuring 5.5 x 6.8 x 7.5 cm (AP by TR by CC), increased from prior.There is surrounding soft tissue stranding in the right retroperitoneal space. Left upper pole cyst measuring 3.9 cm. Bladder: Fluid in the bladder measures soft tissue attenuation. No bladder wall thickening. Reproductive organs: Unremarkable. Stomach, small bowel, and large bowel: Small type I hiatal hernia, otherwise unremarkable stomach. Small bowel loops are nondilated, no evidence of obstruction. Mild colonic diverticulosis. Appendix: Normal (image 26 series 201). Peritoneum and retroperitoneum: Trace amount of fluid thickening the left posterior pararenal fascia. No ascites or pneumoperitoneum. No omental or mesenteric lesions. Lymph nodes: No enlarged lymph nodes. Blood vessels: Mild vascular calcifications but no aneurysm. No evidence of venous thrombosis. Abdominal and pelvic wall: Mild bilateral flank edema. Small fat-containing left inguinal hernia. Bones: No acute abnormality. IMPRESSION: Hypoenhancing 7.5 cm right renal mass. Increase in size and decreased enhancement likely related topost ablation changes. No large areas of hemorrhage/hematoma. There is soft tissue stranding surrounding the ablation site in the right retroperitoneal space thickening of the anterior and posterior perirenal fascia, may represent a combination of postbiopsy change, edema and blood products. Active hemorrhage is not suspected. If there is ongoing clinical concern for hemorrhage, short-term follow-up CT could be obtained. Small right pleural effusion and adjacent atelectasis. Trace locules of air in the right pleural space in the setting of a known prior pneumothorax. I have personally reviewed the images and I agree with this report. WSN: [id number] Ordering Physician: Karlee Hand Dictated By: Luis Hurt DO Dictated Date/Time: 09/30/22 10:46 p Reviewed By: Stephan Christiansen MD Signed By: Stephan Christiansen MD Signed Date/Time: 09/30/22 10:51 pm Transcribed By: SHANI Transcribed Date/Time: 09/30/22 10:20 pm * Exam Date Time Procedure Performing Provider Status 09/30/22 5:52 PM Chest 2 Views Frontal and Lat Jennifer Chiu; Auth (Verified) Notes: (Chest 2 Views Frontal and Lat) Reason For Exam: hypoxia;Other: RESULT: Chest 2 Views Frontal and Lat Chest 2 Views Frontal and Lat Reason: Other:; hypoxia; Clinical Question(s): Pneumothorax COMPARISON: 09/29/2022 FINDINGS: LINES AND TUBES: Previously noted small bore right basilar pleural tube is not definitely visualized on the current radiograph LUNGS AND PLEURA: Clear lungs. Normal pulmonary vascularity. Probable trace bilateral pleural effusions. Previously noted trace right apical pneumothorax is no longer seen. HEART, MEDIASTINUM AND NANCY: Prominent cardiac silhouette Normal mediastinal and hilar contour. BONES AND SOFT TISSUES: No acute abnormality. IMPRESSION: Previously noted trace right apical pneumothorax is no longer seen. Previously noted small caliber right basilar chest tube is not clearly visualized. Probable trace bilateral pleural effusions. WSN: [id number] Ordering Physician: Karlee Hand Dictated By: Marietta Blount MD Dictated Date/Time: 09/30/22 5:59 pm Reviewed By: Marietta Blount MD Signed By: Marietta Blount MD Signed Date/Time: 09/30/22 5:59 pm Transcribed By: SHANI Transcribed Date/Time: 09/30/22 5:55 pm Vital Signs Most recent to oldest [Reference Range]: 1 2 3 4 Oxygen Saturation [94-100 %] 100 % (10/07/22 4:23 PM) 98 % (10/07/22 3:41 PM) 96 % (10/07/22 7:20 AM) Pulse Rate [55-90 bpm] 57 bpm (10/07/22 4:23 PM) 55 bpm (10/07/22 3:41 PM) 57 bpm (10/07/22 8:59 AM) Blood Pressure [90-138/55-84 mm Hg] 144/79mm Hg *H* (10/07/22 4:23 PM) 126/64mm Hg (10/07/22 3:41 PM) 111/57mm Hg (10/07/22 8:59 AM) 111/57mm Hg (10/07/22 8:59 AM) Respiratory Rate [16-30 br/min] 18 br/min (10/07/22 4:23 PM) 18 br/min (10/07/22 3:41 PM) 18 br/min (10/07/22 7:20 AM) Temperature [96.8-100.4 DegF] 98.0 DegF (10/07/22 4:23 PM) 98.2 DegF (10/07/22 3:41 PM) 97.8 DegF (10/07/22 7:20 AM) Mode of Delivery (Oxygen) Room air (10/07/22 4:23 PM) Room air (10/07/22 3:41 PM) Room air (10/07/22 7:20 AM) Blood pressure sites Arm, right (10/07/22 4:23 PM) Arm, right (10/07/22 3:41 PM) Arm, right (10/07/22 7:20 AM) Temperature Route Oral (10/07/22 4:23 PM) Oral (10/07/22 3:41 PM) Oral (10/07/22 7:20 AM) Social History Social History Type Response Smoking Status Never smoker entered on: 03/18/15 Sex Admission evaluation note * Zenia PICHARDO, Emily Brown: MODIFY, PERFORM, MODIFY Event Display: Admission Note Authored Date: Patient: ??JENNIFER TAPIA ? Age:??72 Years?Sex:??Male?:??1950?? Chief Complaint/Reason for Consultation earlier today report of fall- pt resfuse transfer. this afternoon asssited living called since visiting provider noticed increased wob- spo2 hypoxic in 80%s. supervising md spoke w pt of importance of going to hospital as was reticent to go. upon ems arri History of Present Illness 72-year-old??gentleman with past medical history of??thrombotic CVA??with secondary intracranial hemorrhage, hypertension, hyperlipidemia, overactive bladder, type 2 diabetes, renal cell carcinoma??presented to [facility]??for further evaluation of??hypoxia.?? Patient??he is a status post CT- guided atrial fibrillation??of right renal tumor??in??1213??with IR??team??complicated by pneumothorax??that developed??placement of the probe.?? The chest tube??has since been removed.?? Patient feels tired.?? Patient denies having any fevers??or cough or sputum production.?? No leukocytosis noted.?? Renal function??has worsened.??Patient is afebrile.?? Renal function has worsened from 1.3 to 2.0 ; the patient is being admitted to [facility] for further evaluation??and treatment. Review of Systems Constitutional: No fever HEENT: No visual loss, blurred vision, double vision or yellow sclera. No runny nose or sore throat. Cardiovascular: No chest pain, palpitations or pedal edema. Respiratory: No shortness of breath, cough or sputum production. Gastrointestinal: No nausea, vomiting or diarrhea. No abdominal pain.?? Neurologic: No headache, dizziness, unilateral weakness, numbness or tingling in the extremities.??She Objective ? Vital Signs?? Temperature: 98.1 DegF (10/01/22 08:28:00) Temperature Route: Oral (10/01/22 07:07:00) Pulse Rate: 72 bpm (10/01/22 08:28:00) Respiratory Rate: 18 br/min (10/01/22 08:28:00) Systolic Blood Pressure: 121 mm Hg (10/01/22 08:28:00) Diastolic Blood Pressure: 61 mm Hg (10/01/22 08:28:00) Blood pressure sites: Arm, left (10/01/22 07:07:00) Mean Arterial Pressure: 91 mm Hg (09/30/22 22:07:00) Pulse Pressure: 69 mm Hg (10/01/22 07:07:00) Oxygen Saturation: 94 % (10/01/22 08:28:00) Mode of Delivery (Oxygen): Room air (10/01/22 07:07:00) Early Warning Score: 5 (10/01/22 10:09:14) ? Intake/Output? No Data Available ?? Precautions No Precautions documented.? Mobility & Ambulation Level Mobility & Ambulation Level?? No qualifying data available. ? Physical Exam General: Alert, feels tired Mental Status: Oriented to person, place and time. Head: Normocephalic. Neck: Supple Respiratory: Clear to auscultation and percussion. No wheezing, rales or rhonchi. Cardiovascular: Heart sounds normal. No thrills. Regular rate and rhythm, no murmurs, rubs or gallops. Gastrointestinal: Abdomen soft, non-tender, non-distended. Normal bowel sounds.?? Neurologic: Cranial nerves II-XII grossly intact. No focal neurological deficits. Sensation intact bilaterally. Skin: No rashes or lesions.?? Musculoskeletal: No cyanosis Assessment/Plan Diagnoses ?? No diagnosis data available. ?? Assessment:??72-year-old gentleman with past medical history of thrombotic CVA with secondary intracranial hemorrhage, hypertension, hyperlipidemia, overactive bladder, type 2 diabetes, renal cell carcinoma presented to [facility] for further evaluation of hypoxia. Patient he is a status post CT-guided atrial fibrillation of right renal tumor in 1213 with IR team complicated by pneumothorax that developed placement of the probe. The chest tube has since been removed. Patient feels tired.Patient denies having any fevers or cough or sputum production. No leukocytosis noted. Renal function has worsened. Patient is afebrile. Renal function has worsened from 1.3 to 2.0 ; the patient is being admitted to [facility] for further evaluation and treatment. ? 1.?Acute renal failure: Creatinine??worsened from 1.3 to 2.0 Patient received IV fluids??x2 L Patient with history of renal cell carcinoma Will monitor renal function RTANE renal team consulted ? 2.?History of??thrombotic CVA: We will continue with aspirin and atorvastatin ? 3.?Type 2 diabetes: Patient takes metformin at home We will hold metformin while??patient is??in the hospital I have started insulin sliding scale We will monitor??POCs??and adjust the insulin sliding scale accordingly ? 4.?Overactive bladder: Will??continue??oxybutynin ? 5.?Hypertension: We will continue with??metoprolol Will monitor blood pressure and adjust medications??as needed ? 6.?Hyperlipidemia: We will continue with??atorvastatin ? 7.?Type 2 diabetes: We will hold metformin while patient is in the hospital We will??start??insulin sliding scale ? 8.?DVT prophylaxis: Subcu heparin Diet:??Cardiac??diet CODE STATUS: Full code ?? I have discussed the above plan with the patient at bedside who is in agreement. ?? Discharge Planning:? Histories Allergies Allergies ?(Active and Proposed Allergies Only) NKA? (Severity: Unknown severity, Onset: Unknown) ? 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 Past Surgical History Vascular coiling - aneurism, intraranial 2007 ? Social History Tobacco Details:??Never smoker Details:??Never smoker ? Psychosocial History ? Family History Other: Leyva aneurysm ? Medications Home Medications Aspirin?81?Milligram?By Mouth?Daily Aspirin (aspirin 81 mg oral delayed release tablet)?81?Milligram?1?tablet?By Mouth?Daily Atorvastatin (atorvastatin 40 mg oral tablet)?1?tab(s)?40?Milligram?By Mouth?Daily Bisacodyl (bisacodyl 10 mg rectal suppository)?1?suppository(ies)?10?Milligram?Rectally?Daily Cholecalciferol (Vitamin D3 1000 intl units oral tablet)?1?tab(s)?25?Microgram?By Mouth?Daily Divalproex Sodium (divalproex sodium 125 mg oral delayed release capsule)?1?capsule?125?Milligram?By Mouth?2 times a day Ferrous Gluconate (ferrous gluconate 324 mg oral tablet)?1?tab(s)?324?Milligram?By Mouth?Daily Melatonin (melatonin 3 mg oral tablet)?1?tab(s)?3?Milligram?By Mouth?Daily at bedtime?ttd=8 mg Melatonin (melatonin 5 mg oral tablet)?1?tab(s)?5?Milligram?By Mouth?Daily at bedtime?as needed?for insomnia?ttd=8 mg Metoprolol (Metoprolol Tartrate)?75?Milligram?By Mouth?2 times a day Milk of Magnesia?3,600?Milligram?By Mouth?Daily at bedtime Mirtazapine (mirtazapine 7.5 mg oral tablet)?1?tab(s)?7.5?Milligram?By Mouth?Daily at bedtime Multivitamin?1?tab(s)?By Mouth?Daily NIFEdipine (NIFEdipine (Eqv-Procardia XL) 90 mg oral tablet, extended release)?1?tab(s)?90?Milligram?By Mouth?Daily Nystatin Topical (nystatin topical 922541 u/gm powder)?1?nikhil?Topically?2 times a day Oxybutynin (oxybutynin 15 mg/24 hr oral tablet, extended release)?1?tab(s)?15?Milligram?By Mouth?Daily Pantoprazole (pantoprazole 40 mg oral delayed release tablet)?1?tab(s)?40?Milligram?By Mouth?Daily Rivastigmine (rivastigmine 1.5 mg oral capsule)?1.5?Milligram?1?capsule?By Mouth?2 times a day Sertraline (sertraline 50 mg oral tablet)?1?tab(s)?50?Milligram?By Mouth?Daily torsemide (torsemide 10 mg oral tablet)?1?tab(s)?10?Milligram?By Mouth?Daily Triamcinolone Topical (triamcinolone 0.1% topical cream)?1?nikhil?Topically?2 times a day?applied to lower legs Zinc Oxide Topical (Calmoseptine)?Topically?2 times a day?applied liberally around anal region ? Inpatient Medications Medications (26) Active SCHEDULED: (18) Amiloride 5 mg Tablet (aMILoride 5 mg oral tablet) ??5 mg, By Mouth, 2 times a day Amlodipine 5 mg Tablet (amLODIPine 5 mg oral tablet) ??5 mg, By Mouth, Daily Aspirin 81 mg EC Tablet (aspirin 81 mg oral delayed release tablet) ??81 mg, By Mouth, Daily Atorvastatin 40 mg Tablet (atorvastatin 40 mg oral tablet) ??40 mg, By Mouth, Daily Clonidine 0.1 mg Tablet (cloNIDine 0.1 mg oral tablet) ??0.2 mg, By Mouth, 2 times a day Heparin 5000 units/mL Inj (1 mL) (Heparin Inj) ??5,000 units 1 mL, Subcutaneous Injection, 3 times a day Insulin Lispro 100 units/mL Inj (3mL) (Insulin LISPRO Sliding Scale) ??2-10 units, Subcutaneous Injection, 3 times a day before meals Metoprolol 25mg Tablet (metoprolol 25 mg oral tablet) ??75 mg, By Mouth, 2 times a day Mirtazapine 15 mg Tablet (mirtazapine 15 mg oral tablet) ??7.5 mg, By Mouth, Daily Multivitamin Tablet ??1 tablet, By Mouth, Daily NaCl 0.9% Flush 3ml (NaCL 0.9% Flush) ??3 mL, IV Push, Every 8 hours NaCl 0.9% Flush 3ml (NaCL 0.9% Flush) ??3 mL, IV Push, Every 8 hours NIFEdipine 30 mg ER Tablet (Procardia XL 90 mg oral tablet, extended release) ??90 mg, By Mouth, Daily Olanzapine 2.5 mg Tablet (olanzapine 2.5 mg oral tablet) ??2.5 mg, By Mouth, Daily at bedtime Oxybutynin 5 mg ER Tablet (Ditropan XL Tablet) ??15 mg, By Mouth, Daily Potassium Chloride 10 mEq / 100 mL (Potassium Chloride 10 mEq/100 mL IVPB) ??10 mEq 100 mL, IVPB, Every hour Sertraline 50 mg Tablet (sertraline 50 mg oral tablet) ??50 mg, By Mouth, Daily at bedtime Vitamin D 1000 IU Tablet (cholecalciferol 1000 intl units oral tablet) ??1,000 International_Units,By Mouth, Daily CONTINUOUS: (0) PRN: (8) Acetaminophen 325 mg Tablet (Acetaminophen Tablet) ??650 mg, By Mouth, Every 4 hours Bisacodyl 10 mg Suppository (Bisacodyl Supp) ??10 mg 1 supp, Rectally, Daily Dextromethorphan-Guaifenesin 20 mg-200 mg/10 mL Liqu UD (Robitussin DM Liquid) ??10 mL, By Mouth, Every 4 hours Melatonin 3 mg Tablet (Melatonin Tablet) ??3 mg, By Mouth, Daily at bedtime NaCl 0.9% Flush 3ml (NaCL 0.9% Flush) ??3 mL, IV Push, Every 8 hours Polyethylene Glycol 17 Gm Powder (MiraLax Powder) ??17 Gm 1 pack/packet, By Mouth, Daily Senna 8.6 mg / Docusate 50 mg tablet (Docusate/Senna Tablet) ??1 tablet, By Mouth, 2 times a day Simethicone 80 mg Chewable Tablet (Simethicone Tablet) ??80 mg, Chew, 3 times a day ? Results Recent Labs BLOOD COUNT & DIFF WBC 10.7 k/mm3 ()?? 09/30/2022 18:15 RBC 2.70 m/mm3 (Low)?? 09/30/2022 18:15 Hgb 8.3 Gm/dL (Low)?? 09/30/2022 18:15 Hct 26.4 % (Low)?? 09/30/2022 18:15 MCV 97.8 femtoliters (High)?? 09/30/2022 18:15 MCH 30.7 pg ()?? 09/30/2022 18:15 MCHC 31.4 g/dL (Low)?? 09/30/2022 18:15 Platelet Count 111 k/mm3 (Low)?? 09/30/2022 18:15 RDW-SD 51.4 femtoliters (High)?? 09/30/2022 18:15 MPV 12.0 femtoliters ()?? 09/30/2022 18:15 Nucleated RBC (Automated) 0.0 #/100 WBC'S ()?? 09/30/2022 18:15 Abs. NRBC 0.0 k/mm3 ()?? 09/30/2022 18:15 Abs. Neut 8.7 k/mm3 (High)?? 09/30/2022 18:15 Abs. Lymph 0.8 k/mm3 ()?? 09/30/2022 18:15 Abs. Newberry 1.0 k/mm3 ()?? 09/30/2022 18:15 Abs. Eo 0.1 k/mm3 ()?? 09/30/2022 18:15 Abs. Baso 0.0 k/mm3 ()?? 09/30/2022 18:15 Neut % 81.4 % (High)?? 09/30/2022 18:15 Lymph % 7.7 % (Low)?? 09/30/2022 18:15 Newberry % 8.9 % ()?? 09/30/2022 18:15 Eos % 1.0 % ()?? 09/30/2022 18:15 Baso % 0.3 % ()?? 09/30/2022 18:15 Imm Gran 0.7 % ()?? 09/30/2022 18:15 Abs. Imm Gran 0.1 k/mm3 ()?? 09/30/2022 18:15 ?? CHEM GENERAL Sodium 140 mmol/L ()?? 09/30/2022 18:15 Potassium 3.4 mmol/L (Low)?? 09/30/2022 18:15 Chloride 101 mmol/L ()?? 09/30/2022 18:15 Bicarbonate Level 28 mmol/L ()?? 09/30/2022 18:15 Anion Gap 11 ()?? 09/30/2022 18:15 Glucose Level 162 mg/dL (High)?? 09/30/2022 18:15 Glucose, POC 127 mg/dL (High)?? 10/01/2022 09:19 BUN 49 mg/dL (High)?? 09/30/2022 18:15 Creatinine-Blood 2.0 mg/dL (High)?? 09/30/2022 18:15 Estimated GFR Creatinine 34 ML/MIN/1.73 M2 ()?? 09/30/2022 18:15 Calcium 8.2 mg/dL (Low)?? 09/30/2022 18:15 Protein, Total 5.1 Gm/dL (Low)?? 09/30/2022 18:15 Albumin 3.3 Gm/dL (Low)?? 09/30/2022 18:15 AG Ratio 1.8 ()?? 09/30/2022 18:15 Alkaline Phosphatase 77 units/L ()?? 09/30/2022 18:15 AST (SGOT) 28 units/L ()?? 09/30/2022 18:15 ALT (SGPT) 10 units/L ()?? 09/30/2022 18:15 Bilirubin, Total 0.6 mg/dL ()?? 09/30/2022 18:15 ?? VIROLOGY Influenza A PCR NEGATIVE ()?? 09/30/2022 22:05 Influenza B PCR NEGATIVE ()?? 09/30/2022 22:05 RSV PCR NEGATIVE ()?? 09/30/2022 22:05 COVID-19 PCR Specimen Source NASAL ()?? 09/30/2022 22:05 COVID-19 PCR Result NEGATIVE ()?? 09/30/2022 22:05 ? EKG study * Event Display: ECG 12-Lead Authored Date: [id number] Please click on pdf link to open report * Event Display: ECG 12-Lead Authored Date: Ventricular Rate: 72 BPM Atrial Rate: 72 BPM P-R Interval: 180 ms QRS Duration: 88 ms Q-T Interval: 432 ms QTC Calculation(Bazett): 473 ms P Danube: 30 degrees R Danube: 2 degrees T Danube: 52 degrees Normal sinus rhythm Nonspecific T wave abnormality Prolonged QT Abnormal ECG No previous ECGs available Confirmed by ENDER MCMAHON MD ([id number]) on 10/01/2022 1:04:27 PM [place]: ENDER MCMAHON MD Heart * Event Display: Echocardiogram - Complete Authored Date: Transthoracic Echocardiography Report (TTE) Patient Demographics Patient Name JENNIFER TAPIA Date of Study 10/04/2022 Corporate Gender Male Facility Race Ethnicity Date of 1950 Height: 69 inches Age 72 year(s) Weight: 218.25 pounds Accession Number [id number] BSA: 2.14 m2 Room Number S350 BMI: 32.23 kg/m2 Referring Physician Ananya Betancur DO, MD Physician Furnace Combination Analyst Kalina Hoffman RCS Indications Heart failure. Clinical History obesity CVA secondary to intercranial hemorrhage Hypertension. Diabetes Mellitus. Hyperlipidemia. renal cell carcinoma Study Data Type of Study TTE procedure:Echo Complete-Doppler, Colorflow, M-Mode. Study Date10/04/2022 Start Time: 01:19 PM Study Location: [facility] [place] Echo Study Status: Echo lab Patient Status: Routine Technical Quality: Technically difficult due to restricted mobility. Blood Pressure:110/61 mmHg EKG: Normal sinus rhythm HR: 58 bpm 2D Measurements LV Diastolic Dimension: 5.7 cm LV Systolic Dimension: 4.1 cm LV Septum Diastolic: 1.2 cm LV PW Diastolic: 1 cm AO Root Dimension: 3.4 cm LA Dimension: 3.9 cm LA ESV (BP):80.3 ml LVOT Stroke Volume: 100.91 ml LA ESV Index: 38 ml/m2 Stroke Volume Index47.15 ml/m2 LVOT: 2.3 cm Cardiac Index:2.73 l/min/m2 Ascending Aorta:3.5 cm Doppler Measurements AV Peak Velocity: 165 cm/s MV Peak E-Wave: 74.5 cm/s AV Peak Gradient: 10.89 mmHg MV Peak A-Wave: 97.9 cm/s MV E/A Ratio: 0.76 LVOT Peak Velocity: 103 cm/s LVOT VTI24.3 cm MV Deceleration Time: 317 msec TR Velocity:294 cm/s TR Gradient:34.57 mmHg PV Peak Velocity: 107 cm/s E' Septal Velocity: 7.07 cm/s PV Peak Gradient: 4.58 mmHg E' Lateral Velocity: 11.3 cm/s E/Med E':10.48902 E/Lat E':6.47734 Cardiac Anatomy Left Ventricle/Interventricular Septum The left ventricular size is normal. The left ventricular wall thickness is mildly increased. The LV systolic function is normal . The left ventricular ejection fraction is 60-65 %. There are no definite regional wall motion abnormalities. Normal diastolic function. Left Atrium/Interatrial Septum The left atrium is normal in size. Aortic Valve The aortic valve is trileaflet and normal in structure and function. There is no aortic stenosis or insufficiency. Mitral Valve The mitral valve is grossly normal. There is trace mitral regurgitation. Aorta The ascending aorta and aortic root are normal in size. Right Ventricle The right ventricle is mildly dilated. Right ventricular systolic function is normal. Right Atrium The right atrium is normal in size. Pulmonic Valve The pulmonic valve is functionally normal. Tricuspid Valve The tricuspid valve is grossly normal. There is mild tricuspid valve regurgitation. Pumonary Artery The pulmonary artery systolic pressure estimation is 35-40 mmHg. Venous Structures The inferior vena cava size is normal with normal inspiratory collapse. Pericardium/Extracardiac There is no significant pericardial effusion. Summary The left ventricular size is normal. The left ventricular wall thickness is mildly increased. The LV systolic function is normal . The left ventricular ejection fraction is 60-65 %. There are no definite regional wall motion abnormalities. Normal diastolic function. The right ventricle is mildly dilated. Right ventricular systolic function is normal. Comparison No prior study available for comparison. Signature * Event Display: Echocardiogram - Complete Authored Date: Hospital Progress note * Dejuan Roach: PERFORM Dejuan Roach: PERFORM, SIGN Dejuan Roach: SIGN, VERIFY Dejuan Roach: VERIFY, MODIFY Event Display: Progress Note Hospital Authored Date: Patient: JENNIFER TAPIA Age: 72 years Sex: Male : 1950 Associated Diagnoses: None Author: Dejuan Roach [facility] Progress Note Interval History No overnight events, no complaints Refused labs the past 3 days Plan for discharge today Review of Systems Review of Systems Constitutional: no fever, no night sweats. Respiratory: no shortness of breath. Cardiovascular: no peripheral edema, no chest pain. Gastrointestinal: no abdominal pain. Physical Examination Vital Signs Vitals : VITALS 10/07/2022 8:59 EST Pulse Rate 57 bpm Systolic Blood Pressure 111 mm Hg Systolic Blood Pressure 111 mm Hg Diastolic Blood Pressure 57 mm Hg Diastolic Blood Pressure 57 mm Hg . General Appearance NAD. HEENT Moist mucous membranes. Respiratory Lungs: CTA. Cardiac Cardiac: no M/G/R. Rhythms: RRR. Abdomen/GI Abdomen: soft. Extremities No edema. Neurologic Alert & oriented x 3 . Results Review 7 Day Results Results Laboratory : LABORATORY 10/04/2022 3:55 EST Sodium 137 mmol/L Potassium 4.3 mmol/L Chloride 104 mmol/L Bicarbonate Level 24 mmol/L Anion Gap 9 Glucose Level 136 mg/dL H BUN 36 mg/dL H Creatinine-Blood 1.4 mg/dL H Estimated GFR Creatinine 55 ML/MIN/1.73 M2 Calcium 8.0 mg/dL L 10/03/2022 14:21 EST WBC 6.7 k/mm3 RBC 2.42 m/mm3 L Hgb 7.5 Gm/dL L Hct 23.5 % L MCV 97.1 femtoliters H MCH 31.0 pg MCHC 31.9 g/dL L Platelet Count 137 k/mm3 L RDW-SD 49.5 femtoliters H MPV 11.3 femtoliters Nucleated RBC (Automated) 0.0 #/100 WBC'S Abs. 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 Hospital course complicated by pneumothorax at site of probe resulting in acute hypoxic respiratory failure. Now s/p removal of chest tube, renal function deter iorated from creatinine baseline of 1.2mg/dL. 1. SILVIA He may have chronic renal disease however his last GFR noted in August was 62 with creatinine baseline of 1.2. S/p IR guided ablation of renal cell carcinoma on 09/28/22, possible SILVIA with hemodynamic shifts. Noted to have 1.2g proteinuria however he is himself not aware of any renal disease. DM well controlled but could still contribute to diabetic kidney disease. Monoclonal light chains couldbe checked in a patient with SILVIA and underlying malignancy. Creatinine peaked at 2.0mg/dL and was downtrending, but patient refused labs the past 3 days. Plan - Will arrange outpatient follow-up for proteinuria and will consider checking free kappa and lambda light chains at that time (patient refused labs the past 3 days) Thank you for the courtesy of this consult, RTANE will continue monitoring the patient along with you. Please do not hesitate to call us with any further questions. Dejuan Laguna PA-C [facility] [address], [address] Available by [employer] * Luis Gaona MD: PERFORM Event Display: Progress Note Hospital Authored Date: Seen and examined, case d/w renal PA and agree with her assessment and rec as noted * Kaia Peterson RN, I: PERFORM, SIGN, VERIFY Event Display: Progress Note Hospital Authored Date: Patient: JENNIFER TAPIA Age: 72 years Sex: Male : 1950 Associated Diagnoses: None Author: Kaia Peterson RN, I Findings Evaluation pt a/ox3 vss afebrile complete assessment done as charted this am pt with c/o mild neck pain tylenol given and a warm pack with good effect repo in bed took am meds cooperative with me during am carerefused blood sugar checks md aware call ba at side safety maintained total asst given with care . Discharge Information Case Management Discharge Plan : Case Management Discharge Plan Data 09/29/2022 16:20 EST Discharge Level of Care at Discharge Home/Detention/Foster Care Rehabilitation Discharge : Rehab Discharge Index 10/04/2022 9:46 EST Comments on treatment indicated 72 y.o. M presented to [facility] for further evaluation of hypoxia. WBAT. PT for bed mob., txfrs, balance and gait. Recommending home with [facility]. Distance pt will ambulate >50 ft with LRAD Full chart review completed Yes Other findings Pt. approached at bedside. Reporting independent transfers to walker or w/c in [place]. Pt. stating that their cousin will be able to help if they were discharged back to [facility]. Recommendinghome with [facility] as long [facility] is able to support. Plan of care PT Gait training, Transfer training, Therapeutic exercise, Functional Activities, Balance training * Dejuan Roach: PERFORM Dejuan Roach: PERFORM, SIGN Dejuan Roach: SIGN, VERIFY Dejuan Roach: VERIFY, MODIFY Event Display: Progress Note Hospital Authored Date: Patient: JENNIFER TAPIA Age: 72 years Sex: Male : 1950 Associated Diagnoses: None Author: Dejuan Roach [facility] Progress Note Interval History No overnight events Tired today and frustrated that people keep waking him Refused labs the past 2 days Review of Systems Review of Systems Constitutional: no fever, no night sweats. Respiratory: no shortness of breath. Cardiovascular: no peripheral edema, no chest pain. Gastrointestinal: no abdominal pain. Physical Examination Vital Signs Vitals : VITALS 10/06/2022 11:06 EST Pulse Rate 56 bpm Systolic Blood Pressure 126 mm Hg Diastolic Blood Pressure 62 mm Hg . General Appearance NAD. HEENT Moist mucous membranes. Respiratory Lungs: CTA. Cardiac Cardiac: no M/G/R. Rhythms: RRR. Abdomen/GI Abdomen: soft. Extremities No edema. Neurologic Alert & oriented x 3 . Results Review 7 Day Results Results Laboratory : LABORATORY 10/04/2022 3:55 EST Sodium 137 mmol/L Potassium 4.3 mmol/L Chloride 104 mmol/L Bicarbonate Level 24 mmol/L Anion Gap 9 Glucose Level 136 mg/dL H BUN 36 mg/dL H Creatinine-Blood 1.4 mg/dL H Estimated GFR Creatinine 55 ML/MIN/1.73 M2 Calcium 8.0 mg/dL L 10/03/2022 14:21 EST WBC 6.7 k/mm3 RBC 2.42 m/mm3 L Hgb 7.5 Gm/dL L Hct 23.5 % L MCV 97.1 femtoliters H MCH 31.0 pg MCHC 31.9 g/dL L Platelet Count 137 k/mm3 L RDW-SD 49.5 femtoliters H MPV 11.3 femtoliters Nucleated RBC (Automated) 0.0 #/100 WBC'S Abs. 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 Hospital course complicated by pneumothorax at site of probe resulting in acute hypoxic respiratory failure. Now s/p removal of chest tube, renal function deter iorated from creatinine baseline of 1.2mg/dL. 1. SILVIA He may have chronic renal disease however his last GFR noted in August was 62 with creatinine baseline of 1.2. S/p IR guided ablation of renal cell carcinoma on 09/28/22, possible SILVIA with hemodynamic shifts. Noted to have 1.2g proteinuria however he is himself not aware of any renal disease. DM well controlled but could still contribute to diabetic kidney disease. Monoclonal light chains couldbe checked in a patient with SILVIA and underlying malignancy. Creatinine peaked at 2.0mg/dL and was downtrending, but patient refused labs the past 2 days. Plan - No diuretics - Free kappa and lambda light chains ordered - Follow-up outpatient for proteinuria once SILVIA resolves - Nutrition on board - Bladder scan to r/o spontaneous retention - Daily renal panel Thank you for the courtesy of this consult, RTANE will continue monitoring the patient along with you. Please do not hesitate to call us with any further questions. Dejuan Laguna PA-C [facility] [address], [address] Available by [facility] * Jimenez PICHARDO, Luis: PERFORM Event Display: Progress Note Hospital Authored Date: Seen and examined, events noted andcase d/w Renal PA and agree with her assessment and rec as noted Note * Jessie Lovett RN: PERFORM Event Display: Discharge/Transfer Note Hospital Authored Date: Nursing Discharge Note Entered On: 10/07/2022 17:30 EST Performed On: 10/07/2022 17:28 EST by Jessie Lovett RN Nursing Discharge Note 2 Discharge Time : 10/07/2022 17:15 EST Discharge Level of Care at Discharge : [facility] facility Discharge Nursing Homes/Rehab Facilities : [facility] Patient Left Unit Via : Ambulance Patient Accompanied Off Unit with : Ambulance/Chair Van Personnel Handover Given to Transport Personnel : Yes DC Instructions Provided & Signed by Pt : No Patient Understands D/C Instructions : No Patient Instructions Discharge Signed : No Instructions for Discharge Comments : paper work completed with casey saw operator, patient aware of xochilt agrees Did Pt have Specialty Bed or Wound Vac : Yes Jessie Lovett RN - 10/07/2022 17:28 EST * Jason Ruelas II: PERFORM Event Display: Discharge/Transfer Note Hospital Authored Date: Patient: ??JENNIFER TAPIA ? Age:??72 Years?Sex:??Male?:??1950?? Patient Information Discharge Location: [facility] Primary Care Physician: Neelima Colon MD Admit Date/Time: 09/30/22 23:32 Discharge Date: 10/07/22 Discharge Disposition Discharge Disposition: Care Home Facility/Rehab Discharge Diagnosis Acute renal failure (N17.9) Pneumothorax (J93.9) Anemia (D64.9) Diabetes mellitus type 2 in obese (E11.69) Dyslipidemia (E78.5) Hypertension (I10) Overactive bladder (N32.81) Renal cell carcinoma (C64.9) Thrombotic stroke (I63.9) Medication management (Z79.899) ?? _ Discharge Medications Aspirin (aspirin 81 mg oral delayed release tablet)?81?Milligram?1?tablet?By Mouth?Daily Atorvastatin (atorvastatin 40 mg oral tablet)?1?tab(s)?40?Milligram?By Mouth?Daily Bisacodyl (bisacodyl 10 mg rectal suppository)?1?suppository(ies)?10?Milligram?Rectally?Daily Cholecalciferol (Vitamin D3 1000 intl units oral tablet)?1?tab(s)?25?Microgram?By Mouth?Daily Divalproex Sodium (divalproex sodium 125 mg oral delayed release capsule)?2?capsule?250?Milligram?By Mouth?2 times a day Ferrous Gluconate (ferrous gluconate 324 mg oral tablet)?1?tab(s)?324?Milligram?By Mouth?Daily Levothyroxine (levothyroxine 25 mcg (0.025 mg) oral capsule)?1?capsule?25?Microgram?By Mouth?Daily Melatonin (melatonin 3 mg oral tablet)?1?tab(s)?3?Milligram?By Mouth?Daily at bedtime?ttd=8 mg Melatonin (melatonin 5 mg oral tablet)?1?tab(s)?5?Milligram?By Mouth?Daily at bedtime?as needed?for insomnia?ttd=8 mg Metoprolol (Metoprolol Tartrate)?75?Milligram?By Mouth?2 times a day Milk of Magnesia?3,600?Milligram?By Mouth?Daily at bedtime Mirtazapine (mirtazapine 7.5 mg oral tablet)?1?tab(s)?7.5?Milligram?By Mouth?Daily at bedtime Multivitamin?1?tab(s)?By Mouth?Daily NIFEdipine (NIFEdipine (Eqv-Procardia XL) 90 mg oral tablet, extended release)?1?tab(s)?90?Milligram?By Mouth?Daily Nystatin Topical (nystatin topical 849501 u/gm powder)?1?nikhil?Topically?2 times a day Pantoprazole (pantoprazole 40 mg oral delayed release tablet)?1?tab(s)?40?Milligram?By Mouth?Daily Rivastigmine (rivastigmine 1.5 mg oral capsule)?1.5?Milligram?1?capsule?By Mouth?2 times a day Sertraline (sertraline 50 mg oral tablet)?1?tab(s)?50?Milligram?By Mouth?Daily sodium bicarbonate (sodium bicarbonate 650 mg oral tablet)?1?tab(s)?650?Milligram?ByMouth?2 times a day Zinc Oxide Topical (Calmoseptine)?Topically?2 times a day?applied liberally around anal region ? Medications Discontinued Zyprexa Oxybutinin Torsemide Allergies Allergies ?(Active and Proposed Allergies Only) NKA? (Severity: Unknown severity, Onset: Unknown) ? PCP Follow-Up/Heads-Up Patient's renal function has been improving but he as refused labs for the last??3 days. Please recheck if he is agreeable. Hospital Course 72-year-old male with history of thrombotic CVA with ICH, hypertension, dyslipidemia, overactive bladder, diabetes mellitus type 2, renal cell carcinoma s/p CT guided cryoablation on 09/28/22 complicated by pneumothorax requiring chest tube placement and thoracostomy who presented on 10/01/22 s/p fall with SOB and hypoxia. He was found to have acute renal failure which improved with IV fluids. ? Objective Assessment and Plan ?? Acute renal failure (N17.9):? Possible underlying CKD not formerly diagnosed. SILVIA s/p cryoablation, improved with IV fluids. No evidence of obstruction or urinary retention. Patient refused labs the last 3 days. Would not restart torsemide at this time. ?? Pneumothorax (J93.9):? S/p chest tube on last hospitalization, no signs of recurrence on recent CXR 09/30. ?? Diabetes mellitus type 2 in obese (E11.69):? HbA1c 5.7 in??August.?? Consider??Metformin. ?? Renal cell carcinoma (C64.9):? S/p cryoablation on 09/28. Follow up with Oncology. ?? Thrombotic stroke (I63.9):? Hx hemorrhagic CVA. ?Antithrombotic Therapy by End of Hospital Day 2:??Antithrombotic ordered ?Statin Ordered:??Statin Ordered ?? Discharge Planning:? Will need short term rehab. ?? Medication management (Z79.899):? Discussed with geriatrics, stopped zyprexa (patient wasn't taking this), oxybutynin and restarted home Depakote 250 mg BID. ? Vital Signs?? Temperature: 97.8 DegF (10/07/22 07:20:00) Temperature Route: Oral (10/07/22 07:20:00) Pulse Rate: 57 bpm (10/07/22 08:59:00) Respiratory Rate: 18 br/min (10/07/22 07:20:00) Systolic Blood Pressure: 111 mm Hg (10/07/22 08:59:00) Systolic Blood Pressure: 111 mm Hg (10/07/22 08:59:00) Diastolic Blood Pressure: 57 mm Hg (10/07/22 08:59:00) Diastolic Blood Pressure: 57 mm Hg (10/07/22 08:59:00) Blood pressure sites: Arm, right (10/07/22 07:20:00) Mean Arterial Pressure: 75 mm Hg (10/07/22 07:20:00) Pulse Pressure: 37 mm Hg (10/07/22 07:20:00) Oxygen Saturation: 96 % (10/07/22 07:20:00) Mode of Delivery (Oxygen): Room air (10/07/22 07:20:00) Early Warning Score: 2 (10/07/22 09:12:12) ? . Physical Exam Temperature?98 ?(07:34) Systolic Blood Pressure?126 ?(11:10) Diastolic Blood Pressure?62 ?(11:10) Pulse?56 ?(11:10) SpO2?97 ?(07:34) Respiratory Rate?18 ?(07:34) ?? Constitutional: Alert, in no distress. Mental Status: Oriented to person, place and time. Respiratory: Clear to auscultation. No wheezing, rales or rhonchi. Cardiovascular: Regular rate and rhythm, no murmurs, rubs or gallops. Abdomen: Soft, non-tender, non-distended.??Normal bowel sounds. Skin: No rashes or lesions. No petechiae or purpura.?? Psychiatric: Normal mood and affect Extremities: No edema. Consultants [facility] Geriatrics Pending Results Add On Lab Order ordered on 10/04/2022 Basic Metabolic Panel ordered on 10/07/2022 COVID-19 (2018 Novel Coronavirus) PCR ordered on 10/07/2022 COVID-19 (2018 Novel Coronavirus) PCR ordered on 10/07/2022 Free [place] and Lambda Light Chains ordered on 10/06/2022 Hold Lavender Tube (BB) ordered on 09/30/2022 Immunofixation Serum ordered on 10/06/2022 Methylmalonic Acid ordered on 10/04/2022 Urea Nitrogen Urine ordered on 10/02/2022 Follow-Up Appointments Added Follow Up ?Time Frame ?Comments Darlene PICHARDO, [facility] Home Health Face to Face ^HomeHealth[facility]F Results Discharge Labs BLOOD COUNT & DIFF WBC 6.7 k/mm3 ()?? 10/03/2022 14:21 RBC 2.42 m/mm3 (Low)?? 10/03/2022 14:21 Hgb 7.5 Gm/dL (Low)?? 10/03/2022 14:21 Hct 23.5 % (Low)?? 10/03/2022 14:21 MCV 97.1 femtoliters (High)?? 10/03/2022 14:21 MCH 31.0 pg ()?? 10/03/2022 14:21 MCHC 31.9 g/dL (Low)?? 10/03/2022 14:21 Platelet Count 137 k/mm3 (Low)?? 10/03/2022 14:21 RDW-SD 49.5 femtoliters (High)?? 10/03/2022 14:21 MPV 11.3 femtoliters ()?? 10/03/2022 14:21 Nucleated RBC (Automated) 0.0 #/100 WBC'S ()?? 10/03/2022 14:21 Abs. NRBC 0.0 k/mm3 ()?? 10/03/2022 14:21 Abs. Neut 8.7 k/mm3 (High)?? 09/30/2022 18:15 Abs. Lymph 0.8 k/mm3 ()?? 09/30/2022 18:15 Abs. Newberry 1.0 k/mm3 ()?? 09/30/2022 18:15 Abs. Eo 0.1 k/mm3 ()?? 09/30/2022 18:15 Abs. Baso 0.0 k/mm3 ()?? 09/30/2022 18:15 Neut % 81.4 % (High)?? 09/30/2022 18:15 Lymph % 7.7 % (Low)?? 09/30/2022 18:15 Newberry % 8.9 % ()?? 09/30/2022 18:15 Eos % 1.0 % ()?? 09/30/2022 18:15 Baso % 0.3 % ()?? 09/30/2022 18:15 Imm Gran 0.7 % ()?? 09/30/2022 18:15 Abs. Imm Gran 0.1 k/mm3 ()?? 09/30/2022 18:15 ?? CHEM GENERAL Sodium 137 mmol/L ()?? 10/04/2022 03:55 Potassium 4.3 mmol/L ()?? 10/04/2022 03:55 Chloride 104 mmol/L ()?? 10/04/2022 03:55 Bicarbonate Level 24 mmol/L ()?? 10/04/2022 03:55 Anion Gap 9 ()?? 10/04/2022 03:55 Glucose Level 136 mg/dL (High)?? 10/04/2022 03:55 Glucose, POC 130 mg/dL (High)?? 10/07/2022 07:19 BUN 36 mg/dL (High)?? 10/04/2022 03:55 Creatinine-Blood 1.4 mg/dL (High)?? 10/04/2022 03:55 Estimated GFR Creatinine 55 ML/MIN/1.73 M2 ()?? 10/04/2022 03:55 Calcium 8.0 mg/dL (Low)?? 10/04/2022 03:55 Phosphorus 3.9 mg/dL ()?? 10/03/2022 14:21 Magnesium 2.1 mg/dL ()?? 10/03/2022 14:21 Protein, Total 4.7 Gm/dL (Low)?? 10/03/2022 14:21 Albumin 2.9 Gm/dL (Low)?? 10/03/2022 14:21 AG Ratio 1.6 ()?? 10/03/2022 14:21 Alkaline Phosphatase 64 units/L ()?? 10/03/2022 14:21 AST (SGOT) 51 units/L (High)?? 10/03/2022 14:21 ALT (SGPT) 45 units/L (High)?? 10/03/2022 14:21 Bilirubin, Total 0.4 mg/dL ()?? 10/03/2022 14:21 Vitamin B12 Level 373 pg/mL ()?? 10/03/2022 14:21 Folic Acid Level 8.7 ng/mL ()?? 10/03/2022 14:21 Iron Level 20 mcg/dL (Low)?? 10/03/2022 14:21 Iron Binding Capacity, Unsaturated 126 mcg/dL ()?? 10/03/2022 14:21 Iron Binding Capacity, Estimated Total 146 mcg/dL (Low)?? 10/03/2022 14:21 % Iron Saturation 14 % (Low)?? 10/03/2022 14:21 Ferritin Level 661 ng/mL (High)?? 10/03/2022 14:21 ? ENDOCRINE/TUMOR MARKER TSH 5.34 uIU/mL (High)?? 10/03/2022 14:21 Free T4 0.89 ng/dL ()?? 10/03/2022 14:21 PTH, Intact 96 pg/mL (High)?? 10/03/2022 14:21 ? HEME OTHER Hold Lavender Top SPECIMEN DISCARDED AFTER 24 HOURS. ()?? 10/04/2022 03:55 ? UA/URINALYSIS Appear/Color, Urine YELLOW ()?? 10/02/2022 08:48 Specific [place], Urine 1.028 ()?? 10/02/2022 08:48 pH, Urine 6.0 ()?? 10/02/2022 08:48 Albumin, Urine 2+ (Abnormal)?? 10/02/2022 08:48 Glucose, Urine NEGATIVE ()?? 10/02/2022 08:48 Ketones, Urine NEGATIVE ()?? 10/02/2022 08:48 Bilirubin, Urine NEGATIVE ()?? 10/02/2022 08:48 Hemoglobin, Urine 3+ (Abnormal)?? 10/02/2022 08:48 Nitrite, Urine NEGATIVE ()?? 10/02/2022 08:48 Leukocyte, Urine 2+ (Abnormal)?? 10/02/2022 08:48 Urobilinogen NORMAL mg/dL ()?? 10/02/2022 08:48 WBC's, Urine 65 /HPF (High)?? 10/02/2022 08:48 RBC's, Urine 71 /HPF (High)?? 10/02/2022 08:48 Squamous Epith <1 /HPF ()?? 10/02/2022 08:48 Mucus SLIGHT /LPF ()?? 10/02/2022 08:48 Hold Urine Culture Testing available 48 hours from time of collection. ()?? 10/02/2022 08:48 ?? URINE OTHER Creatinine, Urine Random 146.5 mg/dL ()?? 10/02/2022 08:48 Sodium, Urine Random 31 mmol/L ()?? 10/02/2022 08:48 Chloride, Urine Random 20 mmol/L ()?? 10/02/2022 08:48 Urea Nitrogen, Urine Random 928.8 mg/dL ()?? 10/02/2022 08:48 Osmolality, Urine Random 549 mOsm/kg ()?? 10/02/2022 08:48 Protein, Total Urine Random 182 mg/dL ()?? 10/02/2022 08:48 TP/Cr Ratio 1.24 (High)?? 10/02/2022 08:48 Creatinine, Urine 146.5 mg/dL ()?? 10/02/2022 08:48 Malb/Creat Ratio 693.8 mg/Gm (High)?? 10/02/2022 08:48 Urine Creat For Micro Alb 146.5 mg/dL ()?? 10/02/2022 08:48 Micro-Albumin 1016.4 mg/L (High)?? 10/02/2022 08:48 ? VIROLOGY Influenza A PCR NEGATIVE ()?? 09/30/2022 22:05 Influenza B PCR NEGATIVE ()?? 09/30/2022 22:05 RSV PCR NEGATIVE ()?? 09/30/2022 22:05 COVID-19 PCR Specimen Source NASAL ()?? 10/04/2022 08:45 COVID-19 PCR Result NEGATIVE ()?? 10/04/2022 08:45 ? I spent a total of??40 minutes today reviewing the chart/medical records, speaking with the patient, formulating and discussing the treatment plan and documenting the findings and encounter. Discussed plan with patient, nursing, HCP via phone, casey saw operator. ?? Jason Torres II PA-C Hospitalist Medicine PA Pager #[phone] or Cortext ?? [Dragon dictation was??used to transcribe portions of this note and may result in unintentional errors. Please feel free to contact??me with clarification questions.] * Sridevi Sales RN: PERFORM, SIGN, VERIFY Event Display: Case Management Discharge Plan Authored Date: Patient: JENNIFER TAPIA Age: 72 years Sex: Male : 1950 Associated Diagnoses: None Author: Sriedvi Sales RN Discharge Plan Case Management Discharge Plan : Case Management Discharge Plan Data 10/07/2022 10:50 EST Discharge Level of Care at Discharge [facility] facility Discharge Nursing Homes/Rehab Facilities [facility] Discharge Transportation Arranged [facility] [address] [place] [phone] Discharge Arranged Transport Date/Time 10/07/2022 13:00 Mode of Transportation Arranged Ambulance Service Categories #1 Physical Therapy, Care Home * Avril ALBRECHT, Baljinder: PERFORM Event Display: Patient Education/Instruction Authored Date: [id number] Inpatient Adult Discharge Instructions [address] [address] Name: JENNIFER TAPIA : 1950 Visit: 09/30/2022 23:32:00 Current Date: 10/07/2022 13:52 Account: [id number] Inpatient Adult Discharge Instructions We would like to thank you for allowing us to assist you with your healthcare needs. The following includes patient education materials and information regarding your injury/illness. Our entire staffstrives to provide an excellent experience for our patients and their families. PLEASE ENSURE YOU FOLLOW-UP PER THE INSTRUCTIONS BELOW! ?? YOUR OPINION IS IMPORTANT TO US! Please complete the survey you may receive by mail or email. Your feedback will be used to make improvements to the healthcare experiences of our patients and their families. Surveys are administered by [employer] ?? If further treatment with your primary care physician or another doctor is recommended, it is important for you to keep the appointment. Call your primary care physician or return to the Emergency Department immediately if your condition worsens, fails to improve, or new symptoms develop. If you need to find a doctor, you can call [facility] for a referral at [phone] or toll free at [phone] or log in to [email or web address].. ?? You can view and manage your care through the patient portal or by using a health care nikhil of your choosing. [employer] is a website that allows you to securely view your medical information including your hospital discharge summary, office visit summaries, medications and follow-up visits. You can also request appointments, renew medications, and request access to your medical information using a health care nikhil of your choosing, or just ask a question. You can enroll at [email or web address] or register during your next office visit. You have been discharged from [facility], Patient Care Unit: [id number]. If you have any questions regarding these instructions after you leave, please call us and we will be happy to assist you. [facility] Your Care Team Attending Physician Karyn PCIHARDO, Lionel Consulting Providers Jairo PICHARDO, Bird Oliva MD, Godfrey Discharging Providers Melissa LOCKETT, Jason Gutierrez Reason for Admission earlier today report of fall- pt resfuse transfer. this afternoon ass[facility] living called since visiting provider noticed increased wob- spo2 hypoxic in 80%s. supervising md spoke w pt of importance of going to hospital as was reticent to go. upon ems arri Your Diagnosis Acute renal failure Renal cell carcinoma Pneumothorax Diabetes mellitus type 2 in obese Hypertension Dyslipidemia Overactive bladder Thrombotic stroke Anemia Medication management Tests Performed Below is a partial list of the tests performed during your hospitalization. You may have had other tests and procedures not included in this list. Please discuss all test results with your provider. B12 Vitamin Level Basic Metabolic Panel CBC CBC w/ Differential Comprehensive Metabolic Panel COVID-19, RSV, and Flu A/B, Rapid PCR Ferritin Folate Level FREE T4 GLUCOSE POC HOLD LAVENDER TUBE Iron + Iron Binding Capacity Magnesium Level Microalbumin Urine Phosphorus Level Protein/Creatinine Ratio Urine PTH Intact TSH with T4 Reflex (Adults Only) UREA NITROGEN, URINE MG/DL Urinalysis w/hold for Urine Culture Urine Chloride Urine Creatinine Urine Osmolality Urine Sodium Urine Urea Nitrogen?-- Results Pending -- CT Abd/Pelvis W/ IV Contrast Only US Kidneys Comp XR Chest 2 Views Frontal and Lat ? You will be contacted within 72 hours with your results. Primary Care Provider Darlene PICHARDO, May A Advance Directive Health Care Proxy on File Yes - MOLST No qualifying data available. Discharge Vitals Temperature: 97.8 DegF Pulse Rate: 57 bpm Respiratory Rate: 18 br/min Systolic Blood Pressure: 111 mm Hg Systolic Blood Pressure: 111 mm Hg Diastolic Blood Pressure: 57 mm Hg Diastolic Blood Pressure: 57 mm Hg Oxygen Saturation: 96 % Studies Pending All tests and labs ordered during this hospital stay have been completed unless listed below. Please discuss all pending results with your provider listed above in these instructions. ?? Add On Lab Order COVID-19 (2019 Novel Coronavirus) PCR Free [place] and Lambda Light Chains Hold Lavender Tube (BB) Immunofixation Serum Methylmalonic Acid (METHYLMALONIC ACID, SERUM) Urea Nitrogen Urine (Urine Urea Nitrogen) What to do next Instructions From Your Doctor Discharge Orders You Need to Schedule the Following Appointments Follow Up with??Darlene PICHARDO, May A When?? Where: ?? Discharge Medications FORJENNIFER NELSON :1950 Visit Date:09/30/2022 Medications: Please continue your medications until treatment is completed or stopped by your provider. Medications not listed below should be discontinued. Discuss any questions related to medications with your provider. What How Much When Instructions Next Dose Changed Aspirin (aspirin 81 mg oral delayed release tablet) 1 tab(s) Oral Daily 10/08 9am Changed Atorvastatin (atorvastatin 40 mg oral tablet) 1 tab(s) Oral Daily 10/08 9am Changed Divalproex Sodium (divalproex sodium 125 mg oral delayed release capsule) 2 capsule Oral Twice a day 10/07 9pm Changed Mirtazapine (mirtazapine 7.5 mg oral tablet) 1 tab(s) Oral Daily at Bedtime 10/07 9pm Changed NIFEdipine (NIFEdipine (Eqv-Procardia XL) 90 mg oral tablet, extended release) 1 tab(s) Oral Daily 10/08 9am Changed Sertraline (sertraline 50 mg oral tablet) 1 tab(s) Oral Daily 10/08 9am Unchanged Bisacodyl (bisacodyl 10 mg rectal suppository) 1 suppository(ies) Per rectum Daily 10/08 9am Unchanged Cholecalciferol (Vitamin D3 1000 intl units oral tablet) 1 tab(s) Oral Daily 10/08 9am Unchanged Ferrous Gluconate (ferrous gluconate 324 mg oral tablet) 1 tab(s) Oral Daily 10/08 9am Unchanged Levothyroxine (levothyroxine 25 mcg (0.025 mg) oral capsule) 1 capsule Oral Daily 10/08 7a Unchanged Melatonin (melatonin 3 mg oral tablet) 1 tab(s) Oral Daily at Bedtime ttd=8 mg ?? 10/07 9pm Unchanged Melatonin (melatonin 5 mg oral tablet) 1 tab(s) Oral Daily at Bedtime as needed for for insomnia ttd=8 mg ?? 10/07 9pm Unchanged Metoprolol (Metoprolol Tartrate) 75 Milligram Oral Twice a day 10/07 9pm Unchanged Milk of Magnesia 3,600 Milligram Oral Daily at Bedtime 10/07 9pm Unchanged Multivitamin 1 tab(s) Oral Daily 10/08 9am Unchanged Nystatin Topical (nystatin topical 993147 u/ gm powder) 1 nikhil Topically Twice a day 10/07 9pm Unchanged Pantoprazole (pantoprazole 40 mg oral delayed release tablet) 1 tab(s) Oral Daily 10/08 9am Unchanged Rivastigmine (rivastigmine 1.5 mg oral capsule) 1 capsule Oral Twice a day 10/07 9pm Unchanged sodium bicarbonate (sodium bicarbonate 650 mg oral tablet) 1 tab(s) Oral Twice a day 10/07 9pm Unchanged Zinc Oxide Topical (Calmoseptine) Topically Twice a day applied liberally around anal region ?? 10/07 9pm ?? What How Much When Comments Stop Taking Oxybutynin (oxybutynin 15 mg/ 24 hr oral tablet, extended release) 1 tab(s) Oral Daily Stop Taking torsemide (torsemide 10 mg oral tablet) 1 tab(s) Oral Daily Test Results Below is a partial list of the most recent Laboratory test results done prior to this discharge. You may have had other tests and procedures not included in this list. Please discuss all test resultswith your provider. B12 Vitamin Level (10/03/2022) ???Vitamin B12 Level - 373 pg/mL Basic Metabolic Panel (10/04/2022) ???Sodium - 137 mmol/L???Potassium - 4.3 mmol/L???Chloride - 104 mmol/L???Bicarbonate Level - 24 mmol/L???Anion Gap - 9???Glucose Level - 136 mg/dL???BUN - 36 mg/dL???Creatinine-Blood - 1.4 mg/dL???Estimated GFR Creatinine - 55 ML/MIN/1.73 M2???Calcium - 8.0 mg/dL CBC (10/03/2022) ???WBC - 6.7 k/mm3???RBC - 2.42 m/mm3???Hgb - 7.5 Gm/dL???Hct - 23.5 %???MCV - 97.1 femtoliters???MCH - 31.0 pg???MCHC - 31.9 g/dL???Platelet Count - 137 k/mm3???RDW-SD - 49.5 femtoliters???MPV - 11.3 femtoliters???Nucleated RBC (Automated) - 0.0 #/100 WBC'S???Abs. NRBC - 0.0 k/mm3 CBC w/ Differential (09/30/2022) ???WBC - 10.7 k/mm3???RBC - 2.70 m/mm3???Hgb - 8.3 Gm/dL???Hct - 26.4 %???MCV - 97.8 femtoliters???MCH - 30.7 pg???MCHC - 31.4 g/dL???Platelet Count - 111 k/mm3???RDW-SD - 51.4 femtoliters???MPV - 12.0 femtoliters???Nucleated RBC (Automated) - 0.0 #/100 WBC'S???Abs. NRBC - 0.0 k/mm3???Abs. Neut - 8.7 k/mm3???Abs. Lymph - 0.8 k/mm3???Abs. [place] - 1.0 k/mm3???Abs. Eo - 0.1 k/mm3???Abs. Baso - 0.0 k/mm3???Neut % - 81.4 %???Lymph % - 7.7 %???[place]berry % - 8.9 %???Eos % - 1.0 %???Baso % - 0.3 %???Imm Gran- 0.7 %???Abs. Imm Gran - 0.1 k/mm3 Comprehensive Metabolic Panel (10/03/2022) ???Sodium - 138 mmol/L???Potassium - 4.6 mmol/L???Chloride - 104 mmol/L???Bicarbonate Level - 24 mmol/L???Anion Gap - 10???Glucose Level - 142 mg/dL???BUN - 38 mg/dL???Creatinine-Blood - 1.6 mg/dL???Estimated GFR Creatinine - 45 ML/MIN/1.73 M2???Calcium - 7.7 mg/dL???Protein, Total - 4.7 Gm/dL???Albumin - 2.9 Gm/dL???AG Ratio - 1.6???Alkaline Phosphatase - 64 units/L???AST (SGOT) - 51 units/L???ALT (SGPT) - 45 units/L???Bilirubin, Total - 0.4 mg/dL COVID-19, RSV, and Flu A/B, Rapid PCR (09/30/2022) ???Influenza A PCR - NEGATIVE???Influenza B PCR - NEGATIVE???RSV PCR - NEGATIVE???COVID-19 PCR Specimen Source - NASAL???COVID-19 PCR Result - NEGATIVE Ferritin (10/03/2022) ???Ferritin Level - 661 ng/mL Folate Level (10/03/2022) ???Folic Acid Level - 8.7 ng/mL FREE T4 (10/03/2022) ???Free T4 - 0.89 ng/dL GLUCOSE POC (10/07/2022) ???Glucose, POC - 130 mg/dL HOLD LAVENDER TUBE (10/04/2022) ???Hold Lavender Top - SPECIMEN DISCARDED AFTER 24 HOURS. Iron + Iron Binding Capacity (10/03/2022) ???Iron Level - 20 mcg/dL???Iron Binding Capacity, Unsaturated - 126 mcg/dL???Iron Binding Capacity, Estimated Total - 146 mcg/dL???% Iron Saturation - 14 % Magnesium Level (10/03/2022) ???Magnesium - 2.1 mg/dL Microalbumin Urine (10/02/2022) ???Malb/Creat Ratio - 693.8 mg/Gm???Urine Creat For Micro Alb - 146.5 mg/dL???Micro-Albumin - 1016.4 mg/L Phosphorus Level (10/03/2022) ???Phosphorus - 3.9 mg/dL Protein/Creatinine Ratio Urine (10/02/2022) ???Protein, Total Urine Random - 182 mg/dL???TP/Cr Ratio - 1.24???Creatinine, Urine - 146.5 mg/dL PTH Intact (10/03/2022) ???PTH, Intact - 96 pg/mL TSH with T4 Reflex (Adults Only) (10/03/2022) ???TSH - 5.34 uIU/mL UREA NITROGEN, URINE MG/DL (10/02/2022) ???Urea Nitrogen, Urine Random - 928.8 mg/dL Urinalysis w/hold for Urine Culture (10/02/2022) ???Appear/Color, Urine - YELLOW???Specific [place], Urine - 1.028???pH, Urine - 6.0???Albumin, Urine - 2+???Glucose, Urine - NEGATIVE???Ketones, Urine - NEGATIVE???Bilirubin, Urine - NEGATIVE???Hemoglobin, Urine - 3+???Nitrite, Urine - NEGATIVE???Leukocyte, Urine - 2+???Urobilinogen - NORMAL???WBC's, Urine - 65 /HPF? ?RBC's, Urine - 71 /HPF? ?Squamous Epith - <1 /HPF? ?Mucus - SLIGHT? ?Hold Urine Culture - Testing available 48 hours from time of collection. Urine Chloride (10/02/2022) ???Chloride, Urine Random - 20 mmol/L Urine Creatinine (10/02/2022) ???Creatinine, Urine Random - 146.5 mg/dL Urine Osmolality (10/02/2022) ???Osmolality, Urine Random - 549 mOsm/kg Urine Sodium (10/02/2022) ???Sodium, Urine Random - 31 mmol/L Allergies (NKA means No Known Allergies) NKA Problems Active Problems??(7) Hyperlipidemia?? Hypertension?? OAB (overactive bladder)?? Obese class I?? 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 Type 2 diabetes mellitus?? Education Materials Below is the list of Educational Leaflet Providered with your Discharge Instructions. Valuables and Belongings I fully understand and agree that [facility] accepts no responsibility for all my personal property including clothing, toilet articles, radios, jewelry, dentures, hearing aids, rings, money, or any other property that is in my possession or is brought to me after admission. I understand certain valuables may be placed in a hospital safe for a short period of time. I understand that the hospital is not liable for loss or damage due to accident, fire, or other natural occurrence while said property is in the safe. I accept full responsibility for any personal property that I keep with me, and will not hold the hospital responsible in case of loss or disappearance. I acknowledge that i have been encouraged to send valuables and belongings home. ? Other Discharge Information ? Case Management Discharge Plan?? Discharge Plan?? Discharge Agency Information?? Discharge Level of Care at Discharge: [facility] facility Service Categories #1: Physical Therapy, Care Home Discharge Transportation Arranged: [facility] [address] [facility] [address] [phone] ?? Mode of Transportation Arranged: Ambulance ?? Discharge Arranged Transport Date/Time: 10/07/22 13:00:00 ?? Discharge Nursing Homes/Rehab Facilities: [facility] ? Pulmonary Rehab Status?? Pulmonary Rehab Discharge Status?? Respiratory Rate: 18 br/min ? Common Emergency Awareness Tips IS IT A STROKE? Act FAST and Check for these signs: FACE Does the face look uneven? ARM Does one arm drift down? SPEECH Does their speech sound strange? TIME Call at any sign of stroke ?? Heart Attack Signs Chest discomfort: Most heart attacks involve discomfort in the center of the chest and lasts more than a few minutes, or goes away and comes back. It can feel like uncomfortable pressure, squeezing, fullness or pain. Discomfort in upper body: Symptoms can include pain or discomfort in one or both arms, back, neck, jaw or stomach. Shortness of breath: With or without discomfort. Other signs: Breaking out in a cold sweat, nausea, or lightheaded. Remember, MINUTES DO MATTER. If you experience any of these heart attack warning signs, call to get immediate medical attention! ?? Smoking can increase your chances of developing chronic health problems and can cause harmful effects to other family members in your house. If you smoke, you are strongly encouraged to quit. Please call [facility] Link at [phone] or [phone] ([phone]) or log in to [email or web address] for referrals to smoking cessation programs. ?? The National Suicide Prevention Hotline is available 09/05 if you or someone you know needs to find a reason to keep living. By calling 0-298-331-DrawQuest (1258) you'll be connected to a skilled, trained counselor at a crisis center in your area. INPATIENT DISCHARGE INSTRUCTIONS SIGNATURE PAGE JENNIFER TAPIA Location:[facility] Registration Date and Time:09/30/2022 23:32 EST Primary Care Physician: Darlene PICHARDO, February, I JENNIFER TAPIA, have received the above patient education materials/instructions and have verbalized understanding. If ambulance or transport services are being used I further acknowledge being given a choice of service. ?? If you need to contact me, please call me at this number: . Patient/Youth Minister Name: Patient/Youth Minister Signature: Relationship to Patient: Witness Name/Signature: Date: * Baljinder Mackenzie RN: PERFORM Event Display: Patient Education Leaflets Authored Date: [id number] Preventing Falls: Moving Safely Outside ?? 11477 Preventing Falls: Moving Safely Outside When stepping off a curb with a walker, lower the walker onto the street first, then step off the curb. Moving safely outside your home can be a challenge. Take care when walking up and down stairs and curbs. Wear sturdy, comfortable shoes and pay attention to where you step. Here are more tips to keepyou safe. Using curbs and stairs Curbs, steps, or uneven pavement can trip you. Take care when near them: ??? Check the height of a curb before stepping up or down. Be careful with uneven and cut-out sections of curbs. ??? Don't yousif when crossing the street. Watch for changes in pavement height. ??? On stairs, grasp the handrail and take one step at a time. If you ever feel dizzy on stairs, sit down until you feel better. ?? Wearing shoes that keep you safe When you shop for shoes, keep these things in mind: ??? Choose shoes with rubber or nonskid soles. Athletic shoes are a good choice. ??? Choose flats or shoes with low heels. Avoid high heels or platforms. ??? Choose footwear that is sturdy and fits well. Don't wear flip-flops or backless shoes or slippers. ??? Don't walk around in stocking feet. Shoes are your safest bet, even when indoors. If you like, keep a pair of shoes just for indoors. ?? Tips when carrying objects Carrying objects can be hard, especially if you use a cane or walker. These tips can make it easier: ??? Use a rolling cart to carry things like groceries. ??? Wear clothes with large pockets for carrying small objects or wear a dang pack. ??? Divide large loads into smaller loads. That way, you can always keep one hand free to grasp railings. ??? Don't carry objects that block your view. That'sa sure way to trip. ?? Last Reviewed Date: 2020 ?? 5375-8483 [employer]. All rights reserved. This information is not intended as a substitute for professional medical care. Always follow your healthcare professional's instructions. ?? * Baljinder Mackenzie RN: PERFORM Event Display: Patient Education Leaflets Authored Date: [id number] Preventing Falls at Home ?? 53658 Preventing Falls at Home A person can fall for many reasons. Older adults may fall because reaction time slows as we age. Your muscles and joints may get stiff, weak, or less flexible because of illness, medicines, or a physical condition. Other health problems that make falls more likely include: ??? Arthritis ??? Dizziness or lightheadedness when you stand up (orthostatic hypotension) ??? History of a stroke ??? Dizziness ??? Anemia ??? Certain medicines taken for mental illness or to control blood pressure. ??? Problems with balance or gait ??? Bladder or urinary problems ??? History of falling ??? Changes in vision (vision impairment) ??? Changes in thinking skills and memory (cognitive impairment) ??? Muscle weakness ??? Excessive alcohol use Falls can cause serious injuries, such as head trauma, broken bones, dislocated joints, internal bleeding, and cuts. Injuries like these can limit your independence. Prevention tips To help prevent falls and fall-related injuries, follow the tips below.?? Floors To make floors safer:? Put nonskid pads under area rugs. ??? Remove small rugs. ??? Replace worn floor coverings. ??? Tack carpets firmly to each step on carpeted stairs. Put nonskid strips on the edges of uncarpeted stairs. ??? Keep floors and stairs free of clutter and cords. ??? Keep floors and stairs clear of animal and children's toys ??? Arrange furniture so there are clear pathways. ??? Clean up any spills right away. Don't walk on wet floors. Bathrooms To make bathrooms safer:? Install grab bars in the tub or shower. ??? Install a raised (elevated) toilet or toilet seat. ??? Apply nonskid strips or put a nonskid rubber mat in the tub or shower. ??? Sit on a bath chair to bathe. ??? Use bathmats with nonskid backing. Lighting To improve visibility in your home:? Keep a flashlight in each room. Or put a lamp next to thebed within easy reach. ??? Put nightlights in the bedrooms, hallways, kitchen, and bathrooms. ??? Make sure all stairways have good lighting. There should be a light switch at the bottom and the top of each stairway. ?? Other changes to make ??? Look around to find any safety hazards. Look closely at doorways, walkways, and the driveway. Remove or repair any safety problems that you find. ??? Wear shoes that fit well. Never go barefoot or wear socks or slippers with smooth soles. ??? See your eye care provider once a year if you wear glasses. This is to be sure the prescription is still right for you. ??? Take your time when going up and down stairs; always use handrails. Never carry items in both hands. ??? Wear an alert necklace or bracelet if you are already prone to falling. ??? Put handrails on both sides of stairs and in walkways for more support. To prevent injury to your wrist or arm, don???t use handrails to pull yourself up. ??? Use a reach stick to grab [id number] items. ??? Install grab bars wherever needed to pull yourself up. ??? Arrange items that you use often. This will make them easier to find or reach. ??? Keep track of where your pets are so you don't trip over them when you are walking. ?? Last Reviewed Date: 2022 ?? [id number] [employer]. All rights reserved. This information is not intended as a substitute for professional medical care. Always follow your healthcare professional's instructions. ?? * Baljinder Mackenzie RN: PERFORM Event Display: Patient Education Leaflets Authored Date: [id number] Preventing Falls at Home ?? Preventing Falls at Home - Video Watch this video to learn common precautions you can take to help prevent falls and keep you safe during your at-home recovery. To view the video go to this web address: [email or web address] Or, scan this QR code with your smart phone ?? [employer] ?? * Kaia Peterson RN, I: PERFORM Event Display: Discharge/Transfer Note Hospital Authored Date: [id number] Discharge Planning Nursing Entered On: 10/04/2022 19:52 EST Performed On: 10/04/2022 8:00 EST by Kaia Peterson RN, I Discharge Planning Nursing Anticipated discharge : Unable to determine Kaia Peterson RN, I - 10/04/2022 19:52 EST * ARTUR Lazo S: TRANSCRIMarietta Guillen MD: VERIFY Event Display: Result: Authored Date: [id number] Chest 2 Views Frontal and Lat Reason: Other:; hypoxia; Clinical Question(s): Pneumothorax COMPARISON: 09/29/2022 FINDINGS: LINES AND TUBES: Previously noted small bore right basilar pleural tube is not definitely visualized on the current radiograph LUNGS AND PLEURA: Clear lungs. Normal pulmonary vascularity. Probable trace bilateral pleural effusions. Previously noted trace right apical pneumothorax is no longer seen. HEART, MEDIASTINUM AND NANCY: Prominent cardiac silhouette Normal mediastinal and hilar contour. BONES AND SOFT TISSUES: No acute abnormality. IMPRESSION: Previously noted trace right apical pneumothorax is no longer seen. Previously noted small caliber right basilar chest tube is not clearly visualized. Probable trace bilateral pleural effusions. WSN: [id number] Ordering Physician: Karlee Hand Dictated By: Marietta Blount MD Dictated Date/Time: 09/30/22 5:59 pm Reviewed By: Marietta Blount MD Signed By: Marietta Blount MD Signed Date/Time: 09/30/22 5:59 pm Transcribed By: SHANI Transcribed Date/Time: 09/30/22 5:[address] Abdomen and Pelvis W contrast IV * ARTUR Lazo S: TRANSCStephan Walker MD: VERIFY Luis Hurt DO: SIGN Event Display: Result: Authored Date: [id number] CT Abd/Pelvis W/ IV Contrast Only REASON: s p right renal cryoablation, abd pain, SILVIA; Clinical Question(s): renal hematoma or complication from recent cryoablation Hx of Present Illness: reports the doctor at [facility] thought I was short of breath. pt denies. Spo2 hypoxic in 80%s. On arrival pt showed no visible resp distress or hypoxia; TECHNIQUE: Spiral CT through the abdomen and pelvis with IV contrast formatted in 3 planes. 100 cc of Omnipaque 300 was administered intravenously. This study was performed without oral contrast. Weight-based protocol using automatic tube modulation was used to optimize exposure parameters. CTDIvol Body: 28.60 mGy, DLP Body: 1702 mGy*cm. COMPARISON: CT abdomen and pelvis 06/27/2022, images from CT-guided ablation 09/28/2022. FINDINGS: Records Management Manager View Findings, Lines and Tubes: None. Visualized Chest: Small right pleural effusion and adjacent atelectasis. Trace locules of pleural air in the anterior lung base. Patient with known apical pneumothorax on the right. Upper limit normal heart size. Diaphragm: Normal. Liver: Normal. Gallbladder: No CT evidence of gallbladder pathology. Bile ducts: No biliary ductal dilation. Spleen: Normal. Pancreas: Normal. Adrenal glands: Normal. Kidneys and ureters: Hypoenhancing right renal mass measuring 5.5 x 6.8 x 7.5 cm (AP by TR by CC), increased from prior.There is surrounding soft tissue stranding in the right retroperitoneal space. Left upper pole cyst measuring 3.9 cm. Bladder: Fluid in the bladder measures soft tissue attenuation. No bladder wall thickening. Reproductive organs: Unremarkable. Stomach, small bowel, and large bowel: Small type I hiatal hernia, otherwise unremarkable stomach. Small bowel loops are nondilated, no evidence of obstruction. Mild colonic diverticulosis. Appendix: Normal (image 26 series 201). Peritoneum and retroperitoneum: Trace amount of fluid thickening the left posterior pararenal fascia. No ascites or pneumoperitoneum. No omental or mesenteric lesions. Lymph nodes: No enlarged lymph nodes. Blood vessels: Mild vascular calcifications but no aneurysm. No evidence of venous thrombosis. Abdominal and pelvic wall: Mild bilateral flank edema. Small fat-containing left inguinal hernia. Bones: No acute abnormality. IMPRESSION: Hypoenhancing 7.5 cm right renal mass. Increase in size and decreased enhancement likely related topost ablation changes. No large areas of hemorrhage/hematoma. There is soft tissue stranding surrounding the ablation site in the right retroperitoneal space thickening of the anterior and posterior perirenal fascia, may represent a combination of postbiopsy change, edema and blood products. Active hemorrhage is not suspected. If there is ongoing clinical concern for hemorrhage, short-term follow-up CT could be obtained. Small right pleural effusion and adjacent atelectasis. Trace locules of air in the right pleural space in the setting of a known prior pneumothorax. I have personally reviewed the images and I agree with this report. WSN: [id number] Ordering Physician: Karlee Hand By: Luis Hurt DO Dictated Date/Time: 09/30/22 10:46 p Reviewed By: Stephan Christiansen MD Signed By: Stephan Christiansen MD Signed Date/Time: 09/30/22 10:51 pm Transcribed By: SHANI Transcribed Date/Time: 09/30/22 10:20 pm US Retroperitoneum * BHSPowerscribe , CIS S: TRANSCRIBE Stephan Christiansen MD: VERIFY Luis Hurt DO: SIGN Event Display: Result: Authored Date: [id number] US Retroperitoneum Comp REASON: silvia; Clinical Question(s): Acute Renal Failure; renal failure r o obstruction. Status post cryoablation of a right renal mass 09/28/2022. COMPARISON: Correlation CT abdomen pelvis 09/30/2022. FINDINGS: Right kidney: 11.3 cm in length. No hydronephrosis. Normal parenchymal thickness and echotexture. No stones. 6.2 cm heterogeneous hyperechoic mass in the upper pole without significant vascularity. Left kidney: 11.5 cm in length. No hydronephrosis. Normal parenchymal thickness and echotexture. Nostones. No suspicious mass. Few simple cysts, largest measuring 3.6 cm in the upper pole. Urinary bladder: Nonvisualized. IMPRESSION: No evidence of renal obstruction. Right upper pole renal mass measuring 6.2 cm, not significantly changed in size. I have personally reviewed the images and I agree with this report. WSN: [id number] Ordering Physician: Godfrey Oliva Dictated By: Luis Hurt DO Dictated Date/Time: 10/02/22 8:33 pm Reviewed By: Stephan Christiansen MD Signed By: Stephan Christiansen MD Signed Date/Time: 10/02/22 8:38 pm Transcribed By: SHANI Transcribed Date/Time: 10/02/22 8:31 pm Patient Care team information Care Team Personnel Name: Neelima Colon MD Position: [facility] Physician (General Medicine) Member Role: PCP Address: Address: [address] [place] [address] [address] [place] [address]- Name: Julia Cain RN Position: S RN Member Role: Primary Care Nurse Name: Baljinder Mackenzie RN Position: [facility] RN Member Role: Primary Care Nurse Name: Luis Gaona MD Position: [facility] Renal MD Member Role: Lifetime Consulting Physician Address: Address: [address] [place] [address] [facility] [place], [place] [address] Name: Kaylan Rose LPN Position: [facility] RN Member Role: Primary Care Nurse Name: Herminia Escobedo RN Position: [facility] RN Member Role: Primary Care Nurse Name: Kaia Peterson RN, I Position: [facility] RN Member Role: Primary Care Nurse Name: Janay AVALOS Attending Position: [facility] ED Medicine MD Name: Danna De Anda Position: [facility] ED OA Charge Member Role: ED Associate Name: Carey Lowe Position: [facility] ED RN W/OE and Tasks Member Role: Patient Care Provider Name: Ivett Izquierdo Position: [facility] ED TA [facility] Member Role: Patient Care Provider Name: Sylvia Ford RN Position: [facility] ED RN W/OE and Tasks Member Role: Patient Care Provider Care Team Related Persons Name: RENITA SR Name: CORRIE HERNÁNDEZ Address: home [address] [place] [address]
--- OUTSIDE RECORDS SUMMARY | 2023-01-07 02:03 | XMS_ITS | Continuity of Care Document ---
Author Name Unknown Organization [facility] Address [address] [place] [address]- Care Team Providers Care Apprentice Instrument Technician Name Role Phone Teofilo Ramirez MD Primary Care Physician Encounter [facility] Date(s): 12/02/22 - 12/09/22 [facility] [address] [place] [address]- Attending Physician: Obey Melendez MD Admitting Physician: Obey Melendez MD Allergies, Adverse Reactions, Alerts No Known [...] opioid drug. Start Date: 10/01/22 Status: Ordered Metoprolol Tartrate = 75 mg, By Mouth, [...] Start Date: 07/22/22 Status: Ordered nystatin topical 399905 u/gm powder 1 application, Topically, 2 times [...] EC Tablet Start Date: 10/01/22 Status: Ordered rivastigmine 1.5 mg oral capsule 1.5 mg, [...] Confirmed Active 1With metal coiling and stenting Social History Social History Type Response Smoking Status Never smoker entered on: 03/18/15 Sex Note * Event Display: Adult Preadmission Health Questionnaire Authored Date: [id number] * Nora PICHARDO, Thangogu: PERFORM Event Display: IR Office Follow-up Note Authored Date: [id number] Patient: ??JENNIFER DESAI ? Age:??72 Years?Sex:??Male?:??1950?? Telemedicine Service was provided using telemedicine Chief Complaint Post renal mass cryoablation follow up Reason For Visit MRI RESULTS History of Present Illness 72 year old male with a right renal cell carcinoma, post cryoablation. Operative course??complicated by readmission to the hospital for hypoxia??and mild SILVIA,??largely resolved by discharge. ??Spent a month in rehab, now back in assisted living at [facility]. Review of Systems Denies flank pain or hematuria. Physical Exam Deferred, phone visit. Assessment/Plan 72 year old male with large right renal cancer, post cryoablation on 09/28/22. Doing better now. MRI??shows the ablated??mass, patient declined contrast so unable to evaluate for??viable??residualtumor. Of note, CT on 09/30/2022??(monophasic postcontrast) showed??high pole dense lesion relative to therest of the kidney, but again unable to comment on??viability??as assessment for enhancement not??feasible). ?? We will recommend resumption of surveillance by Dr. Mike??and strongly encourage CT??renal mass protocol if kidney function allows,??versus MRI renal mass protocol??with contrast??to assess for??any residual??or recurrent viable tumor. Telehealth Time of direct telehealth encounter/medical discussion:??11 minutes The patient was located in??a residential ([facility] assisted living)??setting in the [facility] during this Phone electronic televisit, and gave consent to conduct the visit via telehealth. Provider was located in a [facility] office . Persons other than patient involved in televisit included: family member: _Eusebia Hernández (proxy) Total Time Spent I personally spent a total of _25 minutes, including both [id number] and [id number]-[id number] time onthe date of the encounter, addressing the above diagnoses. ?? 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 Type 2 diabetes mellitus Historical No qualifying data Procedure/Surgical History Vascular coiling - aneurism, intraranial 2007 Medications aspirin 81 mg oral delayed release tablet, 81 mg= 1 tablet, By Mouth, Daily atorvastatin 40 mg oral tablet, 40 mg= 1 tablet, By Mouth, Daily bisacodyl 10 mg rectal suppository, 10 mg= 1 supp, Rectally, Daily Calmoseptine, Topically, 2 times a day, applied liberally around anal region divalproex sodium 125 mg oral delayed release capsule, 250 mg= 2 capsule, By Mouth, 2 times a day ferrous gluconate 324 mg oral tablet, 324 mg= 1 tablet, By Mouth, Daily levothyroxine 25 mcg (0.025 mg) oral capsule, 25 mcg= 1 capsule, By Mouth, Daily melatonin 3 mg oral tablet, 3 mg= 1 tablet, By Mouth, Daily at bedtime, ttd=8 mg melatonin 5 mg oral tablet, 5 mg= 1 tablet, By Mouth, Daily at bedtime, PRN, ttd=8 mg Metoprolol Tartrate, 75 mg, By Mouth, 2 times a day Milk of Magnesia, 3600 mg, By Mouth, Daily at bedtime mirtazapine 7.5 mg oral tablet, 7.5 mg= 1 tablet, By Mouth, Daily at bedtime Multivitamin, 1 tablet, By Mouth, Daily NIFEdipine (Eqv-Procardia XL) 90 mg oral tablet, extended release, 90 mg= 1 tablet, By Mouth, Daily nystatin topical 850068 u/gm powder, 1 application, Topically, 2 times a day pantoprazole 40 mg oral delayed release tablet, 40 mg= 1 tablet, By Mouth, Daily rivastigmine 1.5 mg oral capsule, 1.5 mg= 1 capsule, By Mouth, 2 times a day sertraline 50 mg oral tablet, 50 mg= 1 tablet, By Mouth, Daily sodium bicarbonate 650 mg oral tablet, 650 mg= 1 tablet, By Mouth, 2 times a day Vitamin D3 1000 intl units oral tablet, 25 mcg= 1 tablet, By Mouth, Daily Allergies NKA Social History Tobacco Never smoker, 03/18/2015 Never smoker, 01/16/2015 Family History Other: Leyva aneurysm Diagnostic Results (11/25/2022 13:40 EST MRI Abdomen W/O Contrast) ??Evaluation for residual or recurrent viable tumor is limited without intravenous contrast (declined by patient). The treated mass in the right kidney upper pole now measures 5.5 x 4.8 x 6.4 cm, decreased from 6.8 x 5.5 x 6.[address] 09/30/2022, but similar in size compared to preablation CT 06/27/2022.?? [1] ?? (09/30/2022 21:[address] Abd/Pelvis W/ IV Contrast Only) ? Hypoenhancing 7.5 cm right renal mass. Increase in size and decreased enhancement likely related topost ablation changes. No large areas of hemorrhage/hematoma. [2] Images Capture.JPG Ablated mass in the right kidney. [1]??MRI Abdomen W/O Contrast; Not on Staff , SANDIE PICHARDO 11/25/2022 13:40 EST [2]??CT Abd/Pelvis W/ IV Contrast Only; Stephan Christiansen MD 09/30/2022 21:22 EST * Aury Schafer: PERFORM, SIGN, VERIFY Event Display: Patient Education/Instruction Authored Date: [id number] [facility] *[facility] [address] Clinical Summary Name JENNIFER DESAI Age 72 Years 1950 PCP Teofilo Ramirez MD PCP Visit Date 12/02/2022 06:44:00 Additional Instructions: Scheduled Appointments?? Future Appointments ?No Future Appointments Scheduled Follow-Up Instructions ?? Diagnosis Medications: Please continue your medications until treatment is completed or stopped by your provider. Discuss any questions related to medications with your provider. Medications to Continue with No Changes These medications were not printed or sent to your pharmacy Aspirin (aspirin 81 mg oral delayed release tablet) 1 tab(s) Oral Daily. Next Dose: Atorvastatin (atorvastatin 40 mg oral tablet) 1 tab(s) Oral Daily. Next Dose: Bisacodyl (bisacodyl 10 mg rectal suppository) 1 suppository(ies) Per rectum Daily. Next Dose: Cholecalciferol (Vitamin D3 1000 intl units oral tablet) 1 tab(s) Oral Daily. Next Dose: Divalproex Sodium (divalproex sodium 125 mg oral delayed release capsule) 2 capsule Oral twice a day. Next Dose: Ferrous Gluconate (ferrous gluconate 324 mg oral tablet) 1 tab(s) Oral Daily. Next Dose: Levothyroxine (levothyroxine 25 mcg (0.025 mg) oral capsule) 1 capsule Oral Daily. Next Dose: Melatonin (melatonin 3 mg oral tablet) 1 tab(s) Oral Daily at Bedtime. ttd=8 mg. Next Dose: Melatonin (melatonin 5 mg oral tablet) 1 tab(s) Oral Daily at Bedtime as needed for insomnia. ttd=8mg. Next Dose: Metoprolol (Metoprolol Tartrate) 75 Milligram Oral twice a day. Next Dose: Milk of Magnesia 3,600 Milligram Oral Daily at Bedtime. Next Dose: Mirtazapine (mirtazapine 7.5 mg oral tablet) 1 tab(s) Oral Daily at Bedtime. Next Dose: Multivitamin 1 tab(s) Oral Daily. Next Dose: NIFEdipine (NIFEdipine (Eqv-Procardia XL) 90 mg oral tablet, extended release) 1 tab(s) Oral Daily. Next Dose: Nystatin Topical (nystatin topical 544052 u/gm powder) 1 nikhil Topically twice a day. Next Dose: Pantoprazole (pantoprazole 40 mg oral delayed release tablet) 1 tab(s) Oral Daily. Next Dose: Rivastigmine (rivastigmine 1.5 mg oral capsule) 1 capsule Oral twice a day. Next Dose: Sertraline (sertraline 50 mg oral tablet) 1 tab(s) Oral Daily. Next Dose: sodium bicarbonate (sodium bicarbonate 650 mg oral tablet) 1 tab(s) Oral twice a day. Next Dose: Zinc Oxide Topical (Calmoseptine) Topically twice a day. applied liberally around anal region. Next Dose: Allergy Info:?? NKA Medications Given This Visit Future Orders ?No future orders Vital Signs Height Weight BMI Blood Pressure / Temperature Pulse Rate Respiratory Rate 02 Sat Mode of Delivery / You can now view a summary of your hospital visit from the comfort of your home through a free online portal called [employer]. [employer] is a website that allows you to securely view your medical information including discharge summary, medications and follow-up visits. ??You can alsosend a secure electronic message to your doctor???s office to request appointments, renew medications or just ask a question. You can enroll at [email or web address] or register during your next office visit. Disclaimer:?? The information provided is of a general nature and is intended to be used in conjunction with the recommendations and advice of your health care practitioner. ??Every effort has been made to ensure that the information provided is accurate and complete at the time it is provided to you however, as your needs change, or, as new ??information becomes available, different or additional instructions may be required. If you have questions, please consult with your primary care provider or pharmacist, as appropriate. ??This information is not intended to serve as substitution for assessment and evaluation by a qualified health care provider. If you do not have a primary care provider, you may find a [facility] provider by calling [facility] at [phone]. For information about the plan of care including goals and instructions for your diagnosis, please see the patient education orders section of this document. Patient Education Materials?? The content of this educational material or handout may have been modified, supplemented, or adapted from its original content and format to support your individualized medical care. Patient Care team information Care Team Personnel Name: Teofilo aRmirez MD Position: [facility] Primary Care Physician Member Role: PCP Address: Address: [address] [place] [address] Adult & Pediatric Medicine [address] Name: Julia Cain RN Position: S RN Member Role: Primary Care Nurse Name: Obey Melendez MD Position: [facility] Physician (General Medicine) Member Role: Lifetime Consulting Physician Address: Address: [address] [place] [address] Radiology and Imaging [address] Name: Bajlinder Mackenzie RN Position: [facility] RN Member Role: Primary Care Nurse Name: Luis Gaona MD Position: [facility] Renal MD Member Role: Lifetime Consulting Physician Address: Address: [address] [place] [address] [facility] [address] Name: Kaylan Rose LPN Position: S RN Member Role: Primary Care Nurse Name: Herminia Escobedo RN Position: S RN Member Role: Primary Care Nurse Name: Kaia Peterson RN, I Position: S RN Member Role: Primary Care Nurse Care Team Related Persons Name: RENITA SR Name: EUSEBIA HERNÁNDEZ Address: home [address] [place] [address]
--- OUTSIDE RECORDS SUMMARY | 2023-01-07 02:03 | XMS_ITS | Continuity of Care Document ---
Author Name Unknown Organization [facility] Address [address] [place] [address]- Care Team Providers Care Sign Painter Apprentice Name Role Phone Teofilo Ramirez MD Primary Care Physician [phone] Encounter [facility] Date(s): 07/22/22 - 08/21/22 [facility] [address] [place], [place] [address] Attending Physician: Tate Little Admitting Physician: AdmtrTate Referring Physician: AdmtrTate Allergies, Adverse Reactions, Alerts No Known Allergies Immunizations Given and Recorded Vaccine Date Status Refusal Reason pneumococcal 23-valent vaccine 1 08/17/14 Given 1Admin Note: Knapp Medications amlodipine 5 mg oral tablet 1 tablet = 5 mg, By Mouth, Daily, # 30 tablet, 0 Refills, Maintenance, 02/17/15 8:07:23, Tablet Start Date: 02/17/15 Status: Ordered Aspirin 0 Refills, Maintenance, 02/17/15 8:07:10 Start Date: 02/17/15 Status: Ordered atorvastatin 40 mg oral tablet 1 tablet = 40 mg, By Mouth, Daily, # 90 tablet, 0 Refills, Maintenance, 07/22/22 10:40:00 EDT, Tablet, Partial fill upon patient request if the prescription is for a schedule II opioid drug. Start Date: 07/22/22 Status: Ordered atorvastatin 40 mg oral tablet [...] opioid drug. Start Date: 04/09/21 Status: Ordered clonidine 0.2 mg oral tablet 1 tablet = 0.2 mg, By Mouth, 2 times a day, # 60 tablet, 0 Refills, Maintenance, 02/17/15 8:08:52, Tablet Start Date: 02/17/15 Status: Ordered Compression Stockings See Instructions, # 5 each, Refills 0, Tot. Refills 0, Maintenance, surgical, calf length 20-30 mm Hg Dx: venous insufficiency with inflammation, history of cellulitis, 08/21/21 9:50:00 EDT, Supply Start Date: 08/21/21 Status: Ordered divalproex sodium 125 mg oral delayed release capsule 0 Refills, Maintenance, 07/22/22 10:38:00 EDT, Partial fill upon patient request if the prescription is for a schedule II opioid drug. Start Date: 07/22/22 Status: Ordered Fleet Enema Rectally, Once, 0 Refills, Maintenance, 04/09/21 10:16:00 EDT, Partial fill upon patient request ifthe prescription is for a schedule II opioid drug. Start Date: 04/09/21 Status: Ordered metformin 500 mg oral tablet 1 tablet = 500 mg, By Mouth, 2 times a day, # 60 tablet, 0 Refills, Maintenance, 02/17/15 8:08:22, Tablet Start Date: 02/17/15 Status: Ordered Metoprolol Tartrate 2 times a day, 0 Refills, Maintenance, 03/18/15 16:09:45 Start Date: 03/18/15 Status: Ordered Milk of Magnesia By Mouth, Daily at bedtime, 0 Refills, Maintenance, 04/09/21 10:08:00 EDT, Partial fill upon patient request if the prescription is for a schedule II opioid drug. Start Date: 04/09/21 Status: Ordered mirtazapine 7.5 mg oral tablet 0 Refills, Maintenance, 07/22/22 10:38:00 EDT, Partial fill upon patient request if the prescription is for a schedule II opioid drug. Start Date: 07/22/22 Status: Ordered NIFEdipine (Eqv-Procardia XL) 90 mg oral tablet, extended release 0 Refills, Maintenance, 07/22/22 10:38:00 EDT, Partial fill upon patient request if the prescription is for a schedule II opioid drug. Start Date: 07/22/22 Status: Ordered oxybutynin 15 mg/24 hr oral tablet, extended release 0 Refills, Maintenance, 07/22/22 10:38:00 EDT, Partial fill upon patient request if the prescription is for a schedule II opioid drug. Start Date: 07/22/22 Status: Ordered oxybutynin 5 mg oral tablet 1 tablet = 5 mg, By Mouth, 2 times a day, # 30 tablet, 0 Refills, Maintenance, 02/17/15 8:08:43, Tablet Start Date: 02/17/15 Status: Ordered sertraline 50 mg oral tablet 0 Refills, Maintenance, 07/22/22 10:38:00 EDT, Partial fill upon patient request if the prescription is for a schedule II opioid drug. Start Date: 07/22/22 Status: Ordered Zestoretic 12.5 mg-20 mg oral tablet 1 tablet, By Mouth, Daily, # 30 tablet, 0 Refills, Maintenance, 02/17/15 8:07:52, Tablet Start Date: 02/17/15 Status: Ordered Problem List Condition Confirmation Course Effective Dates Status H ealth Status Informant OAB (overactive bladder) Confirmed Active Thrombotic CVA with secondary intracranial hemorrhage Confirmed 12/17/14 Active Ruptured aneurysm of intracranial artery - 2007 1 Confirmed Active Hyperlipidemia Confirmed Active Hypertension Confirmed Active Type 2 diabetes mellitus Confirmed Active 1With metal coiling and stenting Social History Social History Type Response Smoking Status Never smoker entered on: 03/18/15 Sex Patient Care team information Personnel Name: James PICHARDO, Teofilo Edmondson Address: Address: [address] [place] [address] Adult & Pediatric Medicine [place], [place] [address]
--- OUTSIDE RECORDS SUMMARY | 2023-01-07 02:03 | XMS_ITS | Continuity of Care Document ---
Author Name Unknown Organization [facility] Address [address] [place] [id number]- Care Team Providers Care Financial Controller Name Role Phone Teofilo Ramirez MD Primary Care Physician Encounter [facility] [place] Date(s): 08/16/22 - 09/15/22 [facility] [address] [place] [address]- Allergies, Adverse Reactions, Alerts No Known Allergies [...] on: 03/18/15 Sex Patient Care team information Care Team Personnel Name: Teofilo Ramirez MD Position: S Primary Care Physician Member Role: PCP Address: Address: [address] [place] [address] Adult & [place] [address]- Care Team Related Persons Name: RENITA SR Name: CORRIE HERNÁNDEZ Address: home [address] [place] [address]
--- OUTSIDE RECORDS SUMMARY | 2023-01-07 02:03 | XMS_ITS | Continuity of Care Document ---
Author Name Unknown Organization [facility] Address [address] [place] [address]- Care Team Providers Care Dial Buffer Name Role Phone Teofilo Ramirez MD Primary Care Physician Encounter [facility] [place] Date(s): 12/02/22 - 01/01/23 [facility] [address] [place], [place] [address] Attending Physician: Tate Little Admitting Physician: Tate Little Referring Physician: Tate Little Referring Physician: Lianna Ramon Allergies, Adverse Reactions, Alerts No Known Allergies [...] Start Date: 07/22/22 Status: Ordered nystatin topical 183336 u/gm powder 1 application, Topically, 2 times [...] 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 Confirmed Active Hyperlipidemia Confirmed Active Hypertension Confirmed Active Obese class I Confirmed Active Type 2 diabetes mellitus Confirmed Active 1With metal coiling and stenting Social History Social History Type Response Smoking Status Never smoker entered on: 03/18/15 Sex Patient Care team information Care Team Personnel Name: Teofilo Ramirez MD Position: [facility] Primary Care Physician Member Role: PCP Address: Address: [address] [place] [address] Adult & Pediatric Medicine [address] Name: Julia Cain RN Position: [facility] RN Member Role: Primary Care Nurse Name: Obey Melendez MD Position: [facility] Physician (General Medicine) Member Role: Lifetime Consulting Physician Address: Address: [address] [place] [address] Radiology and Imaging [address] Name: Baljinder Mackenzie RN Position: [facility] RN Member Role: Primary Care Nurse Name: Luis Gaona MD Position: [facility] Renal MD Member Role: Lifetime Consulting Physician Address: Address: [address] [place] [address] [facility] [place], [place] [address] Name: Kaylan Rose LPN Position: [facility] RN Member Role: Primary Care Nurse Name: Herminia Escobedo RN Position: [facility] RN Member Role: Primary Care Nurse Name: Kaia Peterson RN, I Position: [facility] RN Member Role: Primary Care Nurse Care Team Related Persons Name: RENITA SR Name: CORRIE HERNÁNDEZ Address: home [address] [place] [address]
--- OUTSIDE RECORDS SUMMARY | 2023-01-07 02:03 | XMS_ITS | Continuity of Care Document ---
Author Name Unknown Organization [facility] ter Address [address] [place] [id number]- Care Team Providers Care Aerospace Stress Engineer Name Role Phone Toefilo Ramirez MD Primary Care Physician Encounter [facility] Date(s): 09/28/22 - 09/29/[address] [address]- Discharge Disposition: A-Transfer SNF Attending Physician: Obey Melendez MD Admitting Physician: Obey Melendez MD Referring Physician: Obey Melendez MD Allergies, Adverse Reactions, [...] opioid drug. Start Date: 07/22/22 Status: Ordered Vitamin D3 1000 intl units oral tablet 1 tablet = 25 mcg, By Mouth, Daily, 0 Refills, Maintenance, 09/28/22 12:58:00 EST, Partial fill upon patient request if the prescription is for a schedule II opioid drug. Start Date: 09/28/22 Status: Ordered Zestoretic 12.5 mg-20 mg oral [...] Exam Date Time Procedure Performing Provider Status 09/29/22 8:50 AM Chest Single Frontal View Vale Alonzo; Auth (Verified) Notes: (Chest Single Frontal View) Reason For Exam: Postop RESULT: Chest Single Frontal View Chest Single Frontal View Reason: Postop; Clinical Question(s): Pneumothorax COMPARISON: 09/29/2022 at 6:08 AM. FINDINGS: LINES AND TUBES: Smallbore right basilar pleural tube in place unchanged. LUNGS AND PLEURA: Clear lungs. Normal pulmonary vascularity. No pleural effusion. Persistent 4 mm right apical pneumothorax. HEART, MEDIASTINUM AND NANCY: Heart is normal in size. Normal mediastinal and hilar contour. BONES AND SOFT TISSUES: No acute abnormality. IMPRESSION: Small caliber right basilar chest tube remains in place. 4 mm residual right apical pneumothorax isseen. WSN: [id number] Ordering Physician: Crow Gagnon Dictated By: Tao Benavides MD, V Dictated Date/Time: 09/29/22 11:20 a Reviewed By: Tao Benavides MD, V Signed By: Tao Benavides MD, V Signed Date/Time: 09/29/22 11:20 am Transcribed By: SHANI Transcribed Date/Time: 09/29/22 11:19 am * Exam Date Time Procedure Performing Provider Status 09/29/22 6:02 AM Chest 2 Views Frontal and Lat Charan , Annalee; Auth (Verified) Notes: (Chest 2 Views Frontal and Lat) Reason For Exam: Tube Placement;Tube Placement RESULT: Chest 2 Views Frontal and Lat Chest 2 Views Frontal and Lat Reason: Tube Placement; Clinical Question(s): Pneumothorax; Order Comment: yasmeen Benavides to bedone on 09 29 22 tomorrow AM . MAVERICK 09 28 22 1915hrs COMPARISON: None. FINDINGS: LINES AND TUBES: Small caliber right basilar chest tube in place. The patient is status post cryoablation of a largeright renal mass.. LUNGS AND PLEURA: Clear lungs. Normal pulmonary vascularity. No pleural effusion. There is a small right apical pneumothorax measuring 5.4 mm in size. HEART, MEDIASTINUM AND NANCY: Heart is normal in size. Normal mediastinal and hilar contour. BONES AND SOFT TISSUES: No acute abnormality. IMPRESSION: Small bore right pleural tube in place in the right lower chest. 5.4 mm right apical pneumothorax is seen. WSN: [id number] Ordering Physician: Obey Melendez Dictated By: Tao Benavides MD, V Dictated Date/Time: 09/29/22 11:18 a Reviewed By: Tao Benavides MD, V Signed By: Tao Benavides MD, V Signed Date/Time: 09/29/22 11:18 am Transcribed By: SHANI Transcribed Date/Time: 09/29/22 11:16 am * Exam Date Time Procedure Performing Provider Status 09/28/22 2:52 PM IR End of Case Report Mo dified IR End of Case Report * Exam Date Time Procedure Performing Provider Status 09/28/22 6:[address] Guidance Tissue Ablation Auth (Verified) Notes: (CT Guidance Tissue Ablation) Reason For Exam: RIGHT KIDNEY CANCER CT Guidance Tissue Ablation Patient: JENNIFER DESAI Study Date: 09/28/2022E Performing: Obey Melendez MD Referring: : 1950 Age: 72 Gender: MALE PROCEDURE: CT guided cryoablation of right renal tumor. INDICATION: Renal cell carcinoma MANAGER ACTION(S): Obey Melendez MD ANESTHESIA: Local anesthesia and general anesthesia TECHNIQUE: Informed consent was obtained. PQRS: Appropriate venous thromboembolism prophylaxis was ordered immediately after the procedure (mechanical prophylaxis with intermittent compression boots). A limited CT scan of the right kidney was performed using automatic tube current modulation to optimize dose parameters. A suitable access site was identified, marked, prepped, and draped in standard fashion. Local anesthesia was administered. Using intermittent CT fluoroscopy guidance, 6 x 2.4 [employer]ocare cryoprobes were advanced into the target lesion. A 10 [place] chest tube was placed into the iatrogenic pneumothorax that developed during placement of the 5th probe. Cryoablation of the tumor was performed using an 07/24/10 protocol for all 6 probes then the cranial three probes were actively frozen for an additional 14 minutes to promote lethal ice formation at the tumor apex. Limited scans of the lesion were performed during the ablation to assess coverage of the lesion. Ice ball coverage over the entirety of the tumor was assessed. The 10 Fr chest tube was upsized to a 12 Fr that was advanced into the anterior right chest to improve pneumothorax. A completion post ablation scan was performed. COMPLICATIONS: Small amount of perirenal hemorrhage and pneumothorax. PLAN: Routine post procedure monitoring. Chest tube to suction overnight, reassess for pneumothorax resolution in the morning. Renal mass protocol MRI in 1 month to assess treatment response. IMPRESSION: CT guided cryoablation of a right renal tumor. Signed By Obey Melendez MD On 09/28/2022 18:12:24 Signed By Obey Melendez MD On 09/28/2022 18:12:24 Obey Melendez MD Equipment : [employer]. PROBE CRYO 2.4 [employer], [employer]. PROBE CRYO 2.4 [employer], [employer]. PROBE CRYO 2.4 [employer], [employer]. PROBE CRYO 2.4 [employer], [employer]. PROBE CRYO 2.4 [employer], [employer]. PROBE CRYO 2.4 [employer] DILATOR COOK 8FR JANEL INTRODUCER NEEDLE 19 X 7 [employer] URINARY KIT W /CONN TUBE Cook FIXED CORE WIRE GUIDE 0.035 x 80cm [employer] CATH RESOLVE 10FR NONLOCK MAQUET ATRIUM DRAIN CHEST DRY ADULT [employer] CATH RESOLVE 12FR NONLOCK Dictated By: Obey Melendez MD Dictated Date/Time: 09/28/22 2:52 pm Reviewed By: Obey Melendez MD Signed By: Obey Melendez MD Signed Date/Time: 09/28/22 6:12 pm Transcribed By: AMY Transcribed Date/Time: 09/28/22 6:12 pm Vital Signs Most recent to oldest [Reference Range]: 1 2 3 Height 173.8 cm (09/29/22 3:19 AM) 173.8 cm (09/28/22 9:31 PM) 173.8 cm (09/28/22 12:27 PM) Weight 99.5 kg (09/28/22 9:31 PM) 99.5 kg (09/28/22 12:27 PM) Oxygen Saturation [94-100 %] 97 % (09/29/22 12:00 PM) 93 % *L* (09/29/22 11:00 AM) 100 % (09/29/22 10:00 AM) Pulse Rate [55-90 bpm] 69 bpm (09/29/22 12:00 PM) 65 bpm (09/29/22 11:00 AM) 69 bpm (09/29/22 10:00 AM) Body Mass Index [18.5-24.99 kg/m2] 32.94 kg/m2 *>HHI* (09/28/22 9:31 PM) Blood Pressure [90-138/55-84 mm Hg] 114/49mm Hg (09/29/22 12:00 PM) 180/84mm Hg *H* (09/29/22 11:00 AM) 129/59mm Hg (09/29/22 10:00 AM) Respiratory Rate [16-30 br/min] 17 br/min (09/29/22 12:00 PM) 16 br/min (09/29/22 11:00 AM) 16 br/min (09/29/22 10:00 AM) Temperature [96.8-100.4 DegF] 98.7 DegF (09/29/22 12:00 PM) 100.2 DegF (09/29/22 11:00 AM) 98.8 DegF (09/29/22 7:00 AM) Liters per Minute 6 L/min (09/28/22 6:30 PM) Mode of Delivery (Oxygen) Room air (09/29/22 11:00 AM) Room air (09/29/22 10:00 AM) Room air (09/29/22 7:00 AM) Blood pressure sites Arm, left (09/29/22 11:00 AM) Arm, left (09/29/22 7:00 AM) Arm, left (09/29/22 3:19 AM) Temperature Route Oral (09/29/22 11:00 AM) Oral (09/29/22 7:00 AM) Oral (09/29/22 3:19 AM) Dry Weight 99.5 kg (09/28/22 9:31 PM) 99.5 kg (09/28/22 12:27 PM) Social History Social History Type Response Smoking Status Never smoker entered on: 03/18/15 Sex Hospital Progress note * Herminia Escobedo RN: PERFORM, SIGN, VERIFY Event Display: Progress Note Hospital Authored Date: [id number] Patient: JENNIFER DESAI Age: 72 years Sex: Male : 1950 Associated Diagnoses: None Author: Herminia Escobedo RN Findings Problem Related to Alteration in Comfort : Alteration in Comfort/new 09/29/2022 7:00 EST Alteration in Comfort Related to Surgery Goals & Outcomes: Comfort Pt will report acceptable level of comfort & pain control, Pt will state importance of adhering to pain strategy regime, Pt will demonstrate necessary skills to manage pain, Non-verbal indicators will indicate comfort/pain control Interventions Implemented: Comfort Assess pain using appropriate pain scale/tools, Assess aggravating factors & prevent them accordingly, Assess alleviating factors & promote them accordingly BH Goals/Interventions, Comfort Yes Comfort, Problem Start 09/28/2022 22:54 Reviewed plan with, Comfort Patient Patient Progression, Comfort Pt progressing according to plan Comfort, Problem Ongoing Yes . Narrative/Incidental Pt A&Ox3, noted to be whifty at time, vital signs stable, CMS WNL. Pt denies pain multiple times this morning but noted to wince when turning. Pt denies nausea/vomiting, shortness of breath or chest pain. +PP with edema to BLLE, pt refusing sequential compression devices, leg noted to be scaly.Lungs clear. right flank chest tube to water seal with sero/sang output. abdomen soft round nontender with +BSx4. tolerating diet well. pt incontinent of urine. DSD to right mid back remains clean dry and intact, surrounding skin noted to be edematous. pt resting in bed, alarmed for safety, call ba within reach, pt able to make needs known. . * Crow Coughlin: SIGN, MODIFY, PERFORM, SIGN, VERIFY, SIGN Event Display: Progress Note Hospital Authored Date: [id number] Patient: JENNIFER DESAI Age: 72 years Sex: Male : 1950 Associated Diagnoses: None Author: Crow Coughlin Subjective Patient s/p cryoablation right renal mass 09/29/2022. Patient doing well pain is 1 on 10 point painscale. Breathing comfortably, denies SOB. Patient eager for discharge. Objective General: NAD, breathing comfortably. Chest tube in place, sutures intact, attached to Pleur-evac with serous fluid in tubing. Pleur-evac attached to low wall suction -20 cm. No air leak noted. Tube insertion site is clean, no surrounding erythema or edema. No palpable chest wall crepitus. Assessment Patient s/p cryoablation right renal mass with right pneumothorax requiring tube thoracostomy. Plan Patients pain is well controlled. No air leak, therefore suction d/c, chest tube to waterseal. Willrepeat plain chest film in 2-3 hours, if normal plan to pull chest tube and hopefully d/c home. * Crow Coughlin: PERFORM Event Display: Progress Note Hospital Authored Date: Chest tube removed at bedside. H&H, plain chest films reviewed with Dr Melendez. Patient eager for discharge, Dr Melendez agrees he is safe for discharge. * Karlee Melgoza RN: PERFORM, SIGN, VERIFY Event Display: Progress Note Hospital Authored Date: Patient: JENNIFER DESAI Age: 72 years Sex: Male : 1950 Associated Diagnoses: None Author: Karlee Melgoza RN Findings Problem Related to Alteration in Comfort : Alteration in Comfort/new 09/28/2022 22:00 EST Alteration in Comfort Related to Surgery Goals & Outcomes: Comfort Pt will report acceptable level of comfort & pain control, Pt will state importance of adhering to pain strategy regime, Pt will demonstrate necessary skills to manage pain, Non-verbal indicators will indicate comfort/pain control Interventions Implemented: Comfort Assess pain using appropriate pain scale/tools, Assess aggravating factors & prevent them accordingly, Assess alleviating factors & promote them accordingly BH Goals/Interventions, Comfort Yes Comfort, Problem Start 09/28/2022 22:54 Reviewed plan with, Comfort Patient Patient Progression, Comfort Plan Initiation Comfort, Problem Ongoing Yes . Nursing Data Gastrointestinal Data. : Gastrointestinal Data. 09/28/2022 22:57 EST Last Bowel Movement 09/27/2022 GI WNL . Integumentary Data. : Integumentary Data. 09/28/2022 22:57 EST Skin Integrity Not intact Integumentary WNL except . Musculoskeletal Data. : Musculoskeletal Data. 09/28/2022 22:57 EST Musculoskeletal Symptoms Weakness Musculoskeletal WNL except . Vital Signs : VITAL SIGNS SECTION 09/28/2022 21:31 EST Temperature 97.7 DegF Temperature Route Oral Pulse Rate 65 bpm Respiratory Rate 20 br/min Systolic Blood Pressure 131 mm Hg Diastolic Blood Pressure 97 mm Hg H Blood pressure sites Leg, right Mean Arterial Pressure 108 mm Hg Pulse Pressure 34 mm Hg Oxygen Saturation 95 % Mode of Delivery (Oxygen) Room air 09/28/2022 20:00 EST Heart Rate Monitored 60 bpm Respiratory Rate 11 br/min L Systolic Blood Pressure 153 mm Hg H Diastolic Blood Pressure 78 mm Hg Blood pressure sites Leg, right Pulse Pressure 75 mm Hg Oxygen Saturation 95 % Mode of Delivery (Oxygen) Room air . Narrative/Incidental Patient arrived [facility] via stretcher from PACU at 2100. Oriented to room and call ba. Patient is alert and oriented X3. VSS. Fluids running per MD orders. Maintaining pain control with prn PO dilaudid. Lungs are diminished on room air. Right flank chest tube to -[address] Denies any SOB or difficulties breathing. Patient has +pedal pulses and 3+ edema to BLE. Refusing compression boots. Patient has +bowel sounds X4 quadrants. Denies any nausea or vomiting. abdomen is soft and non-tender. Tolerating a diabetic diet. Incontinent of urine. Brief in place. Patient refusing to get outof bed at this time. Will continue to offer and explain importance. Skin is dry and flakey. Right flank chest tube dressing is clean, dry and intact. Mid back DSD is clean and intact. Swelling/soft under dressing. BLE with redness and scaly. Buttocks is pink, EPC applied. Will obtain AM chest x-rayper order. Patient is resting comfortably at this time with call ba in reach and bed in locked, lowest position with bed alarm on for safety. . Note * Pascale Everett RN: PERFORM Event Display: Discharge/Transfer Note Hospital Authored Date: [id number] Nursing Discharge Note Entered On: 09/29/2022 16:31 EST Performed On: 09/29/2022 16:20 EST by Pascale Everett RN Nursing Discharge Note 2 Discharge Time : 09/29/2022 15:30 EST Discharge Level of Care at Discharge : Home/[facility] Patient Left Unit Via : Chair Van Patient Accompanied Off Unit with : Ambulance/Chair Van Personnel Handover Given to Transport Personnel : Yes DC Instructions Provided & Signed by Pt : Yes Patient Understands D/C Instructions : Yes Patient Instructions Discharge Signed : Yes Discharge Comments : Right hand IV removed with catheter tip intact. Per Dr. Melendez pt to continuemedications as previously prescribed. Called [facility] and notified of pts discharge. Did Pt have Specialty Bed or Wound Vac : No Pascale Everett RN - 09/29/2022 16:20 EST * Pascale Everett RN: PERFORM, MODIFY Event Display: Patient Education/Instruction Authored Date: Inpatient Adult Discharge Instructions [address] [address] Name: JENNIFER DESAI : 1950 Visit: 09/28/2022 11:37:00 Current Date: 09/29/2022 14:58 Account: [id number] Inpatient Adult Discharge Instructions We would like [...] and their families. Surveys are administered by [email or web address] ?? If further treatment with your primary care physician or another doctor is recommended, it is important for you to keep the appointment. Call your primary care physician or return to the Emergency Department immediately if your condition worsens, fails to improve, or new symptoms develop. If you need to find a doctor, you can call [facility] for a referral at [phone] or toll free at [phone]) or log in to [email or web address].. ?? You can view and manage your care through the patient portal or by using a health care nikhil of your choosing. [employer] is a website that allows you to securely view your medical information including your hospital discharge summary, office visit summaries, medications and follow-up visits. You can also request appointments, renew medications, and request access to your medical information using a health care nikhil of your choosing, or just ask a question. You can enroll at [email or web address] or register during your next office visit. You have been discharged from [facility], Patient Care Unit: S3. If you have any questions regarding these instructions after you leave, please call us and we will be happy to assist you. [facility] Your Care Team Attending Physician Nora PICHARDO, [facility] Discharging Providers Crow Coughlin A Reason for Admission Cryoablation Your Diagnosis Cancer determined by renal biopsy Tests Performed Below is a partial list of the tests performed during your hospitalization. You may have had other tests and procedures not included in this list. Please discuss all test results with your provider. CBC Comprehensive Metabolic Panel H + H HOLD GEL TUBE HOLD GREEN TUBE INR Magnesium Level Type and Screen CT Guidance Tissue Ablation CT Pleural Drainage w/dwelling cath?-- Results Pending -- XR Chest 2 Views Frontal and Lat XR Chest Single Frontal View ? You will be contacted within 72 hours with your results. Primary Care Provider James PICHARDO, Teofilo Edmondson Advance Directive Health Care Proxy on File Yes - MOLST No qualifying data available. Discharge Vitals Temperature: 98.7 DegF Height: 173.8 cm Pulse Rate: 69 bpm Weight: 99.5 kg Respiratory Rate: 17 br/min Body Mass Index:??32.94 kg/m2??Critical Systolic Blood Pressure: 114 mm Hg Body surface area: 2.19 Diastolic Blood Pressure:??49 mm Hg??Low ?? Oxygen Saturation: 97 % ?? Studies Pending All tests and labs ordered during this hospital stay have been completed unless listed below. Please discuss all pending results with your provider listed above in these instructions. ?? CT Pleural Drainage w/dwelling cath What to do next Instructions From Your Doctor ?? Discharge Instructions for cryoablation of the kidney tumor ?? After Your Procedure ??? Once you are awake, you will go to a short-stay unit the hospital. A different nurse will monitor you there. ??? You will most likely be able to eat and drink. Your family may visit you. ??? When you are fully awake and are able to eat, use the restroom, and walk, you will be able to go home. ??? Complications are rare. If they occur, we may need to keep you in the hospital overnight so that we can monitor you or treat you. ??? Before you leave the hospital, your nurse will tell you what activities you can do, how to takecare of your incision, and other important instructions. ??? Given your prior history of urinary retention after surgery, you may need to go home with an indwelling jimenez catheter in place. If this is the case, you will need to follow up with your urologist as well.? When You Get Home ??? Relax at home for the rest of the day. Make sure you have a family member, friend, or caregiverto help you. You may feel drowsy or have some short-term memory loss. ??? For 24 hours, do not:?- Drive a car or use machinery?- Drink alcohol?- Make important personal decisions or sign legal documents?- Be responsible for the care of another person ??? There is usually only mild to moderate pain after an ablation. If your doctor says it is OK foryou to take acetaminophen (Tylenol), this should ease any discomfort you have. If your doctor expects you to have more severe pain, you will receive a prescription for a stronger pain medicine. ??? Resume taking your medicines as soon as you start to eat. Take only the medicines that your doctors prescribed or approved. ??? You may be given medicines to help prevent infection or stomach ulcers. Take all of your medicines as prescribed until they are gone. ?? When to Call Your Doctor Call your doctor immediately if you have any of the following: ?Bleeding from the ablation site ?Dizziness or lightheadedness ?Sudden or increased shortness of breath ?Sudden chest pain ?Fever above 100.4??F ?Shaking chills ?Increasing redness, tenderness, or swelling at the ablation site ?Increasing pain, with or without activity ?? [facility] Radiology staff are also available to help. ?? Who to Call ?? Interventional Radiology ........................ ........................ ..........................................[phone] Procedure Scheduling .......................................................... ......................................[phone] After hours (between 5 p.m. and 7 a.m.), and on weekends and holidays : Ask for the Interventional Radiologist front clerk ??.............................................................................. .....................[phone] If You Have an Emergency :?? Go directly to the nearest Emergency Room or call . Do not wait to contact one of our staff. Interventional Radiology, [facility], [place] [address] ? Discharge Orders Do Not lift anything heavy over 10 pounds for 10 days Call the surgeons office if you have any worsening pain at incision site [phone] Keep your follow up appointment Call for increasing redness, swelling, or fever for any signs of infection Return to the hospital if you have worsening shortness of breath No tub baths, swimming for a week Resume your usual medications You Need to Schedule the Following Appointments Follow Up with??Nora PICHARDO, Obey When??Within 1 month Why: Swathi Pabon??([phone]) will schedule your follow up MRI in 1 month and I will follow up with you after that (in person or via telemedicine). Please call me at [phone] for any questions or concerns. Where: [address] [place] [address]- [phone] - Radiology Test Results Below is a partial list of the most recent Laboratory test results done prior to this discharge. You may have had other tests and procedures not included in this list. Please discuss all test resultswith your provider. CBC (09/28/2022) ???WBC - 7.1 k/mm3???RBC - 3.23 m/mm3???Hgb - 10.0 Gm/dL???Hct - 31.4 %???MCV - 97.2 femtoliters???MCH - 31.0 pg???MCHC - 31.8 g/dL???Platelet Count - 157 k/mm3???RDW-SD - 50.0 femtoliters???MPV - 11.8 femtoliters???Nucleated RBC (Automated) - 0.0 #/100 WBC'S???Abs. NRBC - 0.0 k/mm3 Comprehensive Metabolic Panel (09/28/2022) ???Sodium - 141 mmol/L???Potassium - HEMOLYZED???Chloride - 102 mmol/L???Bicarbonate Level - 29 mmol/L???Anion Gap - 10???Glucose Level - 85 mg/dL???BUN - 33 mg/dL???Creatinine-Blood - 1.3 mg/dL???Estimated GFR Creatinine - 58 ML/MIN/1.73 M2???Calcium - 8.8 mg/dL???Protein, Total - 6.0 Gm/dL???Albumin - 3.6 Gm/dL???AG Ratio - 1.5???Alkaline Phosphatase - 80 units/L???AST (SGOT) - HEMOLYZED???ALT (SGPT) - 11 units/L???Bilirubin, Total - 0.6 mg/dL H + H (09/29/2022) ???Hgb - 9.3 Gm/dL???Hct - 28.4 % HOLD GEL TUBE (09/28/2022) ???Hold Gel Top - SPECIMEN DISCARDED AFTER 1 WEEK HOLD GREEN TUBE (09/28/2022) ???Hold Green Top - SPECIMEN DISCARDED AFTER 1 WEEK INR (09/28/2022) ???INR - 1.1???Protime (PT) - 11.2 seconds Magnesium Level (09/28/2022) ???Magnesium - 2.0 mg/dL Type and Screen (09/28/2022) ???Blood Type - O Positive???Antibody Screen - Negative Allergies (NKA means No Known Allergies) NKA Problems Active Problems??(7) Hyperlipidemia?? Hypertension?? OAB (overactive bladder)?? Obese class I?? 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 Type 2 diabetes mellitus?? Education Materials Below is the list of Educational Leaflet Providered with your Discharge Instructions. Valuables and Belongings I fully understand and agree that [facility] accepts no responsibility for all my [...] encouraged to send valuables and belongings home. ?? Review of Valuable and Belonging List: With patient Date for Pt to Sign Valuables/Belongings: 09/29/22 14:40:00 ?? Other Discharge Information ? Pulmonary Rehab Status?? Pulmonary Rehab Discharge Status?? Respiratory Rate: 17 br/min ? Common Emergency Awareness Tips IS [...] are strongly encouraged to quit. Please call [facility] [facility] [place] [facility] at [phone] or [phone] [employer] Monitoring (7318) or log in to [email or web address] for referrals to smoking cessation programs. ?? The National Suicide Prevention Hotline is available 09/05 if you or someone you know needs to find a reason to keep living. By calling 4-342-446-[facility] (0128) you'll be connected to a skilled, trained counselor at a crisis center in your area. INPATIENT DISCHARGE INSTRUCTIONS SIGNATURE PAGE JENNIFER DESAI Location:[facility] Registration Date and Time:09/28/2022 11:37 EST Primary Care Physician: James PICHARDO, Teofilo Edmondson, I JENNIFER DESAI, have received the above patient education materials/instructions and have verbalized understanding. If ambulance or transport services are being used I further acknowledge being given a choice of service. ?? If you need to contact me, please call me at this number: . Patient/Natural Sciences Manager Name: Patient/Natural Sciences Manager Signature: Relationship to Patient: Witness Name/Signature: Date: * [facility] , CIS S: TRANSCRIBE Kennedy PICHARDO, Tao V: VERIFY Event Display: Result: Authored Date: [id number] Chest 2 Views Frontal and Lat Reason: Tube Placement; Clinical Question(s): Pneumothorax; Order Comment: pr Dr. Benavides to bedone on 09 29 22 tomorrow AM . MAVERICK 09 28 22 1915hrs COMPARISON: None. FINDINGS: LINES AND TUBES: Small caliber right basilar chest tube in place. The patient is status post cryoablation of a largeright renal mass.. LUNGS AND PLEURA: Clear lungs. Normal pulmonary vascularity. No pleural effusion. There is a small right apical pneumothorax measuring 5.4 mm in size. HEART, MEDIASTINUM AND NANCY: Heart is normal in size. Normal mediastinal and hilar contour. BONES AND SOFT TISSUES: No acute abnormality. IMPRESSION: Small bore right pleural tube in place in the right lower chest. 5.4 mm right apical pneumothorax is seen. WSN: [id number] Ordering Physician: Obey Melendez Dictated By: Tao Benavides MD, V Dictated Date/Time: 09/29/22 11:18 a Reviewed By: Tao Benavides MD, V Signed By: Tao Benavides MD, V Signed Date/Time: 09/29/22 11:18 am Transcribed By: SHANI Transcribed Date/Time: 09/29/22 11:16 am * Event Display: IR End of Case Report CT Guidance for ablation of tissue of Unspecified body region * Obey Melendez MD: PERFORM, TRANSCRIBE, VERIFY, VERIFY Event Display: Result: Authored Date: [id number] Patient: JENNIFER DESAI Study Date: 09/28/2022 Performing: Obey Melendez MD Referring: : 1950 Age: 72 Gender: MALE PROCEDURE: CT guided cryoablation of right renal tumor. INDICATION: Renal cell carcinoma MANAGER ACTION(S): Obey Melendez MD ANESTHESIA: Local anesthesia and general anesthesia TECHNIQUE: Informed consent was obtained. PQRS: Appropriate venous thromboembolism prophylaxis was ordered immediately after the procedure (mechanical prophylaxis with intermittent compression boots). A limited CT scan of the right kidney was performed using automatic tube current modulation to optimize dose parameters. A suitable access site was identified, marked, prepped, and draped in standard fashion. Local anesthesia was administered. Using intermittent CT fluoroscopy guidance, 6 x 2.4 Endocare cryoprobes were advanced into the target lesion. A 10 [place] chest tube was placed into the iatrogenic pneumothorax that developed during placement of the 5th probe. Cryoablation of the tumor was performed using an 10/8/10/5 protocol for all 6 probes then the cranial three probes were actively frozen for an additional 14 minutes to promote lethal ice formation at the tumor apex. Limited scans of the lesion were performed during the ablation to assess coverage of the lesion. Ice ball coverage over the entirety of the tumor was assessed. The 10 Fr chest tube was upsized to a 12 Fr that was advanced into the anterior right chest to improve pneumothorax. A completion post ablation scan was performed. COMPLICATIONS: Small amount of perirenal hemorrhage and pneumothorax. PLAN: Routine post procedure monitoring. Chest tube to suction overnight, reassess for pneumothorax resolution in the morning. Renal mass protocol MRI in 1 month to assess treatment response. IMPRESSION: CT guided cryoablation of a right renal tumor. Signed By Obey Melendez MD On 09/28/2022 18:12:24 Signed By Obey Melendez MD On 09/28/2022 18:12:24 Obey Melendez MD Equipment : [employer], [employer]. PROBE CRYO 2.4 [employer], [employer]. PROBE CRYO 2.4 [employer], [employer]. PROBE CRYO 2.4 [employer], [employer]. PROBE CRYO 2.4 [employer] PROBE CRYO 2.4 [employer] PROBE CRYO 2.4 Cook DILATOR COOK 8FR JANEL INTRODUCER NEEDLE 19 X 7 [employer] URINARY KIT W /CONN TUBE [employer] FIXED CORE WIRE GUIDE 0.035 x 80cm [employer] CATH RESOLVE 10FR NONLOCK MAQUET ATRIUM DRAIN CHEST DRY ADULT [facility] CATH RESOLVE 12FR NONLOCK Dictated By: Obey Melendez MD Dictated Date/Time: 09/28/22 2:52 pm Reviewed By: Obey Melendez MD Signed By: Obey Melendez MD Signed Date/Time: 09/28/22 6:12 pm Transcribed By: AMY Transcribed Date/Time: 09/28/22 6:12 pm XR Chest AP * [facility]SP[facility]erscribe , CIS S: TRANSCRIBE Kennedy PICHARDO, Tao V: VERIFY Event Display: Result: Authored Date: [id number] Chest Single Frontal View Reason: Postop; Clinical Question(s): Pneumothorax COMPARISON: 09/29/2022 at 6:08 AM. FINDINGS: LINES AND TUBES: Smallbore right basilar pleural tube in place unchanged. LUNGS AND PLEURA: Clear lungs. Normal pulmonary vascularity. No pleural effusion. Persistent 4 mm right apical pneumothorax. HEART, MEDIASTINUM AND NANCY: Heart is normal in size. Normal mediastinal and hilar contour. BONES AND SOFT TISSUES: No acute abnormality. IMPRESSION: Small caliber right basilar chest tube remains in place. 4 mm residual right apical pneumothorax isseen. WSN: [id number] Ordering Physician: Crow Gagnon Dictated By: Tao Benavides MD, V Dictated Date/Time: 09/29/22 11:20 a Reviewed By: Tao Benavides MD, V Signed By: Tao Benavides MD, V Signed Date/Time: 09/29/22 11:20 am Transcribed By: SHANI Transcribed Date/Time: 09/29/22 11:19 am Patient Care team information Care Team Personnel Name: Teofilo Ramirez MD Position: [facility] Primary Care Physician Member Role: PCP Address: Address: [address] [place] [address] Adult & Pediatric [facility] [place], [place] [address] Name: Kaylan Rose LPN Position: S RN Member Role: Primary Care Nurse Name: Herminia Escobedo RN Position: S RN Member Role: Primary Care Nurse Care Team Related Persons Name: RENITA SR Name: CORRIE HERNÁNDEZ Address: [address] [place] [address]
[2023-01-07 02:16] LABS: Alanine Aminotransferase 11 U/L (0-40); Albumin Level 3.3 g/dL (3.5-5.0); Alkaline Phosphatase 88 U/L (39-117); Anion Gap 15 (12-20); Aspartate Amino Transferase 14 U/L (5-37); B Type Natriuretic Peptide 98 pg/mL (<100); Bilirubin Total 0.6 mg/dL (0.0-1.0); Blood Urea Nitrogen 26 mg/dL (9-16); Calcium 8.1 mg/dL (8.4-10.2); Carbon Dioxide 26 mmol/L (22-29); Chloride 106 mmol/L (96-108); Creatinine Clr Calc Pharmacy 47.7; Estimated Glomerular Filt Rate 45; Glucose Random 145 mg/dL (60-115); Potassium 4.3 mmol/L (3.3-5.1); Sodium 143 mmol/L (135-145); Total Protein 5.4 g/dL (6.5-8.0)
--- NOTE | 2023-01-07 03:50 | PC.NURSE ---
TC made to the [facility] regarding pts fall. Jamila from the [facility] reports that pt was sitting on the toilet and slid down to the floor, leaning the head on the wall for support. Jamila also reports pt has chronic bilateral lower leg cellulitis for about a year and that pt returned from rehab not too long ago and that the cellulitis has worsen over the past two weeks. made aware of this information.
[2023-01-07 03:51] VITALS: BP 122/64; PULSE 73; RESP 16; TEMP 36.9; O2SAT 99
[2023-01-07] MEDS: Doxycycline Monohydrate 100 MG CAPSULE PO (05:15)
[2023-01-07] MEDS: cephALEXin 500 MG CAPSULE PO (05:15)
[2023-01-07 06:10] VITALS: BP 130/66; PULSE 85; RESP 16; TEMP 37.1; O2SAT 99
[2023-01-07] MEDS: Acetaminophen 325 MG TABLET 975 MG PO (08:18)
[2023-01-07 10:05] VITALS: BP 161/72; PULSE 76; RESP 18; O2SAT 97
--- NOTE | 2023-01-07 10:06 | MHC.EDTECH ---
Late note- approx time 0730. pt found this morning to be soiled with urine and hardened old and new stool. pt cleaned, bedding changed and patient repositioned. bed rails raised and call ba given.
== END 2023-01-07 11:03 | disposition skilled nursing facility (03) ==
PROVIDERS: Internal Medicine; Emergency Provider Student in an Organized Health Care Education/Training Program; PCP Physician Assistant Medical
DX: R60.0 Localized edema (principal); R51.9 Headache, unspecified; G47.33 Obstructive sleep apnea (adult) (pediatric); R06.02 Shortness of breath; M54.2 Cervicalgia; I87.2 Venous insufficiency (chronic) (peripheral); L03.116 Cellulitis of left lower limb; L03.115 Cellulitis of right lower limb; Z79.899 Other long term (current) drug therapy
CPT/HCPCS: 36415; 70450; 72125; 80053; 83880; 85025; 85379; 93005; 93970; 99284

== ENCOUNTER 2023-03-22 18:29 | Inpatient (IN) | payer MEDICARE, SELFPAY ==
--- NOTE | ~2023-03-22 | XR_ITS ---
EXAMINATION: XR CHEST CLINICAL INFORMATION: Pneumonia COMPARISON: 06/27/2022 TECHNIQUE: Frontal view of the chest was obtained. FINDINGS: No significant abnormality is noted involving the heart, lungs, mediastinum, bony thorax or soft tissues. Lungs are mildly hypoinflated. Some minimal left basilar atelectasis is seen XR/XR chest 1V IMPRESSION: No acute intrathoracic disease.
[2023-03-22 18:37] VITALS: BP 180/92; PULSE 84; O2SAT 98
[2023-03-22 18:42] VITALS: BP 134/51; PULSE 78; RESP 18; TEMP 38.1; O2SAT 94; BMI 58.9
--- NOTE | 2023-03-22 18:57 | MHC.EDTECH ---
when attempting to draw labs on pt, pt became anxious. pt screamed in pain when t/w was preparing to draw blood, no needle yet inserted. pt reeducated on importance of staying still during blood draw. when t/w inserted needle, pt bent elbow immediately. t/w retracted needle, informed pt that moving during blood draw is unacceptable behavior. rn aware.
--- NOTE | 2023-03-22 19:18 | ED_ITS ---
HPI - General Adult General Chief complaint: General Medical Stated complaint: bilat cellulitis legs Time Seen by Provider: 03/22/23 18:37 Source: patient Mode of arrival: EMS Limitations: other ( Dementia) History of Present Illness HPI narrative: patient comes to the emergency room complaining of bilateral lower extremity erythema. Patient has history of dementia, unclear how accurate the stories. Patient states that his lower extremities have been erythematous for over 2 years but latelyhis legs have been hurting quite a bit. Also, the staff reported to EMS that the patient has been spiking fever. Related Data Home Medications Medication Instructions Recorded Confirmed aspirin 81 mg tablet,delayed 81 mg PO DAILY 06/27/22 03/17/23 release atorvastatin 40 mg tablet 1 tab PO DAILY 06/27/22 03/17/23 melatonin 3 mg tablet 8 mg PO BEDTIME PRN Insomnia 06/27/22 03/17/23 metoprolol tartrate 25 mg tablet 3 tab PO BID 06/27/22 03/17/23 mirtazapine 7.5 mg tablet 1 tab PO BEDTIME 06/27/22 03/17/23 multivitamin 1 tab PO DAILY 06/27/22 03/17/23 nifedipine 90 mg tablet,extended 1 tab PO DAILY 06/27/22 03/17/23 release 24 hr nystatin 100,000 unit/gram topical 1 appl topical BID 06/27/22 03/17/23 powder oxybutynin chloride 15 mg 1 tab PO DAILY 06/27/22 03/17/23 tablet,extended release 24 hr sertraline 50 mg tablet 1 tab PO DAILY 06/27/22 03/17/23 acetaminophen 325 mg tablet 325 mg PO QID PRN Pain 08/12/22 03/17/23 amiloride 5 mg tablet 1 tab PO DAILY 08/12/22 03/17/23 bisacodyl 10 mg rectal suppository 10 mg PA DAILY PRN Constipation 08/12/22 03/17/23 cholecalciferol (vitamin D3) 25 1 tab PO QAM 08/12/22 03/17/23 mcg (1,000 unit) tablet lisinopril 20 mg tablet 1 tab PO DAILY 08/12/22 03/17/23 magnesium hydroxide 400 mg/5 mL 400 mg PO DAILY PRN Pain 08/12/22 03/17/23 oral suspension (Milk of Magnesia) melatonin 5 mg tablet 1 tab PO BEDTIME 08/12/22 03/17/23 olanzapine 2.5 mg tablet 1 tab PO BEDTIME 08/12/22 03/17/23 Previous Rx's Medication Instructions Recorded divalproex 125 mg capsule,delayed 250 mg PO BID #60 caps 07/15/22 release sprinkle cephalexin 500 mg capsule 500 mg PO QID 10 days #40 caps 01/07/23 doxycycline hyclate 100 mg tablet 100 mg PO BID #20 tabs 01/07/23 Allergies Allergy/AdvReac Type Severity Reaction Status Date / Time No Known Allergies Allergy Verified 03/17/23 14:03 Review of Systems Review of Systems: Constitutional : No Weight loss, No Fever, No Chills, No Night Sweats, No Fatigue, No Malaise ENT/Mouth : No Hearing loss, No Ear Pain, No Nasal Congestion, No Sinus Pain, No Hoarseness, No sore throat, No Rhinorrhea, No Swallowing Difficulty Eyes: No Eye Pain, No Swelling, No Redness, No Foreign Body, No Discharge, No Vision Changes Cardiovascular : No Chest Pain, No SOB, No Dyspnea on Exertion, No Orthopnea, No Edema, No Palpitations Respiratory : No Cough, No Sputum, No Wheezing, No Smoke Exposure, No Dyspnea Gastrointestinal : No Nausea, No Vomiting, No Diarrhea, No Constipation, No abdominal Pain, No Hematochezia, No Melena Genitourinary : no irregular bleeding, No Dysuria, No Urinary Frequency, No Hematuria, No Urinary Incontinence, No Urgency, No Flank Pain, No Urinary Flow Changes, No Hesitancy Musculoskeletal : No joint pain, No Myalgias, No Joint Swelling Skin : Complaining of bilateral lower extremity redness and pain Neuro : No Weakness, No Numbness, No Paresthesias, No Loss of Consciousness, No Dizziness, No Headache Psych : No Anxiety/Panic, No Depression, No SI/HI/AH/VH, No Social Issues, Heme/Lymph: No Bruising, No Bleeding,No Lymphadenopathy Endocrine : No Polyuria, No Polydipsia, No Temperature Intolerance [facility] Past Medical History Medical History Anxiety Brain aneurysm Dementia Depression HLD (hyperlipidemia) HTN (hypertension) Left renal mass Obesity MELY (obstructive sleep apnea) Type 2 diabetes mellitus Venous stasis dermatitis of both lower extremities Family History Family History Mother Dementia Stroke Breast cancer Social History Social History Household Members: None Housing: Assisted Living Facility Are you a primary child care worker to a significant other at home: No Do you presently have visiting nurse or other home services: No Alcohol intake: unknown Patient Tobacco Use Status: Never used Tobacco Advance Directives: No Advance Directives Information Provided: No service: No Current occupational status: retired Physical Exam ED Vital Signs: Vital Signs - 24 hr 03/22/23 18:42 03/22/23 19:23 03/22/23 21:43 Temperature 100.5 F H 100.3 F Pulse Rate 78 77 69 Respiratory Rate 18 20 15 Blood Pressure 134/51 L 149/64 H 137/71 Pulse Oximetry 94 96 93 Oxygen Delivery Method Room Air Room Air Room Air BMI result Body Mass Index 58.9 Const Other: Appearance: Alert. Oriented X3. No acute distress. Eyes: Pupils equal, round and reactive to light. ENT: Pharynx normal. Neck: Normal inspection. Neck supple. No lymph nodes noted. No crepitus CVS: Normal heart rate and rhythm. Pulses normal. Normal S1 and S2 Respiratory: No respiratory distress. Breath sounds normal. No Wheezing. No rales Abdomen: Soft and nontender. No rigidity. No distention. Skin: Skin warm and dry. CT lower extremities Extremities: scant bilateral lower extremity edema, chronic venous stasis, erythema in both lower extremities Neuro: Oriented X 3. No motor deficit. No sensory deficit. Moving all extre mities. No slurred speech. CN 2 through 12 grossly intact Psych: calm, up anxious, screaming with any minimal touch to the lower extremities Medications Administered Discontinued Medications Generic Name Dose Route Start Last Admin Trade Name Varinderq PRN Reason Stop Dose Admin Acetaminophen 975 mg 03/22/23 20:23 03/22/23 22:05 Acetaminophen 325 Mg Tablet PO 03/22/23 20:24 975 mg ONCE ONE Administration Lidocaine HCl 1 appl 03/22/23 22:00 03/22/23 22:12 Lidocaine 4 % Cream Kit TOPICAL 03/22/23 22:01 1 appl ONCE ONE Administration Protocol Lorazepam 2 mg 03/22/23 19:14 03/22/23 19:21 Lorazepam 1 Mg Tablet PO 03/22/23 19:15 2 mg ONCE ONE Administration Oxycodone HCl 5 mg 03/22/23 19:14 03/22/23 19:21 Oxycodone Hcl Immed Release 5 Mg Tablet PO 03/22/23 19:15 5 mg ONCE ONE Administration Medical Decision Making Medical Decision Making MDM Narrative: - patient refusing for nurse to get labs or IV access - patient agreeable to take p.o. Ativan to help him relax a bit we will revisit an attempt to get labs and IV access. - I discussed the patient with his legal guardian, Eusebia Lowery, who is aware the patient has cellulitis for several days and is getting worse. Agreeable that even if patient declines IV access or antibiotics, he needs it. we will encourage the patient to be compliant, however, if the patient is not, we will have to give him medication so that we can answer the IV line and start treatment and admit him. - LMX was applied to the skin, patient tolerated the IV insertion well. This happened until 23:24. - I discussed the patient with Dr. García, patient being admitted Admission/Observation Consideration of admission/observation: Escalation of care including admission/observation considered Consult Healthcare Provider Management of the patient was discussed with: Hospitalist Lab Data 03/22/23 19:18 03/22/23 19:18 Labs: Lab Results 03/22/23 03/22/23 03/22/23 Range/Units 19:17 19:18 19:18 WBC 15.8 H (4.8-10.8) X10*3/uL RBC 2.93 L (4.60-5.80) X10*6/uL Hgb 9.2 L (14.0-18.0) g/dl Hct 28.2 L (42.0-52.0) % MCV 96.2 (80.0-98.0) fL MCH 31.4 (27.0-33.0) pg MCHC 32.6 (31.0-36.0) g/dl RDW 14.6 (11.0-16.0) % Plt Count 141 L (160-400) X10*3/uL MPV 10.9 (9.4-12.4) fL Immature Gran % (Auto) 0.7 H (0.0-0.4) % Neut % (Auto) 84.7 H (45-73) % Lymph % (Auto) 5.2 L (20-40) % [place] % (Auto) 8.9 (2-11) % Eos % (Auto) 0.3 (0-4) % Baso % (Auto) 0.2 (0-2) % Lymph # (Auto) 0.8 L (1.2-4.9) X10*3/uL [place] # (Auto) 1.4 H (0.1-1.2) X10*3/uL Eos # (Auto) 0.1 (0.0-0.4) X10*3/uL Baso # (Auto) 0.0 (0.0-0.2) X10*3/uL Abs Immat Gran (auto) 0.11 H (0.00-0.03) X10*3/uL Absolute Neuts (auto) 13.4 H (2.0-8.3) x10*3/uL Absolute Nucleated RBC 0.000 (0.0-0.012) X10*3/uL Nucleated RBC % (auto) 0.0 (0.0-0.2) /100WBC Sodium 143 (135-145) mmol/L Potassium 4.1 (3.3-5.1) mmol/L Chloride 109 H (96-108) mmol/L Carbon Dioxide 26 (22-29) mmol/L Anion Gap 12 (12-20) BUN 30 H (9-16) mg/dL Creatinine 1.44 H (0.5-1.4) mg/dL Estim Creat Clear Calc 71.9 Estimated GFR 48 Random Glucose 172 H (60-115) mg/dL Lactic Acid 1.9 (0.5-2.0) mmol/L Calcium 8.2 L (8.4-10.2) mg/dL Total Bilirubin 0.4 (0.0-1.0) mg/dL Direct Bilirubin 0.1 (0.0-0.5) mg/dL AST 11 (5-37) U/L ALT 9 (0-40) U/L Alkaline Phosphatase 89 (39-117) U/L Total Protein 5.0 L (6.5-8.0) g/dL Albumin 2.9 L (3.5-5.0) g/dL Critical Care Time Critical Care Time Critical Care Time: Yes Total Critical Care Time: 60 Attestation: I have personally provided critical care time. Time includes review of lab data, radiology results, discussion with consultants, and monitoring for potential decompensation. Intervention performed as documented. Discharge Plan Discharge Clinical Impression: Cellulitis Patient Disposition: Admitted As Inpatient Prescriptions: No Action atorvastatin 40 mg tablet 1 tab PO DAILY oxybutynin chloride 15 mg tablet extended release 24hr 1 tab PO DAILY nifedipine 90 mg tablet extended release 24hr 1 tab PO DAILY sertraline 50 mg tablet 1 tab PO DAILY metoprolol tartrate 25 mg tablet 3 tab PO BID mirtazapine 7.5 mg tablet 1 tab PO BEDTIME multivitamin Tablet 1 tab PO DAILY melatonin 3 mg Tablet 8 mg PO BEDTIME PRN (Reason: Insomnia) aspirin 81 mg Tablet,Delayed Release (Dr/Ec) 81 mg PO DAILY nystatin 100,000 unit/gram Powder 1 appl TOPICAL BID divalproex 125 mg Capsule, Delayed Rel Sprinkle 250 mg PO BID Qty: 60 0RF acetaminophen 325 mg Tablet 325 mg PO QID PRN (Reason: Pain) lisinopril 20 mg tablet 1 tab PO DAILY olanzapine 2.5 mg tablet 1 tab PO BEDTIME amiloride 5 mg tablet 1 tab PO DAILY magnesium hydroxide [Milk of Magnesia] 400 mg/5 mL Suspension 400 mg PO DAILY PRN (Reason: Pain) bisacodyl 10 mg Suppository 10 mg PA DAILY PRN (Reason: Constipation) cholecalciferol (vitamin D3) 25 mcg (1,000 unit) tablet 1 tab PO QAM melatonin 5 mg tablet 1 tab PO BEDTIME cephalexin 500 mg capsule 500 mg PO QID 10 Days Qty: 40 0RF doxycycline hyclate 100 mg tablet 100 mg PO BID Qty: 20 0RF
[2023-03-22] MEDS: LORazepam 1 MG TABLET 2 MG PO (19:21)
[2023-03-22] MEDS: oxyCODONE HCl Immed Release 5 MG TABLET PO (19:21)
[2023-03-22 19:23] VITALS: BP 149/64; PULSE 77; RESP 20; O2SAT 96
[2023-03-22 19:25] LABS: MANUAL DIFF FLAG NO
[2023-03-22 19:33] LABS: Basophils Percent Auto 0.2 % (0-2); Eosinophils Absolute Auto 0.1 X10*3/uL (0.0-0.4); Eosinophils Percent Auto 0.3 % (0-4); Hematocrit 28.2 % (42.0-52.0); Hemoglobin 9.2 g/dl (14.0-18.0); Imm Gran Abs Auto 0.11 X10*3/uL (0.00-0.03); Imm Gran Pct Auto 0.7 % (0.0-0.4); Lymphocytes Absolute Auto 0.8 X10*3/uL (1.2-4.9); Lymphocytes Percent Auto 5.2 % (20-40); Mean Corpuscular HGB Conc 32.6 g/dl (31.0-36.0); Mean Corpuscular Hemoglobin 31.4 pg (27.0-33.0); Mean Corpuscular Volume 96.2 fL (80.0-98.0); Mean Platelet Volume 10.9 fL (9.4-12.4); Monocytes Absolute Auto 1.4 X10*3/uL (0.1-1.2); Monocytes Percent Auto 8.9 % (2-11); Neutrophils Absolute Auto 13.4 x10*3/uL (2.0-8.3); Neutrophils Percent Auto 84.7 % (45-73); Platelet Count 141 X10*3/uL (160-400); Red Blood Count 2.93 X10*6/uL (4.60-5.80); Red Cell Distribution Width 14.6 % (11.0-16.0); White Blood Count 15.8 X10*3/uL (4.8-10.8)
[2023-03-22 19:47] LABS: Lactic Acid 1.9 mmol/L (0.5-2.0)
--- NOTE | 2023-03-22 20:00 | PC.NURSE ---
this rn assumed care of pt @ 1900. pt non cooperative with care. iv placed by previous shift rn found to be infiltrated. this rn attempted x2 to replace iv. charge weigher and dr teixeira made aware. charge weigher attempted iv replacement. pt refused.
[2023-03-22 20:03] LABS: Alanine Aminotransferase 9 U/L (0-40); Albumin Level 2.9 g/dL (3.5-5.0); Alkaline Phosphatase 89 U/L (39-117); Anion Gap 12 (12-20); Aspartate Amino Transferase 11 U/L (5-37); Bilirubin Direct 0.1 mg/dL (0.0-0.5); Bilirubin Total 0.4 mg/dL (0.0-1.0); Blood Urea Nitrogen 30 mg/dL (9-16); Calcium 8.2 mg/dL (8.4-10.2); Carbon Dioxide 26 mmol/L (22-29); Chloride 109 mmol/L (96-108); Creatinine Clr Calc Pharmacy 71.9; Estimated Glomerular Filt Rate 48; Glucose Random 172 mg/dL (60-115); Potassium 4.1 mmol/L (3.3-5.1); Sodium 143 mmol/L (135-145)
[2023-03-22 21:43] VITALS: BP 137/71; PULSE 69; RESP 15; TEMP 37.9; O2SAT 93
[2023-03-22] MEDS: Acetaminophen 325 MG TABLET 975 MG PO (22:05)
[2023-03-22] MEDS: Lidocaine 4 % Cream KIT 1 APPL TOPICAL (22:12)
--- NOTE | 2023-03-22 23:29 | PM.IMHP ---
History of Present Illness Date of Service: 03/22/23 Chief Complaint: Fever This is a 73-year-old male with pertinent history of dementia, essential hypertension, mood disorder, urinary incontinence, bilateral lower extremity venous stasis, MELY not on CPAP who was sent to the emergency department for evaluation of fevers. Unable to obtain history or review of systems from the patient due to dementia. Patient is a poor historian. History obtained from ER provider and chart review. Patient is complaining of bilateral lower extremity pain, redness and warmth. Patient also reportedly was spiking fevers at outside facility. In the emergency department, patient was found to be septic Review of Systems Review of Systems: Yes Unobtainable due to mental condition and Unobtainable due to mental status PMFSH Medical History Anxiety Brain aneurysm Dementia Depression HLD (hyperlipidemia) HTN (hypertension) Left renal mass Obesity MELY (obstructive sleep apnea) Type 2 diabetes mellitus Venous stasis dermatitis of both lower extremities Family History Mother Dementia Stroke Breast cancer Social History Household Members: None Housing: Assisted Living Facility Are you a primary home health care provider to a significant other at home: No Do you presently have visiting nurse or other home services: No Alcohol intake: unknown Patient Tobacco Use Status: Never used Tobacco Advance Directives: No Advance Directives Information Provided: No service: No Current occupational status: retired Meds Allergies Allergy/AdvReac Type Severity Reaction Status Date / Time No Known Allergies Allergy Verified 03/17/23 14:03 Active Medications: Current Medications Vancomycin HCl (Vancomycin/Ns) 2,000 mg in 500 mls @ 250 mls/hr IV ONCE ONE Stop: 03/23/23 01:17 Sodium Chloride (Ns) 1,000 mls @ 999 mls/hr IVCONT .Q1H1M ONE Stop: 03/23/23 00:18 Pharmacy Consult (Consult Rx Vancomycin Dosing) 1 each MISCELLANE DAILY PRN PRN Reason: Consult order Home Medications Medication Instructions Recorded Confirmed Last Taken Type aspirin 81 mg tablet,delayed 81 mg PO DAILY 06/27/22 03/17/23 Unknown History release atorvastatin 40 mg tablet 1 tab PO DAILY 06/27/22 03/17/23 Unknown History melatonin 3 mg tablet 8 mg PO BEDTIME PRN Insomnia 06/27/22 03/17/23 Unknown History metoprolol tartrate 25 mg tablet 3 tab PO BID 06/27/22 03/17/23 Unknown History mirtazapine 7.5 mg tablet 1 tab PO BEDTIME 06/27/22 03/17/23 Unknown History multivitamin 1 tab PO DAILY 06/27/22 03/17/23 Unknown History nifedipine 90 mg tablet,extended 1 tab PO DAILY 06/27/22 03/17/23 Unknown History release 24 hr nystatin 100,000 unit/gram topical 1 appl topical BID 06/27/22 03/17/23 Unknown History powder oxybutynin chloride 15 mg 1 tab PO DAILY 06/27/22 03/17/23 Unknown History tablet,extended release 24 hr sertraline 50 mg tablet 1 tab PO DAILY 06/27/22 03/17/23 Unknown History acetaminophen 325 mg tablet 325 mg PO QID PRN Pain 08/12/22 03/17/23 Unknown History amiloride 5 mg tablet 1 tab PO DAILY 08/12/22 03/17/23 Unknown History bisacodyl 10 mg rectal suppository 10 mg MD DAILY PRN Constipation 08/12/22 03/17/23 Unknown History cholecalciferol (vitamin D3) 25 1 tab PO QAM 08/12/22 03/17/23 Unknown History mcg (1,000 unit) tablet lisinopril 20 mg tablet 1 tab PO DAILY 08/12/22 03/17/23 Unknown History magnesium hydroxide 400 mg/5 mL 400 mg PO DAILY PRN Pain 08/12/22 03/17/23 Unknown History oral suspension (Milk of Magnesia) melatonin 5 mg tablet 1 tab PO BEDTIME 08/12/22 03/17/23 Unknown History olanzapine 2.5 mg tablet 1 tab PO BEDTIME 08/12/22 03/17/23 Unknown History Physical Exam Vital Signs and Narrative: Vital Signs: Last Vital Signs Temp 100.3 F 03/22/23 21:43 Pulse 69 03/22/23 21:43 Resp 15 03/22/23 21:43 BP 137/71 03/22/23 21:43 Pulse Ox 93 03/22/23 21:43 O2 Del Method Room Air 03/22/23 21:43 BMI result Body Mass Index 58.9 Elderly male lying in bed in no distress Neck supple, no JVD Regular rate and rhythm, S1-S2 heard Regular breath sounds bilaterally, no wheezing or crackles appreciated Abdomen soft nontender, no guarding, no rigidity Patient is awake, alert and oriented to self, disoriented to place, time and person Skin: Bilateral lower extremity with warmth, tenderness and erythema Psych: Normal mood Results Labs 03/22/23 19:18 03/22/23 19:18 Labs: Laboratory Results - last 24 hr 03/22/23 03/22/23 03/22/23 19:17 19:18 19:18 MCV 96.2 MCH 31.4 MCHC 32.6 RDW 14.6 Plt Count 141 L MPV 10.9 Immature Gran % (Auto) 0.7 H Neut % (Auto) 84.7 H Lymph % (Auto) 5.2 L [place] % (Auto) 8.9 Eos % (Auto) 0.3 Baso % (Auto) 0.2 Lymph # (Auto) 0.8 L [place] # (Auto) 1.4 H Eos # (Auto) 0.1 Baso # (Auto) 0.0 Abs Immat Gran (auto) 0.11 H Absolute Neuts (auto) 13.4 H Absolute Nucleated RBC 0.000 Nucleated RBC % (auto) 0.0 Anion Gap 12 Estim Creat Clear Calc 71.9 Estimated GFR 48 Random Glucose 172 H Lactic Acid 1.9 Calcium 8.2 L Total Bilirubin 0.4 Direct Bilirubin 0.1 AST 11 ALT 9 Alkaline Phosphatase 89 Total Protein 5.0 L Albumin 2.9 L Assessment and Plan (1) Cellulitis: Status: Acute Plan This is a 73-year-old male with pertinent history of dementia, essential hypertension, mood disorder, urinary incontinence, bilateral lower extremity venous stasis, MELY not on CPAP who was sent to the emergency department for evaluation of fevers. #. Sepsis due to non purulent cellulitis of bilateral lower extremities, in a patient with chronic venous stasis. Resuscitated with IV crystalloids. Lactic acid and blood cultures obtained. Will initiate empiric IV antibiotics. UA pending #. Dementia. Maintain sleep-wake cycle #. Essential hypertension. Hold antihypertensives in the setting of sepsis. Resume as appropriate #. MELY not on CPAP #. Mood disorder. Continue home mood stabilizers Med rec pending DVT prophylaxis: Lovenox DNR/DNI Cardiac diet Admit as inpatient and will require two night minimum hospital stay for IV antibiotics Time Spent With Patient Time: Total time managing care of this patient today ____ minutes. Quality Stroke Does the patient have a stroke diagnosis?: No VTE Prior VTE?: No VTE Risk Level:: Medical - moderate - high VTE Device Contraindication: Treatment Not Indicated VTE Drug Contraindication: N/A - Med Ordered
[2023-03-22 23:37] VITALS: BMI 35.2
[2023-03-22] MEDS: 0.9 % Sodium Chloride 1,000 ML 999 ML IVCONT (23:43)
[2023-03-22] MEDS: Enoxaparin Sodium 40 MG/0.4 ML SYRINGE SUBCUT (23:54)
[2023-03-22] MEDS: vancomycin/NS 2,000 MG/500 ML PLAST..BAG 250 MG IV (23:54)
--- NOTE | 2023-03-23 01:00 | PC.NURSE ---
pt continued to refuse iv. per dr teixeira and jocelin rn pt is under guardianship and does not have the capacity to refuse medical treatment. supercharge repair supervisor assisted this rn in placement of iv. 22 g in L hand. pt medicated according to dec.
[2023-03-23 01:53] VITALS: BP 131/62; PULSE 72; RESP 19; TEMP 37.2; O2SAT 94
[2023-03-23 02:03] LABS: Appearance Urine Cloudy; Color Urine Yellow; Glucose Urine UA 100 mg/dL (Negative); Leukocyte Esterase Urine Trace (Negative); Nitrite Urine Negative (Negative); PH 5.5 (5.0-9.0); Specific Gravity - Urine 1.025 (1.005-1.025); UMIC TRIGGER UACC YES; Urine Blood Small (1+) (Negative); Urine Ketones Trace mg/dL (Negative); Urine Protein >=1000 (4+) mg/dL (Neg-Trace)
[2023-03-23 02:15] LABS: Bacteria Urine 4+ (None Seen); Granular Casts Urine Present; Hyaline Casts Urine >20 /LPF (0-2); RBC Urine 0-2 /HPF (0-2); Squamous Epithelial Cell Urine 0-2 /HPF (0-2); UACC Culture Trigger YES; WBC Urine 21-50 /HPF (0-5)
--- NOTE | 2023-03-23 02:30 | PC.NURSE ---
this rn campshredded filler cutter operator and additional rn to bedside to place straight catheter. 200ml immediate output. urine sample sent down to lab. straight catheter removed. pt boosted up in bed. chin care performed. pt continued to yell. per dr munguia this rn marked Bilateral LE cellulitis with skin marker. pt tolerated well
[2023-03-23 06:11] LABS: MANUAL DIFF FLAG NO
[2023-03-23 06:15] LABS: Basophils Percent Auto 0.3 % (0-2); Eosinophils Absolute Auto 0.1 X10*3/uL (0.0-0.4); Eosinophils Percent Auto 0.8 % (0-4); Hematocrit 25.8 % (42.0-52.0); Hemoglobin 8.2 g/dl (14.0-18.0); Imm Gran Abs Auto 0.06 X10*3/uL (0.00-0.03); Imm Gran Pct Auto 0.5 % (0.0-0.4); Lymphocytes Absolute Auto 1.4 X10*3/uL (1.2-4.9); Lymphocytes Percent Auto 12.8 % (20-40); Mean Corpuscular HGB Conc 31.8 g/dl (31.0-36.0); Mean Corpuscular Hemoglobin 30.9 pg (27.0-33.0); Mean Corpuscular Volume 97.4 fL (80.0-98.0); Monocytes Absolute Auto 1.1 X10*3/uL (0.1-1.2); Monocytes Percent Auto 9.6 % (2-11); Neutrophils Absolute Auto 8.5 x10*3/uL (2.0-8.3); Platelet Count 114 X10*3/uL (160-400); Red Blood Count 2.65 X10*6/uL (4.60-5.80); Red Cell Distribution Width 14.6 % (11.0-16.0); White Blood Count 11.2 X10*3/uL (4.8-10.8)
[2023-03-23 06:33] LABS: Anion Gap 9 (12-20); Blood Urea Nitrogen 30 mg/dL (9-16); Calcium 7.7 mg/dL (8.4-10.2); Carbon Dioxide 28 mmol/L (22-29); Chloride 111 mmol/L (96-108); Creatinine Clr Calc Pharmacy 53.6; Estimated Glomerular Filt Rate 48; Glucose Random 100 mg/dL (60-115); Potassium 3.8 mmol/L (3.3-5.1); Sodium 144 mmol/L (135-145)
[2023-03-23 06:45] VITALS: BP 166/83; PULSE 77; RESP 18; TEMP 36.5; O2SAT 96
--- NOTE | 2023-03-23 07:56 | PHA.PROG ---
Admission Date/Time: March 22, 2023 23:28 Indication: SKIN & STRUCTURE Weight in k kg Adjusted body weight in K.62 Cornell body weight in K.7 Obesity Dosing Indication % IBW: 35.2 Serum Creatinine - Last 168 Hours 03/22/23 03/23/23 19:18 05:48 Creatinine 1.44 H 1.44 H Estimated CrCl and GFR - Last 168 Hours 03/22/23 03/23/23 19:18 05:48 Estim Creat Clear Calc 71.9 53.6 Estimated GFR 48 48 Vancomycin Loading Dose: 2000 MG Current Vancomycin Dosing Regimen: 1000 MG Q24 HOURS Vancomycin Monitoring using AUC goal of 400 - 600 range with trough as surrogate marker: Expected auc 502 with trough 14.1 after 4th dose. Date and Time for next Vancomycin Level to be drawn: 03/25 @2100 Pharmacist Comments on Vancomycin Plan: Closely monitor renal function to ensure safety and appropriate dosing. Obese model being used in insight for this patient. Vancomycin dosing will take advantage of [employer] as a clinical decision support tool that uses Bayesian modeling to calculate individual patient's pharmacokinetic parameters and forecast the patient's drug concentration time course with the target goal AUC 24 range of 400 - 600 mg/L/hr.
[2023-03-23] MEDS: cefTRIAXone sodium 1 GM in 0.9 % Sodium Chloride 50 ML IV (08:08)
[2023-03-23] MEDS: 0.9 % Sodium Chloride Flush 3 ML SYRINGE IVFLUSH ×3 (08:47→20:46)
--- NOTE | 2023-03-23 10:45 | HO.PM.IMPN ---
Subjective Subjective Date of Service: 03/23/23 Interval History: cold Physical Exam Vital Signs: Vital Signs: Last Vital Signs Temp 97.7 F 03/23/23 06:45 Pulse 77 03/23/23 06:45 Resp 18 03/23/23 06:45 BP 166/83 H 03/23/23 06:45 Pulse Ox 96 03/23/23 06:45 O2 Del Method Room Air 03/23/23 06:45 BMI result Body Mass Index 35.2 frail, ill appearing, bilateral lower extremity chornic venous stasis changes, edema Objective Data Active Medications Acetaminophen (Acetaminophen 325 Mg Tablet) 650 mg PO Q6H PRN PRN Reason: Pain, Mild (Pain Scale 1-3) Acetaminophen (Acetaminophen Supp 650 Mg Supp.Rect) 650 mg MO Q6H PRN PRN Reason: Pain, Mild (Pain Scale 1-3) Enoxaparin Sodium (Enoxaparin Sodium 40 Mg/0.4 Ml Syringe) 40 mg SUBCUT Q24H COUNTS INCLUDE 234 BEDS AT THE [facility] Last Admin: 03/22/23 23:54 Dose: 40 mg Documented By: CARMEN Furosemide (Furosemide 40 Mg/4 Ml Vial) 40 mg IVPUSH ONCE ONE; Protocol Stop: 03/23/23 10:45 Ceftriaxone Sodium 1 gm/ (Sodium Chloride) 50 mls @ 100 mls/hr IV Q24H COUNTS INCLUDE 234 BEDS AT THE [facility] Last Infusion: 03/23/23 08:50 Dose: 0 mls/hr Documented By: TONI Melatonin (Melatonin 3 Mg Tablet) 6 mg PO BEDTIME PRN PRN Reason: Insomnia Ondansetron HCl (Ondansetron Hcl 4 Mg/2 Ml Vial) 4 mg IVPUSH Q8H PRN PRN Reason: Nausea and Vomiting Pharmacy Consult (Consult Rx Perform Med Rec) 1 each MISCELLANE ONCE PRN PRN Reason: Consult order Sodium Chloride (0.9 % Sodium Chloride Flush 3 Ml Syringe) 3 ml IVFLUSH QSHIFT COUNTS INCLUDE 234 BEDS AT THE [facility] Last Admin: 03/23/23 08:47 Dose: 3 ml Documented By: TONI Labs 03/23/23 05:48 03/23/23 05:48 Labs: Laboratory Results - last 24 hr 03/22/23 03/22/23 03/22/23 19:17 19:18 19:18 MCV 96.2 MCH 31.4 MCHC 32.6 RDW 14.6 Plt Count 141 L MPV 10.9 Immature Gran % (Auto) 0.7 H Neut % (Auto) 84.7 H Lymph % (Auto) 5.2 L [place] % (Auto) 8.9 Eos % (Auto) 0.3 Baso % (Auto) 0.2 Lymph # (Auto) 0.8 L [place] # (Auto) 1.4 H Eos # (Auto) 0.1 Baso # (Auto) 0.0 Abs Immat Gran (auto) 0.11 H Absolute Neuts (auto) 13.4 H Absolute Nucleated RBC 0.000 Nucleated RBC % (auto) 0.0 Anion Gap 12 Estim Creat Clear Calc 71.9 Estimated GFR 48 Random Glucose 172 H Lactic Acid 1.9 Calcium 8.2 L Total Bilirubin 0.4 Direct Bilirubin 0.1 AST 11 ALT 9 Alkaline Phosphatase 89 Total Protein 5.0 L Albumin 2.9 L Urine Color Urine Appearance Urine pH Ur Specific [place] Urine Protein Urine Glucose (UA) Urine Ketones Urine Blood Urine Nitrite Ur Leukocyte Esterase Urine RBC Urine WBC Ur Squamous Epith Cells Urine Bacteria Hyaline Casts Granular Casts 03/23/23 03/23/23 03/23/23 01:52 05:48 05:48 MCV 97.4 MCH 30.9 MCHC 31.8 RDW 14.6 Plt Count 114 L MPV 11.0 Immature Gran % (Auto) 0.5 H Neut % (Auto) 76.0 H Lymph % (Auto) 12.8 L [place] % (Auto) 9.6 Eos % (Auto) 0.8 Baso % (Auto) 0.3 Lymph # (Auto) 1.4 [place] # (Auto) 1.1 Eos # (Auto) 0.1 Baso # (Auto) 0.0 Abs Immat Gran (auto) 0.06 H Absolute Neuts (auto) 8.5 H Absolute Nucleated RBC 0.000 Nucleated RBC % (auto) 0.0 Anion Gap 9 L Estim Creat Clear Calc 53.6 Estimated GFR 48 Random Glucose 100 Lactic Acid Calcium 7.7 L D Total Bilirubin Direct Bilirubin AST ALT Alkaline Phosphatase Total Protein Albumin Urine Color Yellow Urine Appearance Cloudy Urine pH 5.5 Ur Specific [place] 1.025 Urine Protein >=1000 (4+) H Urine Glucose (UA) 100 H Urine Ketones Trace Urine Blood Small (1+) H Urine Nitrite Negative Ur Leukocyte Esterase Trace H Urine RBC 0-2 Urine WBC 21-50 H Ur Squamous Epith Cells 0-2 Urine Bacteria 4+ Hyaline Casts >20 Granular Casts Present Assessment and Plan (1) MELY (obstructive sleep apnea): Status: Acute Plan 73M with a past medical history of dementia, hypertension, mood disorder, bilateral chronic venous stasis, MELY not on CPAP, presented with fevers Sepsis due to urinary tract infection +/- chronic venous stasis complicated by acute superimposed bacterial cellulitis Will DC vancomycin Start ceftriaxone, follow-up cultures lasix, pressure wraps Dementia Stable HTN ?on nifedipine, will restart home meds when confirmed mood disorder MELY not on cpap dvt prophylaxis - lovenox DNR/DNI reason for continued hospitalization:awaiting culures in sepsis Time Spent With Patient Time: Total time managing care of this patient today ____ minutes. Quality Stroke Does the patient have a stroke diagnosis?: No VTE Prior VTE?: No VTE Risk Level:: Medical - moderate - high VTE Device Contraindication: Treatment Not Indicated VTE Drug Contraindication: N/A - Med Ordered
--- NOTE | 2023-03-23 10:56 | PHA.MEDREC ---
Pharmacy Consult ? Medication Reconciliation Pharmacy has completed the medication reconciliation. Med list obtained from the [facility]
[2023-03-23] MEDS: Furosemide 40 MG/4 ML VIAL IVPUSH (11:27)
--- NOTE | 2023-03-23 14:15 | MHC.CM.PN ---
spoke with pts guardian wilfred new [phone] who confirms pt from [facility] has [facility]abit vna and [facility] if str is needed request care [facility]
[2023-03-23 15:38] VITALS: BP 179/88; PULSE 74; RESP 20; TEMP 37; O2SAT 98
[2023-03-23] MEDS: Divalproex Sodium Sprinkles 125 MG CAP.DR.SPR 250 MG PO (17:22)
[2023-03-23] MEDS: Metoprolol Tartrate 25 MG TABLET 75 MG PO (17:22)
[2023-03-23] MEDS: Sodium Bicarbonate 650 MG TABLET PO (17:24)
[2023-03-23] MEDS: traMADoL HCL 50 MG TABLET 25 MG PO (17:29)
[2023-03-23 19:35] VITALS: BP 145/91; PULSE 62; RESP 18; TEMP 37
[2023-03-23] MEDS: Mirtazapine 7.5 MG TABLET PO (20:45)
[2023-03-23] MEDS: Rivastigmine Tartrate 1.5 MG CAPSULE PO (20:46)
[2023-03-23] MEDS: Atorvastatin Calcium 40 MG TABLET PO (20:46)
[2023-03-23] MEDS: Acetaminophen 325 MG TABLET 650 MG PO (20:46)
[2023-03-24 03:27] VITALS: BP 142/80; PULSE 69; RESP 16; TEMP 36.6; O2SAT 94
[2023-03-24] MEDS: Omeprazole 20 MG CAPSULE.DR PO (05:46)
[2023-03-24] MEDS: Levothyroxine Sodium 25 MCG TABLET PO (05:46)
[2023-03-24 07:49] VITALS: BP 156/80; PULSE 65; RESP 18; TEMP 36.7; O2SAT 97
[2023-03-24] MEDS: Metoprolol Tartrate 25 MG TABLET 75 MG PO ×2 (08:35→17:32)
[2023-03-24] MEDS: Sertraline HCL 50 MG TABLET PO (08:35)
[2023-03-24] MEDS: Rivastigmine Tartrate 1.5 MG CAPSULE PO ×2 (08:35→20:22)
[2023-03-24] MEDS: 0.9 % Sodium Chloride Flush 3 ML SYRINGE IVFLUSH ×3 (08:35→20:23)
[2023-03-24] MEDS: NIFEdipine ER 90 MG TAB.ER.24 PO (08:35)
[2023-03-24] MEDS: Divalproex Sodium Sprinkles 125 MG CAP.DR.SPR 250 MG PO ×2 (08:35→17:32)
[2023-03-24] MEDS: traMADoL HCL 50 MG TABLET 25 MG PO ×2 (08:36→17:31)
[2023-03-24] MEDS: Sodium Bicarbonate 650 MG TABLET PO ×2 (08:36→17:31)
[2023-03-24] MEDS: Aspirin Enteric Coated 81 MG TABLET.DR PO (08:36)
[2023-03-24] MEDS: Ferrous Sulfate 324 MG TABLET.DR PO (08:36)
[2023-03-24] MEDS: cefTRIAXone sodium 1 GM in 0.9 % Sodium Chloride 50 ML IV (08:45)
--- NOTE | 2023-03-24 10:35 | HO.PM.IMPN ---
Subjective Subjective Date of Service: 03/24/23 Interval History: still feeling chills, sick Physical Exam Vital Signs: Vital Signs: Last Vital Signs Temp 98.0 F 03/24/23 07:49 Pulse 65 03/24/23 07:49 Resp 18 03/24/23 07:49 BP 156/80 H 03/24/23 07:49 Pulse Ox 97 03/24/23 07:49 O2 Del Method Room Air 03/24/23 07:49 BMI result Body Mass Index 35.2 frail, ill appearing, bilateral lower extremity chornic venous stasis changes, edema Objective Data Active Medications Acetaminophen (Acetaminophen 325 Mg Tablet) 650 mg PO Q6H PRN PRN Reason: Pain, Mild (Pain Scale 1-3) Last Admin: 03/23/23 20:46 Dose: 650 mg Documented By: HARI Acetaminophen (Acetaminophen Supp 650 Mg Supp.Rect) 650 mg GA Q6H PRN PRN Reason: Pain, Mild (Pain Scale 1-3) Aspirin (Aspirin Enteric Coated 81 Mg Tablet.) 81 mg PO DAILY [facility] Last Admin: 03/24/23 08:36 Dose: 81 mg Documented By: NICHOLE Atorvastatin Calcium (Atorvastatin Calcium 40 Mg Tablet) 40 mg PO BEDTIME [facility] Last Admin: 03/23/23 20:46 Dose: 40 mg Documented By: HARI Divalproex Sodium (Divalproex Sodium Sprinkles 125 Mg Cap.) 250 mg PO BID@0900,1800 [facility] Last Admin: 03/24/23 08:35 Dose: 250 mg Documented By: NICHOLE Enoxaparin Sodium (Enoxaparin Sodium 40 Mg/0.4 Ml Syringe) 40 mg SUBCUT Q24H [facility] Last Admin: 03/24/23 00:00 Dose: Not Given Documented By: HARI Non-Admin Reason: Patient Refused Ferrous Sulfate (Ferrous Sulfate 324 Mg Tablet.) 324 mg PO DAILY [facility] Last Admin: 03/24/23 08:36 Dose: 324 mg Documented By: NICHOLE Ceftriaxone Sodium 1 gm/ (Sodium Chloride) 50 mls @ 100 mls/hr IV Q24H [facility] Last Infusion: 03/24/23 09:28 Dose: 0 mls/hr Documented By: NICHOLE Levothyroxine Sodium (Levothyroxine Sodium 25 Mcg Tablet) 25 mcg PO DAILY@0630 [facility] Last Admin: 03/24/23 05:46 Dose: 25 mcg Documented By: HARI Melatonin (Melatonin 3 Mg Tablet) 6 mg PO BEDTIME PRN PRN Reason: Insomnia Metoprolol Tartrate (Metoprolol Tartrate 25 Mg Tablet) 75 mg PO BID@0900,1800 [facility]; Protocol Last Admin: 03/24/23 08:35 Dose: 75 mg Documented By: NICHOLE Mirtazapine (Mirtazapine 7.5 Mg Tablet) 7.5 mg PO BEDTIME [facility] Last Admin: 03/23/23 20:45 Dose: 7.5 mg Documented By: HARI Nifedipine (Nifedipine Er 90 Mg Tab.Er.24) 90 mg PO DAILY [facility]; Protocol Last Admin: 03/24/23 08:35 Dose: 90 mg Documented By: NICHOLE Omeprazole (Omeprazole 20 Mg Capsule.) 20 mg PO DAILY@629 [facility] Last Admin: 03/24/23 05:46 Dose: 20 mg Documented By: HARI Ondansetron HCl (Ondansetron Hcl 4 Mg/2 Ml Vial) 4 mg IVPUSH Q8H PRN PRN Reason: Nausea and Vomiting Pharmacy Consult (Consult Rx Perform Med Rec) 1 each MISCELLANE ONCE PRN PRN Reason: Consult order Rivastigmine Tartrate (Rivastigmine Tartrate 1.5 Mg Capsule) 1.5 mg PO BID [facility] Last Admin: 03/24/23 08:35 Dose: 1.5 mg Documented By: NICHOLE Sertraline HCl (Sertraline Hcl 50 Mg Tablet) 50 mg PO DAILY [facility] Last Admin: 03/24/23 08:35 Dose: 50 mg Documented By: NICHOLE Sodium Bicarbonate (Sodium Bicarbonate 650 Mg Tablet) 650 mg PO BID@0900,1800 [facility] Last Admin: 03/24/23 08:36 Dose: 650 mg Documented By: NICHOLE Sodium Chloride (0.9 % Sodium Chloride Flush 3 Ml Syringe) [facility] Admin: 03/24/23 08:35 Dose: 3 ml Documented By: NICHOLE Tramadol HCl (Tramadol Hcl 50 Mg Tablet) 25 mg PO BID@0900,1800 [facility] Last Admin: 03/24/23 08:36 Dose: 25 mg Documented By: NICHOLE Labs 03/23/23 05:48 03/23/23 05:48 Microbiology Microbiology Results: Microbiology 03/22/23 19:50 Blood Culture - Preliminary Blood - Venous No growth after 24 hours. 03/22/23 19:18 Blood Culture - Preliminary Blood - Venous No growth after 24 hours. Assessment and Plan (1) MELY (obstructive sleep apnea): Status: Acute Plan 73M with a past medical history of dementia, hypertension, mood disorder, bilateral chronic venous stasis, MELY not on CPAP, presented with fevers Sepsis due to urinary tract infection +/- chronic venous stasis complicated by acute superimposed bacterial cellulitis ceftriaxone, follow-up cultures lasix, pressure wraps Dementia Stable HTN , lopressornifedipine mood disorder depakote MELY not on cpap dvt prophylaxis - lovenox DNR/DNI reason for continued hospitalization:awaiting culures in sepsis Time Spent With Patient Time: Total time managing care of this patient today ____ minutes. Quality Stroke Does the patient have a stroke diagnosis?: No VTE Prior VTE?: No VTE Risk Level:: Medical - moderate - high VTE Device Contraindication: Treatment Not Indicated VTE Drug Contraindication: N/A - Med Ordered
[2023-03-24] MEDS: Furosemide 40 MG TABLET PO (11:04)
--- NOTE | 2023-03-24 11:18 | MHC.CM.PN ---
PER MD ROUNDS, PT WILL BE READY TO DC TOMORROW. DCP: RETURN TO THE [facility] AND RESUME [facility] GU[facility]IAN, CORRIE HERNÁNDEZ [phone] WILL BE INFORMED
[2023-03-24 15:48] VITALS: BP 151/82; PULSE 76; RESP 17; TEMP 36.8; O2SAT 93
[2023-03-24 19:22] VITALS: BP 120/58; PULSE 61; RESP 18; TEMP 36.9; O2SAT 93
[2023-03-24] MEDS: Mirtazapine 7.5 MG TABLET PO (20:23)
[2023-03-24] MEDS: Atorvastatin Calcium 40 MG TABLET PO (20:23)
[2023-03-25 03:45] VITALS: BP 157/74; PULSE 69; RESP 16; TEMP 36.1; O2SAT 93
[2023-03-25] MEDS: Levothyroxine Sodium 25 MCG TABLET PO (05:42)
[2023-03-25] MEDS: Omeprazole 20 MG CAPSULE.DR PO (05:42)
[2023-03-25 07:07] VITALS: BP 161/81; PULSE 88; RESP 18; TEMP 36.8; O2SAT 97
[2023-03-25] MEDS: 0.9 % Sodium Chloride Flush 3 ML SYRINGE IVFLUSH (07:49)
[2023-03-25] MEDS: cefTRIAXone sodium 1 GM in 0.9 % Sodium Chloride 50 ML IV (07:53)
[2023-03-25 07:58] LABS: Hematocrit 27.8 % (42.0-52.0); Hemoglobin 9.2 g/dl (14.0-18.0); Mean Corpuscular HGB Conc 33.1 g/dl (31.0-36.0); Mean Corpuscular Hemoglobin 31.2 pg (27.0-33.0); Mean Corpuscular Volume 94.2 fL (80.0-98.0); PLT CLUMP 1; Red Blood Count 2.95 X10*6/uL (4.60-5.80); Red Cell Distribution Width 14.2 % (11.0-16.0)
[2023-03-25 08:21] LABS: Anion Gap 12 (12-20); Blood Urea Nitrogen 28 mg/dL (9-16); Calcium 8.1 mg/dL (8.4-10.2); Carbon Dioxide 25 mmol/L (22-29); Chloride 109 mmol/L (96-108); Creatinine Clr Calc Pharmacy 60.8; Estimated Glomerular Filt Rate 55; Glucose Fasting 88 mg/dL (60-99); Potassium 4.5 mmol/L (3.3-5.1); Sodium 141 mmol/L (135-145)
[2023-03-25] MEDS: traMADoL HCL 50 MG TABLET 25 MG PO (08:26)
[2023-03-25] MEDS: Aspirin Enteric Coated 81 MG TABLET.DR PO (08:27)
[2023-03-25] MEDS: Furosemide 40 MG TABLET PO (08:27)
[2023-03-25] MEDS: NIFEdipine ER 90 MG TAB.ER.24 PO (08:27)
[2023-03-25] MEDS: Ferrous Sulfate 324 MG TABLET.DR PO (08:27)
[2023-03-25] MEDS: Rivastigmine Tartrate 1.5 MG CAPSULE PO (08:27)
[2023-03-25] MEDS: Sertraline HCL 50 MG TABLET PO (08:27)
[2023-03-25] MEDS: Sodium Bicarbonate 650 MG TABLET PO (08:27)
[2023-03-25] MEDS: Metoprolol Tartrate 25 MG TABLET 75 MG PO (08:27)
[2023-03-25] MEDS: Divalproex Sodium Sprinkles 125 MG CAP.DR.SPR 250 MG PO (08:28)
--- NOTE | 2023-03-25 08:30 | P.DS_ITS ---
DS: Providers Provider Date of Service: 03/25/23 Date of admission: 03/22/23 23:28 Primary care physician: CATHRYN Valencia DS: Diagnosis Discharge Diagnosis (1) MELY (obstructive sleep apnea): Status: Acute DS: Summary Hospital Course Hospital Course: from initial hpi: 73-year-old male with pertinent history of dementia, essential hypertension, mood disorder, urinary incontinence, bilateral lower extremity venous stasis, MELY not on CPAP who was sent to the emergency department for evaluation of fevers.? Unable to obtain history or review of systems from the patient due to dementia.? Patient is a poor historian.? History obtained from ER provider and chart review.? Patient is complaining of bilateral lower extremity pain, redness and warmth.? Patient also reportedly was spiking fevers at outside facility. In the emergency department, patient was found to be septic hospital course: Patient was admitted for sepsis due to urinary tract infection +/- chronic venous stasis complicated by acute superimposed back to cellulitis. His urine cultures grew E coli. He was treated with IV ceftriaxone with resolution of sepsis. also given Lasix and pressure wraps for his venous stasis. Patient is feeling better and will be discharged home on 7 more days of cefuroxime. For his unspecified dementia remained stable. For potentially was continue Lopressor nifedipine. For mood disorder use continue Depakote. For obesity weight loss recommended. Time Spent with Patient Time attestation: Total time managing care of this patient today ____ minutes. Discharge coordination time: Greater than 30 minutes Quality: Safe Use of Opioids Does Pt have an Active Cancer Diagnosis on the Problem List?: No Quality: Stroke Does the patient have a stroke diagnosis?: No Physical Exam Vital Signs: Vital Signs: Last Vital Signs Temp 98.3 F 03/25/23 07:07 Pulse 88 03/25/23 07:07 Resp 18 03/25/23 07:07 BP 161/81 H 03/25/23 07:07 Pulse Ox 97 03/25/23 07:07 O2 Del Method Room Air 03/25/23 07:07 BMI result Body Mass Index 35.2 appears much more well, chronic LE venous stasis changes DS: Data Data Completed and Pending Completed studies during hospitalization [Text1]: Procedures Excision of Right Kidney, Percutaneous Approach, Diagnostic (06/27/22) Labs on day of discharge: Laboratory Results - last 24 hr 03/25/23 03/25/23 07:44 07:44 MPV Not Reportable Sodium 141 Potassium 4.5 Chloride 109 H Carbon Dioxide 25 Anion Gap 12 BUN 28 H Creatinine 1.27 Estim Creat Clear Calc 60.8 Estimated GFR 55 Fasting Glucose 88 Calcium 8.1 L Preliminary micro results at discharge 03/22/23 19:50 Blood Culture - Preliminary Blood - Venous No growth after 48 hours. 03/22/23 19:18 Blood Culture - Preliminary Blood - Venous No growth after 48 hours. Discharge Plan Discharge Anticipated Discharge Date/Time: 03/25/23 08:24 Patient Disposition: Xfer Other Discharge Diagnosis: uti Referrals: [facility] [Outside] - 1 Week FebruaryTracey PA [Primary Care Provider] - 1 Week Discharge Medications: New cefuroxime axetil 500 mg tablet 500 mg PO BID Qty: 14 0RF Continued atorvastatin 40 mg tablet 1 tab PO BEDTIME nifedipine 90 mg tablet extended release 24hr 1 tab PO DAILY sertraline 50 mg tablet 1 tab PO DAILY metoprolol tartrate 25 mg tablet 3 tab PO BID@0900,1800 mirtazapine 7.5 mg tablet 1 tab PO BEDTIME melatonin 3 mg Tablet 3 mg PO BEDTIME Rx Instructions: total dose = 8 mg aspirin 81 mg Tablet,Delayed Release (Dr/Ec) 81 mg PO DAILY acetaminophen 325 mg Tablet 650 mg PO TID@0900,1800,2200 PRN (Reason: Pain) melatonin 5 mg tablet 1 tab PO BEDTIME Rx Instructions: total dose of 8 mg levothyroxine 25 mcg Tablet 25 mcg PO DAILY@0630 ferrous gluconate 324 mg (37.5 mg iron) Tablet 324 mg PO DAILY rivastigmine tartrate 1.5 mg Capsule 1.5 mg PO BID torsemide 10 mg Tablet 10 mg PO DAILY tramadol 50 mg Tablet 25 mg PO BID@0900,1800 sodium bicarbonate 650 mg Tablet 650 mg PO BID@0900,1800 pantoprazole 40 mg Tablet,Delayed Release (Dr/Ec) 40 mg PO DAILY cholecalciferol (vitamin D3) 1,250 mcg (50,000 unit) Capsule 1,250 mcg PO QMONTH Rx Instructions: takes on the of each month divalproex 125 mg capsule, delayed rel sprinkle 250 mg PO BID@0900,1800 Discharge Orders: Discharge Order (Routine); Ordered 03/25/23 Ordered By: Bridger Roman Diet: Advance to usual diet Activity on Discharge: As tolerated Stand Alone Forms: Patient Portal Discharge page Care Plan Goals: recovery Health Concerns: uti Plan of Treatment: 7 days ceftin Assessment: see above
--- NOTE | 2023-03-25 08:45 | MHC.CM.PN ---
Addendum entered by Lizeth Miramontes 03/25/23 11:31: ORALIA SPOKE TO PTS GUARDIANCORRIE, WHO REPORTS THE PT TYPICALLY TRANSPORTS BACK TO THE [facility] VIA AMBULANCE OR CHAIR VAN. SHE ALSO REQUESTED MEDICAL UPDATES MD WILL CALL HER PT WILL DC BACK TO THE [facility] THIS AFTERNOON VIA [facility] Addendum entered by Lizeth Miramontes 03/25/23 08:49: [facility] NOTIFIED OF DC VIA [facility]CS UPLOADED Original Note: PT IS CLEARED FOR DC CM CALLED THE [facility] [phone] AND SPOKE TO MAINE PTS MED CHANGES WERE PROVIDED AND MAINE IS AWARE PT WILL RETURN LATER TODAY CM DID ATTEMPT TO CONTACT PTS GUARDIAN CORRIE, THERE WAS NO ANSWER, CM WILL CALL BACK LATER THIS HER[facility]
== END 2023-03-25 14:04 | disposition other institution (70) | DRG 872 ==
LOC: HO.ED 23:36 → HO.EDOVER 03-23 00:08 → HO.S3 03-23 07:12
PROVIDERS: Admitting Provider Student in an Organized Health Care Education/Training Program; Emergency Provider Emergency Medicine; PCP Physician Assistant Medical; Visit Provider Internal Medicine
DX: A41.9 Sepsis, unspecified organism (principal); L03.115 Cellulitis of right lower limb; L03.116 Cellulitis of left lower limb; N39.0 Urinary tract infection, site not specified; I10 Essential (primary) hypertension; B96.20 Unspecified Escherichia coli [E. coli] as the cause of diseases classified elsewhere; Z66 Do not resuscitate; I87.8 Other specified disorders of veins; F03.90 Unspecified dementia, unspecified severity, without behavioral disturbance, psychotic disturbance, mood disturbance, and anxiety; F41.9 Anxiety disorder, unspecified; G47.33 Obstructive sleep apnea (adult) (pediatric); Z79.82 Long term (current) use of aspirin; Z79.899 Other long term (current) drug therapy
CPT/HCPCS: 36415; 71045; 80048; 80076; 81001; 83605; 85025; 85027; 87040; 87086; 87088; 87186; 99285; J0696; J1650; J1940; J3370

== ENCOUNTER 2023-04-18 15:28 | Emergency (ER) | payer MEDICARE, SELFPAY ==
[2023-04-18 15:35] VITALS: BP 162/90; PULSE 60; O2SAT 97
--- NOTE | 2023-04-18 15:47 | ECG_ITS ---
Test Reason : LOWER EX EDMA Blood Pressure : / mmHG Vent. Rate : 061 BPM Atrial Rate : 061 BPM P-R Int : 180 ms QRS Dur : 088 ms QT Int : 424 ms P-R-T Axes : 039 009 092 degrees QTc Int : 426 ms Normal sinus rhythm Nonspecific T wave abnormality Abnormal ECG When compared with ECG of 07-JAN-2023 00:54, No significant change was found
[2023-04-18 15:52] VITALS: BP 155/68; PULSE 61; RESP 18; TEMP 36.7; O2SAT 95
--- NOTE | 2023-04-18 15:58 | MHC.CM.ED ---
Received telephone call from Lianna at [facility]. Patient is coming to the ER to have his wounds evaluated. It is also felt that patient will need STR for wound management. Trinidad Carreon RN aware. Continue to monitor for d/c needs.
--- NOTE | 2023-04-18 16:01 | ED.WOUNDLAC ---
HPI - Wound/Laceration General Chief Complaint: Extremity Injury, Lower Stated Complaint: leg swelling Time Seen by Provider: 04/18/23 15:36 History of Present Illness HPI narrative: Patient is a 73-year-old male with a history of renal cell carcinoma history of hypertension history of hyperlipidemia history diabetes no history of congestive heart failure. Positive history of chronic venous stasis to bilateral lower extremity. Patient was admitted to the hospital previously for a possible UTI and also leg edema. At the time patient was given antibiotics. Sent home. Patient denies having any worsening condition. Has leg swelling he claims which is chronic. It is not associated with shortness of breath chest pain diaphoresis. No fever no chills. He claims the redness is about the same as prior. He was sent in by half-way staff. Related Data Home Medications Medication Instructions Recorded Confirmed aspirin 81 mg tablet,delayed 81 mg PO DAILY 06/27/22 04/18/23 release atorvastatin 40 mg tablet 1 tab PO BEDTIME 06/27/22 04/18/23 melatonin 3 mg tablet 3 mg PO BEDTIME 06/27/22 04/18/23 metoprolol tartrate 25 mg tablet 3 tab PO BID@0900,1800 06/27/22 04/18/23 mirtazapine 7.5 mg tablet 1 tab PO BEDTIME 06/27/22 04/18/23 nifedipine 90 mg tablet,extended 1 tab PO DAILY 06/27/22 04/18/23 release 24 hr sertraline 50 mg tablet 1 tab PO DAILY 06/27/22 04/18/23 acetaminophen 325 mg tablet 650 mg PO TID@0900,1800,2200 PRN 08/12/22 04/18/23 Pain cholecalciferol (vitamin D3) 1,250 1,250 mcg PO QMONTH 03/23/23 04/18/23 mcg (50,000 unit) capsule divalproex 125 mg capsule,delayed 250 mg PO BID@0900,1800 03/23/23 04/18/23 release sprinkle ferrous gluconate 324 mg (37.5 mg 324 mg PO DAILY 03/23/23 04/18/23 iron) tablet levothyroxine 25 mcg tablet 25 mcg PO DAILY@0600 03/23/23 04/18/23 pantoprazole 40 mg tablet,delayed 40 mg PO DAILY 06/07/23 07/03/23 release rivastigmine tartrate 1.5 mg 1.5 mg PO BID 03/23/23 04/18/23 capsule sodium bicarbonate 650 mg tablet 650 mg PO BID@0900,1800 03/23/23 04/18/23 torsemide 10 mg tablet 10 mg PO DAILY 03/23/23 04/18/23 tramadol 50 mg tablet 25 mg PO BID@0900,1800 03/23/23 04/18/23 Allergies Allergy/AdvReac Type Severity Reaction Status Date / Time No Known Allergies Allergy Verified 03/17/23 14:03 Review of Systems Review of Systems: No fever no chills no chest pain or shortness breath no systemic complaints Yes all other systems are reviewed and are negative [facility] Past Medical History Attestation statement: The following information was validated with the patient. Medical History Anxiety Brain aneurysm Dementia Depression HLD (hyperlipidemia) HTN (hypertension) Left renal mass Obesity MELY (obstructive sleep apnea) Type 2 diabetes mellitus Venous stasis dermatitis of both lower extremities Family History Family History Mother Dementia Stroke Breast cancer Social History Social History Household Members: Other Household Members Other:: [facility] Housing: Assisted Living Facility Are you a primary home care associate to a significant other at home: No Do you presently have visiting nurse or other home services: Yes Unable to assess alcohol history related to: Unknown Alcohol intake: unknown Patient Tobacco Use Status: Never used Tobacco Smoked in Last 30 Days: No Advance Directives: No Advance Directives Information Provided: No service: No Current occupational status: retired Physical Exam Vital Signs: Vital Signs: Last Vital Signs Temp 99.1 F 04/18/23 22:04 Pulse 61 04/18/23 16:02 Resp 18 04/18/23 22:04 BP 170/83 H 04/18/23 22:04 Pulse Ox 97 04/18/23 22:04 O2 Del Method Room Air 04/18/23 22:04 BMI result Body Mass Index 37.3 Appearance: Alert. Oriented X3. No acute distress. Eyes: Pupils equal, round and reactive to light. ENT: Pharynx normal. Neck: Normal inspection. Neck supple. No lymph nodes noted. No crepitus CVS: Normal heart rate and rhythm. Pulses normal. Normal S1 and S2 Respiratory: No respiratory distress. Breath sounds normal. No Wheezing. No rales Abdomen: Soft and nontender. No rigidity. No distention. good BS x4 Skin: Skin warm and dry. Normal skin color. Normal skin turgor. Extremities: 3+ pitting edema bilateral lower extremity up to the knee. Positive redness that did not appear warm. There is no gross discharge noted. Neurovascular intact to all extremities. No Lacerations. No Rash Neuro: Oriented X 3. No motor deficit. No sensory deficit. Moving all extermities. No slurred speech Medical Decision Making Medical Decision Making [facility] Narrative: Patient has chronic leg swelling. Venous stasis noted in bilateral lower extremity. Patient actually has no complaints. No chest pain or shortness of breath no diaphoresis. No fever no chills. Case management needed to maximize care. Discussed case with Nina, will re-evaluate patient in a.m.. Currently in stable condition. No fever no chills. The wounds been chronic. No evidence for infection. Patient's white count is normal. Patient has no shortness of breath. No diaphoresis. Lying flat. Chest x-ray negative for pneumonia/CHF. Unlikely to have congestive heart failure. Differential Diagnosis Differential Diagnoses: The differential diagnosis associated with the presentation includes Pedal edema, cellulitis, CHF Lab Data [facility] Lab Attestation statement: I reviewed the patient's lab results. 04/18/23 16:30 04/18/23 16:30 Labs: Lab Results 04/18/23 04/18/23 04/18/23 Range/Units 16:30 16:30 16:30 WBC 7.3 (4.8-10.8) X10*3/uL RBC 3.19 L (4.60-5.80) X10*6/uL Hgb 9.9 L (14.0-18.0) g/dl Hct 30.6 L (42.0-52.0) % MCV 95.9 (80.0-98.0) fL MCH 31.0 (27.0-33.0) pg MCHC 32.4 (31.0-36.0) g/dl RDW 14.1 (11.0-16.0) % Plt Count 192 D (160-400) X10*3/uL MPV 10.6 (9.4-12.4) fL Immature Gran % (Auto) 0.4 (0.0-0.4) % Neut % (Auto) 68.5 (45-73) % Lymph % (Auto) 17.2 L (20-40) % [place] % (Auto) 11.4 H (2-11) % Eos % (Auto) 2.0 (0-4) % Baso % (Auto) 0.5 (0-2) % Lymph # (Auto) 1.3 (1.2-4.9) X10*3/uL [place] # (Auto) 0.8 (0.1-1.2) X10*3/uL Eos # (Auto) 0.2 (0.0-0.4) X10*3/uL Baso # (Auto) 0.0 (0.0-0.2) X10*3/uL Abs Immat Gran (auto) 0.03 (0.00-0.03) X10*3/uL Absolute Neuts (auto) 5.0 (2.0-8.3) x10*3/uL Absolute Nucleated RBC 0.000 (0.0-0.012) X10*3/uL Nucleated RBC % (auto) 0.0 (0.0-0.2) /100WBC Sodium 143 (135-145) mmol/L Potassium 3.8 (3.3-5.1) mmol/L Chloride 106 (96-108) mmol/L Carbon Dioxide 28 (22-29) mmol/L Anion Gap 13 (12-20) BUN 24 H (9-16) mg/dL Creatinine 1.14 (0.5-1.4) mg/dL Estim Creat Clear Calc 67.7 Estimated GFR > 60 Random Glucose 119 H (60-115) mg/dL Lactic Acid (0.5-2.0) mmol/L Calcium 8.9 D (8.4-10.2) mg/dL Total Bilirubin 0.3 (0.0-1.0) mg/dL Direct Bilirubin 0.1 (0.0-0.5) mg/dL AST 14 (5-37) U/L ALT 8 (0-40) U/L Alkaline Phosphatase 93 (39-117) U/L B-Natriuretic Peptide 439 H (<100) pg/mL Total Protein 5.5 L (6.5-8.0) g/dL Albumin 2.9 L (3.5-5.0) g/dL 04/18/23 Range/Units 16:30 WBC (4.8-10.8) X10*3/uL RBC (4.60-5.80) X10*6/uL Hgb (14.0-18.0) g/dl Hct (42.0-52.0) % MCV (80.0-98.0) fL MCH (27.0-33.0) pg MCHC (31.0-36.0) g/dl RDW (11.0-16.0) % Plt Count (160-400) X10*3/uL MPV (9.4-12.4) fL Immature Gran % (Auto) (0.0-0.4) % Neut % (Auto) (45-73) % Lymph % (Auto) (20-40) % [place] % (Auto) (2-11) % Eos % (Auto) (0-4) % Baso % (Auto) (0-2) % Lymph # (Auto) (1.2-4.9) X10*3/uL [place] # (Auto) (0.1-1.2) X10*3/uL Eos # (Auto) (0.0-0.4) X10*3/uL Baso # (Auto) (0.0-0.2) X10*3/uL Abs Immat Gran (auto) (0.00-0.03) X10*3/uL Absolute Neuts (auto) (2.0-8.3) x10*3/uL Absolute Nucleated RBC (0.0-0.012) X10*3/uL Nucleated RBC % (auto) (0.0-0.2) /100WBC Sodium (135-145) mmol/L Potassium (3.3-5.1) mmol/L Chloride (96-108) mmol/L Carbon Dioxide (22-29) mmol/L Anion Gap (12-20) BUN (9-16) mg/dL Creatinine (0.5-1.4) mg/dL Estim Creat Clear Calc Estimated GFR Random Glucose (60-115) mg/dL Lactic Acid 1.3 (0.5-2.0) mmol/L Calcium (8.4-10.2) mg/dL Total Bilirubin (0.0-1.0) mg/dL Direct Bilirubin (0.0-0.5) mg/dL AST (5-37) U/L ALT (0-40) U/L Alkaline Phosphatase (39-117) U/L B-Natriuretic Peptide (<100) pg/mL Total Protein (6.5-8.0) g/dL Albumin (3.5-5.0) g/dL Independent Interpretation I performed an independent interpretation of an: EKG and Plain X-Ray Interpretation: My interpretation of patient's EKG showed a sinus rhythm heart rate is 60 MA QRS QT within normal limits there is diffuse T-wave flattening noted My interpretation of patient's chest x-ray grossly negative for any acute evidence of pneumonia pneumothorax Radiology Impression Discussion of test interpretation with radiology: I have reviewed the radiologist's reading. Chronic Conditions Patient?s care impacted by: Hypertension Discharge Plan Discharge Clinical Impression: Edema Patient Disposition: Still a Patient Prescriptions: No Action atorvastatin 40 mg tablet 1 tab PO BEDTIME nifedipine 90 mg tablet extended release 24hr 1 tab PO DAILY sertraline 50 mg tablet 1 tab PO DAILY metoprolol tartrate 25 mg tablet 3 tab PO BID@0900,1800 mirtazapine 7.5 mg tablet 1 tab PO BEDTIME melatonin 3 mg Tablet 3 mg PO BEDTIME aspirin 81 mg Tablet,Delayed Release (Dr/Ec) 81 mg PO DAILY acetaminophen 325 mg Tablet 650 mg PO TID@0900,1800,2200 PRN (Reason: Pain) levothyroxine 25 mcg Tablet 25 mcg PO DAILY@0600 ferrous gluconate 324 mg (37.5 mg iron) Tablet 324 mg PO DAILY rivastigmine tartrate 1.5 mg Capsule 1.5 mg PO BID torsemide 10 mg Tablet 10 mg PO DAILY tramadol 50 mg Tablet 25 mg PO BID@0900,1800 sodium bicarbonate 650 mg Tablet 650 mg PO BID@0900,1800 pantoprazole 40 mg Tablet,Delayed Release (Dr/Ec) 40 mg PO DAILY cholecalciferol (vitamin D3) 1,250 mcg (50,000 unit) Capsule 1,250 mcg PO QMONTH Rx Instructions: takes on the of each month divalproex 125 mg capsule, delayed rel sprinkle 250 mg PO BID@0900,1800
[2023-04-18 16:02] VITALS: BP 155/68; PULSE 61; RESP 12; TEMP 36.7; O2SAT 97; BMI 37.3
[2023-04-18 16:54] LABS: Alanine Aminotransferase 8 U/L (0-40); Albumin Level 2.9 g/dL (3.5-5.0); Alkaline Phosphatase 93 U/L (39-117); Anion Gap 13 (12-20); Aspartate Amino Transferase 14 U/L (5-37); Bilirubin Direct 0.1 mg/dL (0.0-0.5); Bilirubin Total 0.3 mg/dL (0.0-1.0); Blood Urea Nitrogen 24 mg/dL (9-16); Calcium 8.9 mg/dL (8.4-10.2); Carbon Dioxide 28 mmol/L (22-29); Chloride 106 mmol/L (96-108); Creatinine Clr Calc Pharmacy 67.7; Estimated Glomerular Filt Rate > 60; Glucose Random 119 mg/dL (60-115); Potassium 3.8 mmol/L (3.3-5.1); Sodium 143 mmol/L (135-145); Total Protein 5.5 g/dL (6.5-8.0)
--- NOTE | 2023-04-18 17:23 | PHA.MEDREC ---
Pharmacy Consult ? Medication Reconciliation Pharmacy has completed the medication reconciliation. Patient is from [facility] and had a list in the chart. I noticed the list had meds that were not on the med rec from 03/23. I then noticed it was an old list from 05/23/2022. I called [facility] and got the updated list which did match the list from the last time pt was here lucinda
--- NOTE | 2023-04-18 18:32 | PC.NURSE ---
pt resting quietly in bed, plan for case management/wound care involvement.
--- NOTE | 2023-04-18 19:10 | PC.NURSE ---
Received handoff N2N report from Masha Melton RN
--- NOTE | 2023-04-18 20:17 | PC.NURSE ---
pt requesting sandwich and refreshment- provided call ba within reach pt's belongings placed in bag [id number]
[2023-04-18 22:04] VITALS: BP 170/83; RESP 18; TEMP 37.3; O2SAT 97
--- NOTE | 2023-04-18 23:30 | PC.NURSE ---
pt resting quietly, while watching tv
--- NOTE | 2023-04-18 23:30 | PC.NURSE ---
no apparent distress
[2023-04-19] VITALS (7 sets, daily range): BP systolic 136–201; BP diastolic 68–93; PULSE 61–74; RESP 15–18; TEMP 36.3–37.4; O2SAT 95–97
--- NOTE | 2023-04-19 01:40 | PC.NURSE ---
pt sleeping on L side respositions self no apparent distress, respirations even and unlabored
--- NOTE | 2023-04-19 02:14 | PC.NURSE ---
N2N report given to Keri RN ; pt to go to overflow 4
--- NOTE | 2023-04-19 04:11 | PC.NURSE ---
Pt came from ED tx to overflow,assumed care at 0400am. Came in via stretcher with pants, diapers, bed sheets soaked with urine. Strong smelling urine. Settled in his new bed.Cleaned and changed. Stage 1 with red moist rash to buttocks area, Abdominal folds has moist smelly fungal rash. BLE are swollen, pink, blistered and scaly. Clinical Sup notified.
--- NOTE | 2023-04-19 09:54 | MHC.CM.ED ---
Received consult for assessment of d/c needs: pt states he resides at [facility] in [place] and is fairly independent w/care needs: pt has a legal guardian, Eusebia Barrow at [phone]. Call placed to TRENA Jung at the [facility] who states pt has daily DATABASE DESIGN ANALYST services but is failing and is not motivated to walk, bath and is now requiring almost daily and constant care that is inconsistent with assisting living criteria. Per Eusebia, she has been trying to find placement within the community and has an appointment to [facility] on 04/20. [facility] [place] in the past and Eusebia gives permission for a broad referral base should pt require it. Eusebia has authority to place per guardianship on file. Will await PT eval for placement needs. ED CM to follow.
--- NOTE | 2023-04-19 20:58 | PC.NURSE ---
found patient incontinent of large amt of urine on initial assessment at 1999,assisted back to bed,cleansed patient with assistance of CRYSTAL Mcgrath,redness present under abdominal folds,bilateral groins and scrotal area,Nystatin powder applied,BB SHOT PACKER notified of need for hygiene care and protective cream after every incotinence episode,patient resting in bed now,denies need for pain med.
--- NOTE | 2023-04-19 22:31 | PC.NURSE ---
Patient resting in bed quietly,has no complaints at present
[2023-04-20] VITALS: BP 168/84; TEMP 36.6
--- NOTE | 2023-04-20 00:54 | PC.NURSE ---
Patient resting quietly, no complaints at present.
[2023-04-20 05:11] VITALS: BP 170/68; PULSE 63; RESP 18; TEMP 36.3; O2SAT 98
[2023-04-20 07:53] VITALS: BP 170/68; PULSE 63; O2SAT 98
--- NOTE | 2023-04-20 09:35 | PC.NURSE ---
Patient resting on recliner at this time watching TV. Patient has no complaints, calm and cooperative at this time.
--- NOTE | 2023-04-20 10:11 | MHC.CM.ED ---
Patient remains in ER overflow. Physical therapy eval completed. Short term rehab is recommended. [facility] is only facility offering a bed at this time. T/W spoke penelope Laws, guardian. Eusebia agreeable to [facility]. [facility] has been asked to obtain ins auth. Continue to monitor for d/c needs.
[2023-04-20 14:00] VITALS: BP 179/81; PULSE 63; TEMP 36.4; O2SAT 98
--- NOTE | 2023-04-20 15:26 | PC.NURSE ---
Pt lying in bed watching TV. Denies pain. Lower legs reddened,scaly and edematous. Offers no compaints at this time'
[2023-04-20 16:00] VITALS: BP 171/85; PULSE 60; RESP 16; TEMP 36.8; O2SAT 98
--- NOTE | 2023-04-20 17:41 | PC.NURSE ---
Pharmacy called for depakote sprinkles not stocked in [facility]
--- NOTE | 2023-04-20 18:07 | PC.NURSE ---
Pt watching TV while lying in bed. Denies discomfort at this time
[2023-04-20 23:39] VITALS: BP 190/92; PULSE 65; TEMP 36.8
--- NOTE | 2023-04-21 00:19 | PC.NURSE ---
chin care given due to incontinence. turned and repositioned. nystatin powder applied to abdominal folds. medicated for htn; roxann reassess. mental status at baseline. moves all extremities well.
[2023-04-21 02:54] VITALS: BP 147/104; PULSE 61; O2SAT 96
--- NOTE | 2023-04-21 02:57 | PC.NURSE ---
blood pressure improved post Norvasc 5mg. sleeping comfortably. no attempts out of bed. cont to reinforce safety.
[2023-04-21 06:00] VITALS: BP 170/92; PULSE 88; RESP 18; TEMP 36.6; O2SAT 95
--- NOTE | 2023-04-21 06:39 | PC.NURSE ---
pt states is aware of when he has to urinate but continues to be INC. encouraged to use urinal. complete bed changed. follows commands well.
--- NOTE | 2023-04-21 09:50 | MHC.CM.ED ---
Patient remains in ER overflow. Insurance auth has been obtained by [facility]. Patient can leave at 11am. Rashaun CARREOR booked. [facility] with chart. Patient, guardian Kylah Laws RN, and Paz LOCKETT aware. Continue to monitor for d/c needs.
== END 2023-04-21 11:54 ==
PROVIDERS: Emergency Provider Emergency Medicine Emergency Medical Services
DX: R60.0 Localized edema (principal); E11.9 Type 2 diabetes mellitus without complications; I10 Essential (primary) hypertension; E78.5 Hyperlipidemia, unspecified; I87.2 Venous insufficiency (chronic) (peripheral); C64.9 Malignant neoplasm of unspecified kidney, except renal pelvis; Z79.82 Long term (current) use of aspirin; Z79.899 Other long term (current) drug therapy
CPT/HCPCS: 36415; 71045; 80048; 80076; 82947; 83605; 83880; 85025; 87040; 87635; 93005; 97162; 99285

== ENCOUNTER 2023-05-10 11:54 | Emergency (ER) | payer MEDICARE, SELFPAY ==
[2023-05-10] VITALS (7 sets, daily range): BP systolic 140–184; BP diastolic 56–90; PULSE 58–66; RESP 16–18; TEMP 36.4–37.3; O2SAT 95–98; BMI 39.1
--- NOTE | 2023-05-10 13:13 | ED_ITS ---
HPI - Skin/Abscess/Foreign Bdy General Chief complaint: Skin/Abscess/Foreign Body Stated complaint: LEG PAIN/SWELL,UNABLE TO AMB,REFUSING STAFFS CARE Time Seen by Provider: 05/10/23 12:58 History of Present Illness HPI narrative: Patient is a 73-year-old male presented today with having bilateral lower extremity swelling. The swelling is been ongoing for the last year. There is redness noted previously. There is question cellulitis noted. Patient finished a course of antibiotic early last month. Still has redness and swelling. Patient claims it looks about the same as previous. He did not get follow-up and has not been following wound care. Patient lives in assisted living environment. Sent in by assisted living for further management. Patient denies any chest pain shortness of breath dizziness nausea vomiting no fever no chills. Claims he had these wounds for a long time. Not sure why they sent him in. Related Data Home Medications Medication Instructions Recorded Confirmed aspirin 81 mg tablet,delayed 81 mg PO DAILY 06/27/22 05/10/23 release atorvastatin 40 mg tablet 1 tab PO BEDTIME 06/27/22 05/10/23 melatonin 3 mg tablet 3 mg PO BEDTIME 06/27/22 05/10/23 metoprolol tartrate 25 mg tablet 3 tab PO BID@0900,1800 06/27/22 05/10/23 mirtazapine 7.5 mg tablet 1 tab PO DAILY@1700 06/27/22 05/10/23 nifedipine 90 mg tablet,extended 1 tab PO DAILY 06/27/22 05/10/23 release 24 hr sertraline 50 mg tablet 1 tab PO DAILY 06/27/22 05/10/23 acetaminophen 325 mg tablet 650 mg PO Q6H PRN Pain 08/12/22 05/10/23 divalproex 125 mg capsule,delayed 125 mg PO BID 03/23/23 05/10/23 release sprinkle amiloride 5 mg tablet 5 mg PO BID 05/10/23 05/10/23 cholecalciferol (vitamin D3) 25 25 mcg PO DAILY 05/10/23 05/10/23 mcg (1,000 unit) tablet lisinopril 20 mg tablet 20 mg PO DAILY 05/10/23 05/10/23 melatonin 5 mg tablet 5 mg PO BEDTIME 05/10/23 05/10/23 menthol 0.44 %-zinc oxide 20.6 % 1 appl topical BID@0900,1800 05/10/23 05/10/23 topical ointment (Calmoseptine) multivitamin 1 tab PO DAILY 05/10/23 05/10/23 nystatin 100,000 unit/gram topical 1 appl topical BID@0900,1800 05/10/23 05/10/23 powder olanzapine 2.5 mg tablet 2.5 mg PO DAILY@1700 05/10/23 05/10/23 oxybutynin chloride 15 mg 15 mg PO DAILY 05/10/23 05/10/23 tablet,extended release 24 hr triamcinolone acetonide 0.1 % 1 appl topical BID PRN Rash 05/10/23 05/10/23 topical cream Allergies Allergy/AdvReac Type Severity Reaction Status Date / Time No Known Allergies Allergy Verified 05/10/23 12:04 Review of Systems Review of Systems: No fever no chills no chest pain or shortness of breath no nausea no vomiting Yes all other systems are reviewed and are negative PMFSH Past Medical History Attestation statement: The following information was validated with the patient. Medical History Anxiety Brain aneurysm Dementia Depression HLD (hyperlipidemia) HTN (hypertension) Left renal mass Obesity MELY (obstructive sleep apnea) Type 2 diabetes mellitus Venous stasis dermatitis of both lower extremities Family History Family History Mother Dementia Stroke Breast cancer Social History Social History Household Members: Other Household Members Other:: [facility] Housing: Assisted Living Facility Are you a primary healthcare economics consultant to a significant other at home: No Do you presently have visiting nurse or other home services: Yes Unable to assess alcohol history related to: Unknown Alcohol intake: never Patient Tobacco Use Status: Never used Tobacco Smoked in Last 30 Days: No Use of substances other than those prescribed or required for medical reasons: No Advance Directives: Yes Advance Directives on File: Yes Advance Directives Date on File: 07/06/22 service: No Current occupational status: retired Physical Exam Vital Signs: Vital Signs: Last Vital Signs Temp 99.2 F 05/10/23 20:53 Pulse 66 05/10/23 20:53 Resp 17 05/10/23 20:53 BP 184/90 H 05/10/23 20:53 Pulse Ox 96 05/10/23 20:53 O2 Del Method Room Air 05/10/23 20:53 BMI result Body Mass Index 39.1 Appearance: Alert. Oriented X3. No acute distress. Eyes: Pupils equal, round and reactive to light. ENT: Pharynx normal. Neck: Normal inspection. Neck supple. No lymph nodes noted. No crepitus CVS: Normal heart rate and rhythm. Pulses normal. Normal S1 and S2 Respiratory: No respiratory distress. Breath sounds normal. No Wheezing. No rales Abdomen: Soft and nontender. No rigidity. No distention. good BS x4 Skin: 3+ pitting edema bilaterally. There is redness noted over the entire leg bilaterally. It is not warm to touch. It is circumferential. Distal pulses intact. Sensation intact. Motor intact. Extremities: 3+ lower extremity edema. Neurovascular intact to all extremities. No Lacerations. No Rash Neuro: Oriented X 3. No motor deficit. No sensory deficit. Moving all extermities. No slurred speech Medical Decision Making Medical Decision Making MDM Narrative: Patient presented with bilateral leg swelling. Has a history of dermatitis to bilateral lower extremity. Patient refuse visiting nurse. The wound appears chronic. Patient's white count is normal. There is no warmth to touch. Lactate is 1.4. BMP is 190. COVID test is negative. Assisted living will not take patient back until physical therapy gets a chance to evaluate patient. Physical therapy consultation ordered. Case Management consult ordered Differential Diagnosis Differential Diagnoses: The differential diagnosis associated with the presentation includes Cellulitis, chronic venous stasis Consult Healthcare Provider Management of the patient was discussed with: Track Broom Operator Social work, physical therapy Lab Data [facility] Lab Attestation statement: I reviewed the patient's lab results. 05/10/23 14:42 05/10/23 14:42 Labs: Lab Results 05/10/23 05/10/23 05/10/23 Range/Units 14:42 14:42 14:42 WBC 7.2 (4.8-10.8) X10*3/uL RBC 3.16 L (4.60-5.80) X10*6/uL Hgb 9.9 L (14.0-18.0) g/dl Hct 30.7 L (42.0-52.0) % MCV 97.2 (80.0-98.0) fL MCH 31.3 (27.0-33.0) pg MCHC 32.2 (31.0-36.0) g/dl RDW 14.4 (11.0-16.0) % Plt Count 158 L (160-400) X10*3/uL MPV 10.5 (9.4-12.4) fL Immature Gran % (Auto) 0.3 (0.0-0.4) % Neut % (Auto) 67.3 (45-73) % Lymph % (Auto) 17.5 L (20-40) % Lehigh % (Auto) 8.2 (2-11) % Eos % (Auto) 6.0 H (0-4) % Baso % (Auto) 0.7 (0-2) % Lymph # (Auto) 1.3 (1.2-4.9) X10*3/uL Lehigh # (Auto) 0.6 (0.1-1.2) X10*3/uL Eos # (Auto) 0.4 (0.0-0.4) X10*3/uL Baso # (Auto) 0.1 (0.0-0.2) X10*3/uL Abs Immat Gran (auto) 0.02 (0.00-0.03) X10*3/uL Absolute Neuts (auto) 4.8 (2.0-8.3) x10*3/uL Absolute Nucleated RBC 0.000 (0.0-0.012) X10*3/uL Nucleated RBC % (auto) 0.0 (0.0-0.2) /100WBC Sodium 143 (135-145) mmol/L Potassium 4.0 (3.3-5.1) mmol/L Chloride 106 (96-108) mmol/L Carbon Dioxide 28 (22-29) mmol/L Anion Gap 13 (12-20) BUN 25 H (9-16) mg/dL Creatinine 1.24 (0.5-1.4) mg/dL Estim Creat Clear Calc 65.8 Estimated GFR 57 Random Glucose 95 (60-115) mg/dL Lactic Acid 1.4 (0.5-2.0) mmol/L Calcium 8.4 (8.4-10.2) mg/dL Total Bilirubin 0.3 (0.0-1.0) mg/dL Direct Bilirubin 0.1 (0.0-0.5) mg/dL AST 13 (5-37) U/L ALT 9 (0-40) U/L Alkaline Phosphatase 99 (39-117) U/L B-Natriuretic Peptide (<100) pg/mL Total Protein 5.4 L (6.5-8.0) g/dL Albumin 3.0 L (3.5-5.0) g/dL COVID-19 (KHADRA) (Negative) COVID-19 Clin Com 05/10/23 05/10/23 Range/Units 14:42 17:26 WBC (4.8-10.8) X10*3/uL RBC (4.60-5.80) X10*6/uL Hgb (14.0-18.0) g/dl Hct (42.0-52.0) % MCV (80.0-98.0) fL MCH (27.0-33.0) pg MCHC (31.0-36.0) g/dl RDW (11.0-16.0) % Plt Count (160-400) X10*3/uL MPV (9.4-12.4) fL Immature Gran % (Auto) (0.0-0.4) % Neut % (Auto) (45-73) % Lymph % (Auto) (20-40) % Lehigh % (Auto) (2-11) % Eos % (Auto) (0-4) % Baso % (Auto) (0-2) % Lymph # (Auto) (1.2-4.9) X10*3/uL Lehigh # (Auto) (0.1-1.2) X10*3/uL Eos # (Auto) (0.0-0.4) X10*3/uL Baso # (Auto) (0.0-0.2) X10*3/uL Abs Immat Gran (auto) (0.00-0.03) X10*3/uL Absolute Neuts (auto) (2.0-8.3) x10*3/uL Absolute Nucleated RBC (0.0-0.012) X10*3/uL Nucleated RBC % (auto) (0.0-0.2) /100WBC Sodium (135-145) mmol/L Potassium (3.3-5.1) mmol/L Chloride (96-108) mmol/L Carbon Dioxide (22-29) mmol/L Anion Gap (12-20) BUN (9-16) mg/dL Creatinine (0.5-1.4) mg/dL Estim Creat Clear Calc Estimated GFR Random Glucose (60-115) mg/dL Lactic Acid (0.5-2.0) mmol/L Calcium (8.4-10.2) mg/dL Total Bilirubin (0.0-1.0) mg/dL Direct Bilirubin (0.0-0.5) mg/dL AST (5-37) U/L ALT (0-40) U/L Alkaline Phosphatase (39-117) U/L B-Natriuretic Peptide 193 H (<100) pg/mL Total Protein (6.5-8.0) g/dL Albumin (3.5-5.0) g/dL COVID-19 (KHADRA) Negative (Negative) COVID-19 Clin Com See Note External Record Review External record reviewed: Inpatient record Previous admissions Chronic Conditions Chronic venous stasis, anxiety, hypertension, hyperlipidemia Social Determinants Patient?s care significantly limited by Social Determinants of Health including: Problems related to primary support group Discharge Plan Discharge Clinical Impression: Venous stasis dermatitis of both lower extremities Patient Disposition: Still a Patient Prescriptions: No Action atorvastatin 40 mg tablet 1 tab PO BEDTIME nifedipine 90 mg tablet extended release 24hr 1 tab PO DAILY sertraline 50 mg tablet 1 tab PO DAILY metoprolol tartrate 25 mg tablet 3 tab PO BID@0900,1800 mirtazapine 7.5 mg tablet 1 tab PO DAILY@1700 melatonin 3 mg Tablet 3 mg PO BEDTIME Rx Instructions: total dose 8 mg aspirin 81 mg Tablet,Delayed Release (Dr/Ec) 81 mg PO DAILY acetaminophen 325 mg Tablet 650 mg PO Q6H PRN (Reason: Pain) divalproex 125 mg capsule, delayed rel sprinkle 125 mg PO BID multivitamin Tablet 1 tab PO DAILY oxybutynin chloride 15 mg tablet extended release 24hr 15 mg PO DAILY lisinopril 20 mg Tablet 20 mg PO DAILY olanzapine 2.5 mg tablet 2.5 mg PO DAILY@1700 amiloride 5 mg Tablet 5 mg PO BID cholecalciferol (vitamin D3) 25 mcg (1,000 unit) Tablet 25 mcg PO DAILY melatonin 5 mg Tablet 5 mg PO BEDTIME Rx Instructions: total dose 8 mg triamcinolone acetonide 0.1 % Cream 1 appl TOPICAL BID PRN (Reason: Rash) nystatin 100,000 unit/gram Powder 1 appl TOPICAL BID@0900,1800 menthol-zinc oxide [Calmoseptine] 0.44-20.6 % Ointment 1 appl TOPICAL BID@0900,1800
[2023-05-10 14:54] LABS: MANUAL DIFF FLAG NO
[2023-05-10 15:04] LABS: Basophils Absolute Auto 0.1 X10*3/uL (0.0-0.2); Basophils Percent Auto 0.7 % (0-2); Eosinophils Absolute Auto 0.4 X10*3/uL (0.0-0.4); Hematocrit 30.7 % (42.0-52.0); Hemoglobin 9.9 g/dl (14.0-18.0); Imm Gran Abs Auto 0.02 X10*3/uL (0.00-0.03); Imm Gran Pct Auto 0.3 % (0.0-0.4); Lymphocytes Absolute Auto 1.3 X10*3/uL (1.2-4.9); Lymphocytes Percent Auto 17.5 % (20-40); Mean Corpuscular HGB Conc 32.2 g/dl (31.0-36.0); Mean Corpuscular Hemoglobin 31.3 pg (27.0-33.0); Mean Corpuscular Volume 97.2 fL (80.0-98.0); Mean Platelet Volume 10.5 fL (9.4-12.4); Monocytes Absolute Auto 0.6 X10*3/uL (0.1-1.2); Monocytes Percent Auto 8.2 % (2-11); Neutrophils Absolute Auto 4.8 x10*3/uL (2.0-8.3); Neutrophils Percent Auto 67.3 % (45-73); Platelet Count 158 X10*3/uL (160-400); Red Blood Count 3.16 X10*6/uL (4.60-5.80); Red Cell Distribution Width 14.4 % (11.0-16.0); White Blood Count 7.2 X10*3/uL (4.8-10.8)
[2023-05-10 15:05] LABS: Lactic Acid 1.4 mmol/L (0.5-2.0)
[2023-05-10 15:11] LABS: Alanine Aminotransferase 9 U/L (0-40); Alkaline Phosphatase 99 U/L (39-117); Anion Gap 13 (12-20); Aspartate Amino Transferase 13 U/L (5-37); Bilirubin Direct 0.1 mg/dL (0.0-0.5); Bilirubin Total 0.3 mg/dL (0.0-1.0); Blood Urea Nitrogen 25 mg/dL (9-16); Calcium 8.4 mg/dL (8.4-10.2); Carbon Dioxide 28 mmol/L (22-29); Chloride 106 mmol/L (96-108); Creatinine Clr Calc Pharmacy 65.8; Estimated Glomerular Filt Rate 57; Glucose Random 95 mg/dL (60-115); Sodium 143 mmol/L (135-145); Total Protein 5.4 g/dL (6.5-8.0)
[2023-05-10 15:17] LABS: B Type Natriuretic Peptide 193 pg/mL (<100)
--- NOTE | 2023-05-10 15:24 | PC.NURSE ---
pt a&ox3, vss, pt verbalizing 0/10 pain, resting comfortably with the lights dimmed, call ba placed within reach.
--- NOTE | 2023-05-10 15:50 | MHC.CM.ED ---
Received case management consult from Dr Aguero. Patient came to ER due to leg pain/swelling. Work up essentially negative. Dr Aguero feels patient has chronic venous stasis ulcers but no cellulitis. T/W spoke with Robel at [facility] via telephone at [phone]. Robel states patient was [facility] Per Robel, patient has refused to get out of his chair and refused care. Facility provider also concerned that patient at risk for sepsis due to cellulitis. Robel doesn't feel patient can safely return to their facility because they are a non-lift facility and patient is deconditioned. Spoke with patient's guardian/cousin, Eusebia via telephone at [phone]. Eusebia aware physical therapy eval ordered and pending. If short term rehab is recommended, Eusebia agreeable to referral to [facility]. If STR is not recommended, patient can return to [facility] with resumption of care through [facility]. Continue to monitor for d/c needs.
--- NOTE | 2023-05-10 17:52 | PHA.MEDREC ---
Pharmacy Consult ? Medication Reconciliation Pharmacy has completed the medication reconciliation. Patient came with medication list from the [facility]. Asia ArnoldD
--- NOTE | 2023-05-10 17:55 | MHC.CM.ED ---
CM met with patient. Pt tells CM he lives at [facility], has no difficulty walking, does not refused treatments and that the facility lies. He tells CM that his guardian tells him there aren't many rehab beds. According to Guardian, Eusebia Lowery ([phone]) patient has been to [facility] in [place] and she requests a referral there. Agreeable to PT evaluation. CM explained all of this to patient. Patient tells CM that he has been to [facility] 6 times and always stays overnight. States he goes to rehab and then [facility] says he needs more rehab. States he left [facility] last week. According to records, pt was discharged form [facility] on 05/06. Pt has [facility] for wound care at facility. CM explained to patient that he would have a PT evaluation in the morning, and if he passes, then he will return to [facility]. CM following for discharge planning.
[2023-05-10 17:57] LABS: COVID-19 Test Negative (Negative); IDNOW Serial# 08D9AD1C
--- NOTE | 2023-05-10 22:00 | PC.NURSE ---
this rn assumed care of pt at 1900. positioned on L side
--- NOTE | 2023-05-10 22:50 | MHC.EDTECH ---
THIS PCT ASSUMED CARE OF PATIENT AT 2230 ,VITALS SIGN TAKEN ,RN PAGE IS AWARE OF PATIENT HIGH BP ,PATIENT WAS INCONTINENT OF URINE ,BED BATH GIVEN ,PATIENT WAS REPOSITION WITH 2 PILLOW UNDER HIS HEELS ,BOTH OF PATIENT LOWER LEGS ARE MANUEL AND HAS SMALL OPEN AREAS ,PATIENT COCCYX IS RED NO OPEN AREAS ,RN PAGE AWARE ,BLOOD SUGAR CHECK RESULT 109 RN PAGE AWARE ,PATIENT BELONINGS LIST IS DONE,AND CLOTHING IS IN THE WASH ,THIS PCT OFFER PATIENT SNACK OF FLUIDS ,PATIENT REFUSED ,PATIENT IS COMFORTABLE AT THIS TIME WATCHING TELEVISION .
[2023-05-10 23:04] LABS: Glucose, Whole Blood 109 mg/dL (60-115)
--- NOTE | 2023-05-11 02:39 | MHC.EDTECH ---
rounding done ,pt was incontinent of urine ,care given bedding change pt was reposition ,texas cath applied RN Page aware ,patient had a small cartoon of milk for snack ,pt awake watching television in bed .
--- NOTE | 2023-05-11 04:15 | PC.NURSE ---
this rn floated pt legs. rn had dr root take a look at bilateral leg edema and redness. photos taken for chart per md no further orders
--- NOTE | 2023-05-11 04:38 | PC.NURSE ---
pt arrived via stretcher from the Main ED.
[2023-05-11 06:29] LABS: Appearance Urine Clear; Color Urine Yellow; Glucose Urine UA 100 mg/dL (Negative); Leukocyte Esterase Urine Negative (Negative); Nitrite Urine Negative (Negative); PH 7.5 (5.0-9.0); Specific Gravity - Urine 1.015 (1.005-1.025); UMIC TRIGGER UACC YES; Urine Blood Negative (Negative); Urine Ketones Negative (Negative); Urine Protein >=1000 (4+) mg/dL (Neg-Trace)
[2023-05-11 06:34] LABS: Bacteria Urine None Seen (None Seen); Squamous Epithelial Cell Urine 0-2 /HPF (0-2); WBC Urine 0-5 /HPF (0-5)
[2023-05-11 06:41] VITALS: BP 148/90; PULSE 72; TEMP 36.8; O2SAT 98
--- NOTE | 2023-05-11 07:33 | PC.NURSE ---
Resumed care of patient this morning, he is currently sleeping. All needs met at this time. Touched base with provider in regards to POC orders as pt has DM diet, BID POC orders placed.
[2023-05-11 07:39] LABS: Glucose, Whole Blood 92 mg/dL (60-115)
[2023-05-11] MEDS: Aspirin Enteric Coated 81 MG TABLET.DR PO (08:26)
[2023-05-11] MEDS: Multivitamin TABLET 1 TAB PO (08:26)
[2023-05-11] MEDS: lisinopriL 20 MG TABLET PO (08:26)
[2023-05-11] MEDS: NIFEdipine ER 90 MG TAB.ER.24 PO (08:26)
[2023-05-11] MEDS: Metoprolol Tartrate 25 MG TABLET 75 MG PO ×2 (08:26→18:37)
[2023-05-11] MEDS: Cholecalciferol (Vitamin D3) 25 MCG TABLET PO (08:27)
[2023-05-11] MEDS: Sertraline HCL 50 MG TABLET PO (08:27)
[2023-05-11] MEDS: Divalproex Sodium Sprinkles 125 MG CAP.DR.SPR PO ×2 (08:27→20:00)
[2023-05-11] MEDS: oxyBUTYnin chloride ER 5 MG TAB.ER.24 15 MG PO (11:47)
[2023-05-11 14:00] VITALS: BP 163/73; PULSE 72; RESP 20; TEMP 37.1; O2SAT 96
--- NOTE | 2023-05-11 14:15 | MHC.CM.ED ---
Patient remains in ER overflow. Physical therapy eval completed. Short term rehab is recommended. [facility] does not have a bed to offer. Referral broadcasted in [facility] to all facilities within 25 miles that are contracted with patient's insurance. [facility] [place] [facility] only facility that is able to offer a bed. Spoke with Eusebia via telephone at [phone]. Eusebia agreeable to [facility]. [facility] has been asked to go for insurance auth. Continue to monitor for d/c needs.
--- NOTE | 2023-05-11 16:28 | MHC.EDTECH ---
Brought patient a pitcher of ice water and chocolate ice cream.
[2023-05-11 17:41] VITALS: BP 157/81; PULSE 77
[2023-05-11 17:42] VITALS: BP 157/81; PULSE 77
--- NOTE | 2023-05-11 18:12 | MHC.EDTECH ---
Assist patient with his ADL's, changed roman and blankets.
--- NOTE | 2023-05-11 18:41 | PC.NURSE ---
1700 medications not available, pharmacy aware, awaiting them to be brought to unit
[2023-05-11] MEDS: OLANZapine 2.5 MG TABLET PO (20:00)
[2023-05-11] MEDS: Atorvastatin Calcium 40 MG TABLET PO (20:00)
[2023-05-11] MEDS: Melatonin 3 MG TABLET PO (20:00)
[2023-05-11] MEDS: Mirtazapine 7.5 MG TABLET PO (20:00)
--- NOTE | 2023-05-11 20:03 | PC.NURSE ---
assumed care of pt at 1900 - pt resting comfortably in hospital bed. bedtime medications administered. olanzapine and mirtazapine administered late d/t pharmacy loading meds in pyxis late. pt swallowed pills whole with water with no issues. needs met , pt offers no current complaints. call ba within reach. will CTM.
[2023-05-11 20:57] LABS: Glucose, Whole Blood 141 mg/dL (60-115)
[2023-05-12] VITALS (8 sets, daily range): BP systolic 148–200; BP diastolic 75–98; PULSE 57–68; RESP 16–20; TEMP 36.4–36.7; O2SAT 94–96
[2023-05-12 08:30] LABS: Glucose, Whole Blood 88 mg/dL (60-115)
[2023-05-12] MEDS: Multivitamin TABLET 1 TAB PO (08:52)
[2023-05-12] MEDS: NIFEdipine ER 90 MG TAB.ER.24 PO (08:52)
[2023-05-12] MEDS: Cholecalciferol (Vitamin D3) 25 MCG TABLET PO (08:52)
[2023-05-12] MEDS: lisinopriL 20 MG TABLET PO (08:53)
[2023-05-12] MEDS: Sertraline HCL 50 MG TABLET PO (08:53)
[2023-05-12] MEDS: Aspirin Enteric Coated 81 MG TABLET.DR PO (08:53)
[2023-05-12] MEDS: Divalproex Sodium Sprinkles 125 MG CAP.DR.SPR PO ×2 (08:53→20:24)
--- NOTE | 2023-05-12 08:56 | PC.NURSE ---
Patient A&O x2, confused on place. Patient appears comfortable and calm, no complaints at this time. Appears in no distress. Redness to lower extremities ? cellulitis. High fall risk precautions in place, call ba within reach.
[2023-05-12] MEDS: Metoprolol Tartrate 25 MG TABLET 75 MG PO ×2 (09:01→16:55)
--- NOTE | 2023-05-12 09:13 | MHC.EDTECH ---
full bed bath given. pt cleaned and bed linens changed. tex[place] catheter placed. pt sat upright in bed for breakfast. call ba placed within reach
[2023-05-12] MEDS: oxyBUTYnin chloride ER 5 MG TAB.ER.24 15 MG PO (09:21)
[2023-05-12] MEDS: Nystatin Powder 15 GM BOTTLE 1 APPL TOPICAL ×2 (09:21→16:55)
[2023-05-12] MEDS: Mirtazapine 7.5 MG TABLET PO (17:26)
[2023-05-12] MEDS: OLANZapine 2.5 MG TABLET PO (17:28)
[2023-05-12] MEDS: Atorvastatin Calcium 40 MG TABLET PO (20:24)
[2023-05-12] MEDS: Melatonin 3 MG TABLET PO (20:24)
[2023-05-12 21:14] LABS: Glucose, Whole Blood 133 mg/dL (60-115)
[2023-05-13 06:00] VITALS: BP 166/87; PULSE 59; RESP 18; TEMP 36.7; O2SAT 93
[2023-05-13 07:19] LABS: Glucose, Whole Blood 145 mg/dL (60-115)
[2023-05-13] MEDS: lisinopriL 20 MG TABLET PO (08:19)
[2023-05-13] MEDS: Cholecalciferol (Vitamin D3) 25 MCG TABLET PO (08:19)
[2023-05-13] MEDS: NIFEdipine ER 90 MG TAB.ER.24 PO (08:19)
[2023-05-13] MEDS: Multivitamin TABLET 1 TAB PO (08:19)
[2023-05-13] MEDS: Divalproex Sodium Sprinkles 125 MG CAP.DR.SPR PO (08:19)
[2023-05-13] MEDS: Aspirin Enteric Coated 81 MG TABLET.DR PO (08:19)
[2023-05-13] MEDS: Sertraline HCL 50 MG TABLET PO (08:19)
[2023-05-13] MEDS: Nystatin Powder 15 GM BOTTLE 1 APPL TOPICAL (08:20)
[2023-05-13] MEDS: oxyBUTYnin chloride ER 5 MG TAB.ER.24 15 MG PO (08:23)
--- NOTE | 2023-05-13 12:24 | MHC.CM.ED ---
Pt has been accepted to [facility] for a 2pm p/u via Located within [facility]. Pt and next of kin Eusebia aware and in agreement w/plan.
== END 2023-05-13 13:45 | disposition skilled nursing facility (03) ==
PROVIDERS: Emergency Provider Emergency Medicine Emergency Medical Services; PCP Internal Medicine
DX: I83.12 Varicose veins of left lower extremity with inflammation (principal); I83.11 Varicose veins of right lower extremity with inflammation; R60.0 Localized edema; Z20.822 Contact with and (suspected) exposure to COVID-19; I10 Essential (primary) hypertension; E11.9 Type 2 diabetes mellitus without complications; E78.5 Hyperlipidemia, unspecified; Z79.899 Other long term (current) drug therapy
CPT/HCPCS: 36415; 80048; 80076; 81001; 82947; 83605; 83880; 85025; 87040; 87635; 97162; 99285

== ENCOUNTER 2023-07-04 11:24 | Outpatient (REF) | payer MEDICARE, SELFPAY ==
--- NOTE | ~2023-07-04 | MR_ITS ---
EXAMINATION: MR ABDOMEN WITHOUT CONTRAST, NO VENOUS ACCESS BASED ON INFORMATION FROM TECHNOLOGIST CLINICAL INFORMATION: Follow-up renal cell carcinoma status post ablation COMPARISON: Pretreatment CT scan dated 06/27/2022 and report of MRI from [facility] [place] MRI TECHNIQUE: MR abdomen is performed without gadolinium contrast. FINDINGS: LUNG BASES: The visualized lung bases are unremarkable. LIVER, GALLBLADDER, AND BILIARY TREE: The liver is normal in size, smooth in contour, and normal in signal. No focal hepatic lesion or biliary ductal dilatation is present. There is cholelithiasis with multiple small stones in gallbladder neck. 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 KIDNEYS AND URETERS: Left kidney revealed cortical hypodense well-circumscribed 4.0 x 3.6 x 3.1 cm lesion consistent with the appearance of cyst. There are smaller sized cyst seen in the left kidney in medulla Right kidney revealed circumscribed low signal intensity upper pole slightly medially located mass, consistent with known, treated renal cell carcinoma, measured 5.5 x 4.0 x 4.3 cm, slightly heterogeneous and smaller than on CT scan from 06/27/2022, when it was measured 5.5 x 5.3 x 6.0 cm. Due to noncontrast examination residual tumor could not be ruled out completely. There are multiple small high signal intensity lesions in the cortex and medulla consistent with small cysts. GASTROINTESTINAL TRACT: No bowel obstruction. No ascites or fluid collection. ABDOMINAL WALL: No significant hernia is appreciated. LYMPH NODES: No lymphadenopathy. 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 MR/MR abdomen wo con IMPRESSION: 1. Limited study due to lack of intravenous contrast. 2. Slightly heterogeneous low signal intensity mass upper pole right kidney consistent with known, treated renal cell carcinoma, measured 5.5 x 4.0 x 4.3 cm, heterogeneous and smaller than on CT scan from 06/27/2022, when it was measured 5.5 x 5.3 x 6.0 cm. Due to noncontrast examination residual tumor could not be ruled out completely. 3. Bilateral renal cysts. 4. Cholelithiasis with multiple small stones in gallbladder neck. CBD is mildly dilated measuring 0.7 cm with questionable mild choledocholithiasis. Correlate clinically if necessary followed by MRCP/ERCP 5. 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 6. 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
== END 2023-07-04 11:25 | disposition home or self-care (01) ==
LOC: HO.MRI 11:24
PROVIDERS: PCP Internal Medicine; Visit Provider Internal Medicine Medical Oncology
DX: C64.9 Malignant neoplasm of unspecified kidney, except renal pelvis (principal)
CPT/HCPCS: 74181

== ENCOUNTER 2023-12-08 15:10 | Outpatient (AMB) | payer MEDICARE, SELFPAY ==
--- NOTE | 2023-12-08 15:13 | A.OFFVIS_ITS ---
Intake Vital Signs 12/08/23 15:24 Height 5 ft 9 in Weight 184 lb BMI 27.2 BP 156/95 H Blood Pressure Location Lt brachial Position Sitting Pulse 63 Intake Visit Reasons: gallstones Intake Note: Patient is seen in office for evaluation and treatment of gallstones. Pt c/o: denies nausea, vomit, diarrhea, constipation, no abdominal pain, denies any symptoms, had MRI done and was told about the gallstones MRI abd:07/04/23 Or Nurse Manager Required: No Accompanied by: Family/Other Allergies No Known Allergies Allergy (Verified 12/08/23 15:20) Medication List - Last Reconciled 12/08/23 by Zafar Beyer MD acetaminophen 650 mg PO Q6H PRN amiloride 5 mg PO BID aspirin 81 mg PO DAILY atorvastatin 1 tab PO BEDTIME cholecalciferol (vitamin D3) 25 mcg PO DAILY divalproex 125 mg PO BID lisinopril 20 mg PO DAILY melatonin 3 mg PO BEDTIME melatonin 5 mg PO BEDTIME menthol-zinc oxide 0.44-20.6 % (Calmoseptine) 1 appl topical BID@0900,1800 metoprolol tartrate 3 tabs PO BID@0900,1800 mirtazapine 1 tab PO DAILY@1700 multivitamin 1 tab PO DAILY nifedipine ER 1 tab PO DAILY nystatin 1 appl topical BID@0900,1800 olanzapine 2.5 mg PO DAILY@1700 oxybutynin chloride ER 15 mg PO DAILY sertraline 1 tab PO DAILY triamcinolone acetonide 0.1% 1 appl topical BID PRN HPI HPI Comments History of Present Illness Details 73-year-old male patient with a known hi story of renal cell carcinoma presenting today for evaluation of gallstones incidentally noted on an abdominal MRI. The patient denies complaints of abdominal pain, nausea, vomiting, fever, chills, or fatty food intolerance. He has never had any history of colicky abdominal pain especially in the right upper quadrant. He denies changes in the color of his urine or stool. [facility] Medical History Brain aneurysm Obesity Left renal mass Anxiety Depression Venous stasis dermatitis of both lower extremities Dementia MELY (obstructive sleep apnea) HLD (hyperlipidemia) HTN (hypertension) Type 2 diabetes mellitus Family History Mother Dementia Stroke Breast cancer Social History Household Members: Other Household Members Other:: [facility] Housing: Assisted Living Facility Are you a primary health care coordinator to a significant other at home: No Do you presently have visiting nurse or other home services: Yes Unable to assess alcohol history related to: Unknown Alcohol intake: never Patient Tobacco Use Status: Never used Tobacco Advance Directives Date on File: 07/06/22 service: No Current occupational status: retired Review of Systems Const All systems reviewed & are unremarkable except as noted in HPI and below GI Denies abdominal pain, Denies bloating, Denies constipation, Denies diarrhea, Denies nausea and Denies vomiting Physical Exam Vital Signs: Last Vital Signs Pulse 63 12/08/23 15:24 BP 156/95 H 12/08/23 15:24 BMI result Body Mass Index 27.2 Const General: comfortable Nutritional Appearance: well nourished Orientation/consciousness: patient oriented x3 Limitations: wheelchair Eyes Other: No scleral icterus Resp Effort & Inspection: normal respiratory effort GI Other: Negative Orantes sign Inspection: Yes normal to inspection Palpation (GI): Soft to palpation, nontender, no guarding and not rigid Skin Other: Normal skin color, no rash Neuro General: patient oriented x3 Extrem Other: No edema Assessment & Plan Assessment & Plan (1) Gallstones: Code(s): K80.20 - Calculus of gallbladder without cholecystitis without obstruction Plan 73-year-old male patient multiple medical problems presenting after a follow-up MRI after treatment for renal cell carcinoma, found to have incidentally noted gallstones. On further questioning the patient has no ongoing abdominal symptoms to indicate symptomatic cholelithiasis. We discussed the symptoms associated with gallstones and he assured me he would call should the symptoms develop. He should otherwise follow-up as needed. Coding Level of Care Code New Pt Level 4 (22926) Diagnoses Gallstones K80.20
[2023-12-08 15:24] VITALS: BP 156/95; PULSE 63; BMI 27.2
== END 2023-12-08 15:28 | disposition home or self-care (01) ==
PROVIDERS: PCP Internal Medicine; Visit Provider Surgery
DX: K80.20 Calculus of gallbladder without cholecystitis without obstruction (principal)
CPT/HCPCS: 99203

== ENCOUNTER → 2023-12-08 15:10 | Outpatient (BNVA) | payer MEDICARE, SELFPAY | PROVIDERS: PCP Internal Medicine; Visit Provider Surgery | DX: K80.20 Calculus of gallbladder without cholecystitis without obstruction (principal) | CPT/HCPCS: 99202 ==

== ENCOUNTER 2024-01-02 12:19 | Emergency (ER) | payer MEDICARE, SELFPAY ==
--- NOTE | ~2024-01-02 | XR_ITS ---
EXAMINATION: XR CHEST CLINICAL INFORMATION: Altered mental status COMPARISON: Prior chest April 2023 TECHNIQUE: 2 views of the chest were obtained. FINDINGS: No significant abnormality is noted involving the heart, lungs, mediastinum, bony thorax or soft tissues. XR/XR chest 2V IMPRESSION: Unremarkable examination.
[2024-01-02 12:51] VITALS: BP 158/88; PULSE 85; O2SAT 99; BMI 23.6
--- NOTE | 2024-01-02 13:03 | ED.GENADULT ---
HPI - General Adult General Chief complaint: Syncope Stated complaint: SHORT PERIOD OF UNRESPONSIVENESS Time Seen by Provider: 01/02/24 12:57 History of Present Illness HPI narrative: 73 y/o M patient; PMH dementia, HTN, mood disorder, urinary incontinence, bilateral lower extremity venous stasis, MELY not on CPAP, T2DM; presents from assisted living with report of possible syncopal episode. The facility report the patient was found to be more lethargic than baseline when waking up today. He known fall. The patient himself denies any complaints. He states they just over-reacted to an episode . Patient is a poor historian. No report episode of abnormal shaking of extremities, tongue bitting, recent trauma. Four calls placed to [facility] without answer. Unable to obtain collateral history. Related Data Home Medications Medication Instructions Recorded Confirmed aspirin 81 mg tablet,delayed 81 mg PO DAILY 06/27/22 05/10/23 release atorvastatin 40 mg tablet 1 tab PO BEDTIME 06/27/22 12/08/23 melatonin 3 mg tablet 3 mg PO BEDTIME 06/27/22 12/08/23 metoprolol tartrate 25 mg tablet 3 tab PO BID@0900,1800 06/27/22 12/08/23 mirtazapine 7.5 mg tablet 1 tab PO DAILY@1700 06/27/22 12/08/23 nifedipine 90 mg tablet,extended 1 tab PO DAILY 06/27/22 12/08/23 release 24 hr sertraline 50 mg tablet 1 tab PO DAILY 06/27/22 05/10/23 acetaminophen 325 mg tablet 650 mg PO Q6H PRN Pain 08/12/22 12/08/23 divalproex 125 mg capsule,delayed 125 mg PO BID 03/23/23 12/08/23 release sprinkle amiloride 5 mg tablet 5 mg PO BID 05/10/23 05/10/23 cholecalciferol (vitamin D3) 25 25 mcg PO DAILY 05/10/23 05/10/23 mcg (1,000 unit) tablet lisinopril 20 mg tablet 20 mg PO DAILY 05/10/23 12/08/23 melatonin 5 mg tablet 5 mg PO BEDTIME 05/10/23 12/08/23 menthol 0.44 %-zinc oxide 20.6 % 1 appl topical BID@0900,1800 05/10/23 05/10/23 topical ointment (Calmoseptine) multivitamin 1 tab PO DAILY 05/10/23 05/10/23 nystatin 100,000 unit/gram topical 1 appl topical BID@0900,1800 05/10/23 05/10/23 powder olanzapine 2.5 mg tablet 2.5 mg PO DAILY@1700 05/10/23 05/10/23 oxybutynin chloride 15 mg 15 mg PO DAILY 05/10/23 05/10/23 tablet,extended release 24 hr triamcinolone acetonide 0.1 % 1 appl topical BID PRN Rash 05/10/23 12/08/23 topical cream Allergies Allergy/AdvReac Type Severity Reaction Status Date / Time No Known Allergies Allergy Verified 01/02/24 12:51 Review of Systems Review of Systems: Yes all other systems are reviewed and are negative Neurologic: Denies Sensory deficit (Neuro) [facility] Past Medical History Attestation statement: The following information was validated with the patient. Source: old records reviewed Medical History Brain aneurysm Obesity Left renal mass Anxiety Depression Venous stasis dermatitis of both lower extremities Dementia MELY (obstructive sleep apnea) HLD (hyperlipidemia) HTN (hypertension) Type 2 diabetes mellitus Family History Family History Mother Dementia Stroke Breast cancer Social History Social History Household Members: Other Household Members Other:: [facility] Housing: Assisted Living Facility Are you a primary child care team lead to a significant other at home: No Do you presently have visiting nurse or other home services: Yes Unable to assess alcohol history related to: Unknown Alcohol intake: never Patient Tobacco Use Status: Never used Tobacco Smoked in Last 30 Days: No Use of substances other than those prescribed or required for medical reasons: No Advance Directives: Yes Advance Directives on File: Yes Advance Directives Date on File: 07/06/22 service: No Current occupational status: retired Physical Exam ED Vital Signs: Vital Signs - 24 hr 01/02/24 13:16 01/02/24 13:16 01/02/24 15:24 Temperature 98.0 F Pulse Rate 53 Respiratory Rate 16 18 Blood Pressure 134/76 Pulse Oximetry 97 97 Oxygen Delivery Method Room Air Room Air BMI result Body Mass Index 23.6 Patient is afebrile and hemodynamically stable. Const General: cooperative Orientation/consciousness: oriented to person and oriented to place HENNJ Head: Yes atraumatic Eyes General: appearance normal, both eyes and all related structures Pupils: Equal, round and reactive pupils present Neck Neck: Yes normal visual inspection, Yes full ROM, Yes supple and No tender Chest Chest palpation & inspection: normal inspection of the chest and normal palpation of entire chest wall Resp Effort & Inspection: normal respiratory effort, able to speak in complete sentences, no cough and no respiratory distress Auscultation: clear to auscultation bilaterally Cardio Rate: regular rate Rhythm: regular rhythm Peripheral pulses: Peripheral pulses 2+ throughout GI Inspection: Yes normal to inspection, No Abdominal wall edema and No distended Palpation (GI): Soft to palpation, not firm, nontender, no guarding and not rigid Auscultation: normal bowel sounds Neuro General: oriented to person, oriented to place and moves all extremities Cranial nerves: Yes CN's II-XII intact bilaterally, Yes Equal, round and reactive pupils present and Yes Bilaterally intact EOM present Motor exam (neuro): 5/5 motor strength present throughout Sensory Exam: No Sensory deficit (Neuro) Extrem Other: Bilateral venous stasis changes Course Course Course Narrative: Patient is afebrile and hemodynamically stable. Will obtain basic studies with: EKG, CXR, and basic labs. Reevaluation(s) Reevaluation #1: CXR unremarkable. Labs reviewed. Baseline mild anemia. Remainder of labs otherwise at baseline. COVID/Flu/RSV negative. Patient continues to decline acute complaints. Plan: Discharge to home with PCP follow up Return precautions given Medical Decision Making Lab Data 01/02/24 16:30 01/02/24 16:30 Labs: Lab Results 01/02/24 01/02/24 Range/Units 14:16 16:30 WBC 7.9 (4.8-10.8) X10*3/uL RBC 3.38 L (4.60-5.80) X10*6/uL Hgb 10.9 L (14.0-18.0) g/dl Hct 32.9 L (42.0-52.0) % MCV 97.3 (80.0-98.0) fL MCH 32.2 (27.0-33.0) pg MCHC 33.1 (31.0-36.0) g/dl RDW 12.4 (11.0-16.0) % Plt Count 175 (160-400) X10*3/uL MPV 10.4 (9.4-12.4) fL Immature Gran % (Auto) 0.6 H (0.0-0.4) % Neut % (Auto) 74.5 H (45-73) % Lymph % (Auto) 10.9 L (20-40) % [place] % (Auto) 9.0 (2-11) % Eos % (Auto) 4.6 H (0-4) % Baso % (Auto) 0.4 (0-2) % Lymph # (Auto) 0.9 L (1.2-4.9) X10*3/uL [place] # (Auto) 0.7 (0.1-1.2) X10*3/uL Eos # (Auto) 0.4 (0.0-0.4) X10*3/uL Baso # (Auto) 0.0 (0.0-0.2) X10*3/uL Abs Immat Gran (auto) 0.05 H (0.00-0.03) X10*3/uL Absolute Neuts (auto) 5.9 (2.0-8.3) x10*3/uL Absolute Nucleated RBC 0.000 (0.0-0.012) X10*3/uL Nucleated RBC % (auto) 0.0 (0.0-0.2) /100WBC Sodium 140 (135-145) mmol/L Potassium 4.6 (3.3-5.1) mmol/L Chloride 104 (96-108) mmol/L Carbon Dioxide 27 (22-29) mmol/L Anion Gap 14 (12-20) BUN 26 H (9-16) mg/dL Creatinine 1.38 (0.5-1.4) mg/dL Estim Creat Clear Calc 46.2 Estimated GFR 50 Random Glucose 95 (60-115) mg/dL Calcium 9.0 (8.4-10.2) mg/dL Total Bilirubin 0.3 (0.0-1.0) mg/dL Direct Bilirubin 0.2 (0.0-0.5) mg/dL AST 15 (5-37) U/L ALT 10 (0-40) U/L Alkaline Phosphatase 84 (39-117) U/L Total Protein 6.0 L (6.5-8.0) g/dL Albumin 3.2 L (3.5-5.0) g/dL Lipase 12 (8-78) U/L Influenza Type A (PCR) NEGATIVE (Negative) Influenza Type B (PCR) NEGATIVE (Negative) RSV RNA Qual (PCR) NEGATIVE (Negative) SARS-CoV-2 RNA (RT-PCR) NEGATIVE (Negative) Independent Interpretation I performed an independent interpretation of an: EKG Interpretation: NSR 57BPM without ischemic changes Radiology Impression Discussion of test interpretation with radiology: I have reviewed the radiologist's reading. Radiologist Impression: EXAMINATION: XR CHEST CLINICAL INFORMATION: Altered mental status COMPARISON: Prior chest April 2023 TECHNIQUE: 2 views of the chest were obtained. FINDINGS: No significant abnormality is noted involving the heart, lungs, mediastinum, bony thorax or soft tissues. XR/XR chest 2V IMPRESSION: Unremarkable examination. Discharge Plan Discharge Clinical Impression: Complaint of debility and malaise Patient Disposition: Home, Self-Care Instructions: Fatigue (ED) Additional Instructions: As we discussed, you were seen today with concern for malaise. Your EKG, CXR, and laboratory studies were at your baseline and reassuring. Recommend you follow up with your PCP within 2 - 3 days for re-evaluation. Return to the emergency department for: fever, passing out, chest pain, difficulty breathing. Prescriptions: No Action atorvastatin 40 mg tablet 1 tab PO BEDTIME nifedipine 90 mg tablet extended release 24hr 1 tab PO DAILY sertraline 50 mg tablet 1 tab PO DAILY metoprolol tartrate 25 mg tablet 3 tab PO BID@0900,1800 mirtazapine 7.5 mg tablet 1 tab PO DAILY@1700 melatonin 3 mg Tablet 3 mg PO BEDTIME Rx Instructions: total dose 8 mg aspirin 81 mg Tablet,Delayed Release (Dr/Ec) 81 mg PO DAILY acetaminophen 325 mg Tablet 650 mg PO Q6H PRN (Reason: Pain) divalproex 125 mg capsule, delayed rel sprinkle 125 mg PO BID multivitamin Tablet 1 tab PO DAILY oxybutynin chloride 15 mg tablet extended release 24hr 15 mg PO DAILY lisinopril 20 mg Tablet 20 mg PO DAILY olanzapine 2.5 mg tablet 2.5 mg PO DAILY@1700 amiloride 5 mg Tablet 5 mg PO BID cholecalciferol (vitamin D3) 25 mcg (1,000 unit) Tablet 25 mcg PO DAILY melatonin 5 mg Tablet 5 mg PO BEDTIME Rx Instructions: total dose 8 mg triamcinolone acetonide 0.1 % Cream 1 appl TOPICAL BID PRN (Reason: Rash) nystatin 100,000 unit/gram Powder 1 appl TOPICAL BID@0900,1800 menthol-zinc oxide [Calmoseptine] 0.44-20.6 % Ointment 1 appl TOPICAL BID@0900,1800
--- NOTE | 2024-01-02 13:06 | ECG_ITS ---
Test Reason : SYNCOPE Blood Pressure : / mmHG Vent. Rate : 057 BPM Atrial Rate : 057 BPM P-R Int : 178 ms QRS Dur : 086 ms QT Int : 470 ms P-R-T Axes : 024 -04 069 degrees QTc Int : 457 ms Sinus bradycardia Nonspecific T wave abnormality Borderline ECG When compared with ECG of 18-APR-2023 16:11, No significant change was found Referred By: Masha Jolley Electronically Signed By:MARGARETH CORONA
[2024-01-02 13:16] VITALS: BP 134/76; PULSE 53; RESP 16; TEMP 36.7; O2SAT 97
--- NOTE | 2024-01-02 13:30 | PC.NURSE ---
xray completed at this time.
--- NOTE | 2024-01-02 14:16 | PC.NURSE ---
pt refusing lab work/ekg to be performed. dr. boykin notified/aware.
[2024-01-02 15:24] VITALS: RESP 18
--- NOTE | 2024-01-02 15:25 | PC.NURSE ---
Patient continues to refuses cardiac monitoring and BP. EKG obtained.
[2024-01-02 15:46] LABS: Influenza A PCR NEGATIVE (Negative); Influenza B PCR NEGATIVE (Negative); Resp Syncy Virus RNA Qual PCR NEGATIVE (Negative); SARS COV2 PCR INHOUSE NEGATIVE (Negative)
[2024-01-02 16:41] LABS: MANUAL DIFF FLAG NO
[2024-01-02 16:42] LABS: Basophils Percent Auto 0.4 % (0-2); Eosinophils Absolute Auto 0.4 X10*3/uL (0.0-0.4); Eosinophils Percent Auto 4.6 % (0-4); Hematocrit 32.9 % (42.0-52.0); Hemoglobin 10.9 g/dl (14.0-18.0); Imm Gran Abs Auto 0.05 X10*3/uL (0.00-0.03); Imm Gran Pct Auto 0.6 % (0.0-0.4); Lymphocytes Absolute Auto 0.9 X10*3/uL (1.2-4.9); Lymphocytes Percent Auto 10.9 % (20-40); Mean Corpuscular HGB Conc 33.1 g/dl (31.0-36.0); Mean Corpuscular Hemoglobin 32.2 pg (27.0-33.0); Mean Corpuscular Volume 97.3 fL (80.0-98.0); Mean Platelet Volume 10.4 fL (9.4-12.4); Monocytes Absolute Auto 0.7 X10*3/uL (0.1-1.2); Neutrophils Absolute Auto 5.9 x10*3/uL (2.0-8.3); Neutrophils Percent Auto 74.5 % (45-73); Platelet Count 175 X10*3/uL (160-400); Red Blood Count 3.38 X10*6/uL (4.60-5.80); Red Cell Distribution Width 12.4 % (11.0-16.0); White Blood Count 7.9 X10*3/uL (4.8-10.8)
[2024-01-02 16:56] LABS: Alanine Aminotransferase 10 U/L (0-40); Albumin Level 3.2 g/dL (3.5-5.0); Alkaline Phosphatase 84 U/L (39-117); Anion Gap 14 (12-20); Aspartate Amino Transferase 15 U/L (5-37); Bilirubin Direct 0.2 mg/dL (0.0-0.5); Bilirubin Total 0.3 mg/dL (0.0-1.0); Blood Urea Nitrogen 26 mg/dL (9-16); Carbon Dioxide 27 mmol/L (22-29); Chloride 104 mmol/L (96-108); Creatinine Clr Calc Pharmacy 46.2; Estimated Glomerular Filt Rate 50; Glucose Random 95 mg/dL (60-115); Lipase 12 U/L (8-78); Potassium 4.6 mmol/L (3.3-5.1); Sodium 140 mmol/L (135-145)
--- NOTE | 2024-01-02 18:06 | PC.NURSE ---
Addendum entered by Areli Brambila 01/02/24 18:07: No answer Original Note: Called Kimberly mckeon to give report.
[2024-01-02 19:18] VITALS: BP 0/0; PULSE 0; RESP 18; TEMP -17.7; TEMP 0
== END 2024-01-02 19:20 | disposition home or self-care (01) ==
PROVIDERS: Emergency Provider Emergency Medicine
DX: R53.81 Other malaise (principal); I10 Essential (primary) hypertension; E11.9 Type 2 diabetes mellitus without complications; G47.33 Obstructive sleep apnea (adult) (pediatric); F03.90 Unspecified dementia, unspecified severity, without behavioral disturbance, psychotic disturbance, mood disturbance, and anxiety; Z11.52 Encounter for screening for COVID-19; Z20.828 Contact with and (suspected) exposure to other viral communicable diseases
CPT/HCPCS: 0241U; 71046; 80048; 80076; 83690; 85025; 93005; 99283; 99285

== ENCOUNTER → 2024-01-02 13:06 | Outpatient (BNV) | payer MEDICARE, SELFPAY | PROVIDERS: Emergency Provider Emergency Medicine; Visit Provider Internal Medicine | DX: R55 Syncope and collapse (principal) | CPT/HCPCS: 93010 ==

== ENCOUNTER 2024-06-22 09:18 | Outpatient (REF) | payer MEDICARE, SELFPAY ==
--- NOTE | ~2024-06-22 | MR_ITS ---
EXAMINATION: MR ABDOMEN WITHOUT AND WITH CONTRAST CLINICAL INFORMATION: Renal cell carcinoma, pancreatic mass COMPARISON: MRI abdomen 07/04/2023 TECHNIQUE: MRI of the abdomen before and after the IV administration of 8.5 mL of Gadavist was obtained using routine sequences. FINDINGS: Motion degraded exam limiting evaluation. LUNG BASES: The visualized lung bases are unremarkable. KIDNEYS AND URETERS: Bosniak 1 renal cysts, no follow-up imaging recommended. Again seen are post treatment changes of right upper pole renal cryoablation with T2 hypointense soft tissue with some intrinsic T1 bright components suggesting protein or hemorrhage without definite discernible enhancement appreciated within the limitations of motion to suggest recurrent disease, measuring 4 cm, previously 4.6 cm. GALLBLADDER: Cholelithiasis without evidence of acute cholecystitis. LIVER AND BILIARY TREE: The liver is normal in signal and morphology. PANCREAS: Pancreas is atrophic. A 4 mm cyst in the pancreatic tail, previously 0 6 mm. A second previously seen pancreatic body cyst measuring 4 mm, previously 5 mm not increased in size. No pancreatic duct dilatation or solid components. SPLEEN: Unremarkable ADRENAL GLANDS: Unremarkable GASTROINTESTINAL TRACT: Colonic diverticulosis without evidence of diverticulitis. Small hiatal hernia. LYMPH NODES: No lymphadenopathy. VASCULAR: Unremarkable ABDOMINAL WALL: Unremarkable. OSSEOUS STRUCTURES: Again seen are stable T2 bright lesions in the lumbar spine which may reflect hemangiomas and/ or focal fat. MR/MR abdomen wo/w con IMPRESSION: Motion degraded exam limiting evaluation. Posttreatment changes of right upper pole renal cryoablation again seen without definite findings to suggest residual or recurrent disease within limitations. Few small pancreatic cysts measuring up to 4 mm without high-risk stigmata. Recommend continued attention on follow-up imaging. Cholelithiasis without evidence of acute cholecystitis. Electronically signed by: Hedy Hercules MD 07/09/2024 03:54 PM EDT
[2024-06-22] MEDS: gadobutroL 10 ML VIAL IVPUSH (11:21)
== END 2024-06-22 09:19 | disposition home or self-care (01) ==
LOC: HO.MRI 09:18
PROVIDERS: Visit Provider Internal Medicine Medical Oncology
DX: C64.9 Malignant neoplasm of unspecified kidney, except renal pelvis (principal)
CPT/HCPCS: 74183; A9585